=== PATIENT | female | born 1940 | race Caucasian/White ===

== ENCOUNTER 2017-10-17 12:23 | Inpatient (IN) | payer MEDICARE ==
[~2017-10-17] VITALS: Ht 160 cm; Wt 92.3 kg
[2017-10-17] VITALS (13 sets, daily range): BP systolic 135–157; BP diastolic 63–99
[~2017-10-17 12:23] MED LIST: ACHD5005 PO; ATOR40TA70 PO; CETI10CA PO; CHOL10002 PO; COLE1TAB PO; CYAN10007 PO; FAMO20TA5 PO; FAMO20TA73 PO; FLUC150T PO; HYDR50TA3 PO; INSU100I10 SC; INSU100V6 SQ; LISI40TA PO; MECL-105 PO; METF-380 PO; METF1000 PO; NFAMINITAB PO; POTA10TA36 PO; POTA20TA15 PO; Prednisone PO; SOLI5TAB4 PO; TR1C15 TOP; UBID200C2 PO; VITA400T9 PO; WARF2.5T PO; WARF2.5T10 PO
[2017-10-17] MEDS ORDERED: DILTIAZEM INJECTION 125 MG in NS (IVPB) 100 ML IV SCH (12:45)
[2017-10-17] MEDS ORDERED: ACETAMINOPHEN 500 MG TAB (TYLENOL) PO PRN (12:45)
[2017-10-17] MEDS ORDERED: HYDROcodone/APAP 5 MG/325 MG (LORTAB) TAB PO PRN (12:45)
[2017-10-17] MEDS ORDERED: PROMETHAZINE INJ 25 MG/ML (PHENERGAN) AMP IM PRN (12:45)
[2017-10-17] MEDS ORDERED: LACTULOSE SYRUP 10GM/15ML (ENULOSE) 30ML UDC PO PRN (12:45)
[2017-10-17] MEDS ORDERED: PROMETHAZINE 12.5 MG (PHENERGAN) SUPP PR PRN (12:45)
[2017-10-17] MEDS ORDERED: SCOPOLAMINE 1.5 MG (TRANSDERM-SCOP) PATCH TOP SCH (13:00)
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
--- OUTSIDE RECORDS SUMMARY | 2017-10-17 13:53 | XMS REPORT | Continuity of Care Document ---
Author Author [facility] Organization [facility] Address Unknown Phone Unavailable Allergies Active Description Code Type Severity Reaction Onset Reported/Identified Relationship to Patient Clinical Status Yes adhesive [id number] Drug Allergy Unknown N/A 11/09/2014 Yes codeine [id number] Drug Allergy Unknown N/V 11/09/2014 Yes Iodine and Iodide Containing Produc [id number] Drug Allergy Unknown ANAPHYLAXIS, RA 11/09/2014 Yes PERFUME PERFUME Unknown N/A 11/09/2014 Yes Sulfa (Sulfonamide Antibiotics) [id number] Drug Allergy Unknown NAUSEA AND VOMI 11/09/2014 Yes tramadol [id number] Drug Allergy Unknown NAUSEA AND VOMI 11/09/2014 Medications There is no data. Problems Date Dx Coded Attending Type Code Diagnosis Diagnosed By 11/09/2014 Ot V76.12 11/09/2014 Ot V76.12 11/16/2014 TRUONG DO, DREW F Ot 715.36 11/16/2014 TRUONG DO, DREW F Ot V72.63 11/16/2014 TRUONG DO, DREW F Ot V72.83 11/16/2014 TRUONG DO, DREW F Ot V74.8 11/16/2014 TRUONG DO, DREW F Ot 715.36 11/16/2014 TRUONG DO, DREW F Ot V72.63 11/16/2014 TRUONG DO, DREW F Ot V72.83 11/16/2014 TRUONG DO, DREW F Ot V74.8 11/16/2014 TRUONG DO, DREW F Ot 715.36 11/16/2014 TRUONG DO, DREW F Ot V72.63 11/16/2014 TRUONG DO, DREW F Ot V72.83 11/16/2014 TRUONG DO, DREW F Ot V74.8 11/24/2014 TRUONG DO, DREW F Ot 250.00 11/24/2014 TRUONG DO, DREW F Ot 272.0 11/24/2014 TRUONG DO, DREW F Ot 401.9 11/24/2014 TRUONG DO, DREW F Ot 530.81 11/24/2014 TRUONG DO, DREW F Ot 571.5 11/24/2014 TRUONG DO, DREW F Ot 715.36 11/25/2014 TRUONG DO, DREW F Ot 250.00 11/25/2014 TRUONG DO, DREW F Ot 272.0 11/25/2014 TRUONG DO, DREW F Ot 401.9 11/25/2014 TRUONG DO, DREW F Ot 530.81 11/25/2014 TRUONG DO, DREW F Ot 571.5 11/25/2014 TRUONG DO, DREW F Ot 715.36 11/29/2014 TRUONG DO, DREW F Ot 250.00 DIAB BRO WO COMPL, TYPE II OR UNSPEC TY 11/29/2014 TRUONG DO, DREW F Ot 272.0 PURE HYPERCHOLESTEROLEM 11/29/2014 TRUONG DO, DREW F Ot 285.1 AC POSTHEMORRHAG ANEMIA 11/29/2014 TRUONG DO, DREW F Ot 386.11 BENIGN PARXYSMAL VERTIGO 11/29/2014 TRUONG DO DREW F Ot 401.9 HYPERTENSION NOS 11/29/2014 TRUONG DO, DREW F Ot 530.81 ESOPHAGEAL REFLUX 11/29/2014 TRUONG DO, DREW F Ot 571.5 CIRRHOSIS OF LIVER NOS 11/29/2014 TRUONG DO, DREW F Ot 715.36 LOC OSTEOARTH NOS-L/LEG 11/29/2014 TRUONG DO DREW F Ot 729.1 MYALGIA AND MYOSITIS NOS 11/29/2014 TRUONG DO DREW F Ot 780.4 11/29/2014 TRUONG DO DREW F Ot 782.4 JAUNDICE NOS 11/29/2014 TRUONG DO, DREW F Ot 787.02 NAUSEA ALONE 11/29/2014 TRUONG DO DREW F Ot V58.67 LONG-TERM (CURRENT) USE OF INSULIN 11/29/2014 Ot V76.12 11/29/2014 TRUONG DO, DREW F Ot 250.00 11/29/2014 TRUONG DO, DREW F Ot 272.0 11/29/2014 TRUONG DO, DREW F Ot 285.1 11/29/2014 TRUONG DO, DREW F Ot 401.9 11/29/2014 TRUONG DO, DREW F Ot 530.81 11/29/2014 TRUONG DO, DREW F Ot 571.5 11/29/2014 TRUONG DO, DREW F Ot 715.36 11/29/2014 TRUONG DO, DREW F Ot 729.1 11/29/2014 TRUONG DO, DREW F Ot 780.4 11/29/2014 TRUONG DO, DREW F Ot 787.02 11/29/2014 TRUONG DO, DREW F Ot V58.67 11/29/2014 TRUONG DO, DREW F Ot 715.36 11/29/2014 TRUONG DO, DREW F Ot V72.63 11/29/2014 TRUONG DO, DREW F Ot V72.83 11/29/2014 TRUONG DO, DREW Gunter Ot V74.8 12/01/2014 SAMMY MCWILLIAMS, CLARK E Ot 250.00 12/01/2014 SAMMY MCWILLIAMS, CLARK E Ot 272.0 12/01/2014 SAMMY MCWILLIAMS, CLARK E Ot 285.9 12/01/2014 SAMMY MCWILLIAMS, CLARK E Ot 401.9 12/01/2014 SAMMY MCWILLIAMS, CLARK E Ot 530.81 12/01/2014 SAMMY MCWILLIAMS, CLARK E Ot 729.1 12/01/2014 SAMMY MCWILLIAMS, CLARK E Ot V43.65 12/01/2014 SAMMY MCWILLIAMS, CLARK E Ot V54.81 12/01/2014 SAMMY MCWILLIAMS, CLARK E Ot V57.89 12/01/2014 SAMMY MCWILLIAMS, CLARK E Ot 250.00 12/01/2014 SAMMY MCWILLIAMS, CLARK E Ot 272.0 12/01/2014 SAMMY MCWILLIAMS, CLARK E Ot 285.9 12/01/2014 SAMMY MCWILLIAMS, CLARK E Ot 401.9 12/01/2014 SAMMY MCWILLIAMS, CLARK E Ot 530.81 12/01/2014 SAMMY MCWILLIAMS, CLARK E Ot 729.1 12/01/2014 SAMMY MCWILLIAMS, CLARK E Ot V43.65 12/01/2014 SAMMY MCWILLIAMS, CLARK E Ot V54.81 12/01/2014 SAMMY MCWILLIAMS, CLARK E Ot V57.89 12/03/2014 SAMMY MCWILLIAMS, CLARK E Ot 250.00 12/03/2014 SAMMY MCWILLIAMS, CLARK E Ot 272.0 12/03/2014 SAMMY MCWILLIAMS, CLARK E Ot 285.9 12/03/2014 SAMMY MCWILLIAMS, CLARK E Ot 401.9 12/03/2014 SAMMY MCWILLIAMS, CLARK E Ot 530.81 12/03/2014 CLARK CHRISTIANSON MD Ot 729.1 12/03/2014 CLARK CHRISTIANSON MD Ot V43.65 12/03/2014 CLARK CHRISTIANSON MD Ot V54.81 12/03/2014 CLARK CHRISTIANSON MD Ot V57.89 12/04/2014 CLARK CHRISTIANSON MD E Ot 250.00 DIAB BRO WO COMPL, TYPE II OR UNSPEC TY 12/04/2014 CLARK CHRISTIANSON MD Ot 272.0 PURE HYPERCHOLESTEROLEM 12/04/2014 CLARK CHRISTIANSON MD E Ot 285.9 ANEMIA NOS 12/04/2014 CLARK CHRISTIANSON MD E Ot 401.9 HYPERTENSION NOS 12/04/2014 CLARK CHRISTIANSON MD Ot 530.81 ESOPHAGEAL REFLUX 12/04/2014 CLARK CHRISTIANSON MD Ot 729.1 MYALGIA AND MYOSITIS NOS 12/04/2014 CLARK CHRISTIANSON MD Ot 736.79 ACQ ANKLE-FOOT DEF NEC 12/04/2014 CLARK CHRISTIANSON MD Ot E932.0 ADV EFF CORTICOSTEROIDS 12/04/2014 CLARK CHRISTIANSON MD Ot V43.65 KNEE JOINT REPLACEMENT STATUS 12/04/2014 CLARK CHRISTIANSON MD Ot V54.81 AFTERCARE FOLLOWING JOINT REPLACEMENT 12/04/2014 CLARK CHRISTIANSON MD Ot V57.89 REHABILITATION PROC NEC 12/14/2014 TRUONG DO, DREW F Ot 715.36 12/14/2014 TRUONG DO, DREW F Ot V72.63 12/14/2014 TRUONG DO, DREW F Ot V72.83 12/14/2014 TRUONG DO, DREW F Ot V74.8 12/24/2014 TRUONG DO, DREW F Ot 715.36 12/24/2014 TRUONG DO, DREW F Ot V72.63 12/24/2014 TRUONG DO, DREW F Ot V72.83 12/24/2014 TRUONG DO, DREW F Ot V74.8 01/13/2015 TRUONG DO, DREW F Ot 715.36 01/13/2015 TRUONG DO, DREW F Ot V72.63 01/13/2015 TRUONG DO, DREW F Ot V72.83 01/13/2015 TRUONG DO, DREW F Ot V74.8 01/20/2015 TRUONG DO, DREW F Ot 715.36 01/20/2015 TRUONG DO, DREW F Ot V72.63 01/20/2015 TRUONG DO, DREW Gunter Ot V72.83 01/20/2015 TRUONG DO, DREW Gunter Ot V74.8 01/21/2015 TRUONG DO, DREW Gunter Ot 715.36 01/21/2015 TRUONG DO, DREW Gunter Ot V72.63 01/21/2015 TRUONG DO, DREW Gunter Ot V72.83 01/21/2015 TRUONG DO, DREW Gunter Ot V74.8 03/11/2016 TRUONG DO, DREW Gunter Ot 715.36 LOC OSTEOARTH NOS-L/LEG 03/11/2016 TRUONG DO, DREW Gunter Ot V72.63 PRE-PROCEDURAL LABORATORY EXAMINATION 03/11/2016 TRUONG DO, DREW Gunter Ot V72.83 EXAM PRE-OPERATIVE NEC 03/11/2016 TRUONG DO, DREW Gunter Ot V74.8 SCREEN-BACTERIAL DIS NEC 09/04/2017 TRUONG DO, DREW Gunter Ot 715.36 LOC OSTEOARTH NOS-L/LEG 09/04/2017 TRUONG DO, DREW Gunter Ot V72.63 PRE-PROCEDURAL LABORATORY EXAMINATION 09/04/2017 TRUONG DO, DREW Gunter Ot V72.83 EXAM PRE-OPERATIVE NEC 09/04/2017 TRUONG DO, DREW Gunter Ot V74.8 SCREEN-BACTERIAL DIS NEC 09/05/2017 TRUONG DO, DREW Gunter Ot 715.36 LOC OSTEOARTH NOS-L/LEG 09/05/2017 TRUONG DO, DREW Gunter Ot V72.63 PRE-PROCEDURAL LABORATORY EXAMINATION 09/05/2017 TRUONG DO, DREW Gunter Ot V72.83 EXAM PRE-OPERATIVE NEC 09/05/2017 TRUONG DO, DREW Gunter Ot V74.8 SCREEN-BACTERIAL DIS NEC Procedures Code Description Performed By Performed On 81.54 TOTAL KNEE REPLACEMENT 11/23/2014 Results There is no data. Encounters ACCT No. Visit Date/Time Discharge Status Pt. Type Provider Facility Loc./Unit Complaint [id number] 11/29/2014 14:53:00 12/04/2014 11:30:00 DIS Inpatient CLARK CHRISTIANSON MD [facility] IRF IRF TOTAL KNEE REPLACEMENT [id number] 11/23/2014 05:58:00 11/29/2014 14:53:00 DIS Inpatient TRUONG ROSAS DREW Gunter [facility] SURGICAL DEGENERATIVE DISK DISEASE RIGHT KNEE [id number] 11/09/2014 11:46:00 11/09/2014 23:59:59 CLS Outpatient DREW GUERIN DO [facility] PREOP DEGENERATIVE DISK DISEASE RIGHT KNEE [id number] 10/17/2017 13:30:00 ACT Inpatient MOY LOGAN DO [facility] ICU AFIB WITH RVR [id number] 06/20/2009 13:23:00 Document Registration
[2017-10-17 14:31] LABS: BASOPHILS % (AUTO) 0 % (0-10); EOSINOPHILS # (AUTO) 0.1 10^3/uL (0.0-0.3); EOSINOPHILS % (AUTO) 1 % (0-10); HEMATOCRIT 31 % (35-52); HEMOGLOBIN 10.8 G/DL (11.5-16.0); LYMPHOCYTES # (AUTO) 0.9 X 10^3 (1.0-4.0); LYMPHOCYTES % (AUTO) 8 % (12-44); MEAN CORPUSCULAR HEMOGLOBIN 29 PG (25-34); MEAN CORPUSCULAR HGB CONC 35 G/DL (32-36); MEAN CORPUSCULAR VOLUME 83 FL (80-99); MEAN PLATELET VOLUME 10.1 FL (7.4-10.4); MONOCYTES # (AUTO) 1.1 X 10^3 (0.0-1.0); MONOCYTES % (AUTO) 10 % (0-12); NEUTROPHILS % (AUTO) 81 % (42-75); PLATELET COUNT 207 10^3/uL (130-400); RED BLOOD COUNT 3.78 10^6/uL (4.35-5.85); RED CELL DISTRIBUTION WIDTH 13.5 % (10.0-14.5)
[2017-10-17] MEDS ORDERED: RT-ALBUTEROL/IPRATROPIUM 3 ML (DUONEB) VIAL INH PRN (14:45)
[2017-10-17 14:54] LABS: ALANINE AMINOTRANSFERASE 17 U/L (0-55); ALBUMIN 3.3 GM/DL (3.2-4.5); ALKALINE PHOSPHATASE 52 U/L (40-136); BILIRUBIN,TOTAL 1.5 MG/DL (0.1-1.0); BUN/CREATININE RATIO 17; CALCIUM 9.3 MG/DL (8.5-10.1); CARBON DIOXIDE 32 MMOL/L (21-32); CHLORIDE 95 MMOL/L (98-107); CREATININE SERUM 0.71 MG/DL (0.60-1.30); GFR ESTIMATED > 60; GLUCOSE 223 MG/DL (70-105); POTASSIUM 3.5 MMOL/L (3.6-5.0); SODIUM 134 MMOL/L (135-145); TOTAL PROTEIN 6.2 GM/DL (6.4-8.2)
[2017-10-17 14:58] LABS: LYMPHOCYTES % (MANUAL) 4 %; MONOCYTES % (MANUAL) 9 %; NEUTROPHILS % (MANUAL) 87 %
[2017-10-17 14:59] LABS: RBC MORPH NORMAL
[2017-10-17] MEDS ORDERED: HYDR50TA3 PO (15:01)
[2017-10-17] MEDS ORDERED: LIRA0.6P SC (15:01)
[2017-10-17] MEDS ORDERED: FAMO20TA5 PO (15:01)
[2017-10-17] MEDS ORDERED: METF1000 PO (15:01)
[2017-10-17] MEDS ORDERED: HYDR-3816 PO (15:01)
[2017-10-17] MEDS ORDERED: NF-SOLIF5T PO (15:01)
[2017-10-17] MEDS ORDERED: LISI40TA PO (15:01)
[2017-10-17] MEDS ORDERED: INSU100I10 SC (15:01)
[2017-10-17] MEDS ORDERED: MECL-106 PO (15:11)
[2017-10-17] MEDS ORDERED: CHOL10007 PO (15:11)
[2017-10-17] MEDS ORDERED: COLE1TAB PO (15:11)
[2017-10-17] MEDS ORDERED: CYAN10006 PO (15:11)
[2017-10-17] MEDS ORDERED: CETI10TA17 PO (15:11)
[2017-10-17] MEDS ORDERED: VITA400C60 PO (15:11)
[2017-10-17] MEDS ORDERED: UBID200C16 PO (15:11)
[2017-10-17] MEDS ORDERED: VIT1CAPS9 PO (15:11)
[2017-10-17] MEDS ORDERED: ATOR40TA70 PO (15:11)
[2017-10-17] MEDS: NS IV 1000 ML 1,000 ML IV SCH (15:13)
--- NOTE | 2017-10-17 15:15 | Pulmonary Consultation ---
History of Present Illness History of Present Illness Date of Consultation 10/17/17 15:14 Time Seen by Provider: 15:14 Date of Admission Allergies and Home Medications Allergies Coded Allergies: Iodine and Iodide Containing Produc (Verified Allergy, Unknown, ANAPHYLAXIS, RASH, 11/09/14) Sulfa (Sulfonamide Antibiotics) (Unverified Allergy, Unknown, NAUSEA AND VOMITING, 11/09/14) adhesive (Unverified Allergy, Unknown, 11/09/14) codeine (Unverified Allergy, Unknown, N/V , 11/09/14) tramadol (Unverified Allergy, Unknown, NAUSEA AND VOMITING, 11/09/14) Uncoded Allergies: PERFUME (Allergy, Unknown, 11/09/14) Home Medications Atorvastatin Calcium 40 Mg Tablet, 40 MG PO HS, (Reported) LAST FILLED #90 05-21-17 Cetirizine HCl 10 Mg Tablet, 10 MG PO DAILY PRN for ALLERGIES, (Reported) Cholecalciferol (Vitamin D3) 1,000 Unit Capsule, 1,000 UNIT PO DAILY, (Reported) Colestipol HCl 1 Gm Tablet, 1 GM PO QID PRN for DIARRHEA, (Reported) Cyanocobalamin (Vitamin B-12) 1,000 Mcg Tablet, 1,000 MCG PO DAILY, (Reported) Famotidine 20 Mg Tablet, 20 MG PO DAILY, (Reported) Hydrochlorothiazide 50 Mg Tablet, 50 MG PO DAILY, (Reported) Hydrocodone/Acetaminophen 1 Each Tablet, 1 TAB PO Q4H PRN for PAIN-MODERATE, ( Reported) Insulin Glargine,Hum.rec.anlog 100 Unit/1 Ml Insuln.pen, 60-105 UNITS SC DAILY, (Reported) Liraglutide 0.6 Mg/0.1 Ml Pen.injctr, 1.8 MG SC HS, (Reported) Lisinopril 40 Mg Tablet, 40 MG PO DAILY, (Reported) Meclizine HCl 25 Mg Tablet, 25 MG PO TID PRN for DIZZINESS, (Reported) Metformin HCl 1,000 Mg Tablet, 1,000 MG PO BID WITH MEALS, (Reported) Solifenacin Succinate 5 Mg Tablet, 5 MG PO HS, (Reported) Ubidecarenone 200 Mg Capsule, 200 MG PO DAILY, (Reported) Vit C/Vit E/Lutein/Min/[place]-3 1 Each Capsule, 1 CAP PO DAILY, (Reported) Vitamin E Acetate 400 Unit Capsule, 400 UNIT PO DAILY, (Reported) Past Cdgwmyx-Tazcpx-Jinfjs Hx Patient Social History Alcohol Use: Denies Use Recreational Drug Use: No Smoking Status: Former Smoker Recent Foreign Travel: No Contact w/Someone Who Travel: No Recent Infectious Disease Expo: No Recent Hopitalizations: No Immunizations Up To Date Tetanus Booster (TDap): Less than 5yrs Date of Pneumonia Vaccine: May 05, 2014 Date of Influenza Vaccine: Jun 19, 2017 Seasonal Allergies Seasonal Allergies: No Surgeries History of Surgeries: Yes (EXPLORATORY LAP, LEFT OOPHERECTOMY) Respiratory History of Respiratory Disorde: Yes (ALLERGIES) Cardiovascular History of Cardiac Disorders: Yes Neurological History of Neurological Disord: Yes (INNER EAR PROBLEMS CAUSING DIZZINESS) Reproductive System Hx Reproductive Disorders: No Sexually Transmitted Disease: No HIV/AIDS: No Female Reproductive Disorders: Denies Genitourinary History of Genitourinary Disor: No Gastrointestinal History of Gastrointestinal Di: Yes Gastrointestinal Disorders: Cirrhosis Musculoskeletal History of Musculoskeletal Dis: Yes (DEGENERATIVE JOINT DISEASE) Musculoskeletal Disorders: Arthritis, Fibromyalgia Endocrine History of Endocrine Disorders: Yes Endocrine Disorders: Diabetes, Insulin dep HEENT History of HEENT Disorders: Yes HEENT Disorders: Cataract Loss of Vision: Denies Hearing Impairment: Denies Cancer History of Cancer: No Psychosocial History of Psychiatric Problem: No Integumentary History of Skin or Integumenta: Yes (DRY SKIN) Blood Transfusions History of Blood Disorders: No Adverse Reaction to a Blood Tr: No Family Medical History Family Medial History: Asthma 19 MOTHER Cardiovascular disease 19 FATHER Coronary thrombosis 19 FATHER 19 MOTHER Fibromyalgia 19 MOTHER Osteoporosis 19 MOTHER Exam Exam Vital Signs Date Time Temp Pulse Resp B/P (MAP) Pulse Ox O2 Delivery O2 Flow Rate FiO2 10/17/17 14:32 110 97 28 10/17/17 14:30 96 19 140/70 (93) 97 Nasal Cannula 2.00 10/17/17 14:15 94 9 138/74 (95) 95 Nasal Cannula 2.00 10/17/17 14:00 97 14 141/74 (96) 99 Nasal Cannula 2.00 10/17/17 13:51 110 10/17/17 13:45 105 12 148/75 (99) 95 Nasal Cannula 2.00 10/17/17 13:40 97 Nasal Cannula 2.00 Results Lab Laboratory Tests 10/17/17 14:24 KAROLINA SCHWARTZ DO Oct 17, 2017 15:14
[2017-10-17] MEDS: ONDANSETRON 4 MG/2 ML (SDV) Z0FRAN IVP PRN ×2 (15:18→20:08)
[2017-10-17] MEDS: fentaNYL INJECTION 100 MCG/2 ML AMP IVP PRN ×2 (15:19→20:08)
--- NOTE | 2017-10-17 16:08 | Diagnostic Imaging Report ---
Procedure: PA and lateral chest at 3:12. Indication: Preop total knee replacement. Findings: The heart size is within normal limits and stable when compared to 11/09/2014. In the interval since the previous exam, minimal atelectasis/scar formation has developed in the left costophrenic angle. The lungs are otherwise clear. There is no sign of failure, pneumonia or pleural effusion to indicate an acute abnormality. The mediastinum is not widened. The osseous structures are intact. The orthopedic fixation screws and the orthopedic hardware overlying the humeral heads seen previously are again evident and no different. There is also been a prior fusion of the upper lumbar spine. Impression: There is no evidence for an acute cardiopulmonary abnormality. Dictated by: Dictated on workstation # [id number]
[2017-10-17] MEDS ORDERED: BISACODYL 10 MG SUPP (DULCOLAX) PR NR (17:15)
[2017-10-17] MEDS: POTASSIUM CL 10MEQ/50ML IVPB 50 ML IV SCH ×2 (17:20→19:02)
--- NOTE | 2017-10-17 17:28 | Consultation-Cardiology ---
HPI-Cardiology Cardiology Consultation Date of Consultation 10/17/17 Date of Admission Time Seen by Provider: 17:22 Indication: Atrial fibrillation HPI 77 years old lady with history of hypertension, hyperlipidemia, diabetes mellitus and fibromyalgia. Underwent back surgery 2 days ago and she was scheduled to go to rehabilitation today. She went to atrial fibrillation with rapid ventricular response, continue to have tachycardia, did not respond initially to treatment, transferred to our facility for further management. Upper arrival to the ICU patient appeared to be converted to sinus rhythm, continue to have few episodes of tachycardia and frequent atrial premature contractions. On my evaluation she reported that she felt some palpitation, has been having palpitation on and off. Had history of atrial fibrillation in the past. Currently complaining of nausea and vomiting. Mild abdominal discomfort in addition to constipation. Denied any fever or chills. No chest pain was reported Home Medications & Allergies Allergies: Coded Allergies: Iodine and Iodide Containing Produc (Verified Allergy, Unknown, ANAPHYLAXIS, RASH, 11/09/14) Sulfa (Sulfonamide Antibiotics) (Unverified Allergy, Unknown, NAUSEA AND VOMITING, 11/09/14) adhesive (Unverified Allergy, Unknown, 11/09/14) codeine (Unverified Allergy, Unknown, N/V , 11/09/14) tramadol (Unverified Allergy, Unknown, NAUSEA AND VOMITING, 11/09/14) Uncoded Allergies: PERFUME (Allergy, Unknown, 11/09/14) Home Medication List Reviewed: Yes BKO-Lzhqwt-Ydvdpm Hx Patient Social History Alcohol Use: Denies Use Recreational Drug Use: No Smoking Status: Former Smoker Recent Foreign Travel: No Recent Infectious Disease Expo: No Recent Hopitalizations: No Physical Abuse Screen: No Sexual Abuse: No Immunizations Up To Date Tetanus Booster (TDap): Less than 5yrs Date of Pneumonia Vaccine: May 05, 2014 Date of Influenza Vaccine: Jun 19, 2017 Past Medical History Past medical history as discussed below Family Medical History Family Medical Hx Noncontributory to her current condition Family History: Asthma 19 MOTHER Cardiovascular disease 19 FATHER Coronary thrombosis 19 FATHER 19 MOTHER Fibromyalgia 19 MOTHER Osteoporosis 19 MOTHER Constitutional: see HPI, malaise, weakness EENTM: see HPI, no symptoms reported Respiratory: see HPI, No cough, No dyspnea on exertion, No hemoptysis, No orthopnea, No phlegm, No short of breath, No stridor, No wheezing, No other Cardiovascular: see HPI, No chest pain, No edema, No Hx of Intervention, palpitations, No syncope, No vascular heart diseas, No other Gastrointestinal: see HPI, abdominal pain, constipation, nausea, vomiting Genitourinary: no symptoms reported, see HPI Musculoskeletal: see HPI, back pain, joint pain, muscle pain Skin: no symptoms reported, see HPI Psychiatric/Neurological: No Symptoms Reported, See HPI Reviewed Test Results Reviewed Test Results Lab Laboratory Tests Test 10/17/17 14:24 Range/Units White Blood Count 11.0 4.3-11.0 10^3/uL Red Blood Count 3.78 L 4.35-5.85 10^6/uL Hemoglobin 10.8 L 11.5-16.0 G/DL Hematocrit 31 L 35-52 % Mean Corpuscular Volume 83 80-99 FL Mean Corpuscular Hemoglobin 29 25-34 PG Mean Corpuscular Hemoglobin Concent 35 32-36 G/DL Red Cell Distribution Width 13.5 10.0-14.5 % Platelet Count 207 130-400 10^3/uL Mean Platelet Volume 10.1 7.4-10.4 FL Neutrophils (%) (Auto) 81 H 42-75 % Lymphocytes (%) (Auto) 8 L 12-44 % Monocytes (%) (Auto) 10 0-12 % Eosinophils (%) (Auto) 1 0-10 % Basophils (%) (Auto) 0 0-10 % Neutrophils # (Auto) 9.0 H 1.8-7.8 X 10^3 Lymphocytes # (Auto) 0.9 L 1.0-4.0 X 10^3 Monocytes # (Auto) 1.1 H 0.0-1.0 X 10^3 Eosinophils # (Auto) 0.1 0.0-0.3 10^3/uL Basophils # (Auto) 0.0 0.0-0.1 10^3/uL Neutrophils % (Manual) 87 % Lymphocytes % (Manual) 4 % Monocytes % (Manual) 9 % Blood Morphology Comment NORMAL Sodium Level 134 L 135-145 MMOL/L Potassium Level 3.5 L 3.6-5.0 MMOL/L Chloride Level 95 L 98-107 MMOL/L Carbon Dioxide Level 32 21-32 MMOL/L Anion Gap 7 5-14 MMOL/L Blood Urea Nitrogen 12 7-18 MG/DL Creatinine 0.71 0.60-1.30 MG/DL Estimat Glomerular Filtration Rate > 60 BUN/Creatinine Ratio 17 Glucose Level 223 H 70-105 MG/DL Calcium Level 9.3 8.5-10.1 MG/DL Total Bilirubin 1.5 H 0.1-1.0 MG/DL Aspartate Amino Transf (AST/SGOT) 19 5-34 U/L Alanine Aminotransferase (ALT/SGPT) 17 0-55 U/L Alkaline Phosphatase 52 40-136 U/L Troponin I < 0.30 <0.30 NG/ML B-Type Natriuretic Peptide 57.3 <100.0 PG/ML Total Protein 6.2 L 6.4-8.2 GM/DL Albumin 3.3 3.2-4.5 GM/DL Physical Exam Vital Signs Vital Signs - First Documented 10/17/17 10/17/17 10/17/17 13:40 13:45 14:32 Temp 98.3 Pulse 105 Resp 12 B/P (MAP) 148/75 (99) Pulse Ox 97 O2 Delivery Nasal Cannula O2 Flow Rate 2.00 FiO2 28 Capillary Refill : General Appearance: No Apparent Distress, WD/WN Eyes: Bilateral Eye Normal Inspection, Bilateral Eye PERRL, Bilateral Eye EOMI HEENT: PERRL/EOMI, TMs Normal, Normal ENT Inspection, Pharynx Normal Neck: Full Range of Motion, Normal Inspection, Non Tender, Supple, Carotid Bruit Respiratory: Chest Non Tender, Lungs Clear, Normal Breath Sounds, No Accessory Muscle Use, No Respiratory Distress Cardiovascular: Regular Rate, Rhythm, No Edema, No Gallop, No JVD, No Murmur, Normal Peripheral Pulses Gastrointestinal: Normal Bowel Sounds, No Organomegaly, No Pulsatile Mass, Non Tender, Soft Back: Normal Inspection, No CVA Tenderness, No Vertebral Tenderness Extremity: Normal Capillary Refill, Normal Inspection, Normal Range of Motion, Non Tender, No Calf Tenderness, No Pedal Edema Neurologic/Psychiatric: Alert, Oriented x3, No Motor/Sensory Deficits, Normal Mood/Affect Skin: Normal Color, Warm/Dry Lymphatic: No Adenopathy A/P-Cardiology Admission Diagnosis Paroxysmal atrial fibrillation Hypertension Hyperlipidemia Diabetes mellitus Assessment/Plan Atrial fibrillation with rapid ventricular response, patient reporting history of atrial fibrillation in the past, occasional episodes of palpitation, currently converted to sinus rhythm, I'll continue with beta blockers. Switch her to oral beta blockers and monitor her tolerance and response. [id number] score is 5, yearly risk of stroke without oral anticoagulation is 6.7 percent, patient will need to be on oral anticoagulation unless proven that she is not in paroxysmal atrial fibrillation. Hypertension, poorly controlled, started back on beta blockers, I will restart MAC inhibitor and monitor blood pressure closely Hyperlipidemia, monitor lipids Diabetes mellitus, monitor and managed by primary care physician Obesity, BMI is 36. Generalized fatigue, shortness of breath, high risk for underlying sleep apnea, consider sleep study as an outpatient. Fibromyalgia, multiple complain about joint and back pain. Status post recent back surgery done by Dr. Mejia, done on October 14, 2017. Managed by orthopedic surgeon. Clinical Quality Measures DVT/VTE Risk/Contraindication: Risk Factor Score Per Nursin RFS Level Per Nursing on Admit: 4+=Very High GEORGE CULLEN MD Oct 17, 2017 17:28
[2017-10-17] MEDS ORDERED: PANTOPRAZOLE 40 MG (PROTONIX) TAB PO NR (17:30)
[2017-10-17] MEDS ORDERED: meTOprolol 5 MG/5 ML (LOPRESSOR) VIAL IV NR (17:30)
[2017-10-17] MEDS ORDERED: ANTACID SUSP 30 ML UDC (MYLANTA) PO PRN (17:30)
[2017-10-17] MEDS: MECLIZINE 25 MG (ANTIVERT) TAB PO PRN (18:25)
[2017-10-17] MEDS: meTOprolol TARTRATE 25 MG (LOPRESSOR) TABLET PO SCH (20:07)
[2017-10-17] MEDS: DOCUSATE SODIUM 100 MG (COLACE) CAP PO SCH (20:08)
[2017-10-17] MEDS ORDERED: inSUlin DETERMIR 1 UNIT/0.01 ML (LEVEMIR) CHARGE PER UNIT SQ SCH (22:30)
[2017-10-18] VITALS (9 sets, daily range): BP systolic 98–140; BP diastolic 42–96
[2017-10-18] MEDS: fentaNYL INJECTION 100 MCG/2 ML AMP IVP PRN ×2 (00:52→05:14)
[2017-10-18 02:32] LABS: BASOPHILS % (AUTO) 0 % (0-10); EOSINOPHILS # (AUTO) 0.2 10^3/uL (0.0-0.3); EOSINOPHILS % (AUTO) 1 % (0-10); HEMATOCRIT 31 % (35-52); HEMOGLOBIN 10.6 G/DL (11.5-16.0); LYMPHOCYTES % (AUTO) 15 % (12-44); MEAN CORPUSCULAR HEMOGLOBIN 29 PG (25-34); MEAN CORPUSCULAR HGB CONC 34 G/DL (32-36); MEAN CORPUSCULAR VOLUME 83 FL (80-99); MEAN PLATELET VOLUME 10.5 FL (7.4-10.4); MONOCYTES # (AUTO) 1.4 X 10^3 (0.0-1.0); MONOCYTES % (AUTO) 11 % (0-12); NEUTROPHILS # (AUTO) 9.1 X 10^3 (1.8-7.8); NEUTROPHILS % (AUTO) 72 % (42-75); PLATELET COUNT 298 10^3/uL (130-400); RED BLOOD COUNT 3.72 10^6/uL (4.35-5.85); RED CELL DISTRIBUTION WIDTH 13.4 % (10.0-14.5); WHITE BLOOD COUNT 12.7 10^3/uL (4.3-11.0)
--- NOTE | 2017-10-18 02:34 | Pulmonary Progress Note ---
Subjective Time Seen by Provider: 02:33 Subjective/Events-last exam pt is doing better. No complications noted. PT is now sinus. Exam Exam Vital Signs Date Time Temp Pulse Resp B/P (MAP) Pulse Ox O2 Delivery O2 Flow Rate FiO2 10/18/17 02:00 65 20 124/96 (105) 93 Nasal Cannula 2.00 10/18/17 01:00 70 16 111/72 (85) 94 Nasal Cannula 2.00 10/18/17 01:00 70 10/18/17 00:00 75 11 140/70 (93) 93 Nasal Cannula 2.00 10/18/17 00:00 94 Room Air 10/17/17 23:00 72 16 135/63 (87) 91 Nasal Cannula 2.00 10/17/17 22:00 85 16 137/71 (93) 92 Nasal Cannula 2.00 10/17/17 21:00 67 15 145/99 (114) 94 Nasal Cannula 2.00 10/17/17 20:05 99 Nasal Cannula 2.00 10/17/17 20:00 98.6 10/17/17 20:00 93 13 150/72 (98) 94 Nasal Cannula 2.00 10/17/17 19:55 97 Nasal Cannula 1.00 10/17/17 19:00 91 10 137/66 (89) 98 Nasal Cannula 2.00 10/17/17 19:00 91 10/17/17 18:00 92 11 150/92 (111) 98 Nasal Cannula 2.00 10/17/17 17:00 92 12 157/87 (110) 97 Nasal Cannula 2.00 10/17/17 16:59 98.8 Nasal Cannula 2.00 10/17/17 16:39 99 Nasal Cannula 2.00 10/17/17 16:00 91 19 144/73 (96) 99 Nasal Cannula 2.00 10/17/17 15:00 98 8 154/81 (105) 99 Nasal Cannula 2.00 10/17/17 14:32 110 97 28 10/17/17 14:30 96 19 140/70 (93) 97 Nasal Cannula 2.00 10/17/17 14:15 94 9 138/74 (95) 95 Nasal Cannula 2.00 10/17/17 14:00 97 14 141/74 (96) 99 Nasal Cannula 2.00 10/17/17 13:51 110 10/17/17 13:45 105 12 148/75 (99) 95 Nasal Cannula 2.00 10/17/17 13:40 97 Nasal Cannula 2.00 10/17/17 13:40 98.3 Nasal Cannula 2.00 I & O 10/18/17 07:00 Intake Total 550 ml Balance 550 ml General Appearance: No Apparent Distress, WD/WN HEENT: PERRL/EOMI, TMs Normal, Normal ENT Inspection, Pharynx Normal Neck: Full Range of Motion, Normal Inspection, Non Tender, Supple, Carotid Bruit Respiratory: Chest Non Tender, Lungs Clear, Normal Breath Sounds, No Accessory Muscle Use, No Respiratory Distress Cardiovascular: Regular Rate, Rhythm, No Edema, No Gallop, No JVD, No Murmur, Normal Peripheral Pulses Extremity: Normal Capillary Refill, Normal Inspection, Normal Range of Motion, Non Tender, No Calf Tenderness, No Pedal Edema Neurologic/Psychiatric: Alert, Oriented x3, No Motor/Sensory Deficits, Normal Mood/Affect Skin: Normal Color, Warm/Dry Lymphatic: No Adenopathy Results Lab Laboratory Tests 10/17/17 14:24 Assessment/Plan Assessment/Plan Paroxysmal Afib- Now sinus -Cardiology following -IVF Hypoxia -Now on RA HTN DM Fibromyalgia, multiple complain about joint and back pain. Status post recent back surgery done by Dr. Mejia, done on October 14, 2017. pt is doing better will transfer to 4th floor with tele. 232 KAROLINA SCHWARTZ DO Oct 18, 2017 02:34
[2017-10-18 03:01] LABS: BUN/CREATININE RATIO 17; CARBON DIOXIDE 29 MMOL/L (21-32); CHLORIDE 97 MMOL/L (98-107); CREATININE SERUM 0.72 MG/DL (0.60-1.30); GFR ESTIMATED > 60; GLUCOSE 135 MG/DL (70-105); MAGNESIUM 1.3 MG/DL (1.8-2.4); PHOSPHORUS 2.9 MG/DL (2.3-4.7); POTASSIUM 3.5 MMOL/L (3.6-5.0); SODIUM 135 MMOL/L (135-145)
[2017-10-18] MEDS ORDERED: MAGNESIUM 1 GM/100 ML IVPB 400 ML IV ONE (03:32)
[2017-10-18] MEDS: MAGNESIUM 1 GM/100 ML IVPB 100 ML IV SCH ×4 (03:39→08:56)
[2017-10-18] MEDS ORDERED: MAGNESIUM 1 GM/100 ML IVPB 100 ML IV SCH (06:00)
[2017-10-18] MEDS ORDERED: POTASSIUM CL 10MEQ/50ML IVPB 50 ML IV SCH (06:00)
[2017-10-18] MEDS ORDERED: KCL 20 MEQ TAB (K-DUR) PO SCH (06:00)
[2017-10-18] MEDS: ONDANSETRON 4 MG/2 ML (SDV) Z0FRAN IVP PRN (06:30)
[2017-10-18] MEDS: inSUlin ASPART (NovoLOG) 1 UNIT/0.01 ML (CHARGE PER UNIT) SC SCH ×2 (06:31→14:34)
[2017-10-18] MEDS: NS IV 1000 ML 1,000 ML IV SCH (06:32)
[2017-10-18] MEDS ORDERED: PANTOPRAZOLE 40 MG (PROTONIX) TAB PO SCH (07:00)
--- NOTE | 2017-10-18 07:36 | Cardiology Progress Note ---
Subjective Date Seen by Provider: Oct 18, 2017 Time Seen by Provider: 07:33 Subjective/Events-last exam Patient is laying down in bed, complaining of back and leg pain. No chest pain. Has been in sinus rhythm. Review of Systems General: No Chills, No Night Sweats, No Fatigue, No Malaise, No Appetite, No Other HEENT: No Head Aches, No Visual Changes, No Eye Pain, No Ear Pain, No Dysphasia , No Sinus Congestion, No Post Nasal Drip, No Sore Throat, No Other Pulmonary: No Dyspnea, No Cough, No Pleuritic Chest Pain, No Other Cardiovascular: No: Chest Pain, Palpitations, Orthopnea, Paroxysmal Noc. Dyspnea, Edema, Lt Headedness, Other Objective-Cardiology Exam Last Set of Vital Signs Vital Signs 10/17/17 10/18/17 14:32 06:00 Pulse 73 Resp 15 B/P (MAP) 98/42 (60) Pulse Ox 92 O2 Delivery Nasal Cannula O2 Flow Rate 2.00 FiO2 28 Capillary Refill : I&O Intake and Output 10/18/17 00:00 Intake Total 350 ml Balance 350 ml Intake Oral 300 ml IV Total 50 ml # Voids 4 # Bowel Movements 1 Daily Weight Change No General: Alert, Oriented X3, Cooperative HEENT: Atraumatic, PERRLA Neck: Supple, No JVD, No Thyromegaly Lungs: Clear to Auscultation, Normal Air Movement Heart: Regular Rate, Normal S1, Normal S2, No Murmurs Abdomen: Normal Bowel Sounds, Soft, No Tenderness, No Hepatosplenomegaly, No Masses Extremities: No Clubbing, No Cyanosis, No Edema, Normal Pulses, No Tenderness/ Swelling Skin: No Rashes, No Breakdown, No Significant Lesion Neuro: Normal Gait, Normal Speech, Strength at 5/5 X4 Ext, Normal Tone, Sensation Intact Psych/Mental Status: Mental Status NL, Mood NL Results Lab Laboratory Tests 10/17/17 14:24 10/18/17 02:20 A/P-Cardiology Admission Diagnosis Paroxysmal atrial fibrillation Hypertension Hyperlipidemia Diabetes mellitus Assessment/Plan Paroxysmal Atrial fibrillation with rapid ventricular response, patient reporting history of atrial fibrillation in the past, occasional episodes of palpitation, currently converted to sinus rhythm, continue on beta blockers [id number] score is 5, yearly risk of stroke without oral anticoagulation is 6.7 percent, patient will need to be on oral anticoagulation once approved by the orthopedic surgeon. Will need further workup as an outpatient to rule out any further episodes of atrial fibrillation Hypertension, better control at this time, continue to monitor blood pressure and continue current medications Hyperlipidemia, monitor lipids Diabetes mellitus, monitor and managed by primary care physician Obesity, BMI is 36. Generalized fatigue, shortness of breath, high risk for underlying sleep apnea, consider sleep study as an outpatient. Fibromyalgia, multiple complain about joint and back pain. Status post recent back surgery done by Dr. Mejia, done on October 14, 2017. Managed by orthopedic surgeon. From cardiology standpoint patient can be discharged to rehabilitation, start physical therapy, follow-up with Dr. Avila Clinical Quality Measures DVT/VTE Risk/Contraindication: Risk Factor Score Per Nursin RFS Level Per Nursing on Admit: 4+=Very High GEORGE CULLEN MD Oct 18, 2017 07:36
[2017-10-18] MEDS: meTOprolol TARTRATE 25 MG (LOPRESSOR) TABLET PO SCH (08:56)
[2017-10-18] MEDS: DOCUSATE SODIUM 100 MG (COLACE) CAP PO SCH (08:57)
[2017-10-18] MEDS ORDERED: lisINopril 20 MG (PRINIVIL) TABLET PO SCH (09:00)
[2017-10-18] MEDS ORDERED: APIXABAN 5 MG (ELIQUIS) TABLET PO SCH (09:00)
[2017-10-18] MEDS: HYDROcodone/APAP 10 MG/325 MG (LORTAB) TAB PO PRN ×3 (09:02→14:35)
--- NOTE | 2017-10-18 09:36 | Diagnostic Imaging Report ---
INDICATION: Atrial fibrillation with rapid ventricular response.. TECHNIQUE: Single view chest 2:01 AM. CORRELATION STUDY: 10/17/2017 FINDINGS: Heart size, enlarged. Vascularity is slightly increased from prior study. Lung foster with mildly prominent interstitial markings but overall clear without evidence for infiltrate. Surgical changes of the bilateral shoulders. IMPRESSION: 1. Cardiac enlargement with mild vascular congestion. Dictated by: Dictated on workstation # [id number]
[2017-10-18] MEDS: POTASSIUM CL 10MEQ/50ML IVPB 50 ML IV SCH (10:07)
[2017-10-18] MEDS ORDERED: KCL 20 MEQ TAB (K-DUR) PO ONE (10:15)
[2017-10-18] MEDS ORDERED: NON-FORMULARY MEDICATION 1 EA EA (Cetirizine HCl 10 MG) PO PRN (11:00)
[2017-10-18] MEDS ORDERED: MECLIZINE 25 MG (ANTIVERT) TAB PO PRN (11:00)
[2017-10-18] MEDS ORDERED: HYDROcodone/APAP 7.5 MG/325 MG (LORTAB, LORCET PLUS) TABLET PO PRN (11:00)
[2017-10-18] MEDS ORDERED: PANT40TA3 PO (11:05)
[2017-10-18] MEDS ORDERED: NA P133E22 RC (11:05)
[2017-10-18] MEDS ORDERED: SCOP1PAT11 TOP (11:05)
[2017-10-18] MEDS ORDERED: INSU100V16 SC (11:05)
[2017-10-18] MEDS ORDERED: LISI-552 PO (11:05)
[2017-10-18] MEDS ORDERED: LACT20SO2 PO (11:05)
[2017-10-18] MEDS ORDERED: PRM12.5SU PR (11:05)
[2017-10-18] MEDS ORDERED: METO-333 PO (11:05)
[2017-10-18] MEDS ORDERED: BISA10SU58 RC (11:05)
[2017-10-18] MEDS ORDERED: DOCU100C37 PO (11:05)
[2017-10-18] MEDS ORDERED: APIX5TAB PO (11:05)
--- NOTE | 2017-10-18 11:08 | Discharge Inst-Skilled Nursing ---
Discharge Inst-Skilled NF Patient Instructions Patient Problems: Lumbar spine surgery 10/14/[address] Mejia uncomplicated Postop atrial fibrillation with rapid ventricular response requiring transfer to [facility] on 10/17/17 Diabetes mellitus Postop ileus resolving on day of discharge Goal: Return to independent living Consult/Follow Up/Orders Follow Up Appt.: Dr Castillo in [address] Mejia as scheduled Skilled NF Admit to: [facility] Executive Officer's service Certification (SNF) I certify that SNF services are required to be given on an inpatient basis because of the above named patient's need for retirement care on a continuing basis for the conditions(s) for which he/she was receiving inpatient hospital services prior to his/her transfer to the SNF. [facility] Facility Order: Nursing Services, Rehabilitation Therapy Technician-Evaluate & Treat, Physical Therapy-Evaluate & Treat, Speech Language-Evaluate & Treat, Wound Care-Eval/Treat Discharge Diet: ADA Diet Daily Activity as Tolerated: Yes New & Resume Previous Orders New Medications: Bisacodyl (Dulcolax) 10 Mg Supp.rect 10 MG RC DAILY PRN for 7 Days, SUPP.RECT Na Phos,M-B/Na Phos,Di-Ba (Fleet Enema) 133 Ml Enema 133 ML RC DAILY PRN for 3 Days, EA Apixaban (Eliquis) 5 Mg Tablet 5 MG PO BID for 365 Days, TAB Docusate Sodium (Docusate Sodium) 100 Mg Capsule 100 MG PO BID for 60 Days, CAP Insulin Aspart (Novolog) 100 Unit/1 Ml Susp 0 UNIT SC ACHS for 30 Days, ML Lactulose (Lactulose) 20 Gm/30 Ml Solution 10 GM PO BID PRN for CONSTIPATION-1ST LINE for 60 Days, EA Lisinopril (Lisinopril) 20 Mg Tablet 20 MG PO DAILY for 365 Days, TAB Metoprolol Tartrate (Metoprolol Tartrate) 25 Mg Tablet 25 MG PO BID for 365 Days, TAB Pantoprazole Sodium (Pantoprazole Sodium) 40 Mg Tablet.dr 40 MG PO DAILY@0700 for 30 Days, TAB Promethazine HCl (Phenadoz) 12.5 Mg Supp 12.5 MG AK Q4H PRN for NAUSEA/VOMITING-2ND LINE for 30 Days, SUPP Scopolamine (Transderm-Scop) 1 Each Patch.td72 1.5 MG TOP Q72H for 30 Days, PATCH Continued Medications: Atorvastatin Calcium (Atorvastatin Calcium) 40 Mg Tablet 40 MG PO HS, TAB LAST FILLED #90 17 Cetirizine HCl (Cetirizine HCl) 10 Mg Tablet 10 MG PO DAILY PRN for ALLERGIES, TAB Cholecalciferol (Vitamin D3) (Vitamin D3) 1,000 Unit Capsule 1000 UNIT PO DAILY, CAP Cyanocobalamin (Vitamin B-12) (Vitamin B-12) 1,000 Mcg Tablet 1000 MCG PO DAILY, TAB Famotidine (Famotidine) 20 Mg Tablet 20 MG PO DAILY, TAB Hydrochlorothiazide (Hydrochlorothiazide) 50 Mg Tablet 50 MG PO DAILY, TAB Hydrocodone/Acetaminophen (Hydrocodone-Acetamin 7.5-325) 1 Each Tablet 1 TAB PO Q4H PRN for PAIN-MODERATE, TAB Insulin Glargine,Hum.rec.anlog (Lantus Solostar) 100 Unit/1 Ml Insuln.pen 60-105 UNITS SC DAILY, EA Liraglutide (Victoza 2-Lazarus) 0.6 Mg/0.1 Ml Pen.injctr 1.8 MG SC HS, EA Meclizine HCl (Meclizine HCl) 25 Mg Tablet 25 MG PO TID PRN for DIZZINESS, TAB Metformin HCl (Metformin HCl) 1,000 Mg Tablet 1000 MG PO BID WITH MEALS, TAB Solifenacin Succinate (Vesicare) 5 Mg Tablet 5 MG PO HS, TAB Ubidecarenone (Co Q-10) 200 Mg Capsule 200 MG PO DAILY, CAP Vit C/Vit E/Lutein/Min/[place]-3 (Ocuvite Softgel) 1 Each Capsule 1 CAP PO DAILY, CAP Vitamin E Acetate (Vitamin E) 400 Unit Capsule 400 UNIT PO DAILY, CAP Discontinued Medications: Colestipol HCl (Colestipol HCl) 1 Gm Tablet 1 GM PO QID PRN for DIARRHEA, TAB Lisinopril (Lisinopril) 40 Mg Tablet 40 MG PO DAILY, TAB Anastacia Wright Oct 18, 2017 11:06 ANASTACIA WRIGHT DO Oct 18, 2017 11:08
--- NOTE | 2017-10-18 11:19 | Short Stay Summary-Hospitalist ---
History of Present Illness HPI/Chief Complaint CC: AF with RVR HPI: This is a [address] Castillo who presented for AF with RVR as a direct admission street from [facility] following an uncomplicated lumbar spine surgery. She had had an issue with continued and recurrent and refractory nausea and had not been able to recover as quickly as she would've liked and was set to go to [facility] for recovery and that had been set up at [facility]. I saw her the morning of transfer on regular hospitalist rounds found patient to have severe nausea systolic blood pressure 130 but atrial fibrillation with rapid ventricular response of 145. She was given a dose of Lopressor 50 MG by mouth 1 and then 1 hour later Cardizem CD of 120 MG without good results so she was transferred to [facility] obviously converted back to normal sinus rhythm and sinus tachycardia by the time she arrived at the ICU room at [facility]. 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 Pt is okay with a soap suds enema to help this move along Pt was informed that Eliquis will be started on Saturday I informed the pt that I will keep Dr. Castillo in the loop and will send my note to him Pt denies any nausea currently and states she ate breakfast Physical exam stable. Lungs sound perfect Pt was informed that we will send her back to [facility] Scribed by Elle Vargas under direct supervision of Dr. Anastacia Logan. Source: patient Exam Limitations: no limitations Date Seen 10/18/17 Time Seen by Provider: 10:20 Attending Physician Anastacia Logan DO PCP Marcel Castillo DO Referring Physician Date of Admission Oct 17, 2017 at 13:30 Home Medications & Allergies Home Medications Reviewed patient Home Medication Reconciliation performed by pharmacy medication reconciliations library media technician and/or nursing. Patients Allergies have been reviewed. Allergies Allergies Coded Allergies Iodine and Iodide Containing Produc (Verified Allergy, Unknown, ANAPHYLAXIS, RASH, 11/09/14) Sulfa (Sulfonamide Antibiotics) (Unverified Allergy, Unknown, NAUSEA AND VOMITING, 11/09/14) adhesive (Unverified Allergy, Unknown, 11/09/14) codeine (Unverified Allergy, Unknown, N/V , 11/09/14) tramadol (Unverified Allergy, Unknown, NAUSEA AND VOMITING, 11/09/14) Uncoded Allergies PERFUME ( Allergy, Unknown, 11/09/14) Past Kzbcufk-Bwffkh-Wipvwv Hx Past Med/Social Hx: Reviewed Nursing Past Med/Soc Hx, Reviewed and Corrections made Patient Social History Marrital Status: single Employed/Student: retired Alcohol Use: Denies Use Recreational Drug Use: No Smoking Status: Former Smoker Physical Abuse Screen: No Sexual Abuse: No Recent Foreign Travel: No Contact w/other who traveled: No Recent Hopitalizations: No Recent Infectious Disease Expo: No Immunizations Up To Date Tetanus Booster (TDap): Less than 5yrs Date of Pneumonia Vaccine: May 05, 2014 Date of Influenza Vaccine: Jun 19, 2017 Past Medical History Surgeries: Orthopedic Respiratory: Sleep Apnea Cardiac: Atrial Fibrillation, High Cholesterol, Hypertension Reproductive: No Sexually Transmitted Disease: No HIV/AIDS: No Female Reproductive Disorders: Denies Genitourinary: Bladder Infection Gastrointestinal: Chronic Constipation, Cirrhosis Musculoskeletal: Arthritis, Fibromyalgia Endocrine: Diabetes, Insulin dep HEENT: Cataract Loss of Vision: Denies Hearing Impairment: Denies History of Blood Disorders: No Adverse Reaction to Blood Cast: No Family History Asthma 19 MOTHER Cardiovascular disease 19 FATHER Coronary thrombosis 19 FATHER 19 MOTHER Fibromyalgia 19 MOTHER Osteoporosis 19 MOTHER Heart Disease, Diabetes Review of Systems Constitutional: see HPI, weakness EENTM: no symptoms reported Respiratory: no symptoms reported Cardiovascular: palpitations Gastrointestinal: constipation, loss of appetite, nausea, vomiting Genitourinary: decreased output Musculoskeletal: back pain Skin: no symptoms reported Psychiatric/Neurological: Depressed All Other Systems Reviewed Negative Unless Noted: Yes Physical Exam Physical Exam Vital Signs Vital Signs - First Documented 10/17/17 10/17/17 10/17/17 13:40 13:45 14:32 Temp 98.3 Pulse 105 Resp 12 B/P (MAP) 148/75 (99) Pulse Ox 97 O2 Delivery Nasal Cannula O2 Flow Rate 2.00 FiO2 28 Capillary Refill : General Appearance: No Apparent Distress, WD/WN, Chronically ill, Obese, Other (improved) Eyes: Bilateral Eye Normal Inspection, Bilateral Eye PERRL HEENT: PERRL/EOMI, Normal ENT Inspection, Pharynx Normal Neck: Full Range of Motion, Normal Inspection, Non Tender, Supple, Carotid Bruit Respiratory: Chest Non Tender, Lungs Clear, Normal Breath Sounds, No Accessory Muscle Use, No Respiratory Distress Cardiovascular: Regular Rate, Rhythm, No Edema, No Gallop, No JVD, No Murmur, Normal Peripheral Pulses Gastrointestinal: Normal Bowel Sounds, No Organomegaly, No Pulsatile Mass, Non Tender, Soft Back: Decreased Range of Motion, Vertebral Tenderness (post op) Extremity: Normal Capillary Refill, Normal Inspection, Normal Range of Motion, Non Tender, No Calf Tenderness, No Pedal Edema Neurologic/Psychiatric: Alert, Oriented x3, No Motor/Sensory Deficits, Depressed Affect Skin: Normal Color, Warm/Dry Lymphatic: No Adenopathy Results Results/Procedures Labs Laboratory Tests 10/17/17 14:24 10/18/17 02:20 Patient resulted labs reviewed. Short Stay Diagnosis Discharge Diagnosis-Short Stay Admission Diagnosis Atrial fibrillation with rapid ventricular response unresolved with Lopressor and Cardizem by mouth given at outside facility Diabetes mellitus Postop ileus with severe nausea and constipation Hypertension Final Discharge Diagnosis Atrial fibrillation with rapid ventricular response unresolved with Lopressor and Cardizem by mouth given at outside facility Diabetes mellitus Postop ileus with severe nausea and constipation Hypertension Conclusion Plan Plan: Soap suds enema until clear DC to [facility] Continue bowel regimen while at skilled care Updated Dr Mejia service on the plan Diagnosis/Problems Diagnosis/Problems (1) Atrial fibrillation with rapid ventricular response Status: Acute (2) Ileus Status: Acute (3) Nausea & vomiting Status: Acute Clinical Quality Measures DVT/VTE Risk/Contraindication: Risk Factor Score Per Nursin RFS Level Per Nursing on Admit: 4+=Very High ANASTACIA LOGAN DO Oct 18, 2017 11:19
--- NOTE | 2017-10-18 13:22 | Diagnostic Imaging Report ---
Indication: Constipation, bloating, surgery. Findings: Left hip replacement noted. There is L3-L4 lumbar fusion. Metallic-like opacity projects over the right innominate bone. No abnormal fecal loading. The visualized bowel gas pattern nonspecific. There is some air within the small and large bowel. Impression: Air within bowel loops, not grossly pathologic, no abnormal fecal load. Postoperative changes. Dictated by: Dictated on workstation # [id number]
[2017-10-18] MEDS ORDERED: LORATADINE (CLARITIN) 10 MG TAB PO PRN (13:45)
[2017-10-18] MEDS: MECLIZINE 25 MG (ANTIVERT) TAB PO PRN (14:55)
[2017-10-18] MEDS ORDERED: NON-FORMULARY MEDICATION 1 EA EA (Metformin HCl 1,000 MG) PO SCH (17:00)
[2017-10-18] MEDS ORDERED: metFORMIN 500 MG (GLUCOPHAGE) TAB PO SCH (17:00)
[2017-10-18] MEDS ORDERED: SOLIFENACIN 5 MG TAB (VESICARE) NON-FORMULARY PO SCH (21:00)
[2017-10-18] MEDS ORDERED: NON-FORMULARY MEDICATION 1 EA EA (Liraglutide (Victoza 2-Pak) 1.8 MG) SC SCH (21:00)
[2017-10-18] MEDS ORDERED: ATORVASTATIN 40 MG (LIPITOR) TABLET PO SCH (21:00)
[2017-10-19] MEDS ORDERED: TROSPIUM 20 MG (SANCTURA) TAB PO SCH (06:00)
[2017-10-19] MEDS ORDERED: NON-FORMULARY MEDICATION 1 EA EA (Cyanocobalamin (Vitamin B-12) (Vitamin B-12) 1,000 MCG) PO SCH (09:00)
[2017-10-19] MEDS ORDERED: HYDROCHLOROTHIAZIDE 25 MG (HCTZ) TAB PO SCH (09:00)
[2017-10-19] MEDS ORDERED: lisINopril 40 MG (PRINIVIL) TABLET PO SCH (09:00)
[2017-10-19] MEDS ORDERED: NON-FORMULARY MEDICATION 1 EA EA (Ubidecarenone (Co Q-10) 200 MG) PO SCH (09:00)
[2017-10-19] MEDS ORDERED: NON-FORMULARY MEDICATION 1 EA EA (Cholecalciferol (Vitamin D3) (Vitamin D3) 1,000 UNIT) PO SCH (09:00)
[2017-10-19] MEDS ORDERED: VITAMIN E 400 INTLU CAP PO SCH (09:00)
[2017-10-19] MEDS ORDERED: CYANOCOBALAMIN 500 MCG TAB (VITAMIN B-12) PO SCH (09:00)
[2017-10-19] MEDS ORDERED: FAMOTIDINE 20 MG (PEPCID) TABLET PO SCH (09:00)
[2017-10-19] MEDS ORDERED: NON-FORMULARY MEDICATION 1 EA EA (Vitamin E Acetate (Vitamin E) 400 UNIT) PO SCH (09:00)
[2017-10-19] MEDS ORDERED: VITAMIN D3 1,000 UNITS (CHOLECALCIFEROL) TABLET PO SCH (09:00)
[2017-10-19] MEDS ORDERED: NON-FORMULARY MEDICATION 1 EA EA (Vit C/Vit E/Lutein/Min/Omega-3 (Ocuvite Softgel) 1 CAP) PO SCH (09:00)
[2017-10-19] MEDS ORDERED: [UNRECOGNIZED DRUG - OTHER] SC SCH (09:00)
[2017-10-19] MEDS ORDERED: NON-FORMULARY MEDICATION 1 EA EA (Hydrochlorothiazide 50 MG) PO SCH (09:00)
[2017-10-19] MEDS ORDERED: INSULIN GLARGINE HUM REC ANLOG SC SCH (09:00)
[2017-10-20] MEDS ORDERED: SCOPOLAMINE PATCH REMOVAL TP SCH (12:59)
== END 2017-10-18 15:00 | disposition swing bed (61) | DRG 309 ==
LOC: ICU 13:30
PROVIDERS: ADMIT Internal Medicine; ATTEND Internal Medicine
DX: I48.0 Paroxysmal atrial fibrillation (principal); I49.1 Atrial premature depolarization; K91.89 Other postprocedural complications and disorders of digestive system; K56.7 Ileus, unspecified; R11.2 Nausea with vomiting, unspecified; K59.09 Other constipation; I10 Essential (primary) hypertension; E78.5 Hyperlipidemia, unspecified; E11.9 Type 2 diabetes mellitus without complications; M79.7 Fibromyalgia; R53.83 Other fatigue; R09.02 Hypoxemia; K74.60 Unspecified cirrhosis of liver; E66.9 Obesity, unspecified; Z68.36 Body mass index [BMI] 36.0-36.9, adult; Z98.890 Other specified postprocedural states; Z87.891 Personal history of nicotine dependence; Z79.4 Long term (current) use of insulin
CPT/HCPCS: 36415; 71045; 71046; 74018; 80048; 80053; 82962; 83735; 83880; 84100; 84484; 85007; 85025; 85027; 87081; 93005; 93306

== ENCOUNTER 2017-11-06 10:22 | Inpatient (IN) | payer MEDICARE ==
[~2017-11-06] VITALS: Ht 177.8 cm; Wt 88.5 kg
[~2017-11-06 10:22] MED LIST changes: +APIX5TAB PO; +BISA10SU58 RC; +CETI10TA17 PO; +CHOL10007 PO; +CYAN10006 PO; +DOCU100C37 PO; +HYDR-3816 PO; +INSU100V16 SC; +LACT20SO2 PO; +LIRA0.6P SC; +LISI-552 PO; +MECL-106 PO; +METF10002 PO; +METO-333 PO; +NA P133E22 RC; +NF-SOLIF5T PO; +PANT40TA3 PO; +PRM12.5SU PR; +SCOP1PAT11 TOP; +UBID200C16 PO; +VIT1CAPS9 PO; +VITA400C60 PO
[2017-11-06 12:53] VITALS: BP 148/65
--- OUTSIDE RECORDS SUMMARY | 2017-11-06 13:04 | XMS REPORT | Clinical Summary ---
Author Author [facility] Organization [facility] Address Unknown Phone Unavailable Care Team Providers Care Front End Developer Javascript Html Css Name Role Phone Kevin Lindsey MD Unavailable Unavailable Marcel Castillo DO PCP Angely Amato APRN Unavailable Tre Toribio MD Unavailable Lalita Lozano MD Unavailable Source Comments Some departments are not documenting in the electronic medical record. If you do not see the information that you expected, contact Release of Information in the Health Information Management department at [phone] for further assistance in locating additional records.[facility] Allergies Active Allergy Reactions Severity Noted Date [...]
--- OUTSIDE RECORDS SUMMARY | 2017-11-06 13:05 | XMS REPORT | Continuity of Care Document ---
Author Author [facility] Organization [facility] Address Unknown Phone Unavailable Allergies Active Description Code Type Severity Reaction Onset Reported/Identified Relationship to Patient Clinical Status Yes adhesive [id number] Drug Allergy Unknown N/A 11/09/2014 Yes codeine [id number] Drug Allergy Unknown N/V 11/09/2014 Yes Iodine and Iodide Containing Produc [id number] Drug Allergy Unknown ANAPHYLAXIS, RA 11/09/2014 Yes PERFUME PERFUME Unknown N/A 11/09/2014 Yes Sulfa (Sulfonamide Antibiotics) [id number] Drug Allergy Unknown NAUSEA AND VOMI 11/09/2014 Yes tramadol [id number] Drug Allergy Unknown NAUSEA AND VOMI 11/09/2014 [...] DREW Gunter Ot V74.8 SCREEN-BACTERIAL DIS NEC 10/17/2017 TRUONG DO, DREW Gunter Ot 715.36 LOC OSTEOARTH NOS-L/LEG 10/17/2017 TRUONG DO, DREW Gunter Ot V72.63 PRE-PROCEDURAL LABORATORY EXAMINATION 10/17/2017 TRUONG DO, DREW Gunter Ot V72.83 EXAM PRE-OPERATIVE NEC 10/17/2017 TRUONG DO, DREW Gunter Ot V74.8 SCREEN-BACTERIAL DIS NEC 10/18/2017 LOGAN DO, MOY Ot E11.9 TYPE 2 DIABETES MELLITUS WITHOUT COMPLIC 10/18/2017 LOGAN DO, MOY Ot E66.9 OBESITY, UNSPECIFIED 10/18/2017 LOGAN DO, MOY Ot E78.5 HYPERLIPIDEMIA, UNSPECIFIED 10/18/2017 DOREEN ROSAS MOY Ot H83.90 UNSPECIFIED DISEASE OF INNER EAR, UNSPEC 10/18/2017 LOGAN DO MOY Ot I10 ESSENTIAL (PRIMARY) HYPERTENSION 10/18/2017 LOGAN DO MOY Ot I48.0 PAROXYSMAL ATRIAL FIBRILLATION 10/18/2017 DOREEN ROSAS MOY Ot I49.1 ATRIAL PREMATURE DEPOLARIZATION 10/18/2017 DOREEN DO MOY Ot K56.7 ILEUS, UNSPECIFIED 10/18/2017 LOGAN DO MOY Ot K59.09 OTHER CONSTIPATION 10/18/2017 DOREEN ROSAS MOY Ot K74.60 UNSPECIFIED CIRRHOSIS OF LIVER 10/18/2017 DOREEN ROSAS MOY Ot K91.89 OTH POSTPROCEDURAL COMPLICATIONS AND DIS 10/18/2017 LOGAN MOY ROSAS Ot M79.7 FIBROMYALGIA 10/18/2017 LOGANMATILDE ROSAS MOY Ot R09.02 HYPOXEMIA 10/18/2017 JOYCE LOGAN DOI Ot R11.2 NAUSEA WITH VOMITING, UNSPECIFIED 10/18/2017 LOGAN DO MOY Ot R53.83 OTHER FATIGUE 10/18/2017 LOGANMATILDE ROSAS MOY Ot Z68.36 BODY MASS INDEX (BMI) 36.0-36.9, ADULT 10/18/2017 JOYCE LOGAN DOI Ot 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 10/18/2017 DOREEN ROSAS MOY Ot Z87.891 PERSONAL HISTORY OF NICOTINE DEPENDENCE 10/18/2017 DOREEN ROSAS MOY Ot Z98.890 OTHER SPECIFIED POSTPROCEDURAL STATES Procedures Code Description Performed By Performed On 81.54 TOTAL KNEE REPLACEMENT 11/23/2014 Results Test Result Range Complete blood count (CBC) with automated white blood cell (WBC) differential - 10/17/17 14:24 Blood leukocytes automated count (number/volume) 11.0 10*3/uL 4.3-11.0 Blood erythrocytes automated count (number/volume) 3.78 10*6/uL 4.35-5.85 Venous blood hemoglobin measurement (mass/volume) 10.8 g/dL 11.5-16.0 Blood hematocrit (volume fraction) 31 % 35-52 Automated erythrocyte mean corpuscular volume 83 [foz_us] 80-99 Automated erythrocyte mean corpuscular hemoglobin (mass per erythrocyte) 29 pg 25-34 Automated erythrocyte mean corpuscular hemoglobin concentration measurement ( mass/volume) 35 g/dL 32-36 Automated erythrocyte distribution width ratio 13.5 % 10.0-14.5 Automated blood platelet count (count/volume) 207 10*3/uL 130-400 Automated blood platelet mean volume measurement 10.1 [foz_us] 7.4-10.4 Automated blood neutrophils/100 leukocytes 81 % 42-75 Automated blood lymphocytes/100 leukocytes 8 % 12-44 Blood monocytes/100 leukocytes 10 % 0-12 Automated blood eosinophils/100 leukocytes 1 % 0-10 Automated blood basophils/100 leukocytes 0 % 0-10 Blood neutrophils automated count (number/volume) 9.0 10*3 1.8-7.8 Blood lymphocytes automated count (number/volume) 0.9 10*3 1.0-4.0 Blood monocytes automated count (number/volume) 1.1 10*3 0.0-1.0 Automated eosinophil count 0.1 10*3/uL 0.0-0.3 Automated blood basophil count (count/volume) 0.0 10*3/uL 0.0-0.1 Comprehensive metabolic panel - 10/17/17 14:24 Serum or plasma sodium measurement (moles/volume) 134 mmol/L 135-145 Serum or plasma potassium measurement (moles/volume) 3.5 mmol/L 3.6-5.0 Serum or plasma chloride measurement (moles/volume) 95 mmol/L 98-107 Carbon dioxide 32 mmol/L 21-32 Serum or plasma anion gap determination (moles/volume) 7 mmol/L 5-14 Serum or plasma urea nitrogen measurement (mass/volume) 12 mg/dL 7-18 Serum or plasma creatinine measurement (mass/volume) 0.71 mg/dL 0.60-1.30 Serum or plasma urea nitrogen/creatinine mass ratio 17 NRG Serum or plasma creatinine measurement with calculation of estimated glomerular filtration rate > NRG Serum or plasma glucose measurement (mass/volume) 223 mg/dL 70-105 Serum or plasma calcium measurement (mass/volume) 9.3 mg/dL 8.5-10.1 Serum or plasma total bilirubin measurement (mass/volume) 1.5 mg/dL 0.1-1.0 Serum or plasma alkaline phosphatase measurement (enzymatic activity/volume) 52 U/L 40-136 Serum or plasma aspartate aminotransferase measurement (enzymatic activity/ volume) 19 U/L 5-34 Serum or plasma alanine aminotransferase measurement (enzymatic activity/volume ) 17 U/L 0-55 Serum or plasma protein measurement (mass/volume) 6.2 g/dL 6.4-8.2 Serum or plasma albumin measurement (mass/volume) 3.3 g/dL 3.2-4.5 Blood manual differential performed detection - 10/17/17 14:24 Blood monocytes/100 leukocytes 9 % NRG Manual blood segmented neutrophils/100 leukocytes 87 % NRG Manual blood lymphocytes/100 leukocytes 4 % NRG Blood erythrocyte morphology finding identification NORMAL NRG Serum or plasma lithium measurement (moles/volume) - 10/17/17 14:24 BNP level 57.3 pg/mL <100.0 Serum or plasma troponin i.cardiac measurement (mass/volume) - 10/17/17 14:24 Serum or plasma troponin i.cardiac measurement (mass/volume) < ng/ mL <0.30 Methicillin resistant Staphylococcus aureus (MRSA) screening culture - 18:00 Methicillin resistant Staphylococcus aureus (MRSA) screening culture NEG NRG Capillary blood glucose measurement by glucometer (mass/volume) - 10/17/17 21: 35 Capillary blood glucose measurement by glucometer (mass/volume) 197 mg/dL 70-110 Complete blood count (CBC) with automated white blood cell (WBC) differential - 10/18/17 02:20 Blood leukocytes automated count (number/volume) 12.7 10*3/uL 4.3-11.0 Blood erythrocytes automated count (number/volume) 3.72 10*6/uL 4.35-5.85 Venous blood hemoglobin measurement (mass/volume) 10.6 g/dL 11.5-16.0 Blood hematocrit (volume fraction) 31 % 35-52 Automated erythrocyte mean corpuscular volume 83 [foz_us] 80-99 Automated erythrocyte mean corpuscular hemoglobin (mass per erythrocyte) 29 pg 25-34 Automated erythrocyte mean corpuscular hemoglobin concentration measurement ( mass/volume) 34 g/dL 32-36 Automated erythrocyte distribution width ratio 13.4 % 10.0-14.5 Automated blood platelet count (count/volume) 298 10*3/uL 130-400 Automated blood platelet mean volume measurement 10.5 [foz_us] 7.4-10.4 Automated blood neutrophils/100 leukocytes 72 % 42-75 Automated blood lymphocytes/100 leukocytes 15 % 12-44 Blood monocytes/100 leukocytes 11 % 0-12 Automated blood eosinophils/100 leukocytes 1 % 0-10 Automated blood basophils/100 leukocytes 0 % 0-10 Blood neutrophils automated count (number/volume) 9.1 10*3 1.8-7.8 Blood lymphocytes automated count (number/volume) 2.0 10*3 1.0-4.0 Blood monocytes automated count (number/volume) 1.4 10*3 0.0-1.0 Automated eosinophil count 0.2 10*3/uL 0.0-0.3 Automated blood basophil count (count/volume) 0.0 10*3/uL 0.0-0.1 Whole blood basic metabolic panel - 10/18/17 02:20 Serum or plasma sodium measurement (moles/volume) 135 mmol/L 135-145 Serum or plasma potassium measurement (moles/volume) 3.5 mmol/L 3.6-5.0 Serum or plasma chloride measurement (moles/volume) 97 mmol/L 98-107 Carbon dioxide 29 mmol/L 21-32 Serum or plasma anion gap determination (moles/volume) 9 mmol/L 5-14 Serum or plasma urea nitrogen measurement (mass/volume) 12 mg/dL 7-18 Serum or plasma creatinine measurement (mass/volume) 0.72 mg/dL 0.60-1.30 Serum or plasma urea nitrogen/creatinine mass ratio 17 NRG Serum or plasma creatinine measurement with calculation of estimated glomerular filtration rate > NRG Serum or plasma glucose measurement (mass/volume) 135 mg/dL 70-105 Serum or plasma calcium measurement (mass/volume) 9.0 mg/dL 8.5-10.1 Serum or plasma phosphate measurement (mass/volume) - 10/18/17 02:20 Serum or plasma phosphate measurement (mass/volume) 2.9 mg/dL 2.3-4.7 Magnesium - 10/18/17 02:20 Magnesium 1.3 mg/dL 1.8-2.4 Capillary blood glucose measurement by glucometer (mass/volume) - 10/18/17 06: 31 Capillary blood glucose measurement by glucometer (mass/volume) 131 mg/dL 70-110 Capillary blood glucose measurement by glucometer (mass/volume) - 10/18/17 14: 33 Capillary blood glucose measurement by glucometer (mass/volume) 183 mg/dL 70-110 Encounters ACCT No. Visit Date/Time Discharge Status Pt. Type Provider Facility Loc./Unit Complaint [id number] 10/17/2017 13:30:00 10/18/2017 15:00:00 DIS Outpatient MOY LOGAN DO [facility] ICU AFIB WITH RVR [id number] 11/29/2014 14:53:00 12/04/2014 11:30:00 DIS Inpatient CLARK CHRISTIANSON MD [facility] IRF IRF TOTAL KNEE REPLACEMENT [id number] 11/23/2014 05:58:00 11/29/2014 14:53:00 DIS Inpatient DREW GUERIN DO [facility] SURGICAL DEGENERATIVE DISK DISEASE RIGHT KNEE [id number] 11/09/2014 11:46:00 11/09/2014 23:59:59 CLS Outpatient DREW GUERIN DO [facility] PREOP DEGENERATIVE DISK DISEASE RIGHT KNEE [id number] 06/20/2009 13:23:00 Document Registration [id number] 11/09/2014 11:47:18 ACT Document Registration
--- NOTE | 2017-11-06 13:36 | Consultation ---
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 She underwent an uncomplicated lumbar spine surgery by Dr Mejia but slow recovery with post op ileus was managed conservatively but had an episode of AF w/RVR requiring transfer to [facility] ICU for Cardiology management. At that time the ileus resolved and patient converted back to NSR so she was placed on Lopressor and placed on Eliquis for CVA prophylaxis due to PAF which was started on 10/20/17 after moving to swing bed status at [facility]. She was doing well and was preparing to go home on 10/28/17 but began experiencing severe back pain when she arose from bed on 10/27/17 and ultimately was seen by Dr Mejia and sent for MRI revealing large spinal hematoma. She underwent a total of 2 hematoma removal procedures and placed on steroids due to lower extremity paralysis. Wound vac was placed and then she was brought back to surgery on 11/04/17 for closure. She was regaining lower leg function slowly at the time of DC from [facility] on 11/06/17 and she was felt to be a candidate for IRF to recover strength and resolve paralysis. Her bowels are moving well currently but she still requires lorenz catheter due to neurogenic bladder. Blood sugars have been in the 180 range due to steroids. Anti- coagulation has been held due to severe complications as presented above since risks outweigh benefits at this time but will consult Cardiology for further risk stratification processes. Allergies and Home Medications Allergies Coded Allergies: Iodine and Iodide Containing Produc (Verified Allergy, Unknown, ANAPHYLAXIS, RASH, 11/09/14) Sulfa (Sulfonamide Antibiotics) (Unverified Allergy, Unknown, NAUSEA AND VOMITING, 11/09/14) adhesive (Unverified Allergy, Unknown, 11/09/14) codeine (Unverified Allergy, Unknown, N/V , 11/09/14) tramadol (Unverified Allergy, Unknown, NAUSEA AND VOMITING, 11/09/14) Uncoded Allergies: PERFUME (Allergy, Unknown, 11/09/14) Home Medications Apixaban 5 Mg Tablet, 5 MG PO BID Prescribed by: MOY LOGAN on 10/18/171104 Atorvastatin Calcium 40 Mg Tablet, 40 MG PO HS, (Reported) LAST FILLED #90 05-21-17 Bisacodyl 10 Mg Supp.rect, 10 MG RC DAILY PRN Prescribed by: MOY LOGAN on 10/18/171104 Cetirizine HCl 10 Mg Tablet, 10 MG PO DAILY PRN for ALLERGIES, (Reported) Cholecalciferol (Vitamin D3) 1,000 Unit Capsule, 1,000 UNIT PO DAILY, (Reported) Cyanocobalamin (Vitamin B-12) 1,000 Mcg Tablet, 1,000 MCG PO DAILY, (Reported) Docusate Sodium 100 Mg Capsule, 100 MG PO BID Prescribed by: MOY LOGAN on 10/18/171104 Famotidine 20 Mg Tablet, 20 MG PO DAILY, (Reported) Hydrochlorothiazide 50 Mg Tablet, 50 MG PO DAILY, (Reported) Hydrocodone/Acetaminophen 1 Each Tablet, 1 TAB PO Q4H PRN for PAIN-MODERATE, ( Reported) Insulin Aspart 100 Unit/1 Ml Susp, 0 UNIT SC ACHS Prescribed by: MOY LOGAN on 10/18/171104 Insulin Glargine,Hum.rec.anlog 100 Unit/1 Ml Insuln.pen, 60-105 UNITS SC DAILY, (Reported) Lactulose 20 Gm/30 Ml Solution, 10 GM PO BID PRN for CONSTIPATION-1ST LINE Prescribed by: MOY LOGAN on 10/18/171104 Liraglutide 0.6 Mg/0.1 Ml Pen.injctr, 1.8 MG SC HS, (Reported) Lisinopril 20 Mg Tablet, 20 MG PO DAILY Prescribed by: MOY LOGAN on 10/18/171104 Meclizine HCl 25 Mg Tablet, 25 MG PO TID PRN for DIZZINESS, (Reported) Metformin HCl 1,000 Mg Tablet, 1,000 MG PO BID WITH MEALS, (Reported) Metoprolol Tartrate 25 Mg Tablet, 25 MG PO BID Prescribed by: MOY LOGAN on 10/18/171104 Na Phos,M-B/Na Phos,Di-Ba 133 Ml Enema, 133 ML RC DAILY PRN Prescribed by: MOY LOGAN on 10/18/17 110 Pantoprazole Sodium 40 Mg Tablet.dr, 40 MG PO DAILY@0700 Prescribed by: MOY LOGAN on 10/18/17 110 Promethazine HCl 12.5 Mg Supp, 12.5 MG CA Q4H PRN for NAUSEA/VOMITING-2ND LINE Prescribed by: MOY LOGAN on 10/18/17 110 Scopolamine 1 Each Patch.td72, 1.5 MG TOP Q72H Prescribed by: MOY LOGAN on 10/18/17 110 Solifenacin Succinate 5 Mg Tablet, 5 MG PO HS, (Reported) Ubidecarenone 200 Mg Capsule, 200 MG PO DAILY, (Reported) Vit C/Vit E/Lutein/Min/[place]-3 1 Each Capsule, 1 CAP PO DAILY, (Reported) Vitamin E Acetate 400 Unit Capsule, 400 UNIT PO DAILY, (Reported) Patient Home Medication List Home Medication List Reviewed: Yes Past Zjlhjhv-Xnbzod-Gavbkr Hx Patient Social History Alcohol Use: Denies Use Recreational Drug Use: No Smoking Status: Never a Smoker Recent Foreign Travel: No Contact w/Someone Who Travel: No Recent Infectious Disease Expo: No Recent Hopitalizations: No Immunizations Up To Date Tetanus Booster (TDap): Less than 5yrs Date of Pneumonia Vaccine: May 05, 2014 Date of Influenza Vaccine: Jun 19, 2017 Seasonal Allergies Seasonal Allergies: No Surgeries History of Surgeries: Yes (EXPLORATORY LAP, LEFT OOPHERECTOMY) Surgeries: Orthopedic (lumbar spine 10/14/17 Dr Mejia at [facility] then hematoma evacuation x 2) Respiratory History of Respiratory Disorde: Yes (ALLERGIES) Currently Using CPAP: No Currently Using BIPAP: No Cardiovascular History of Cardiac Disorders: Yes Cardiac Disorders: Atrial Fibrillation (AF w/RVR 10/21/17 post op lumbar spine surgery), High Cholesterol, Hypertension Neurological History of Neurological Disord: Yes (INNER EAR PROBLEMS CAUSING DIZZINESS) Neurological Disorders: Neuropathy, Spinal Cord Injury (spinal hematoma 10/28/17 ) Reproductive System Hx Reproductive Disorders: No Sexually Transmitted Disease: No HIV/AIDS: No Female Reproductive Disorders: Denies Genitourinary History of Genitourinary Disor: Yes Genitourinary Disorders: Bladder Infection Gastrointestinal History of Gastrointestinal Di: Yes Gastrointestinal Disorders: Chronic Constipation, Cirrhosis Musculoskeletal History of Musculoskeletal Dis: Yes (DEGENERATIVE JOINT DISEASE-weakness post op) Musculoskeletal Disorders: Arthritis, Fibromyalgia Endocrine History of Endocrine Disorders: Yes Endocrine Disorders: Diabetes, Insulin dep Are Your Blood Sugars Over 250: No HEENT History of HEENT Disorders: Yes HEENT Disorders: Cataract Loss of Vision: Denies Hearing Impairment: Hard of Hearing Cancer History of Cancer: No Psychosocial History of Psychiatric Problem: No Integumentary History of Skin or Integumenta: Yes (DRY SKIN) Blood Transfusions History of Blood Disorders: No Adverse Reaction to a Blood Tr: No Reviewed Nursing Assessment Reviewed/Agree w Nursing PMH: Yes Family Medical History Significant Family History: Heart Disease, Diabetes Family Medial History: Asthma 19 MOTHER Cardiovascular disease 19 FATHER Coronary thrombosis 19 FATHER 19 MOTHER Fibromyalgia 19 MOTHER Osteoporosis 19 MOTHER Review of Systems-General Constitutional: see HPI, weakness EENTM: no symptoms reported Respiratory: no symptoms reported Cardiovascular: no symptoms reported Gastrointestinal: no symptoms reported Genitourinary: other (no sensation of bladder distention) Musculoskeletal: back pain Skin: no symptoms reported Psychiatric/Neurological: Depressed All Other Systems Reviewed Negative Unless Noted: Yes Physical Exam-General Problems Physical Exam Vital Signs Vital Signs - First Documented 11/06/17 12:53 Temp 97.9 Pulse 65 Resp 18 B/P (MAP) 148/65 (92) Pulse Ox 94 O2 Delivery Room Air Capillary Refill : General Appearance: WD/WN, no apparent distress, other (chronically ill) Eyes: Bilateral Eye Normal Inspection, Bilateral Eye PERRL, Bilateral Eye EOMI HEENT: PERRL/EOMI, normal ENT inspection, pharynx normal Neck: non-tender, full range of motion, supple, normal inspection Respiratory: chest non-tender, lungs clear, normal breath sounds, no respiratory distress, no accessory muscle use Cardiovascular: normal peripheral pulses, regular rate, rhythm, no edema, no gallop, no JVD, no murmur Peripheral Pulses: 2+ Carotid (R), 2+ Carotid (L), 2+ Femoral (R), 2+ Femoral ( L), 2+ Dorsalis Pedis (R), 2+ Left Dors-Pedis (L), 2+ Radial Pulses (R), 2+ Radial Pulses (L) Gastrointestinal: normal bowel sounds, non tender, soft, no organomegaly, no pulsatile mass Back: decreased range of motion, vertebral tenderness Extremities: normal range of motion (except below knee decreased ROM and strength), non-tender, normal inspection, no pedal edema, no calf tenderness, normal capillary refill, pelvis stable Neurologic/Psychiatric: edge burnisher II-XII nml as tested, no motor/sensory deficits, alert, normal mood/affect, oriented x 3, motor weakness (lower legs), sensory deficit (lower legs) Reflexes: 3+ Bicep (R), 3+ Bicep (L), 3+ Tricep (R), 3+ Tricep (L), 3+ Knee (R) , 3+ Knee (L), 3+ Ankle (R), 3+ Ankle (L) Skin: normal color, warm/dry, cyanosis, cool, diaphoresis Lymphatic: no adenopathy Assessment/Plan Assessment/Plan Admission Diagnosis/Plan Assessment/Plan: s/p spinal hematoma evacuation now with residual paralysis of lower legs in need of rehab PAF consulting Dr Urbano Cardiology due to high risk for AF w/RVR and need opinion on anti-coagulation DM OOC due to steroids to help with spinal cord inflammation HTN OA GERD HLP Neurogenic bladder subacute s/p post op ileus Monitor closely Monitor sugars Consult Cardiology is appreciated Admission Status: Inpatient Order (span 2 midnights) Reason for Inpatient Admission: Multiple severe medical issues (PAF w/RVR, Neurogenic bladder, DM OOC) along with new paralysis requiring intensive PT to have chance of recovery Clinical Quality Measures DVT/VTE Risk/Contraindication: Risk Factor Score Per Nursin RFS Level Per Nursing on Admit: 4+=Very High MOY LOGAN DO Nov 06, 2017 13:36
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
--- NOTE | 2017-11-06 14:29 | Physical Therapy Evaluation ---
PT Evaluation-General Medical Diagnosis Admission Date Nov 06, 2017 at 10:24 Medical Diagnosis: cauda equinq syndrome, L3-L4 PSIF Onset Date: Oct 14, 2017 Therapy Diagnosis Therapy Diagnosis: impaired mobility, strength, endurance, balance Height/Weight Height (Feet): 5 Height (Inches): 3.00 Weight (Pounds): 203 Weight (Ounces): 8.0 Precautions Precautions/Isolations: Fall Prevention, Standard Precautions, Pressure Ulcer Referral Physician: Norris Reason for Referral: Evaluation/Treatment Medical History Pertinent Medical History: Arthritis, CAD, DM, GERD, HTN Additional Medical History surg (rotator cuff, knee, hip, cholecystectomy, appendectomy, tonsillectomy, hysterectomy), Reviewed History: Yes Social History Home: Multilevel (doesn't need to go upstairs) Current Living Status: Alone (grandson there some of the time, age 20) Entry Into Home: Ramp PT Steps Into Home: 1 Prior/Core FIM Prior Level of Function Functional Cross Measure 0=Not Assessed/NA 4=Minimal Assistance 1=Total Assistance 5=Supervision or Setup 2=Maximal Assistance 6=Modified Cross 3=Moderate Assistance 7=Complete Cross Bed Mobility: 7 Transfers (B,C,W/C) (FIM): 7 Gait: 7 PT Evaluation-Current Subjective Patient in bed pre tx, agrees to PT, has pain of 8/10 in back. Patient arrived by ambulance. Pt/Family Goals "to get stronger" Objective Patient Orientation: Person, Place, Situation ROM/Strength ROM Lower Extremities NT due to pain Strenght Lower Extremities right lower extremity (hip flexion 2/5, knee flexion 2/5, knee extension 3/5, dorsiflexion 0/5), left lower extremity (hip flexion 2/5, knee flexion 2/5, knee extension 3/5, dorsiflexion 0/5) Neuromuscular (Tone, Coordination, Reflexes) decreased general tone in bilateral lower extremities Sensory Vision: Wears Glasses Hearing: Functional Sensation Lower Extremities Patient has numbness from the knees down Transfers Functional Cross Measure 0=Not Assessed/NA 4=Minimal Assistance 1=Total Assistance 5=Supervision or Setup 2=Maximal Assistance 6=Modified [place] 3=Moderate Assistance 7=Complete IndependenceIRFPAI Quality Coding Scale 6 Independent with activity with or without an assistive device 5 Patient requires set up or clean up by helper. Patient completes activity by themselves 4 Supervision or touching assist (CGA). [place] provide cues , steadying assist 3 The helper provides less than half the effort to complete the activity 2 The helper provides more than half the effort to complete the activity 1 Dependent. The helper does all the effort to complete an activity 7 Patient refused to complete or attempt activity 9 The patient did not perform the activity before the current illness or injury 88 Not attempted due to Medical conditions or safety concerns Transfers (B, C, W/C) (FIM): 1 Scootin Rollin Roll Left to Right (QC): 2 Supine to/from Sit: 2 Sit to/from Stand: 1 bed t/f WC(FIM only if WC use): 1 Sit to Lying (QC): 2 Lying to Sitting/Side of Bed(Q: 2 Sit to Stand (QC): 1 Chair/Uop-nw-Psmmw Xfer(QC): 1 Car Transfer (QC): 1 Patient performs bed mobility with max assist, sit to stand and stand pivot transfer is dependent. Patient is very anxious and needs cues to relax and for positioning and hand placement. Gait Does the Patient Walk?: No and Walking Goal NOT indicated Stairs If not tested on admit;explain patient is not ambulatory Balance Sitting Static: Poor Sitting Dynamic: Poor Standing Static: Poor Standing Dynamic: Poor Picking up an Object (QC): 88 Treatment Patient was transferred to a recliner and she was dependent for the transfer. She is very anxious and did not want to participate after starting. She stated that she just wanted to be eat her lunch. She agreed to get into a chair to continue to eat her lunch. By the time that was over she was in so much pain and was so anxious that the evaluation was stopped at that time and she could finish her food. Assessment/Needs Patient is dependent for transfers. Poor motivation. Rehab Potential: Guarded PT Short Term Goals Short Term Goals Time Frame: Nov 13, 2017 Transfers (B,C,W/C) (FIM): 3 Wheelchair (FIM): 2 Wheelchair Distance: 50' Wheelchair Level of Assist: 4 PT Bed Placement Coordinator Goals Fpc Goals PT Bed Placement Coordinator Goals Time Frame: Nov 27, 2017 Transfers (B,C,W/C) (FIM): 4 Sit to Lying (QC): 3 Lying-Sitting on Side/Bed(QC): 3 Sit to Stand (QC): 3 Rollin Roll Left to Right (QC): 3 Chair/Vlb-dk-Fjhvh Xfer(QC): 3 Car Transfer (QC): 3 Wheelchair (FIM): 5 Distance: 150' Wheelchair Level of Assist: 5 Wheel 50 feet with 2 turns (QC: 4 PT Plan Problem List Problem List: Activity Tolerance, Functional Strength, Safety, Balance, Gait, Transfer, Bed Mobility, ROM Treatment/Plan Treatment Plan: Continue Plan of Care Treatment Plan: Bed Mobility, Concurrent Therapy, Education, Functional Activity [place], Functional Strength, Group Therapy, Gait, Safety, Therapeutic Exercise, Transfers Treatment Duration: Nov 27, 2017 Frequency: At least 5 of 7 days/Wk (IRF) Estimated Hrs Per Day: 1.5 hours per day Patient and/or Family Agrees t: Yes Safety Risks/Education Patient Education: Transfer Techniques, Correct Positioning, W/C Management, Safety Issues Teaching Recipient: Patient Teaching Methods: Demonstration, Discussion Response to Teaching: Reinforcement Needed Discharge Recommendations Plan Patient will perform bed mobility and transfer training, balance and endurance training, functional strengthening, wheelchair mobility, and education to improve functional mobility and independence at home. Therapy D/C Recommendations: Home w/ Family Support Time/GCodes Time In: 1345 Time Out: 1415 Total Billed Treatment Time: 30 Total Billed Treatment 1 visit TOY 30' LEXI CALERO PT Nov 06, 2017 14:29
[2017-11-06] MEDS ORDERED: HYDROcodone/APAP 10 MG/325 MG (LORTAB) TAB PO PRN (15:00)
--- NOTE | 2017-11-06 15:31 | PM&R Post Admission Assessment ---
Post Admission Physician Asses The preadmission screen agrees with the post admission assessment that the patient is a good candidate for inpatient rehabilitation. The patient will have a comprehensive program of inpatient rehabilitation with a goal of maximizing level of functional independence prior to discharge home with HHC and family. The patient will have PT/OT ninety minutes per day, each discipline, five days a week for gait, strengthening, conditioning, balance, ADLs, any patient/family/caregiver training as necessary. Speech therapy to do cognitive assessment and treat as indicated. Rehabilitation nursing to assist with bowel, bladder, skin, wound care, medication administration, pain management. Validation Consultant to assist with discharge planning, community reentry. SCD's for DVT prophylaxis. She appears to be well motivated to participate in three hours of therapy a day. She should be able to tolerate three hours of therapy a day from a medical and surgical standpoint. She should benefit from the three hours of therapy a day. She has a reasonable discharge plan, reasonable discharge rehabilitation goals and a supportive family. She has various comorbidities that need to be closely monitored with medications and treatments adjusted on a daily basis as needed. These include: DM HTN Barriers to discharge for this patient who had been independent prior to this are for her to be modified independent to supervision for ADLs and mobility skills prior to discharge home with family and HHC, so as to lessen the burden of the caregivers. Risks for this patient include: 1. Fall 2. Fracture 3. DVT 4. Pulmonary embolism 5. Wound infection 6. Skin breakdown 7. Contractures 8. Poorly controlled pain 9. Urinary retention 10. UTI 11. Respiratory infection 12. Aspiration 13. Recurrent hematoma 14. Poorly controlled DM 15. Poorly controlled HTN Estimated Length of Stay: 18 days Prognosis: Rehab prognosis appears good for goal of discharge home with HHC and family modified independent to supervision for ADLs and mobility skills. [facility] CODE 03.9 Etiologic DX Chronic cauda Equina syndrome CLARK CHRISTIANSON MD Nov 06, 2017 15:31
[2017-11-06] MEDS ORDERED: HYDROcodone/APAP 10 MG/325 MG (LORTAB) TAB PO ONE (15:36)
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
[2017-11-06] MEDS: TROSPIUM 20 MG (SANCTURA) TAB PO SCH (17:11)
[2017-11-06] MEDS: MAGNESIUM OXIDE (MAG-OX)400 MG TAB PO SCH (17:11)
[2017-11-06] MEDS: metFORMIN 500 MG (GLUCOPHAGE) TAB PO SCH (17:11)
[2017-11-06 18:02] VITALS: BP 152/60
[2017-11-06] MEDS: inSUlin (REGULAR) HUMAN 1 UNIT/0.01 ML (CHARGE PER UNIT) SC SCH (20:30)
[2017-11-06] MEDS: ATORVASTATIN 40 MG (LIPITOR) TABLET PO SCH (20:30)
[2017-11-06] MEDS: NITROFURANTOIN 100 MG (MACROBID) CAPSULE PO SCH (20:30)
[2017-11-06] MEDS: meTOprolol TARTRATE 25 MG (LOPRESSOR) TABLET PO SCH (20:30)
[2017-11-06] MEDS: DOCUSATE SODIUM 100 MG (COLACE) CAP PO SCH (20:33)
[2017-11-06] MEDS: BACLOFEN 10 MG (LIORESAL) TAB PO PRN (20:35)
[2017-11-06] MEDS: LIDOCAINE PATCH REMOVAL TP SCH (20:43)
[2017-11-06] MEDS: HYDROcodone/APAP 10 MG/325 MG (LORTAB) TAB PO PRN (21:24)
[2017-11-07] MEDS: inSUlin (REGULAR) HUMAN 1 UNIT/0.01 ML (CHARGE PER UNIT) SC SCH ×4 (05:26→21:15)
[2017-11-07] MEDS: VITAMIN D3 1,000 UNITS (CHOLECALCIFEROL) TABLET PO SCH (06:13)
[2017-11-07] MEDS: PANTOPRAZOLE 40 MG (PROTONIX) TAB PO SCH (06:13)
[2017-11-07] MEDS: CYANOCOBALAMIN 500 MCG TAB (VITAMIN B-12) PO SCH (06:13)
[2017-11-07] MEDS: VITAMIN E 400 INTLU CAP PO SCH (06:13)
[2017-11-07] MEDS: metFORMIN 500 MG (GLUCOPHAGE) TAB PO SCH ×2 (06:13→17:23)
[2017-11-07] MEDS: TROSPIUM 20 MG (SANCTURA) TAB PO SCH ×2 (06:13→17:23)
[2017-11-07] MEDS: HYDROcodone/APAP 10 MG/325 MG (LORTAB) TAB PO PRN ×2 (06:25→22:14)
[2017-11-07 06:40] VITALS: BP 157/68
[2017-11-07] MEDS: ONDANSETRON 4 MG (ZOFRAN) ORAL DISSOLVE TAB PO PRN (08:22)
--- NOTE | 2017-11-07 08:39 | Progress Note-Standard ---
Standard Progress Note Progress Notes/Assess & Plan Date Seen 11/07/17 Time Seen by Provider: 08:30 Assess & Plan/Chief Complaint Pt nauseated currently by taking pain meds on empty stomach. Checked meds and labs. Bowels not moving but had loose ones the night before. No pain is reported Therapy initiated. Dr Urbano consulted. EKG reviewed. AFVSS, Pleasant, O x 3 RRR, CTAB No edema, paralysis noted lower legs no changes but sensation is returning A/P: Lower extremity paralysis secondary to spinal hematoma Neurogenic bladder and bowel DM HTN OA HLP Plan: Scop patch Zofran Cardiology is appreciated Monitor closely Monitor elevated sugars MOY LOGAN DO Nov 07, 2017 08:39
[2017-11-07] MEDS: inSUlin DETERMIR 1 UNIT/0.01 ML (LEVEMIR) CHARGE PER UNIT SQ SCH (09:55)
[2017-11-07] MEDS: LIDOCAINE (LIDODERM) 5% PATCH TOP SCH (10:11)
[2017-11-07] MEDS: SCOPOLAMINE 1.5 MG (TRANSDERM-SCOP) PATCH TOP SCH (10:11)
[2017-11-07] MEDS: DOCUSATE SODIUM 100 MG (COLACE) CAP PO SCH ×2 (10:12→20:52)
[2017-11-07] MEDS: FAMOTIDINE 20 MG (PEPCID) TABLET PO SCH (10:12)
[2017-11-07] MEDS: LORATADINE (CLARITIN) 10 MG TAB PO SCH (10:13)
[2017-11-07] MEDS: meTOprolol TARTRATE 25 MG (LOPRESSOR) TABLET PO SCH ×2 (10:13→20:53)
[2017-11-07] MEDS: MAGNESIUM OXIDE (MAG-OX)400 MG TAB PO SCH ×2 (10:13→17:23)
[2017-11-07] MEDS: lisINopril 20 MG (PRINIVIL) TABLET PO SCH (10:13)
[2017-11-07] MEDS: HYDROCHLOROTHIAZIDE 25 MG (HCTZ) TAB PO SCH (10:13)
[2017-11-07] MEDS: NITROFURANTOIN 100 MG (MACROBID) CAPSULE PO SCH ×2 (10:13→20:52)
--- NOTE | 2017-11-07 11:12 | PM & R (SOAP) Progress Note ---
Subjective Time Seen by Provider: 10:00 Subjective/Events-last exam Patient was seen in her room this AM Discussed case with RN Patient with nausea Zofran ordered as well as Scopolamine patch.Patient max assist for transfers. Appreciate DR Santana note and orders. Objective Exam Last Set of Vital Signs Vital Signs Date Time Temp Pulse Resp B/P (MAP) Pulse Ox O2 Delivery O2 Flow Rate FiO2 11/07/17 09:00 Room Air 11/07/17 06:40 97.8 64 16 157/68 (97) 96 Capillary Refill : Less Than 3 Seconds I&O Intake and Output 11/07/17 00:00 Intake Total 300 ml Output Total 650 ml Balance -350 ml Intake Oral 300 ml Output Urine Total 650 ml Daily Weight Change No Results Lab Laboratory Tests 11/06/17 13:21: Glucometer 181H 11/06/17 16:23: Glucometer 256H 11/06/17 20:30: Glucometer 154H 11/07/17 05:17: Glucometer 133H Assessment/Plan Assessment Cauda Equina surgery S/p Evac Epidural hematoma DM controlled with meds Nausea on meds HTN conrolled Plan Continue PT/OT RX for nausea Therapy as tolerated F/U with DR Wright and Cardiology CLARK CHRISTIANSON MD Nov 07, 2017 11:12
--- NOTE | 2017-11-07 12:45 | Physical Therapy Daily Note ---
PT Daily Note-Current Subjective Pt laying Supine in bed upon arrival. Pt agrees to co-treat with OT. Pain Comment: Pt reports weakness & cannot feel BLE. Mental Status Patient Orientation: Person, Place, Situation Transfers Functional [place] Measure 0=Not Assessed/NA 4=Minimal Assistance 1=Total Assistance 5=Supervision or Setup 2=Maximal Assistance 6=Modified [place] 3=Moderate Assistance 7=Complete IndependenceIRFPAI Quality Coding Scale 6 Independent with activity with or without an assistive device 5 Patient requires set up or clean up by helper. Patient completes activity by themselves 4 Supervision or touching assist (CGA). [place] provide cues , steadying assist 3 The helper provides less than half the effort to complete the activity 2 The helper provides more than half the effort to complete the activity 1 Dependent. The helper does all the effort to complete an activity 7 Patient refused to complete or attempt activity 9 The patient did not perform the activity before the current illness or injury 88 Not attempted due to Medical conditions or safety concerns Scootin Rollin Roll Left to Right (QC): 2 Supine to/from Sit: 2 Weight Bearing Right Lower Extremity: Right Weight Bearing/Tolerated Left Lower Extremity: Left Weight Bearing/Tolerated Exercises Supine Ex: Rolling Treatments Pt transfers from Supine to EOB at Max A. Pt sits at EOB for balance while feeling nauseated. Pt washes self at EOB with several rest breaks due to feeling nauseated/ready vomit. Pt gets dressed with OT assistance. Pt doesn't attempt standing due to vomiting due to dizziness. Pt returns to bed to laying Supine to finish dressing. Pt rolls side to side to accomplish this task. Pt is resting and finishing session with OT at end of PT tx. Pt has all needs met. Assessment Current Status: Poor Progress Pt not motivated and has difficulty moving BLE due to weakness. Pt gets very nauseated with movement, nursing notified. PT Short Term Goals Short Term Goals Time Frame: Nov 13, 2017 Transfers (B,C,W/C) (FIM): 3 Wheelchair (FIM): 2 Wheelchair Distance: 50' Wheelchair Level of Assist: 4 PT Bowling Alley Manager Goals Bowling Alley Manager Goals PT Residential Goals Time Frame: Nov 27, 2017 Transfers (B,C,W/C) (FIM): 4 Sit to Lying (QC): 3 Lying-Sitting on Side/Bed(QC): 3 Sit to Stand (QC): 3 Rollin Roll Left to Right (QC): 3 Chair/Afk-xn-Qczzn Xfer(QC): 3 Car Transfer (QC): 3 Wheelchair (FIM): 5 Distance: 150' Wheelchair Level of Assist: 5 Wheel 50 feet with 2 turns (QC: 4 PT Plan Problem List Problem List: Activity Tolerance, Functional Strength, Safety, Balance, Gait, Transfer, Bed Mobility, ROM Treatment/Plan Treatment Plan: Continue Plan of Care Treatment Plan: Bed Mobility, Concurrent Therapy, Education, Functional Activity Dyana, Functional Strength, Group Therapy, Gait, Safety, Therapeutic Exercise, Transfers Treatment Duration: Nov 27, 2017 Frequency: At least 5 of 7 days/Wk (IRF) Estimated Hrs Per Day: 1.5 hours per day Patient and/or Family Agrees t: Yes Safety Risks/Education Patient Education: Transfer Techniques, Correct Positioning, Safety Issues Teaching Recipient: Patient Teaching Methods: Discussion Response to Teaching: Verbalize Understanding Time/GCodes Time In: 1000 Time Out: 1050 Total Billed Treatment Time: 50 Total Billed Treatment 1, FA x3 (50m) Co-treat with OT (50m) OT worked on bathing & dressing while PT worked on transfers, Dynamic Sitting Balance & Bed Mobility EVON LOUISE CAKE PULLER Nov 07, 2017 12:45
--- NOTE | 2017-11-07 13:45 | Consultation-Cardiology ---
HPI-Cardiology Cardiology Consultation Date of Consultation 11/07/17 Date of Admission Time Seen by Provider: 08:00 Indication: Atrial fibrillation HPI 77 years old lady with history of atrial fibrillation, had an episode of atrial fibrillation after surgery for her spine. She was transferred to [facility]. During her stay in the hospital she was in sinus rhythm. She was discharged to us we go on Eliquis to reduce the risk of stroke on October 20, 2017. Patient started having severe back pain on October 27, 2017 and was seen by Dr. Mejia where she was noted to have large spinal hematoma, underwent 2 surgical removal of the hematoma started on steroids. Currently suffering from lower extremity paralysis, denied any chest pain. Denied any shortness of breath. Patient was transferred to acute rehabilitation on November 06, 2017. She denied any chest pain , no palpitation, no syncope or near syncopal episodes Home Medications & Allergies Allergies: Coded Allergies: Iodine and Iodide Containing Produc (Verified Allergy, Unknown, ANAPHYLAXIS, RASH, 11/09/14) Sulfa (Sulfonamide Antibiotics) (Unverified Allergy, Unknown, NAUSEA AND VOMITING, 11/09/14) adhesive (Unverified Allergy, Unknown, 11/09/14) codeine (Unverified Allergy, Unknown, N/V , 11/09/14) tramadol (Unverified Allergy, Unknown, NAUSEA AND VOMITING, 11/09/14) Uncoded Allergies: PERFUME (Allergy, Unknown, 11/09/14) Home Medication List Reviewed: Yes WMR-Lygnpi-Fkljwy Hx Patient Social History Alcohol Use: Denies Use Recreational Drug Use: No Smoking Status: Never a Smoker Recent Foreign Travel: No Recent Infectious Disease Expo: No Recent Hopitalizations: No Physical Abuse Screen: No Sexual Abuse: No Immunizations Up To Date Tetanus Booster (TDap): Less than 5yrs Date of Pneumonia Vaccine: May 05, 2014 Date of Influenza Vaccine: Jun 19, 2017 Family Medical History Significant Family History: Heart Disease, Diabetes Family History: Asthma 19 MOTHER Cardiovascular disease 19 FATHER Coronary thrombosis 19 FATHER 19 MOTHER Fibromyalgia 19 MOTHER Osteoporosis 19 MOTHER Constitutional: see HPI, weakness EENTM: see HPI, no symptoms reported Respiratory: no symptoms reported, see HPI Cardiovascular: see HPI Gastrointestinal: see HPI, constipation, nausea Genitourinary: no symptoms reported, see HPI Musculoskeletal: see HPI, back pain, other (Lower extremity paralysis) Skin: see HPI Psychiatric/Neurological: No Symptoms Reported, See HPI Reviewed Test Results Reviewed Test Results Lab Laboratory Tests Test 11/06/17 16:23 11/06/17 20:30 11/07/17 05:17 11/07/17 10:55 Range/Units Glucometer 256 H 154 H 133 H 177 H 70-110 MG/DL Physical Exam Vital Signs Vital Signs - First Documented 11/06/17 12:53 Temp 97.9 Pulse 65 Resp 18 B/P (MAP) 148/65 (92) Pulse Ox 94 O2 Delivery Room Air Capillary Refill : Less Than 3 Seconds General Appearance: WD/WN, Mild Distress Eyes: Bilateral Eye Normal Inspection, Bilateral Eye PERRL, Bilateral Eye EOMI HEENT: PERRL/EOMI, TMs Normal, Normal ENT Inspection, Pharynx Normal Neck: Full Range of Motion, Normal Inspection, Non Tender, Supple Respiratory: Chest Non Tender, Lungs Clear, Normal Breath Sounds, No Accessory Muscle Use, No Respiratory Distress Cardiovascular: Regular Rate, Rhythm, No Edema, No Gallop, No JVD, No Murmur, Normal Peripheral Pulses Gastrointestinal: Normal Bowel Sounds, No Organomegaly, No Pulsatile Mass, Non Tender, Soft Extremity: Normal Capillary Refill, Normal Inspection, Other (Lower extremity paralysis) Neurologic/Psychiatric: Alert, Oriented x3 Skin: Normal Color, Warm/Dry Lymphatic: No Adenopathy A/P-Cardiology Admission Diagnosis Paralysis Paroxysmal atrial fibrillation Hypertension Hyperlipidemia Assessment/Plan Status post back surgery done on October 14, 2017, had hematoma, multiple surgical evacuation, had wound VAC and lower extremity paralysis, receiving physical therapy Paroxysmal atrial fibrillation, had an episode of atrial fibrillation with rapid ventricular response on October 17, 2017, converted to sinus rhythm. Continue to monitor [id number] score is 5, yearly risk of stroke without oral anticoagulation is 6.7 percent, currently off oral anticoagulation due to hematoma. Hypertension, continue to monitor blood pressure Hyperlipidemia, monitor lipids Diabetes mellitus, monitor and managed by primary care physician Obesity, BMI is 28 Fibromyalgia, multiple complain about joint and back pain. Clinical Quality Measures DVT/VTE Risk/Contraindication: Risk Factor Score Per Nursin RFS Level Per Nursing on Admit: 4+=Very High GEORGE CULLEN MD Nov 07, 2017 13:44
[2017-11-07] MEDS ORDERED: COLE1TAB PO (14:37)
[2017-11-07] MEDS ORDERED: LISI40TA PO (14:37)
--- NOTE | 2017-11-07 14:39 | Individualized Plan of Care ---
Individualized Plan of Care Rehab Nursing IPOC Order Admission Date Nov 06, 2017 at 10:24 Current Orders Orders Cho 60g/M 1snack (16-2000 Giuseppe) (11/06/17 Lunch) Accucheck Achs ACHS (11/06/17 12:22) Physical Therapy Oder (11/06/17 12:22) Occupational Therapy Order (11/06/17 12:22) Request Speech/Language Servic (11/06/17 12:22) Ambulate TID (11/06/17 12:49) Sequential Compression Device 08,20 (11/06/17 12:49) Dvt/Vte Risk - Notifiy Physici 08 (11/06/17 12:49) Admission Order(Inpt,Obs,Sdc) (11/06/17 14:41) Vital Signs: Routine (Ord) 08,16,00 (11/06/17 14:41) Facility Mechanic-Inpt Rehab (11/06/17 14:41) Rehab Nursing Orders-Ipoc (11/06/17 14:41) Intake & Output ,14, (11/06/17 14:41) Weekly Weight (Lbs) WEEK (11/06/17 14:41) Consult Physician (11/06/17 14:54) Hydrocodone/Apap 10/325 Tablet (Lortab 1 (11/06/17 15:36) Docusate Sodium Capsule (Colace Capsule) (11/06/17 21:00) Hydrochlorothiazide Cap/Tablet (Hctz Cap (11/07/17 09:00) Insulin Determir (Per Unit) (Levemir (Pe (11/07/17 09:00) Lidocaine Patch (Lidoderm 5% Patch) (11/07/17 09:00) Lisinopril Tablet (Zestril Tablet) (11/07/17 09:00) Nitrofurantoin Capsule,Macro (Macrobid C (11/06/17 21:00) Magnesium Oxide Tablet (Mag Ox Tablet) (11/06/17 18:00) Metoprolol Tartrate (Ir) Tab (Lopressor (11/06/17 21:00) Pantoprazole Tablet (Protonix Tablet) (11/07/17 07:00) Baclofen Tablet (Lioresal Tablet) (11/06/17 15:00) Colestipol Tablet (Colestid Tablet) (11/07/17 13:08) Famotidine Tablet (Pepcid Tablet) (11/07/17 09:00) Metformin Tablet (Glucophage Tablet) (11/06/17 17:00) Cyanocobalamin Tablet (Vitamin B-12 Tabl (11/07/17 07:00) Cholecalciferol Capsule/Tablet (Vitamin (11/07/17 07:00) D-Alpha Tochopheryl Capsule (Vitamin E C (11/07/17 07:00) Loratadine Tablet (Claritin Tablet) (11/07/17 09:00) Trospium Tablet (Sanctura Tablet) (11/06/17 16:00) Atorvastatin Tablet (Lipitor) (11/06/17 21:00) Patient Visit (11/06/17 ) Pt Eval Moderate Complexity (11/06/17 ) Hydrocodone/Apap 10/325 Tablet (Lortab 1 (11/06/17 19:00) Patch Removal (Patch Removal) (11/06/17 21:00) Consult Physician (11/06/17 16:37) Ekg Tracing (11/06/17 16:38) Insulin (Regular) Human (Humulin R (Per (11/06/17 21:00) Ondansetron Oral Dissolve Tab (Zofran (11/07/17 08:00) Scopolamine Patch (Transderm-Scop Patch) (11/07/17 09:00) Patch Removal (Patch Removal) (11/10/17 08:59) Rehab Nursing Orders: Diseage Management, Edu in Press Rel Techn, Hydration Management, Nutrition Management, Pain Management Other Nursing Orders: monitor for urinary retention/incontinence /constipation PT IPOC Problem List: Activity Tolerance, Functional Strength, Safety, Balance, Gait, Transfer, Bed Mobility, ROM Treatment Plan: Continue Plan of Care Bed Mobility, Concurrent Therapy, Education, Functional Activity Dyana, Functional Strength, Group Therapy, Gait, Safety, Therapeutic Exercise, Transfers Treatment Duration: Nov 27, 2017 Frequency: At least 5 of 7 days/Wk (IRF) Estimated Hrs Per Day: 1.5 hours per day OT IPOC Problems: Decreased Activ Tolerance, Decreased UE Strength, Dependent Transfers , Impaired Bed Mobility, Impaired Funct Balance, Impaired Self-Care Skills OT Treatment, Training and Edu: Yes OT Problems Pt would benefit from skilled OT to increase her independence with basic self care to allow her to safely return to her home Plan of Care: ADL Retraining, Group Exercise/Act as Ind (education, exercise, funct activities, activity tolerance, mobility), Orthotic Fitting/Training, UE Neuromus Re-Ed/Coord Treatment Duration: Nov 29, 2017 Frequency: At least 5 of 7 days/Wk (IRF) Estimated Hrs Per Day: 1.[address] IPOC Speech Therapy Treatment Plan: Discontinue ST Treatment Duration: Nov 07, 2017 Frequency: Modified Program (IRF) Estimated Hrs Per Day: .5 hour per day Facility Mechanic/Case Mgmt Facility Mechanic/Case Managemen: Discharge Planning, Patient/Family Counseling Physician IPOC Medical Issues being managed closely and that require the 24 hour availability of a physician: Cauda Equina weakness and bowel and bladder issues PAF HTN DM Chronic pain Nausea [facility] CODE 03.9 Etiologic DX Chronic Cauda Equina syndrome Medical Issues: Bowel/Bladder Function, DVT Prophylaxis, Falls Precautions, Infection Protection, Pain Management, Other (List) (as pe rbaove) Brief Synthesis of Preadmission Screen, Post-Admission Evaluation, and Therapy Evaluations: 77 yo female who underwent Lumbar spine surgery at [facility] for cauda Equina syndrome who developed postop Epidura hematoma requiring evacuation Original surgery was done mid October 2017 Prior to that the patient had been Modified Independent with a walker/PMH PAF/HTN/DM/Fibromyalgia Medical Prognosis: Good Anticipated Length of Stay: 11-29-17 Rehab Goals Modified Independent for ADLS and mobility skills Anticipated discharge destinat: Home with CLARK MEDEIROS MD Nov 07, 2017 14:39
[2017-11-07] MEDS: COLESTIPOL 1 GM (COLESTID) TAB PO SCH (14:44)
--- NOTE | 2017-11-07 15:25 | Physical Therapy Daily Note ---
PT Daily Note-Current Subjective Pt laying Supine in bed upon arrival. Pt reports still feeling nauseated with movement. Pt agrees to Supine Ex. Pain Numeric Pain Scale: 5-Moderate Pain Location: Left Location Body Site: Back Pain Description: Ache Mental Status Patient Orientation: Person, Place, Situation Attachments: [place] Catheter Transfers Functional [place] Measure 0=Not Assessed/NA 4=Minimal Assistance 1=Total Assistance 5=Supervision or Setup 2=Maximal Assistance 6=Modified [place] 3=Moderate Assistance 7=Complete IndependenceIRFPAI Quality Coding Scale 6 Independent with activity with or without an assistive device 5 Patient requires set up or clean up by helper. Patient completes activity by themselves 4 Supervision or touching assist (CGA). [place] provide cues , steadying assist 3 The helper provides less than half the effort to complete the activity 2 The helper provides more than half the effort to complete the activity 1 Dependent. The helper does all the effort to complete an activity 7 Patient refused to complete or attempt activity 9 The patient did not perform the activity before the current illness or injury 88 Not attempted due to Medical conditions or safety concerns Rollin Roll Left to Right (QC): 3 Weight Bearing Right Lower Extremity: Right Weight Bearing/Tolerated Left Lower Extremity: Left Weight Bearing/Tolerated Exercises Supine Ex: Ankle pumps, Quad Set, Heel Slides, Hip abd/add Supine Reps: 15 (2 sets) Treatments Pt completes Supine Ex in bed with several rest breaks. Ex is AAROM due to weakness. Pt rolls to R sidelying after EX. PT has all needs met at end of tx , including call light in hand. Assessment Current Status: Fair Progress Pt continues to be nauseated with movement and this limits tx. PT Short Term Goals Short Term Goals Time Frame: Nov 13, 2017 Transfers (B,C,W/C) (FIM): 3 Wheelchair (FIM): 2 Wheelchair Distance: 50' Wheelchair Level of Assist: 4 PT Custodial Goals Custodial Goals PT Tube Draw Helper Goals Time Frame: Nov 27, 2017 Transfers (B,C,W/C) (FIM): 4 Sit to Lying (QC): 3 Lying-Sitting on Side/Bed(QC): 3 Sit to Stand (QC): 3 Rollin Roll Left to Right (QC): 3 Chair/Loo-pv-Eafuf Xfer(QC): 3 Car Transfer (QC): 3 Wheelchair (FIM): 5 Distance: 150' Wheelchair Level of Assist: 5 Wheel 50 feet with 2 turns (QC: 4 PT Plan Problem List Problem List: Activity Tolerance, Functional Strength, Safety, Balance, Gait, Transfer, Bed Mobility, ROM Treatment/Plan Treatment Plan: Continue Plan of Care Treatment Plan: Bed Mobility, Concurrent Therapy, Education, Functional Activity Dyana, Functional Strength, Group Therapy, Gait, Safety, Therapeutic Exercise, Transfers Treatment Duration: Nov 27, 2017 Frequency: At least 5 of 7 days/Wk (IRF) Estimated Hrs Per Day: 1.5 hours per day Patient and/or Family Agrees t: Yes Safety Risks/Education Patient Education: Transfer Techniques, Correct Positioning, Safety Issues Teaching Recipient: Patient Teaching Methods: Discussion Response to Teaching: Verbalize Understanding Time/GCodes Time In: 1445 Time Out: 1525 Total Billed Treatment Time: 40 Total Billed Treatment 1, EX x3 (40m) EVON LOUISE MANAGER MACHINE Nov 07, 2017 15:25
--- NOTE | 2017-11-07 17:27 | Occupational Ther Daily Note ---
OT Current Status-Daily Note Subjective Pt seen in room, up in bed, reluctantly agreeable to therapy. Pt with cold washcloth on forehead for nausea Appearance Alert, cooperative Mental Status/Objective Functional [place] Measure 0=Not Assessed/NA 4=Minimal Assistance 1=Total Assistance 5=Supervision or Setup 2=Maximal Assistance 6=Modified [place] 3=Moderate Assistance 7=Complete [place] ADL-Treatment Co-treat with PT due to decreased activity tolerance and multiple functional limitations requiring skill from two different professionals. Pt worked on transfers, bed mobility and sitting balance and OT worked on ADLs. Pt needed assistance to move from supine to sit EOB and to maintain sitting balance at times - see PT note. She was unable to lean forward to wash below her knees with sponge bath and needed help to thoroughly wash jenny and bottom. She also needed help to roll in bed to pull pants up and to wash jenny and bottom. She was able to don shirt with setup, supervision for balance but barely able to apple picking supervisor feet to put them into pants. She rolled side to side with help to pull pants up and was unable to do slipper socks. While sitting at EOB, pt became dizzy and nauseated and vomited. We were unable to attempt sit to stand due to dizziness and nausea and helped move her to supine. She wanted to try to eat some toast to calm her stomach so tooth brushing supplies left on bedside table for her to use afterwards. Pt left up in bed, all needs met. Cont with lorenz catheter and said she hasn't had BM Functional [place] Measure 0=Not Assessed/NA 4=Minimal Assistance 1=Total Assistance 5=Supervision or Setup 2=Maximal Assistance 6=Modified [place] 3=Moderate Assistance 7=Complete IndependenceIRFPAI Quality Coding Scale 6 Independent with activity with or without an assistive device 5 Patient requires set up or clean up by helper. Patient completes activity by themselves 4 Supervision or touching assist (CGA). [place] provide cues , steadying assist 3 The helper provides less than half the effort to complete the activity 2 The helper provides more than half the effort to complete the activity 1 Dependent. The helper does all the effort to complete an activity 7 Patient refused to complete or attempt activity 9 The patient did not perform the activity before the current illness or injury 88 Not attempted due to Medical conditions or safety concerns Eating (FIM): 5 (Pt has been able to feed herself with setup. has dentures) Eating (QC): 5 Grooming (FIM): 5 (setup to brush hair, wash face and hands) Oral Hygiene (QC): 5 Bathing (FIM): 3 (60% sponge bath at EOB) Bathing Location: L Arm, R Arm, L Upper Leg, R Upper Leg, Chest, Abdomen Shower/Bathe Self (QC): 3 Upper Body (FIM): 5 (supervision for balance, setup) Upper Body Dressing (QC): 4 Lower Body Dressing (FIM): 2 (Helped a little to place feet in pants but needed to roll in bed for themto be pulled up. Unable to don socks or shoes) Lower Body Dressing (QC): 2 On/Off Footwear (QC): 1 Toileting (FIM): 0 Toileting Hygiene (QC): 88 Toilet/Commode Transfer (FIM): 0 Toilet Transfer (QC): 88 Shower Transfer(FIM): 0 Education OT Patient Education: Modified ADL techniques, Progress toward Goal/Update tx plan, Purpose of tx/functional activities Teaching Recipient: Patient Teaching Methods: Demonstration, Discussion Response to Teaching: Verbalize Understanding, Return Demonstration, Reinforcement Needed OT Short Term Goals Short Term Goals Time Frame: Nov 15, 2017 Bathing(FIM): 4 Upper Body Dressing(FIM): 4 Lower Body Dressing(FIM): 3 Transfers (B,C,W/C) (FIM): 3 Toilet/Commode Transfer(FIM): 3 1=Demonstrate adherence to instructed precautions during ADL tasks. 2=Patient will verbalize/demonstrate understanding of assistive devices/ modifications for ADL. 3=Patient will improve strength/tolerance for activity to enable patient to perform ADL's. OT Intermediate Goals Intermediate Goals Time Frame: Nov 29, 2017 Eating (FIM): 6 Eating (QC): 6 Groomin Oral Hygiene (QC): 6 Bathing(FIM): 5 Shower/Bathe Self (QC): 5 Upper Body Dressing(FIM): 6 Upper Body Dressing (QC): 6 Lower Body Dressing(FIM): 5 Lower Body Dressing (QC): 5 On/Off Footwear (QC): 5 Toileting(FIM): 5 Toileting Hygiene (QC): 5 Toilet/Commode Transfer(FIM): 5 Toilet/Commode Transfer (QC): 5 Shower Transfer(FIM): 5 Additional Goals: 1-Demonstrate ADL Tasks, 2-Verbalize Understanding, 3- ImproveStrength/Dyana 1=Demonstrate adherence to instructed precautions during ADL tasks. 2=Patient will verbalize/demonstrate understanding of assistive devices/ modifications for ADL. 3=Patient will improve strength/tolerance for activity to enable patient to perform ADL's. OT Education/Plan Problem List/Assessment Pt would benefit from skilled OT to increase her independence with basic self care to allow her to safely return to her home Discharge Recommendations Plan/Recommendations: Continue POC Treatment Plan/Plan of Care Patient would benefit from OT for education, treatment and training to promote independence in ADL's, mobility, safety and/or upper extremity function for ADL' s. Plan of Care: ADL Retraining, Group Exercise/Act as Ind (education, exercise, funct activities, activity tolerance, mobility), Orthotic Fitting/Training, UE Neuromus Re-Ed/Coord Treatment Duration: Nov 29, 2017 Frequency: At least 5 of 7 days/Wk (IRF) Estimated Hrs Per Day: 1.5 hours per day Agreement: Yes Rehab Potential: Guarded Time/GCodes Start Time: 10:00 Stop Time: 11:00 Total Time Billed (hr/min): 60 Billed Treatment Time visit, 60 minutes ADL (50 minutes co-tx with PT) NATIVIDAD LOCKHART OT Nov 07, 2017 17:27
--- NOTE | 2017-11-07 17:39 | Occupational Ther Daily Note ---
OT Current Status-Daily Note Subjective Pt seen inroom, up in bed, agreeable to OT. No pain mentioned but she did get nauseated a couple of times Appearance Alert, cooperative Mental Status/Objective Functional [place] Measure 0=Not Assessed/NA 4=Minimal Assistance 1=Total Assistance 5=Supervision or Setup 2=Maximal Assistance 6=Modified [place] 3=Moderate Assistance 7=Complete [place] ADL-Treatment Functional [place] Measure 0=Not Assessed/NA 4=Minimal Assistance 1=Total Assistance 5=Supervision or Setup 2=Maximal Assistance 6=Modified [place] 3=Moderate Assistance 7=Complete IndependenceIRFPAI Quality Coding Scale 6 Independent with activity with or without an assistive device 5 Patient requires set up or clean up by helper. Patient completes activity by themselves 4 Supervision or touching assist (CGA). [place] provide cues , steadying assist 3 The helper provides less than half the effort to complete the activity 2 The helper provides more than half the effort to complete the activity 1 Dependent. The helper does all the effort to complete an activity 7 Patient refused to complete or attempt activity 9 The patient did not perform the activity before the current illness or injury 88 Not attempted due to Medical conditions or safety concerns Other Treatment Pt education on 5 different bilat UE exercise with yellow theraband (gentle resistance). After initial teaching and skilled cues, she did 10 repetitions of each exercise and then was able to recall two of 5 exercises. Pt did a second set of 10 reps, with skilled cues as needed. To hep strengthen arms to help with ADLs and transfers. Pt left up in bed, all needs met. Education OT Patient Education: Exercise program, Purpose of tx/functional activities Teaching Recipient: Patient Teaching Methods: Discussion Response to Teaching: Verbalize Understanding OT Short Term Goals Short Term Goals Time Frame: Nov 15, 2017 Bathing(FIM): 4 Upper Body Dressing(FIM): 4 Lower Body Dressing(FIM): 3 Transfers (B,C,W/C) (FIM): 3 Toilet/Commode Transfer(FIM): 3 1=Demonstrate adherence to instructed precautions during ADL tasks. 2=Patient will verbalize/demonstrate understanding of assistive devices/ modifications for ADL. 3=Patient will improve strength/tolerance for activity to enable patient to perform ADL's. OT Mcfp Goals Mcfp Goals Time Frame: Nov 29, 2017 Eating (FIM): 6 Eating (QC): 6 Groomin Oral Hygiene (QC): 6 Bathing(FIM): 5 Shower/Bathe Self (QC): 5 Upper Body Dressing(FIM): 6 Upper Body Dressing (QC): 6 Lower Body Dressing(FIM): 5 Lower Body Dressing (QC): 5 On/Off Footwear (QC): 5 Toileting(FIM): 5 Toileting Hygiene (QC): 5 Toilet/Commode Transfer(FIM): 5 Toilet/Commode Transfer (QC): 5 Shower Transfer(FIM): 5 Additional Goals: 1-Demonstrate ADL Tasks, 2-Verbalize Understanding, 3- ImproveStrength/Dyana 1=Demonstrate adherence to instructed precautions during ADL tasks. 2=Patient will verbalize/demonstrate understanding of assistive devices/ modifications for ADL. 3=Patient will improve strength/tolerance for activity to enable patient to perform ADL's. OT Education/Plan Problem List/Assessment Pt would benefit from skilled OT to increase her independence with basic self care to allow her to safely return to her home Discharge Recommendations Plan/Recommendations: Continue POC Treatment Plan/Plan of Care Patient would benefit from OT for education, treatment and training to promote independence in ADL's, mobility, safety and/or upper extremity function for ADL' s. Plan of Care: ADL Retraining, Group Exercise/Act as Ind (education, exercise, funct activities, activity tolerance, mobility), Orthotic Fitting/Training, UE Neuromus Re-Ed/Coord Treatment Duration: Nov 29, 2017 Frequency: At least 5 of 7 days/Wk (IRF) Estimated Hrs Per Day: 1.5 hours per day Agreement: Yes Rehab Potential: Guarded Time/GCodes Start Time: 14:00 Stop Time: 14:30 Total Time Billed (hr/min): 30 Billed Treatment Time visit, 30 minutes exercise NATIVIDAD LOCKHART OT Nov 07, 2017 17:39
[2017-11-07 17:50] VITALS: BP 154/74
[2017-11-07] MEDS: ATORVASTATIN 40 MG (LIPITOR) TABLET PO SCH (20:52)
[2017-11-07] MEDS: MECLIZINE 25 MG (ANTIVERT) TAB PO PRN (21:05)
[2017-11-07] MEDS: LIDOCAINE PATCH REMOVAL TP SCH (21:05)
[2017-11-08] MEDS: PANTOPRAZOLE 40 MG (PROTONIX) TAB PO SCH (05:54)
[2017-11-08] MEDS: VITAMIN E 400 INTLU CAP PO SCH (05:54)
[2017-11-08] MEDS: TROSPIUM 20 MG (SANCTURA) TAB PO SCH ×2 (05:54→16:49)
[2017-11-08] MEDS: VITAMIN D3 1,000 UNITS (CHOLECALCIFEROL) TABLET PO SCH (05:55)
[2017-11-08] MEDS: metFORMIN 500 MG (GLUCOPHAGE) TAB PO SCH ×2 (05:55→16:49)
[2017-11-08] MEDS: CYANOCOBALAMIN 500 MCG TAB (VITAMIN B-12) PO SCH (05:55)
[2017-11-08 06:00] VITALS: BP 147/72
[2017-11-08] MEDS: inSUlin (REGULAR) HUMAN 1 UNIT/0.01 ML (CHARGE PER UNIT) SC SCH ×4 (07:02→21:11)
--- NOTE | 2017-11-08 07:46 | PM & R (SOAP) Progress Note ---
Subjective Time Seen by Provider: 07:26 Subjective/Events-last exam Patient was seen in her room this AM Nausea and dizziness better with Meclizine and Scopolamine patch.Discussed case with RN Bladder managed with Indwelling Alvarenga catheter. Review of Systems Musculoskeletal: leg pain Neurological: Weakness Objective Exam Last Set of Vital Signs Vital Signs Date Time Temp Pulse Resp B/P (MAP) Pulse Ox O2 Delivery O2 Flow Rate FiO2 11/08/17 06:00 98.0 63 18 147/72 (97) 92 Room Air Capillary Refill : Less Than 3 Seconds I&O Intake and Output 11/07/17 23:59 Intake Total 1110 ml Output Total 850 ml Balance 260 ml Intake Oral 1110 ml Output Urine Total 850 ml # Bowel Movements 1 Results Lab Laboratory Tests 11/06/17 13:21: Glucometer 181H 11/06/17 16:23: Glucometer 256H 11/06/17 20:30: Glucometer 154H 11/07/17 05:17: Glucometer 133H 11/07/17 10:55: Glucometer 177H 11/07/17 16:00: Glucometer 191H 11/08/17 06:01: Glucometer 136H Assessment/Plan Assessment Cauda Equina surgery S/p Evac Epidural hematoma DM controlled with meds Nausea on meds HTN conrolled Indwelling Alvarenga catheter Plan Continue PT/OT RX for nausea-done improved Therapy as tolerated F/U with DR Wright and Cardiology and ortho spine Consult with Urology possibly at a later time re Alvarenga catheter removal Patient report neuropathic pain and tingling in RT FOOT RX-Meds available CLARK CHRISTIANSON MD Nov 08, 2017 07:46
[2017-11-08] MEDS: HYDROCHLOROTHIAZIDE 25 MG (HCTZ) TAB PO SCH (08:18)
[2017-11-08] MEDS: DOCUSATE SODIUM 100 MG (COLACE) CAP PO SCH ×2 (08:18→20:40)
[2017-11-08] MEDS: meTOprolol TARTRATE 25 MG (LOPRESSOR) TABLET PO SCH ×2 (08:18→20:40)
[2017-11-08] MEDS: lisINopril 20 MG (PRINIVIL) TABLET PO SCH (08:18)
[2017-11-08] MEDS: FAMOTIDINE 20 MG (PEPCID) TABLET PO SCH (08:18)
[2017-11-08] MEDS: NITROFURANTOIN 100 MG (MACROBID) CAPSULE PO SCH ×2 (08:18→20:40)
[2017-11-08] MEDS: MAGNESIUM OXIDE (MAG-OX)400 MG TAB PO SCH ×2 (08:18→17:34)
[2017-11-08] MEDS: LORATADINE (CLARITIN) 10 MG TAB PO SCH (08:19)
[2017-11-08] MEDS: HYDROcodone/APAP 10 MG/325 MG (LORTAB) TAB PO PRN ×2 (08:28→20:40)
[2017-11-08] MEDS: LIDOCAINE (LIDODERM) 5% PATCH TOP SCH (08:28)
[2017-11-08] MEDS: COLESTIPOL 1 GM (COLESTID) TAB PO SCH (09:37)
[2017-11-08] MEDS: inSUlin DETERMIR 1 UNIT/0.01 ML (LEVEMIR) CHARGE PER UNIT SQ SCH (09:38)
--- NOTE | 2017-11-08 10:10 | Cardiology Progress Note ---
Subjective Date Seen by Provider: Nov 08, 2017 Time Seen by Provider: 10:08 Subjective/Events-last exam Patient is laying down in bed, feeling slightly better, still have to appetite, her nausea is better. Review of Systems General: No Chills, No Night Sweats, No Fatigue, No Malaise, No Appetite, No Other HEENT: No Head Aches, No Visual Changes, No Eye Pain, No Ear Pain, No Dysphasia , No Sinus Congestion, No Post Nasal Drip, No Sore Throat, No Other Pulmonary: No Dyspnea, No Cough, No Pleuritic Chest Pain, No Other Cardiovascular: No: Chest Pain, Palpitations, Orthopnea, Paroxysmal Noc. Dyspnea, Edema, Lt Headedness, Other Gastrointestinal: Nausea Objective-Cardiology Exam Last Set of Vital Signs Vital Signs 11/08/17 06:00 Temp 98.0 Pulse 63 Resp 18 B/P (MAP) 147/72 (97) Pulse Ox 92 O2 Delivery Room Air Capillary Refill : Less Than 3 Seconds I&O Intake and Output 11/08/17 00:00 Intake Total 1110 ml Output Total 850 ml Balance 260 ml Intake Oral 1110 ml Output Urine Total 850 ml # Bowel Movements 1 General: Alert, Oriented X3, Cooperative HEENT: Atraumatic, PERRLA Neck: Supple, No JVD Lungs: Clear to Auscultation, Normal Air Movement Heart: Normal S1, Normal S2, Other (Irregular rhythm) Abdomen: Normal Bowel Sounds, Soft Extremities: No Clubbing, No Edema Skin: No Rashes Neuro: Other (Paralysis) A/P-Cardiology Admission Diagnosis Paralysis Paroxysmal atrial fibrillation Hypertension Hyperlipidemia Assessment/Plan Status post back surgery done on October 14, 2017, had hematoma, multiple surgical evacuation, had wound VAC and lower extremity paralysis, receiving physical therapy Paroxysmal atrial fibrillation, had an episode of atrial fibrillation with rapid ventricular response on October 17, 2017, converted to sinus rhythm. Continue to monitor [id number] score is 5, yearly risk of stroke without oral anticoagulation is 6.7 percent, currently off oral anticoagulation due to hematoma. Hypertension, continue to monitor blood pressure Hyperlipidemia, monitor lipids Diabetes mellitus, monitor and managed by primary care physician Obesity, BMI is 28 Fibromyalgia, multiple complain about joint and back pain. Clinical Quality Measures DVT/VTE Risk/Contraindication: Risk Factor Score Per Nursin RFS Level Per Nursing on Admit: 4+=Very High GEORGE CULLEN MD Nov 08, 2017 10:10
[2017-11-08] MEDS: MECLIZINE 25 MG (ANTIVERT) TAB PO PRN (10:28)
--- NOTE | 2017-11-08 11:34 | ST Cognitive Linguistic Eval ---
Speech Evaluation-General Medical Diagnosis cauda equinq syndrome, L3-L4 PSIF Onset Date: Oct 14, 2017 Therapy Diagnosis Therapy Diagnosis: Cognitive Lingusitic Skills WNL Precautions Precautions/Isolations: Fall Prevention, Standard Precautions, Pressure Ulcer Referral Referring Physician: Dr. Patrick Pisano Reason for Referral: Evaluation/Treatment Cognitive Evaluation Medical History Pertinent Medical History: Arthritis, CAD, DM, GERD, HTN Current History The patient was recently admitted to [facility] following a lumbar procedure. Reviewed History: Yes Social History Current Living Status: Alone (grandson there some of the time, age 20) Speech PLF-Current Status Prior Level of Function The patient denied prior challenges with speech, language, or cognition. Subjective The patient was laying in bed upon entrance. The patient reported fatigue, however, was agreeable to minimal participation in the the speech pathology evaluation. The patient's schedule was read aloud to her to prepare her for additional upcoming therapy as OT and PT would be present following the clinician's visit. Language Eval: Auditory Comprehends Simple Yes/No Ques: Functional Indent/Objects [place]: Functional Ident/Pics in Multiple [place]: Functional Follows 1-Step Commands: Functional Follows Complex Directions: Functional Language Eval: Verbal Language Completes Spontaneous Greeting: Functional Produces Auto, Serial Info: Functional Imitates Simple Words/Phrases: Functional Word Finding: Functional Requests Basic Needs: Functional States Basic Personal Info: Functional Expresses Complex Ideas: Functional Language Evaluation: Reading Comprehends Single Nouns: Functional Follows Simple Written Direct: Functional Cognitive Patient Orientation The patient was independently oriented to month, day of week, date, year, and location. Objective Cognitive Domain Attention: WNL Memory: WNL Problem Solving: Functional Executive Functions: WNL Objective Impression The patient demonstrated cognitive linguistic skills grossly within normal limits and appropriate for completion of ADL's. Communication/Social Cognition Comprehension: 6 (Glasses.) Expression: 7 Social Interaction: 6 (The patient requires verbal prompting for participation. Limited eye contact made throughout the assessment. Encouragement required.) Problem Solvin (Schedule necessary for reminder of upcoming therapy sessions.) Memory: 6 (Cues required for recall of single items and memory tasks throughout assessment.) Speech Patient Assess Expression of Ideas/Wants: Expression (4) Understanding [place] Content: Understands (4) Brief Interview-Mental Status: Yes Repetition of Three Words: Three (3) Temporal Orientation: Year: Correct (3) Temporal Orientation: Month: Accurate within 5 days(2) Temporal Orientation: Day: Correct (1) Recall : Wear to say "Sock": Yes,after cueing (1) Recall : Color: Yes, no cue required (2) Recall : Bed: Yes, no cue required (2) Speech-Plan Treatment Plan Speech Therapy Treatment Plan: Discontinue ST Evaluation, only. Frequency: Modified Program (IRF) (No treatment warranted. (ST)) Estimated Hrs Per Day: Other (No treatment warranted. (ST)) Rehab Potential: Guarded Safety Risks/Education Teaching Recipient: Patient Teaching Methods: Discussion Response to Teaching: Verbalize Understanding Education Topics Provided: Results, Recommendations, Plan of Care Time Speech Therapy Time In: 09:45 Speech Therapy Time Out: 10:00 Total Billed Time: 15 Billed Treatment Time 1, SAVANNAH UMRRAY Nov 08, 2017 11:34
[2017-11-08] MEDS ORDERED: diphenhydrAMINE 25 MG TAB (BENADRYL) PO PRN (11:45)
[2017-11-08] MEDS: ONDANSETRON 4 MG (ZOFRAN) ORAL DISSOLVE TAB PO PRN (12:00)
--- NOTE | 2017-11-08 12:02 | Physical Therapy Daily Note ---
PT Daily Note-Current Subjective Pt. up edge of bed upon arrival having just finished with OT. Pt. states she cant do anything and wants to know what this ADJUNCT PROFESSOR plans to do. Long discussion regarding pts PLOF and what she hopes for /goals for rehab and ultimate DC. Pt. stats she ultimately wants to go home but resists vero attempts or suggestions for sit to stands, standing with FWW and or supine or sitting therex. States she just wants to sleep Pain Numeric Pain Scale: 3 Location: Right Location Body Site: Foot Pain Description: Pricking, Sharp, Tingling, Numbness (bilat feet) Appearance eyes closed most of the time Mental Status Patient Orientation: Normal For Age Attachments: Alvarenga Catheter Transfers Functional [place] Measure 0=Not Assessed/NA 4=Minimal Assistance 1=Total Assistance 5=Supervision or Setup 2=Maximal Assistance 6=Modified [place] 3=Moderate Assistance 7=Complete IndependenceIRFPAI Quality Coding Scale 6 Independent with activity with or without an assistive device 5 Patient requires set up or clean up by helper. Patient completes activity by themselves 4 Supervision or touching assist (CGA). [place] provide cues , steadying assist 3 The helper provides less than half the effort to complete the activity 2 The helper provides more than half the effort to complete the activity 1 Dependent. The helper does all the effort to complete an activity 7 Patient refused to complete or attempt activity 9 The patient did not perform the activity before the current illness or injury 88 Not attempted due to Medical conditions or safety concerns Transfers (B, C, W/C) (FIM): 2 Scootin Rollin Supine to/from Sit: 2 Sit to/from Stand: 2 assist of 2 sit to sup and push up in bed Weight Bearing Right Lower Extremity: Right Weight Bearing/Tolerated Left Lower Extremity: Left Weight Bearing/Tolerated Gait Training attempts at side stepping toward head of bed with pt. melting quickly on to bed Exercises Supine Ex: Ankle pumps (assist), Quad Set, Rolling, Glut sets, Heel Slides ( assist), Short Arc Quads, Scooting, Hip abd/add (assist) Supine Reps: 12 Seated Therapy Exercises: Sit to stand, Long arc quads (12) Seated Reps: 6 Treatments rolling left and right in bed for total bed change with mod assist as well as above stated Rx Assessment Current Status: Poor Progress pt. vomited with significant amt emesis noted, states she felt better after vomiting but not like working. Pt. seems negative, states "I cant " when task/ activity is suggested before she has tryed. appears unmotivated PT Short Term Goals Short Term Goals Time Frame: Nov 13, 2017 Transfers (B,C,W/C) (FIM): 3 Wheelchair (FIM): 2 Wheelchair Distance: 50' Wheelchair Level of Assist: 4 PT Lining Repairer Goals Senior Living Goals PT Senior Living Goals Time Frame: Nov 27, 2017 Transfers (B,C,W/C) (FIM): 4 Sit to Lying (QC): 3 Lying-Sitting on Side/Bed(QC): 3 Sit to Stand (QC): 3 Rollin Roll Left to Right (QC): 3 Chair/Rqz-eg-Lwjux Xfer(QC): 3 Car Transfer (QC): 3 Wheelchair (FIM): 5 Distance: 150' Wheelchair Level of Assist: 5 Wheel 50 feet with 2 turns (QC: 4 PT Plan Treatment/Plan Treatment Plan: Continue Plan of Care Treatment Plan: Bed Mobility, Concurrent Therapy, Education, Functional Activity Dyana, Functional Strength, Group Therapy, Gait, Safety, Therapeutic Exercise, Transfers Treatment Duration: Nov 27, 2017 Frequency: At least 5 of 7 days/Wk (IRF) Estimated Hrs Per Day: 1.5 hours per day Patient and/or Family Agrees t: Yes Safety Risks/Education Patient Education: Transfer Techniques, Correct Positioning, Disease Process, Safety Issues Teaching Recipient: Patient Teaching Methods: Demonstration, Discussion Response to Teaching: Verbalize Understanding, Return Demonstration, Reinforcement Needed educated regarding risk factors if not mobile, ie pnuemonia, blood clots and skin break down Time/GCodes Time In: 1100 Time Out: 1200 Total Billed Treatment Time: 60 Total Billed Treatment 1,EX20m,FA40m G Codes Necessary: ELIZABETH Kellogg ADJUNCT PROFESSOR Nov 08, 2017 12:02
[2017-11-08] MEDS: MILK OF MAGNESIA 400 MG/5 ML 30 ML UDC PO PRN (12:42)
--- NOTE | 2017-11-08 12:48 | Occupational Ther Daily Note ---
OT Current Status-Daily Note Subjective Pt seen in room, up in bed, agreeable reluctantly to OT. No pain specifically mentioned but she did report nausea Appearance Alert, cooperative Mental Status/Objective Functional [place] Measure 0=Not Assessed/NA 4=Minimal Assistance 1=Total Assistance 5=Supervision or Setup 2=Maximal Assistance 6=Modified [place] 3=Moderate Assistance 7=Complete [place] ADL-Treatment Pt needed help moving both legs to edge of bed (but she did assist about 50%) and to raise trunk to sit EOB. She did not lose her balance during tx. Pt was able to sit EOB to brush teeth and hair, wash her upper body and upper legs, dress upper body and put on skirt over her head, with no loss of balance.She needed help to get back into bed and rolling for washing her jenny and bottom and pulling pants up. Barrier cream applied in jenny and bottom. Pt cont with lorenz catheter and reported that she hasn't had a BM for a while. Pt became nauseated and burped but did not vomit, requested medication which nursing provided. Pt seems reluctant to try to push herself to participate. Pt left sitting up at EOB with visitors, waiting for PT, all needs met. Functional [place] Measure 0=Not Assessed/NA 4=Minimal Assistance 1=Total Assistance 5=Supervision or Setup 2=Maximal Assistance 6=Modified [place] 3=Moderate Assistance 7=Complete IndependenceIRFPAI Quality Coding Scale 6 Independent with activity with or without an assistive device 5 Patient requires set up or clean up by helper. Patient completes activity by themselves 4 Supervision or touching assist (CGA). [place] provide cues , steadying assist 3 The helper provides less than half the effort to complete the activity 2 The helper provides more than half the effort to complete the activity 1 Dependent. The helper does all the effort to complete an activity 7 Patient refused to complete or attempt activity 9 The patient did not perform the activity before the current illness or injury 88 Not attempted due to Medical conditions or safety concerns Grooming (FIM): 5 (setup to brush teeth and hair) Bathing (FIM): 3 (60% Pt washed groin but assist was needed to be thorough and for jenny and bottom care. Sponge bath, EOB) Bathing Location: L Arm, R Arm, L Upper Leg, R Upper Leg, Chest, Abdomen Upper Body (FIM): 5 (setup) Lower Body Dressing (FIM): 2 (Pt lifted her feet nd legs to help put them into pants legs and helped bend her knees to attempt to bridge for pulling pants up. Able to roll side to side to help with pants up. Unable to do slipper socks) Education OT Patient Education: Modified ADL techniques, Purpose of tx/functional activities, Rehab process Teaching Recipient: Patient Teaching Methods: Discussion Response to Teaching: Verbalize Understanding OT Short Term Goals Short Term Goals Time Frame: Nov 15, 2017 Bathing(FIM): 4 Upper Body Dressing(FIM): 4 Lower Body Dressing(FIM): 3 Transfers (B,C,W/C) (FIM): 3 Toilet/Commode Transfer(FIM): 3 1=Demonstrate adherence to instructed precautions during ADL tasks. 2=Patient will verbalize/demonstrate understanding of assistive devices/ modifications for ADL. 3=Patient will improve strength/tolerance for activity to enable patient to perform ADL's. OT Half-Way Goals Senior Graphic Designer Goals Time Frame: Nov 29, 2017 Eating (FIM): 6 Eating (QC): 6 Groomin Oral Hygiene (QC): 6 Bathing(FIM): 5 Shower/Bathe Self (QC): 5 Upper Body Dressing(FIM): 6 Upper Body Dressing (QC): 6 Lower Body Dressing(FIM): 5 Lower Body Dressing (QC): 5 On/Off Footwear (QC): 5 Toileting(FIM): 5 Toileting Hygiene (QC): 5 Toilet/Commode Transfer(FIM): 5 Toilet/Commode Transfer (QC): 5 Shower Transfer(FIM): 5 Additional Goals: 1-Demonstrate ADL Tasks, 2-Verbalize Understanding, 3- ImproveStrength/Dyana 1=Demonstrate adherence to instructed precautions during ADL tasks. 2=Patient will verbalize/demonstrate understanding of assistive devices/ modifications for ADL. 3=Patient will improve strength/tolerance for activity to enable patient to perform ADL's. OT Education/Plan Problem List/Assessment Pt would benefit from skilled OT to increase her independence with basic self care to allow her to safely return to her home Discharge Recommendations Plan/Recommendations: Continue POC Treatment Plan/Plan of Care Patient would benefit from OT for education, treatment and training to promote independence in ADL's, mobility, safety and/or upper extremity function for ADL' s. Plan of Care: ADL Retraining, Group Exercise/Act as Ind (education, exercise, funct activities, activity tolerance, mobility), Orthotic Fitting/Training, UE Neuromus Re-Ed/Coord Treatment Duration: Nov 29, 2017 Frequency: At least 5 of 7 days/Wk (IRF) Estimated Hrs Per Day: 1.5 hours per day Agreement: Yes Rehab Potential: Guarded Time/GCodes Start Time: 10:00 Stop Time: 11:00 Total Time Billed (hr/min): 60 Billed Treatment Time visit, 60 minutes ADL NATIVIDAD LOCKHART OT Nov 08, 2017 12:48
--- NOTE | 2017-11-08 14:31 | Physical Therapy Daily Note ---
PT Daily Note-Current Subjective Pt. in bed with meal waiting on bed table. Pt. hesitant to get out of bed for group. This [employer] AUTOM[employer]BILE bringing a slide board for possible TRF mode. Pain Comment: pt. c/o nausea and weakness and that she cannot get out of bed. Appearance pt. pale, eyes closed, dry heaves Mental Status Patient Orientation: Normal For Age Attachments: Alvarenga Catheter Transfers Functional [place] Measure 0=Not Assessed/NA 4=Minimal Assistance 1=Total Assistance 5=Supervision or Setup 2=Maximal Assistance 6=Modified [place] 3=Moderate Assistance 7=Complete IndependenceIRFPAI Quality Coding Scale 6 Independent with activity with or without an assistive device 5 Patient requires set up or clean up by helper. Patient completes activity by themselves 4 Supervision or touching assist (CGA). [place] provide cues , steadying assist 3 The helper provides less than half the effort to complete the activity 2 The helper provides more than half the effort to complete the activity 1 Dependent. The helper does all the effort to complete an activity 7 Patient refused to complete or attempt activity 9 The patient did not perform the activity before the current illness or injury 88 Not attempted due to Medical conditions or safety concerns sup to sit mod assist. CGA sitting EOB, attempted to initiate slide board x3 with pt. leaning to extreme right or left unsafely then laying self down on side in bed. assist of 3 present. It was mutually decided that pt. should stay in room for individual one on one vs group. Pt. then required Mod to max assist sit to sup and to pull up in bed pt. did use UEs on rails and assist somewhat Weight Bearing Right Lower Extremity: Right Weight Bearing/Tolerated Left Lower Extremity: Left Weight Bearing/Tolerated Exercises Supine Ex: Ankle pumps, Quad Set, Heel Slides Supine Reps: 10 Assessment Current Status: Poor Progress very poor tolerance for Rx. PT Short Term Goals Short Term Goals Time Frame: Nov 13, 2017 Transfers (B,C,W/C) (FIM): 3 Wheelchair (FIM): 2 Wheelchair Distance: 50' Wheelchair Level of Assist: 4 PT Long-Term Goals Long-Term Goals PT Long-Term Goals Time Frame: Nov 27, 2017 Transfers (B,C,W/C) (FIM): 4 Sit to Lying (QC): 3 Lying-Sitting on Side/Bed(QC): 3 Sit to Stand (QC): 3 Rollin Roll Left to Right (QC): 3 Chair/Jjj-vt-Jppiz Xfer(QC): 3 Car Transfer (QC): 3 Wheelchair (FIM): 5 Distance: 150' Wheelchair Level of Assist: 5 Wheel 50 feet with 2 turns (QC: 4 PT Plan Treatment/Plan Treatment Plan: Continue Plan of Care Treatment Plan: Bed Mobility, Concurrent Therapy, Education, Functional Activity Dyana, Functional Strength, Group Therapy, Gait, Safety, Therapeutic Exercise, Transfers Treatment Duration: Nov 27, 2017 Frequency: At least 5 of 7 days/Wk (IRF) Estimated Hrs Per Day: 1.5 hours per day Patient and/or Family Agrees t: Yes Safety Risks/Education Patient Education: Transfer Techniques, Correct Positioning, Disease Process, Safety Issues Teaching Recipient: Patient Teaching Methods: Demonstration Response to Teaching: Verbalize Understanding pt. counselled again on risks of lack of activity Time/GCodes Time In: 1245 Time Out: 1315 Total Billed Treatment Time: 30 Total Billed Treatment 1,FA30m G Codes Necessary: ELIZABETH Kellogg AUCTIONEER AUTOMOBILE Nov 08, 2017 14:31
--- NOTE | 2017-11-08 16:19 | Occupational Ther Daily Note ---
OT Current Status-Daily Note Subjective Pt seen in room, up in bed, agreeable to OT. No pain mentioned Appearance Alert, cooperative Mental Status/Objective Functional [place] Measure 0=Not Assessed/NA 4=Minimal Assistance 1=Total Assistance 5=Supervision or Setup 2=Maximal Assistance 6=Modified [place] 3=Moderate Assistance 7=Complete [place] ADL-Treatment Functional [place] Measure 0=Not Assessed/NA 4=Minimal Assistance 1=Total Assistance 5=Supervision or Setup 2=Maximal Assistance 6=Modified [place] 3=Moderate Assistance 7=Complete IndependenceIRFPAI Quality Coding Scale 6 Independent with activity with or without an assistive device 5 Patient requires set up or clean up by helper. Patient completes activity by themselves 4 Supervision or touching assist (CGA). [place] provide cues , steadying assist 3 The helper provides less than half the effort to complete the activity 2 The helper provides more than half the effort to complete the activity 1 Dependent. The helper does all the effort to complete an activity 7 Patient refused to complete or attempt activity 9 The patient did not perform the activity before the current illness or injury 88 Not attempted due to Medical conditions or safety concerns Other Treatment Pt did 15 reps bilat UE exercise with yellow theraband. She needed cues for each exercise but was able to do them correctly with just occasional help. She was only able to do 10 reps each arm of "reaching to the ceiling" due to fatigue. She also did 10 reps bilat UE ex with 1/2 pound weight, working on shoulder, elbows, forearms and wrists, with education on how to do each exercise. Exercises to help strengthen arms to help with transfers and ADLs. Pt left up in bed, 4 rails up, all needs met. Education OT Patient Education: Exercise program, Purpose of tx/functional activities Teaching Recipient: Patient Teaching Methods: Demonstration, Discussion Response to Teaching: Verbalize Understanding, Return Demonstration, Reinforcement Needed OT Short Term Goals Short Term Goals Time Frame: Nov 15, 2017 Bathing(FIM): 4 Upper Body Dressing(FIM): 4 Lower Body Dressing(FIM): 3 Transfers (B,C,W/C) (FIM): 3 Toilet/Commode Transfer(FIM): 3 1=Demonstrate adherence to instructed precautions during ADL tasks. 2=Patient will verbalize/demonstrate understanding of assistive devices/ modifications for ADL. 3=Patient will improve strength/tolerance for activity to enable patient to perform ADL's. OT Industrial Gas Fitter Helper Goals Industrial Gas Fitter Helper Goals Time Frame: Nov 29, 2017 Eating (FIM): 6 Eating (QC): 6 Groomin Oral Hygiene (QC): 6 Bathing(FIM): 5 Shower/Bathe Self (QC): 5 Upper Body Dressing(FIM): 6 Upper Body Dressing (QC): 6 Lower Body Dressing(FIM): 5 Lower Body Dressing (QC): 5 On/Off Footwear (QC): 5 Toileting(FIM): 5 Toileting Hygiene (QC): 5 Toilet/Commode Transfer(FIM): 5 Toilet/Commode Transfer (QC): 5 Shower Transfer(FIM): 5 Additional Goals: 1-Demonstrate ADL Tasks, 2-Verbalize Understanding, 3- ImproveStrength/Dyana 1=Demonstrate adherence to instructed precautions during ADL tasks. 2=Patient will verbalize/demonstrate understanding of assistive devices/ modifications for ADL. 3=Patient will improve strength/tolerance for activity to enable patient to perform ADL's. OT Education/Plan Problem List/Assessment Pt would benefit from skilled OT to increase her independence with basic self care to allow her to safely return to her home Discharge Recommendations Plan/Recommendations: Continue POC Treatment Plan/Plan of Care Patient would benefit from OT for education, treatment and training to promote independence in ADL's, mobility, safety and/or upper extremity function for ADL' s. Plan of Care: ADL Retraining, Group Exercise/Act as Ind (education, exercise, funct activities, activity tolerance, mobility), Orthotic Fitting/Training, UE Neuromus Re-Ed/Coord Treatment Duration: Nov 29, 2017 Frequency: At least 5 of 7 days/Wk (IRF) Estimated Hrs Per Day: 1.5 hours per day Agreement: Yes Rehab Potential: Guarded Time/GCodes Start Time: 15:40 Stop Time: 16:10 Total Time Billed (hr/min): 30 Billed Treatment Time visit, 30 minutes exercise NATIVIDAD LOCKHART OT Nov 08, 2017 16:19
[2017-11-08 17:45] VITALS: BP 125/75
[2017-11-08] MEDS: ATORVASTATIN 40 MG (LIPITOR) TABLET PO SCH (20:40)
[2017-11-08] MEDS: SENNA W/DOCUSATE (SENOKOT S) TABLET PO SCH (20:40)
[2017-11-08] MEDS: LIDOCAINE PATCH REMOVAL TP SCH (20:41)
[2017-11-09] MEDS: inSUlin (REGULAR) HUMAN 1 UNIT/0.01 ML (CHARGE PER UNIT) SC SCH ×4 (05:05→20:34)
[2017-11-09 05:41] LABS: BASOPHILS % (AUTO) 0 % (0-10); EOSINOPHILS # (AUTO) 0.5 10^3/uL (0.0-0.3); EOSINOPHILS % (AUTO) 4 % (0-10); HEMATOCRIT 31 % (35-52); HEMOGLOBIN 10.1 G/DL (11.5-16.0); LYMPHOCYTES # (AUTO) 1.9 X 10^3 (1.0-4.0); LYMPHOCYTES % (AUTO) 14 % (12-44); MEAN CORPUSCULAR HEMOGLOBIN 29 PG (25-34); MEAN CORPUSCULAR HGB CONC 33 G/DL (32-36); MEAN CORPUSCULAR VOLUME 86 FL (80-99); MONOCYTES # (AUTO) 1.5 X 10^3 (0.0-1.0); MONOCYTES % (AUTO) 11 % (0-12); NEUTROPHILS # (AUTO) 9.6 X 10^3 (1.8-7.8); NEUTROPHILS % (AUTO) 71 % (42-75); PLATELET COUNT 381 10^3/uL (130-400); RED BLOOD COUNT 3.54 10^6/uL (4.35-5.85); RED CELL DISTRIBUTION WIDTH 15.1 % (10.0-14.5); WHITE BLOOD COUNT 13.6 10^3/uL (4.3-11.0)
[2017-11-09] MEDS: CYANOCOBALAMIN 500 MCG TAB (VITAMIN B-12) PO SCH (05:47)
[2017-11-09] MEDS: VITAMIN D3 1,000 UNITS (CHOLECALCIFEROL) TABLET PO SCH (05:47)
[2017-11-09] MEDS: VITAMIN E 400 INTLU CAP PO SCH (05:47)
[2017-11-09] MEDS: TROSPIUM 20 MG (SANCTURA) TAB PO SCH ×2 (05:47→16:20)
[2017-11-09] MEDS: PANTOPRAZOLE 40 MG (PROTONIX) TAB PO SCH (05:47)
[2017-11-09] MEDS: metFORMIN 500 MG (GLUCOPHAGE) TAB PO SCH ×2 (05:47→16:20)
[2017-11-09 05:52] VITALS: BP 134/66
[2017-11-09 05:59] LABS: ALANINE AMINOTRANSFERASE 12 U/L (0-55); ALBUMIN 3.3 GM/DL (3.2-4.5); ALKALINE PHOSPHATASE 92 U/L (40-136); BILIRUBIN,TOTAL 1.6 MG/DL (0.1-1.0); BUN/CREATININE RATIO 33; CALCIUM 9.4 MG/DL (8.5-10.1); CARBON DIOXIDE 27 MMOL/L (21-32); CHLORIDE 95 MMOL/L (98-107); CREATININE SERUM 0.79 MG/DL (0.60-1.30); GFR ESTIMATED > 60; GLUCOSE 114 MG/DL (70-105); SODIUM 134 MMOL/L (135-145); TOTAL PROTEIN 6.3 GM/DL (6.4-8.2)
[2017-11-09] MEDS: ONDANSETRON 4 MG (ZOFRAN) ORAL DISSOLVE TAB PO PRN (08:59)
[2017-11-09] MEDS: HYDROcodone/APAP 10 MG/325 MG (LORTAB) TAB PO PRN ×2 (08:59→20:24)
[2017-11-09] MEDS: MECLIZINE 25 MG (ANTIVERT) TAB PO PRN (08:59)
[2017-11-09] MEDS: lisINopril 20 MG (PRINIVIL) TABLET PO SCH (09:00)
[2017-11-09] MEDS: NITROFURANTOIN 100 MG (MACROBID) CAPSULE PO SCH ×2 (09:00→20:24)
[2017-11-09] MEDS: meTOprolol TARTRATE 25 MG (LOPRESSOR) TABLET PO SCH ×2 (09:00→20:25)
[2017-11-09] MEDS: LORATADINE (CLARITIN) 10 MG TAB PO SCH (09:00)
[2017-11-09] MEDS: FAMOTIDINE 20 MG (PEPCID) TABLET PO SCH (09:01)
[2017-11-09] MEDS: HYDROCHLOROTHIAZIDE 25 MG (HCTZ) TAB PO SCH (09:01)
[2017-11-09] MEDS: DOCUSATE SODIUM 100 MG (COLACE) CAP PO SCH ×2 (09:01→20:25)
[2017-11-09] MEDS: SENNA W/DOCUSATE (SENOKOT S) TABLET PO SCH ×2 (09:01→20:25)
[2017-11-09] MEDS: MAGNESIUM OXIDE (MAG-OX)400 MG TAB PO SCH ×2 (09:01→17:04)
[2017-11-09] MEDS: COLESTIPOL 1 GM (COLESTID) TAB PO SCH (09:02)
[2017-11-09] MEDS: LIDOCAINE (LIDODERM) 5% PATCH TOP SCH (09:03)
[2017-11-09] MEDS: inSUlin DETERMIR 1 UNIT/0.01 ML (LEVEMIR) CHARGE PER UNIT SQ SCH (09:04)
--- NOTE | 2017-11-09 11:13 | Progress Note-Hospitalist ---
Subjective HPI/CC On Admission Date Seen by Provider: Nov 09, 2017 Time Seen by Provider: 10:30 Subjective/Events-last exam Patient doing about the same Nausea continues even with Meclizine, Zofran and Scop patch Sugars much better controlled Alvarenga cath maintained since she cannot get to the bathroom or bear weight. Pins and needles in her feet and legs so that is encouraging so will start low dose Gabapentin Checked meds and labs Bowels are moving well and on Colace and [place]. AFVSS, pleasant, flat affect, discouraged, pale Review of Systems General: Fatigue Musculoskeletal: leg pain, foot pain Neurological: Weakness, Numbness, Incoordination Objective Exam Vital Signs Vital Signs Date Time Temp Pulse Resp B/P (MAP) Pulse Ox O2 Delivery O2 Flow Rate FiO2 11/06/17 12:53 97.9 65 18 148/65 (92) 94 Room Air Capillary Refill : Less Than 3 Seconds General Appearance: No Apparent Distress, WD/WN, Chronically ill, Obese Respiratory: Chest Non Tender, Lungs Clear, Normal Breath Sounds, No Accessory Muscle Use, No Respiratory Distress Cardiovascular: Regular Rate, Rhythm, No Edema, No Gallop Extremity: Normal Range of Motion (minimal movement in feet and legs below knee ), Non Tender, No Calf Tenderness Results/Procedures Lab Laboratory Tests 11/09/17 05:20 Patient resulted labs reviewed. 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
[2017-11-09] MEDS: GABAPENTIN 100 MG (NEURONTIN) CAP PO SCH ×2 (11:24→20:25)
--- NOTE | 2017-11-09 13:39 | Physical Therapy Daily Note ---
PT Daily Note-Current Subjective Pt reports feeling better than yesterday but still very tired. C/O pins and needles sensation in both feet. Transfers Functional [place] Measure 0=Not Assessed/NA 4=Minimal Assistance 1=Total Assistance 5=Supervision or Setup 2=Maximal Assistance 6=Modified [place] 3=Moderate Assistance 7=Complete IndependenceIRFPAI Quality Coding Scale 6 Independent with activity with or without an assistive device 5 Patient requires set up or clean up by helper. Patient completes activity by themselves 4 Supervision or touching assist (CGA). [place] provide cues , steadying assist 3 The helper provides less than half the effort to complete the activity 2 The helper provides more than half the effort to complete the activity 1 Dependent. The helper does all the effort to complete an activity 7 Patient refused to complete or attempt activity 9 The patient did not perform the activity before the current illness or injury 88 Not attempted due to Medical conditions or safety concerns Transfers (B, C, W/C) (FIM): 1 Rollin Supine to/from Sit: 3 Sit to/from Stand: 1 transferred to sitting edge of bed with moderate assist for LEs and trunk. Educated on segmental movements with hand placements. Sit to stand x 3 trials at bedside Max A of 2 people and pt holding walker. Pt able to unweight herself from the bed but not able to fully extend hips to a full stand position. Needed Max A to return to bed for (B) LEs Weight Bearing Right Lower Extremity: Right Weight Bearing/Tolerated Left Lower Extremity: Left Weight Bearing/Tolerated Exercises Supine Ex: Bridging, Ankle pumps, Rolling, Glut sets, Heel Slides, Short Arc Quads, Straight leg raise, Hip abd/add Supine Reps: 10 provided active assist as needed for LE exercises. PT Short Term Goals Short Term Goals Time Frame: Nov 13, 2017 Transfers (B,C,W/C) (FIM): 3 Wheelchair (FIM): 2 Wheelchair Distance: 50' Wheelchair Level of Assist: 4 PT Usp Goals [place] Goals PT Usp Goals Time Frame: Nov 27, 2017 Transfers (B,C,W/C) (FIM): 4 Sit to Lying (QC): 3 Lying-Sitting on Side/Bed(QC): 3 Sit to Stand (QC): 3 Rollin Roll Left to Right (QC): 3 Chair/[id number]-[id number] Xfer(QC): 3 Car Transfer (QC): 3 Wheelchair (FIM): 5 Distance: 150' Wheelchair Level of Assist: 5 Wheel 50 feet with 2 turns (QC: 4 PT Plan Treatment/Plan Treatment Plan: Continue Plan of Care Treatment Plan: Bed Mobility, Concurrent Therapy, Education, Functional Activity Dyana, Functional Strength, Group Therapy, Gait, Safety, Therapeutic Exercise, Transfers Treatment Duration: Nov 27, 2017 Frequency: At least 5 of 7 days/Wk (IRF) Estimated Hrs Per Day: 1.5 hours per day Patient and/or Family Agrees t: Yes Time/GCodes Time In: 1235 Time Out: 1300 Total Billed Treatment Time: 20 Total Billed Treatment visit, FA x 20 min VIRA FRANCISCO PT Nov 09, 2017 13:39
[2017-11-09 17:35] VITALS: BP 154/62
[2017-11-09] MEDS: ATORVASTATIN 40 MG (LIPITOR) TABLET PO SCH (20:24)
[2017-11-09] MEDS: BACLOFEN 10 MG (LIORESAL) TAB PO PRN (20:24)
[2017-11-09] MEDS: LIDOCAINE PATCH REMOVAL TP SCH (20:26)
[2017-11-10 06:00] VITALS: BP 127/67
[2017-11-10] MEDS: inSUlin (REGULAR) HUMAN 1 UNIT/0.01 ML (CHARGE PER UNIT) SC SCH ×4 (06:10→20:51)
[2017-11-10] MEDS: TROSPIUM 20 MG (SANCTURA) TAB PO SCH ×2 (06:13→16:21)
[2017-11-10] MEDS: CYANOCOBALAMIN 500 MCG TAB (VITAMIN B-12) PO SCH (06:14)
[2017-11-10] MEDS: VITAMIN D3 1,000 UNITS (CHOLECALCIFEROL) TABLET PO SCH (06:14)
[2017-11-10] MEDS: PANTOPRAZOLE 40 MG (PROTONIX) TAB PO SCH (06:14)
[2017-11-10] MEDS: VITAMIN E 400 INTLU CAP PO SCH (06:14)
[2017-11-10] MEDS: metFORMIN 500 MG (GLUCOPHAGE) TAB PO SCH ×2 (06:14→16:21)
[2017-11-10] MEDS: HYDROcodone/APAP 10 MG/325 MG (LORTAB) TAB PO PRN ×2 (06:16→11:23)
[2017-11-10] MEDS: MECLIZINE 25 MG (ANTIVERT) TAB PO PRN ×2 (06:20→17:48)
[2017-11-10] MEDS: MAGNESIUM OXIDE (MAG-OX)400 MG TAB PO SCH ×2 (08:26→17:46)
[2017-11-10] MEDS: lisINopril 20 MG (PRINIVIL) TABLET PO SCH (08:26)
[2017-11-10] MEDS: NITROFURANTOIN 100 MG (MACROBID) CAPSULE PO SCH ×2 (08:26→20:47)
[2017-11-10] MEDS: HYDROCHLOROTHIAZIDE 25 MG (HCTZ) TAB PO SCH (08:26)
[2017-11-10] MEDS: meTOprolol TARTRATE 25 MG (LOPRESSOR) TABLET PO SCH ×2 (08:26→20:48)
[2017-11-10] MEDS: LORATADINE (CLARITIN) 10 MG TAB PO SCH (08:27)
[2017-11-10] MEDS: DOCUSATE SODIUM 100 MG (COLACE) CAP PO SCH ×2 (08:27→20:47)
[2017-11-10] MEDS: FAMOTIDINE 20 MG (PEPCID) TABLET PO SCH (08:27)
[2017-11-10] MEDS: GABAPENTIN 100 MG (NEURONTIN) CAP PO SCH ×2 (08:27→20:47)
[2017-11-10] MEDS: SENNA W/DOCUSATE (SENOKOT S) TABLET PO SCH ×2 (08:27→20:47)
[2017-11-10] MEDS: SCOPOLAMINE PATCH REMOVAL TP SCH (08:42)
[2017-11-10] MEDS: SCOPOLAMINE 1.5 MG (TRANSDERM-SCOP) PATCH TOP SCH (08:42)
[2017-11-10] MEDS: ONDANSETRON 4 MG (ZOFRAN) ORAL DISSOLVE TAB PO PRN (08:42)
[2017-11-10] MEDS: inSUlin DETERMIR 1 UNIT/0.01 ML (LEVEMIR) CHARGE PER UNIT SQ SCH (08:44)
[2017-11-10] MEDS: LIDOCAINE (LIDODERM) 5% PATCH TOP SCH (08:44)
[2017-11-10] MEDS: COLESTIPOL 1 GM (COLESTID) TAB PO SCH (08:45)
--- NOTE | 2017-11-10 12:42 | Progress Note-Hospitalist ---
Subjective HPI/CC On Admission Date Seen by Provider: Nov 10, 2017 Time Seen by Provider: 11:45 Subjective/Events-last exam Patient is about the same Gabapentin may be working but I only dosed 100 mg twice a day to avoid oversedation Nausea is much improved today maintain on scopolamine patch meclizine and Zofran Urinary catheter remains Scared to participate in therapy because she feels like she can't perform for 3 hours and I reassure her and tell her we will give her plenty of breaks to be able to get those hours in Bowels are varied so will discontinue Colestid which she takes at home for diarrhea Overall plan sugars remained stable Very difficult situation considering the neuropathy she struggles with of her lower legs and the paralysis Review of Systems Gastrointestinal: Constipation Neurological: Weakness, Incoordination Objective Exam Vital Signs Vital Signs Date Time Temp Pulse Resp B/P (MAP) Pulse Ox O2 Delivery O2 Flow Rate FiO2 11/06/17 12:53 97.9 65 18 148/65 (92) 94 Room Air Capillary Refill : Less Than 3 Seconds General Appearance: No Apparent Distress, WD/WN, Chronically ill HEENT: PERRL/EOMI Respiratory: Lungs Clear, Normal Breath Sounds Cardiovascular: Regular Rate, Rhythm, No Edema Neurologic/Psychiatric: Alert, Motor Weakness (lower legs and feet) Results/Procedures Lab Patient resulted labs reviewed. 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 PAF off anticoagulation due to risks outweigh benefits currently DM HTN OA HLP Continued nausea today improved Severe lower leg and feet neuropathy Plan: Scop patch Zofran Cardiology is appreciated Monitor closely Monitor for elevated sugars Gabapentin trial Diagnosis/Problems Diagnosis/Problems (1) Cauda equina syndrome Status: Acute (2) Episodic atrial fibrillation Status: Chronic (3) Urinary retention Status: Acute (4) Constipation Status: Acute Qualifiers: Constipation type: drug induced constipation Qualified Codes: K59.03 - Drug induced constipation (5) Acute depression Status: Acute (6) Adverse effect of anticoagulant Status: Acute Qualifiers: Encounter type: subsequent encounter Qualified Codes: T45.515D - Adverse effect of anticoagulants, subsequent encounter (7) Nausea & vomiting Status: Acute Qualifiers: Vomiting type: unspecified Vomiting Intractability: unspecified Qualified Codes: R11.2 - Nausea with vomiting, unspecified Clinical Quality Measures DVT/VTE Risk/Contraindication: Risk Factor Score Per Nursin RFS Level Per Nursing on Admit: 4+=Very High MOY LOGAN DO Nov 10, 2017 12:42
[2017-11-10] MEDS: MILK OF MAGNESIA 400 MG/5 ML 30 ML UDC PO PRN (13:09)
--- NOTE | 2017-11-10 13:50 | Cardiology Progress Note ---
Subjective Date Seen by Provider: Nov 10, 2017 Time Seen by Provider: 13:48 Subjective/Events-last exam Patient is in bed, feeling better today, tolerating food better Review of Systems General: No Chills, No Night Sweats, No Fatigue, No Malaise, No Appetite, No Other HEENT: No Head Aches, No Visual Changes, No Eye Pain, No Ear Pain, No Dysphasia , No Sinus Congestion, No Post Nasal Drip, No Sore Throat, No Other Pulmonary: No Dyspnea, No Cough, No Pleuritic Chest Pain, No Other Cardiovascular: No: Chest Pain, Palpitations, Orthopnea, Paroxysmal Noc. Dyspnea, Edema, Lt Headedness, Other Objective-Cardiology Exam Last Set of Vital Signs Vital Signs 11/10/17 11/10/17 06:00 09:31 Temp 97.5 Pulse 66 Resp 20 B/P (MAP) 127/67 (87) Pulse Ox 96 O2 Delivery Room Air Capillary Refill : Less Than 3 Seconds I&O Intake and Output 11/10/17 00:00 Intake Total 1832 ml Output Total 2050 ml Balance -218 ml Intake Oral 1832 ml Output Urine Total 2050 ml # Bowel Movements 1 General: Alert, Oriented X3, Cooperative HEENT: Atraumatic, PERRLA Neck: Supple, No JVD Lungs: Clear to Auscultation, Normal Air Movement Heart: Normal S1, Normal S2, Other (Irregular rhythm) Abdomen: Normal Bowel Sounds, Soft Extremities: No Clubbing, No Edema Skin: No Rashes Neuro: Other (Paralysis) A/P-Cardiology Admission Diagnosis Paralysis Paroxysmal atrial fibrillation Hypertension Hyperlipidemia Assessment/Plan Status post back surgery done on October 14, 2017, had hematoma, multiple surgical evacuation, had wound VAC and lower extremity paralysis, receiving physical therapy, having some pain and tingling in her feet Paroxysmal atrial fibrillation, had an episode of atrial fibrillation with rapid ventricular response on October 17, 2017, converted to sinus rhythm. Continue to monitor [id number] score is 5, yearly risk of stroke without oral anticoagulation is 6.7 percent, currently off oral anticoagulation due to hematoma. Hypertension, continue to monitor blood pressure Hyperlipidemia, monitor lipids Diabetes mellitus, monitor and managed by primary care physician Obesity, BMI is 28 Fibromyalgia, multiple complain about joint and back pain. Clinical Quality Measures DVT/VTE Risk/Contraindication: Risk Factor Score Per Nursin RFS Level Per Nursing on Admit: 4+=Very High GEORGE CULLEN MD Nov 10, 2017 13:50
[2017-11-10 17:51] VITALS: BP 120/61
[2017-11-10] MEDS: ATORVASTATIN 40 MG (LIPITOR) TABLET PO SCH (20:48)
[2017-11-10] MEDS: MENTHOL/ZINC OXIDE (CALMOSEPTINE) 113 GM TUBE TOP SCH (20:53)
[2017-11-10] MEDS: LIDOCAINE PATCH REMOVAL TP SCH (21:00)
[2017-11-11] MEDS: BACLOFEN 10 MG (LIORESAL) TAB PO PRN (03:43)
[2017-11-11 06:00] VITALS: BP 124/72
[2017-11-11] MEDS: inSUlin (REGULAR) HUMAN 1 UNIT/0.01 ML (CHARGE PER UNIT) SC SCH ×4 (06:00→20:30)
[2017-11-11] MEDS: CYANOCOBALAMIN 500 MCG TAB (VITAMIN B-12) PO SCH (06:24)
[2017-11-11] MEDS: VITAMIN E 400 INTLU CAP PO SCH (06:24)
[2017-11-11] MEDS: TROSPIUM 20 MG (SANCTURA) TAB PO SCH ×2 (06:24→17:23)
[2017-11-11] MEDS: VITAMIN D3 1,000 UNITS (CHOLECALCIFEROL) TABLET PO SCH (06:25)
[2017-11-11] MEDS: PANTOPRAZOLE 40 MG (PROTONIX) TAB PO SCH (06:25)
[2017-11-11] MEDS: metFORMIN 500 MG (GLUCOPHAGE) TAB PO SCH ×2 (06:25→17:23)
[2017-11-11] MEDS: HYDROcodone/APAP 10 MG/325 MG (LORTAB) TAB PO PRN (06:34)
--- NOTE | 2017-11-11 08:21 | Cardiology Progress Note ---
Subjective Date Seen by Provider: Nov 11, 2017 Time Seen by Provider: 08:20 Subjective/Events-last exam Patient is in bed, receiving physical therapy. Denies any CP or dyspnea. Review of Systems General: No Night Sweats, No Fatigue, No Malaise HEENT: No Visual Changes, No Dysphasia Pulmonary: No Dyspnea, No Cough Cardiovascular: No: Chest Pain, Palpitations Gastrointestinal: No: Nausea, Vomiting Genitourinary: No Dysuria, No Frequency Musculoskeletal: No: neck pain, back pain Neurological: Weakness, Numbness (bilat lower extremities) Objective-Cardiology Exam Last Set of Vital Signs Vital Signs 11/11/17 06:00 Temp 98.5 Pulse 85 Resp 18 B/P (MAP) 124/72 (89) Pulse Ox 94 O2 Delivery Room Air Capillary Refill : Less Than 3 Seconds I&O Intake and Output 11/11/17 00:00 Intake Total 1878 ml Output Total 2350 ml Balance -472 ml Intake Oral 1878 ml Output Urine Total 2350 ml General: Alert, Oriented X3, Cooperative HEENT: Atraumatic, PERRLA Neck: Supple, No JVD Lungs: Clear to Auscultation, Normal Air Movement Heart: Regular Rate, Normal S1, Normal S2 Abdomen: Normal Bowel Sounds, Soft Extremities: No Clubbing, No Edema Skin: No Rashes Neuro: Other (Paralysis bilat lower extremities) A/P-Cardiology Admission Diagnosis Paralysis Paroxysmal atrial fibrillation Hypertension Hyperlipidemia Assessment/Plan Status post back surgery done on October 14, 2017, had hematoma, multiple surgical evacuation, had wound VAC and lower extremity paralysis, receiving physical therapy, having some pain and tingling in her feet Paroxysmal atrial fibrillation, had an episode of atrial fibrillation with rapid ventricular response on October 17, 2017, converted to sinus rhythm. Continue to monitor [id number] score is 5, yearly risk of stroke without oral anticoagulation is 6.7 percent, currently off oral anticoagulation due to hematoma. Hypertension, continue to monitor blood pressure Hyperlipidemia, monitor lipids Diabetes mellitus, monitor and managed by primary care physician Obesity, BMI is 28 Fibromyalgia, multiple complain about joint and back pain. Clinical Quality Measures DVT/VTE Risk/Contraindication: Risk Factor Score Per Nursin RFS Level Per Nursing on Admit: 4+=Very High RAGHU JAY Nov 11, 2017 08:21
[2017-11-11] MEDS: SENNA W/DOCUSATE (SENOKOT S) TABLET PO SCH ×2 (08:45→20:29)
[2017-11-11] MEDS: DOCUSATE SODIUM 100 MG (COLACE) CAP PO SCH ×2 (08:45→20:29)
--- NOTE | 2017-11-11 09:00 | Physical Therapy Daily Note ---
PT Daily Note-Current Subjective Pt states she finally had a BM "all over the bed" this weekend and has felt better nausea rangel since then. Needs much encouragement and near constant cuing to continue with task. Pain Numeric Pain Scale: 4 Location: Right Location Body Site: Foot Pain Description: Pricking, Burning, Sharp, Tingling Comment: pt. intermittently c/o pains in RLE Appearance diaphoretic, c/o fatigue with exercise Mental Status Patient Orientation: Person, Place, Time, Situation, Normal For Age Attachments: Alvarenga Catheter Transfers Functional [place] Measure 0=Not Assessed/NA 4=Minimal Assistance 1=Total Assistance 5=Supervision or Setup 2=Maximal Assistance 6=Modified [place] 3=Moderate Assistance 7=Complete IndependenceIRFPAI Quality Coding Scale 6 Independent with activity with or without an assistive device 5 Patient requires set up or clean up by helper. Patient completes activity by themselves 4 Supervision or touching assist (CGA). [place] provide cues , steadying assist 3 The helper provides less than half the effort to complete the activity 2 The helper provides more than half the effort to complete the activity 1 Dependent. The helper does all the effort to complete an activity 7 Patient refused to complete or attempt activity 9 The patient did not perform the activity before the current illness or injury 88 Not attempted due to Medical conditions or safety concerns Transfers (B, C, W/C) (FIM): 2 Scootin Rollin Supine to/from Sit: 4 Bed to/from Chair: 2 (slide board) Weight Bearing Right Lower Extremity: Right Weight Bearing/Tolerated Left Lower Extremity: Left Weight Bearing/Tolerated Wheelchair Training Does the Pt Use a Wheelchair?: Yes Wheelchair (FIM): 4 Wheelchair Distance: 3=150 ft Wheelchair Level of Assist: 4 Type of Wheelchair: Manual Exercises Supine Ex: Bridging (trace only), Ankle pumps (passively, HC stretches 3x20s), Quad Set, Rolling, Glut sets, Heel Slides (assist), Short Arc Quads, Hip abd/ add (assist) Supine Reps: 15 Assessment Current Status: Fair Progress fatigues very quickly , some c/o nausea and pain in LEs during Rx, many rest breaks PT Short Term Goals Short Term Goals Time Frame: Nov 13, 2017 Transfers (B,C,W/C) (FIM): 3 Wheelchair (FIM): 2 Wheelchair Distance: 50' Wheelchair Level of Assist: 4 PT Retirement Goals Magnetic Tape Typewriter Operator Goals PT Retirement Goals Time Frame: Nov 27, 2017 Transfers (B,C,W/C) (FIM): 4 Sit to Lying (QC): 3 Lying-Sitting on Side/Bed(QC): 3 Sit to Stand (QC): 3 Rollin Roll Left to Right (QC): 3 Chair/Bny-em-Ulqso Xfer(QC): 3 Car Transfer (QC): 3 Wheelchair (FIM): 5 Distance: 150' Wheelchair Level of Assist: 5 Wheel 50 feet with 2 turns (QC: 4 PT Plan Treatment/Plan Treatment Plan: Continue Plan of Care Treatment Plan: Bed Mobility, Concurrent Therapy, Education, Functional Activity [place], Functional Strength, Group Therapy, Gait, Safety, Therapeutic Exercise, Transfers Treatment Duration: Nov 27, 2017 Frequency: At least 5 of 7 days/Wk (IRF) Estimated Hrs Per Day: 1.5 hours per day Patient and/or Family Agrees t: Yes Safety Risks/Education Patient Education: Transfer Techniques (slide brd), Correct Positioning, Disease Process, Safety Issues Teaching Recipient: Patient Teaching Methods: Demonstration, Discussion Response to Teaching: Verbalize Understanding, Return Demonstration, Reinforcement Needed Time/GCodes Time In: 800 Time Out: 900 Total Billed Treatment Time: 60 Total Billed Treatment 1,FA25m,EX20m,WC 15m G Codes Necessary: ELIZABETH Kellogg CHHA Nov 11, 2017 09:00
[2017-11-11] MEDS: GABAPENTIN 100 MG (NEURONTIN) CAP PO SCH ×2 (09:38→20:27)
[2017-11-11] MEDS: meTOprolol TARTRATE 25 MG (LOPRESSOR) TABLET PO SCH ×2 (09:38→20:26)
[2017-11-11] MEDS: FAMOTIDINE 20 MG (PEPCID) TABLET PO SCH (09:38)
[2017-11-11] MEDS: LORATADINE (CLARITIN) 10 MG TAB PO SCH (09:38)
[2017-11-11] MEDS: inSUlin DETERMIR 1 UNIT/0.01 ML (LEVEMIR) CHARGE PER UNIT SQ SCH (09:38)
[2017-11-11] MEDS: lisINopril 20 MG (PRINIVIL) TABLET PO SCH (09:38)
[2017-11-11] MEDS: NITROFURANTOIN 100 MG (MACROBID) CAPSULE PO SCH ×2 (09:38→20:26)
[2017-11-11] MEDS: HYDROCHLOROTHIAZIDE 25 MG (HCTZ) TAB PO SCH (09:38)
[2017-11-11] MEDS: MAGNESIUM OXIDE (MAG-OX)400 MG TAB PO SCH ×2 (09:39→17:23)
[2017-11-11] MEDS: LIDOCAINE (LIDODERM) 5% PATCH TOP SCH (09:39)
[2017-11-11] MEDS: MENTHOL/ZINC OXIDE (CALMOSEPTINE) 113 GM TUBE TOP SCH ×2 (09:39→20:37)
--- NOTE | 2017-11-11 09:55 | Progress Note-Hospitalist ---
Subjective HPI/CC On Admission Date Seen by Provider: Nov 11, 2017 Time Seen by Provider: 09:30 Subjective/Events-last exam Patient up in wheelchair today Improved spirits somewhat Checked meds and labs Catheter still in place is an infection concern Checked meds and labs + BM last night x 3 Objective Exam Vital Signs Vital Signs Date Time Temp Pulse Resp B/P (MAP) Pulse Ox O2 Delivery O2 Flow Rate FiO2 11/06/17 12:53 97.9 65 18 148/65 (92) 94 Room Air Capillary Refill : Less Than 3 Seconds General Appearance: No Apparent Distress, WD/WN, Chronically ill Respiratory: Lungs Clear, Normal Breath Sounds Cardiovascular: Regular Rate, Rhythm, No Edema Results/Procedures Lab Patient resulted labs reviewed. 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 PAF off anticoagulation due to risks outweigh benefits currently DM HTN OA HLP Continued nausea improved Severe lower leg and feet neuropathy Plan: Scop patch Zofran Cardiology is appreciated Monitor closely Monitor for elevated sugars Gabapentin trial DC catheter CRISTOPHER Diagnosis/Problems Diagnosis/Problems (1) Cauda equina syndrome Status: Acute (2) Episodic atrial fibrillation Status: Chronic (3) Urinary retention Status: Acute (4) Constipation Status: Acute Qualifiers: Constipation type: drug induced constipation Qualified Codes: K59.03 - Drug induced constipation (5) Acute depression Status: Acute (6) Adverse effect of anticoagulant Status: Acute Qualifiers: Encounter type: subsequent encounter Qualified Codes: T45.515D - Adverse effect of anticoagulants, subsequent encounter (7) Nausea & vomiting Status: Acute Qualifiers: Vomiting type: unspecified Vomiting Intractability: unspecified Qualified Codes: R11.2 - Nausea with vomiting, unspecified Clinical Quality Measures DVT/VTE Risk/Contraindication: Risk Factor Score Per Nursin RFS Level Per Nursing on Admit: 4+=Very High MOY LOGAN DO Nov 11, 2017 09:55
--- NOTE | 2017-11-11 11:30 | Cardiology Progress Note ---
Subjective Date Seen by Provider: Nov 11, 2017 Time Seen by Provider: 10:00 Subjective/Events-last exam Patient is in a wheelchair, feeling better, still having weakness and pain in her legs, no chest pain Review of Systems General: No Chills, No Night Sweats, No Fatigue, No Malaise, No Appetite, No Other HEENT: No Head Aches, No Visual Changes, No Eye Pain, No Ear Pain, No Dysphasia , No Sinus Congestion, No Post Nasal Drip, No Sore Throat, No Other Pulmonary: No Dyspnea, No Cough, No Pleuritic Chest Pain, No Other Cardiovascular: No: Chest Pain, Palpitations, Orthopnea, Paroxysmal Noc. Dyspnea, Edema, Lt Headedness, Other Objective-Cardiology Exam Last Set of Vital Signs Vital Signs 11/11/17 11/11/17 06:00 09:00 Temp 98.5 Pulse 85 Resp 18 B/P (MAP) 124/72 (89) Pulse Ox 94 O2 Delivery Room Air Capillary Refill : Less Than 3 Seconds I&O Intake and Output 11/11/17 00:00 Intake Total 1878 ml Output Total 2350 ml Balance -472 ml Intake Oral 1878 ml Output Urine Total 2350 ml General: Alert, Oriented X3, Cooperative HEENT: Atraumatic, PERRLA Neck: Supple, No JVD Lungs: Clear to Auscultation, Normal Air Movement Heart: Regular Rate, Normal S1, Normal S2 Abdomen: Normal Bowel Sounds, Soft Extremities: No Clubbing, No Edema Skin: No Rashes Neuro: Other (able to move her legs) A/P-Cardiology Admission Diagnosis Paralysis Paroxysmal atrial fibrillation Hypertension Hyperlipidemia Assessment/Plan Status post back surgery done on October 14, 2017, had hematoma, multiple surgical evacuation, had wound VAC and lower extremity paralysis, receiving physical therapy, having some pain and tingling in her feet but able to move her legs, continue with physical therapy and monitor Paroxysmal atrial fibrillation, had an episode of atrial fibrillation with rapid ventricular response on October 17, 2017, converted to sinus rhythm. Continue to monitor [id number] score is 5, yearly risk of stroke without oral anticoagulation is 6.7 percent, currently off oral anticoagulation due to hematoma. Hypertension, continue to monitor blood pressure Hyperlipidemia, monitor lipids Diabetes mellitus, monitor and managed by primary care physician Obesity, BMI is 28 Fibromyalgia, multiple complain about joint and back pain. Clinical Quality Measures DVT/VTE Risk/Contraindication: Risk Factor Score Per Nursin RFS Level Per Nursing on Admit: 4+=Very High GEORGE CULLEN MD Nov 11, 2017 11:30
--- NOTE | 2017-11-11 12:11 | Occupational Ther Daily Note ---
OT Current Status-Daily Note Subjective Pt seen in room, up in w/c, reluctantly agreeable to OT. No pain mentioned and pt reported nausea better since she had large BM this weekend. Appearance Alert, cooperative Mental Status/Objective Functional [place] Measure 0=Not Assessed/NA 4=Minimal Assistance 1=Total Assistance 5=Supervision or Setup 2=Maximal Assistance 6=Modified [place] 3=Moderate Assistance 7=Complete [place] ADL-Treatment Pt was transported to bathroom per w/c and positioned at sink. She brushed her teeth and combed her hair with setup. She washed and dried arms, chest, abdomen , jenny area in front, thighs with sponge bath at sink and had help washing her back. She was able to put on a dress with setup (she normally wears skirt and blouse or dress). Pt educ weight shirting to pull gown out from under her and also in gym before returning to room. Pt cont with Alvarenga Functional [place] Measure 0=Not Assessed/NA 4=Minimal Assistance 1=Total Assistance 5=Supervision or Setup 2=Maximal Assistance 6=Modified [place] 3=Moderate Assistance 7=Complete IndependenceIRFPAI Quality Coding Scale 6 Independent with activity with or without an assistive device 5 Patient requires set up or clean up by helper. Patient completes activity by themselves 4 Supervision or touching assist (CGA). [place] provide cues , steadying assist 3 The helper provides less than half the effort to complete the activity 2 The helper provides more than half the effort to complete the activity 1 Dependent. The helper does all the effort to complete an activity 7 Patient refused to complete or attempt activity 9 The patient did not perform the activity before the current illness or injury 88 Not attempted due to Medical conditions or safety concerns Grooming (FIM): 5 Bathing (FIM): 3 (70%) Bathing Location: L Arm, R Arm, L Upper Leg, R Upper Leg, Chest, Abdomen, Perineal Area Upper Body (FIM): 5 All ADLs took longer than usual Other Treatment Pt was transported to gym per w/c and did 12 minutes bilat UE exercise with arm bikes et at 15W resistance. She worked at a steady and pace and took several brief recovery periods. She also did 10 reps bilat UE ex with 1# exercise bar, working on shoulders and elbows to help with transfers and ADLs. Pt was returned to room, left up in w/c, all needs met. Pt encouraged to be up for a while. Education OT Patient Education: Exercise program, Purpose of tx/functional activities, Transfer techniques Teaching Recipient: Patient Teaching Methods: Demonstration, Discussion Response to Teaching: Verbalize Understanding, Return Demonstration OT Short Term Goals Short Term Goals Time Frame: Nov 15, 2017 Bathing(FIM): 4 Upper Body Dressing(FIM): 4 Lower Body Dressing(FIM): 3 Transfers (B,C,W/C) (FIM): 3 Toilet/Commode Transfer(FIM): 3 1=Demonstrate adherence to instructed precautions during ADL tasks. 2=Patient will verbalize/demonstrate understanding of assistive devices/ modifications for ADL. 3=Patient will improve strength/tolerance for activity to enable patient to perform ADL's. OT Retirement Goals Retirement Goals Time Frame: Nov 29, 2017 Eating (FIM): 6 Eating (QC): 6 Groomin Oral Hygiene (QC): 6 Bathing(FIM): 5 Shower/Bathe Self (QC): 5 Upper Body Dressing(FIM): 6 Upper Body Dressing (QC): 6 Lower Body Dressing(FIM): 5 Lower Body Dressing (QC): 5 On/Off Footwear (QC): 5 Toileting(FIM): 5 Toileting Hygiene (QC): 5 Toilet/Commode Transfer(FIM): 5 Toilet/Commode Transfer (QC): 5 Shower Transfer(FIM): 5 Additional Goals: 1-Demonstrate ADL Tasks, 2-Verbalize Understanding, 3- ImproveStrength/Dyana 1=Demonstrate adherence to instructed precautions during ADL tasks. 2=Patient will verbalize/demonstrate understanding of assistive devices/ modifications for ADL. 3=Patient will improve strength/tolerance for activity to enable patient to perform ADL's. OT Education/Plan Problem List/Assessment Pt would benefit from skilled OT to increase her independence with basic self care to allow her to safely return to her home Discharge Recommendations Plan/Recommendations: Continue POC Treatment Plan/Plan of Care Patient would benefit from OT for education, treatment and training to promote independence in ADL's, mobility, safety and/or upper extremity function for ADL' s. Plan of Care: ADL Retraining, Group Exercise/Act as Ind (education, exercise, funct activities, activity tolerance, mobility), Orthotic Fitting/Training, UE Neuromus Re-Ed/Coord Treatment Duration: Nov 29, 2017 Frequency: At least 5 of 7 days/Wk (IRF) Estimated Hrs Per Day: 1.5 hours per day Agreement: Yes Rehab Potential: Guarded Time/GCodes Start Time: 10:05 Stop Time: 11:05 Total Time Billed (hr/min): 60 Billed Treatment Time visit, 35 minutes ADL, 25 minutes exercise NATIVIDAD LOCKHART OT Nov 11, 2017 12:11
--- NOTE | 2017-11-11 14:37 | Therapy Group Daily Note ---
Therapy Daily Group Note Patient Education Topic Other List Below (memory strategies) Exercises Other (cervical exercises, eye exercises) Other/Notes Pt. participated in group PT OT session this date. Pt. came and went via w/c and TRFd with max assist of 2. Pt. sat at table in dining area for group with lunch in front of her but she slept and dozed off during Rx unless cued to awaken and participate. Pts. introduced selves and were social sharing names and discussing their strategies for memory for important everyday life ie, medications, Dr appointments, food on/in stove. Pts. participated in memory activity as well as eye exercises and neck/cervical exercises. Pt. to room after groups session with max assist of 2 to bed via slide board with pt. exerting little effort. Positioned on side with pillow support . [place] at hand Start Time: 13:00 Stop Time: 14:00 Total Billed Treatment Time: 60 Total Billed Treatment 1,GRP ELIZABETH GARCIA PLATE WASHER Nov 11, 2017 14:37
[2017-11-11 17:58] VITALS: BP 124/70
--- NOTE | 2017-11-11 20:04 | PM & R (SOAP) Progress Note ---
Subjective Time Seen by Provider: 19:45 Subjective/Events-last exam Patient was seen in her room this evening Patient max assist for sliding board transfers Alvarenga to DD Appreciate Dr Santana note Review of Systems Neurological: Weakness Objective Exam Last Set of Vital Signs Vital Signs Date Time Temp Pulse Resp B/P (MAP) Pulse Ox O2 Delivery O2 Flow Rate FiO2 11/11/17 17:58 97.5 70 18 124/70 (88) 96 Room Air Capillary Refill : Less Than 3 Seconds I&O Intake and Output 11/11/17 00:00 Intake Total 1878 ml Output Total 2350 ml Balance -472 ml Intake Oral 1878 ml Output Urine Total 2350 ml General: Alert, Oriented X3, Cooperative HEENT: Atraumatic, PERRLA Neck: Supple, No JVD Lungs: Clear to Auscultation, Normal Air Movement Heart: Regular Rate, Normal S1, Normal S2 Abdomen: Normal Bowel Sounds, Soft Extremities: No Clubbing, No Edema Skin: No Rashes Neuro: Other (able to move her legs) Results Lab Laboratory Tests 11/08/17 20:55: Glucometer 85 11/09/17 04:38: Glucometer 111H 11/09/17 05:20: White Blood Count 13.6H, Red Blood Count 3.54L, Hemoglobin 10.1L, Hematocrit 31L , Mean Corpuscular Volume 86, Mean Corpuscular Hemoglobin 29, Mean Corpuscular Hemoglobin Concent 33, Red Cell Distribution Width 15.1H, Platelet Count 381, Mean Platelet Volume 9.0, Neutrophils (%) (Auto) 71, Lymphocytes (%) (Auto) 14, Monocytes (%) (Auto) 11, Eosinophils (%) (Auto) 4, Basophils (%) (Auto) 0, Neutrophils # (Auto) 9.6H, Lymphocytes # (Auto) 1.9, Monocytes # (Auto) 1.5H, Eosinophils # (Auto) 0.5H, Basophils # (Auto) 0.0, Sodium Level 134L, Potassium Level 4.0, Chloride Level 95L, Carbon Dioxide Level 27, Anion Gap 12, Blood Urea Nitrogen 26H, Creatinine 0.79, Estimat Glomerular Filtration Rate > 60, BUN /Creatinine Ratio 33, Glucose Level 114H, Calcium Level 9.4, Total Bilirubin 1.6H, Aspartate Amino Transf (AST/SGOT) 13, Alanine Aminotransferase (ALT/SGPT) 12, Alkaline Phosphatase 92, Total Protein 6.3L, Albumin 3.3 11/09/17 10:50: Glucometer 167H 11/09/17 16:21: Glucometer 169H 11/09/17 20:30: Glucometer 119H 11/10/17 05:36: Glucometer 107 11/10/17 10:50: Glucometer 135H 11/10/17 16:20: Glucometer 178H 11/10/17 20:42: Glucometer 165H 11/11/17 05:28: Glucometer 175H 11/11/17 11:12: Glucometer 175H 11/11/17 16:24: Glucometer 151H Assessment/Plan Assessment Cauda Equina surgery S/p Evac Epidural hematoma DM controlled with meds Nausea on meds HTN conrolled Indwelling Alvarenga catheter Plan Continue PT/OT RX for nausea-done improved F/U with DR Wright and Cardiology and ortho spine Consult Urology regarding postop urinary retention Pain management CLARK CHRISTIANSON MD Nov 11, 2017 20:04
[2017-11-11] MEDS: ATORVASTATIN 40 MG (LIPITOR) TABLET PO SCH (20:27)
[2017-11-11] MEDS: LIDOCAINE PATCH REMOVAL TP SCH (20:37)
[2017-11-12] MEDS: inSUlin (REGULAR) HUMAN 1 UNIT/0.01 ML (CHARGE PER UNIT) SC SCH ×4 (06:00→21:03)
[2017-11-12] MEDS: PANTOPRAZOLE 40 MG (PROTONIX) TAB PO SCH (06:26)
[2017-11-12] MEDS: TROSPIUM 20 MG (SANCTURA) TAB PO SCH ×2 (06:27→15:32)
[2017-11-12] MEDS: VITAMIN D3 1,000 UNITS (CHOLECALCIFEROL) TABLET PO SCH (06:27)
[2017-11-12] MEDS: CYANOCOBALAMIN 500 MCG TAB (VITAMIN B-12) PO SCH (06:27)
[2017-11-12] MEDS: VITAMIN E 400 INTLU CAP PO SCH (06:27)
[2017-11-12] MEDS: metFORMIN 500 MG (GLUCOPHAGE) TAB PO SCH ×2 (06:27→16:47)
[2017-11-12] MEDS: HYDROcodone/APAP 10 MG/325 MG (LORTAB) TAB PO PRN ×3 (06:33→20:56)
--- NOTE | 2017-11-12 07:57 | Cardiology Progress Note ---
Subjective Date Seen by Provider: Nov 12, 2017 Time Seen by Provider: 07:55 Subjective/Events-last exam Patient is laying down in bed, complaining of mild nausea, denied any chest pain. Review of Systems General: No Chills, No Night Sweats, No Fatigue, No Malaise, No Appetite, No Other HEENT: No Head Aches, No Visual Changes, No Eye Pain, No Ear Pain, No Dysphasia , No Sinus Congestion, No Post Nasal Drip, No Sore Throat, No Other Pulmonary: No Dyspnea, No Cough, No Pleuritic Chest Pain, No Other Cardiovascular: No: Chest Pain, Palpitations, Orthopnea, Paroxysmal Noc. Dyspnea, Edema, Lt Headedness, Other Gastrointestinal: Nausea Objective-Cardiology Exam Last Set of Vital Signs Vital Signs 11/11/17 11/12/17 17:58 06:00 Temp 97.0 Pulse 88 Resp 20 B/P (MAP) 124/70 (88) Pulse Ox 96 O2 Delivery Room Air Capillary Refill : Less Than 3 Seconds I&O Intake and Output 11/12/17 00:00 Intake Total 1250 ml Output Total 2400 ml Balance -1150 ml Intake Oral 1250 ml Output Urine Total 2400 ml # Bowel Movements 5 General: Alert, Oriented X3, Cooperative HEENT: Atraumatic, PERRLA Neck: Supple, No JVD Lungs: Clear to Auscultation, Normal Air Movement Heart: Regular Rate, Normal S1, Normal S2 Abdomen: Normal Bowel Sounds, Soft Extremities: No Clubbing, No Edema Skin: No Rashes Neuro: Other (able to move her legs) Results Lab Laboratory Tests Test 11/11/17 11:12 11/11/17 16:24 11/11/17 20:22 11/12/17 06:22 Range/Units Glucometer 175 H 151 H 125 H 121 H 70-110 MG/DL A/P-Cardiology Admission Diagnosis Paralysis Paroxysmal atrial fibrillation Hypertension Hyperlipidemia Assessment/Plan Status post back surgery done on October 14, 2017, had hematoma, multiple surgical evacuation, had wound VAC and lower extremity paralysis, receiving physical therapy, having some pain and tingling in her feet but able to move her legs, continue with physical therapy and monitor Paroxysmal atrial fibrillation, had an episode of atrial fibrillation with rapid ventricular response on October 17, 2017, converted to sinus rhythm. Continue to monitor [id number] score is 5, yearly risk of stroke without oral anticoagulation is 6.7 percent, currently off oral anticoagulation due to hematoma. Hypertension, continue to monitor blood pressure Hyperlipidemia, monitor lipids Diabetes mellitus, monitor and managed by primary care physician Obesity, BMI is 28 Fibromyalgia, multiple complain about joint and back pain in the past, managed by primary care physician. Clinical Quality Measures DVT/VTE Risk/Contraindication: Risk Factor Score Per Nursin RFS Level Per Nursing on Admit: 4+=Very High GEORGE CULLEN MD Nov 12, 2017 07:56
--- NOTE | 2017-11-12 08:21 | PM & R (SOAP) Progress Note ---
Subjective Time Seen by Provider: 07:55 Subjective/Events-last exam Patient was seen in her room this AM Patient max assist for transfers Patients nausea and dizziness improved Discussed case with DR Schmitt He will see re possible urinary retention Objective Exam Last Set of Vital Signs Vital Signs Date Time Temp Pulse Resp B/P (MAP) Pulse Ox O2 Delivery O2 Flow Rate FiO2 11/12/17 06:00 97.0 88 20 Room Air 11/11/17 17:58 124/70 (88) 96 Capillary Refill : Less Than 3 Seconds I&O Intake and Output 11/12/17 00:00 Intake Total 1250 ml Output Total 2400 ml Balance -1150 ml Intake Oral 1250 ml Output Urine Total 2400 ml # Bowel Movements 5 General: Alert, Oriented X3, Cooperative HEENT: Atraumatic, PERRLA Neck: Supple, No JVD Lungs: Clear to Auscultation, Normal Air Movement Heart: Regular Rate, Normal S1, Normal S2 Abdomen: Normal Bowel Sounds, Soft Extremities: No Clubbing, No Edema Skin: No Rashes Neuro: Other (able to move her legs) Results Lab Laboratory Tests 11/09/17 10:50: Glucometer 167H 11/09/17 16:21: Glucometer 169H 11/09/17 20:30: Glucometer 119H 11/10/17 05:36: Glucometer 107 11/10/17 10:50: Glucometer 135H 11/10/17 16:20: Glucometer 178H 11/10/17 20:42: Glucometer 165H 11/11/17 05:28: Glucometer 175H 11/11/17 11:12: Glucometer 175H 11/11/17 16:24: Glucometer 151H 11/11/17 20:22: Glucometer 125H 11/12/17 06:22: Glucometer 121H Assessment/Plan Assessment Cauda Equina surgery S/p Evac Epidural hematoma DM controlled with meds Nausea on meds HTN conrolled Indwelling Alvarenga catheter Plan Continue PT/OT RX for nausea-done improved F/U with DR Wright and Cardiology and ortho spine Consult Urology regarding postop urinary retention-done spoke with DR Schmitt Pain management Team Conference tomorrow 11-13-17 CLARK CHRISTIANSON MD Nov 12, 2017 08:21
[2017-11-12] MEDS: inSUlin DETERMIR 1 UNIT/0.01 ML (LEVEMIR) CHARGE PER UNIT SQ SCH (08:34)
[2017-11-12] MEDS: FAMOTIDINE 20 MG (PEPCID) TABLET PO SCH (08:34)
[2017-11-12] MEDS: NITROFURANTOIN 100 MG (MACROBID) CAPSULE PO SCH ×2 (08:34→20:56)
[2017-11-12] MEDS: LORATADINE (CLARITIN) 10 MG TAB PO SCH (08:34)
[2017-11-12] MEDS: SENNA W/DOCUSATE (SENOKOT S) TABLET PO SCH ×2 (08:35→20:59)
[2017-11-12] MEDS: GABAPENTIN 100 MG (NEURONTIN) CAP PO SCH ×2 (08:35→20:57)
[2017-11-12] MEDS: DOCUSATE SODIUM 100 MG (COLACE) CAP PO SCH ×2 (08:36→20:59)
[2017-11-12] MEDS: HYDROCHLOROTHIAZIDE 25 MG (HCTZ) TAB PO SCH (08:36)
[2017-11-12] MEDS: meTOprolol TARTRATE 25 MG (LOPRESSOR) TABLET PO SCH ×2 (08:36→20:57)
[2017-11-12] MEDS: lisINopril 20 MG (PRINIVIL) TABLET PO SCH (08:36)
[2017-11-12] MEDS: LIDOCAINE (LIDODERM) 5% PATCH TOP SCH (08:37)
[2017-11-12] MEDS: MAGNESIUM OXIDE (MAG-OX)400 MG TAB PO SCH ×2 (08:42→16:47)
[2017-11-12] MEDS: MENTHOL/ZINC OXIDE (CALMOSEPTINE) 113 GM TUBE TOP SCH ×2 (09:50→20:59)
[2017-11-12] MEDS: MECLIZINE 25 MG (ANTIVERT) TAB PO PRN (09:51)
--- NOTE | 2017-11-12 09:51 | Progress Note-Hospitalist ---
Subjective HPI/CC On Admission Date Seen by Provider: Nov 12, 2017 Time Seen by Provider: 09:45 Subjective/Events-last exam Patient about the same Dr Schmitt consulted for catheter long-term plan Checked meds and labs Neurontin will be increased to 200mg BID from 100mg BID Labs will be checked tomorrow No increased pain noted BM+ Review of Systems Neurological: Weakness, Numbness, Other (neuropathy in feet) Objective Exam Vital Signs Vital Signs Date Time Temp Pulse Resp B/P (MAP) Pulse Ox O2 Delivery O2 Flow Rate FiO2 11/06/17 12:53 97.9 65 18 148/65 (92) 94 Room Air Capillary Refill : Less Than 3 Seconds General Appearance: No Apparent Distress, WD/WN, Chronically ill, Obese Respiratory: Lungs Clear, Normal Breath Sounds Cardiovascular: Regular Rate, Rhythm, No Edema Neurologic/Psychiatric: Alert, Oriented x3, Depressed Affect, Motor Weakness ( lower legs) Results/Procedures Lab Patient resulted labs reviewed. 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 PAF off anticoagulation due to risks outweigh benefits currently DM HTN OA HLP Continued nausea improved Severe lower leg and feet neuropathy Chronic dizziness Plan: Scop patch Zofran Cardiology is appreciated Monitor closely Monitor for elevated sugars Gabapentin increased dose Consult Dr Schmitt for catheter plan since it is an infection risk Diagnosis/Problems Diagnosis/Problems (1) Cauda equina syndrome Status: Acute (2) Episodic atrial fibrillation Status: Chronic (3) Urinary retention Status: Acute (4) Constipation Status: Acute Qualifiers: Constipation type: drug induced constipation Qualified Codes: K59.03 - Drug induced constipation (5) Acute depression Status: Acute (6) Adverse effect of anticoagulant Status: Acute Qualifiers: Encounter type: subsequent encounter Qualified Codes: T45.515D - Adverse effect of anticoagulants, subsequent encounter (7) Nausea & vomiting Status: Acute Qualifiers: Vomiting type: unspecified Vomiting Intractability: unspecified Qualified Codes: R11.2 - Nausea with vomiting, unspecified Clinical Quality Measures DVT/VTE Risk/Contraindication: Risk Factor Score Per Nursin RFS Level Per Nursing on Admit: 4+=Very High MOY LOGAN DO Nov 12, 2017 09:51
--- NOTE | 2017-11-12 11:44 | Occupational Ther Daily Note ---
OT Current Status-Daily Note Subjective Pt. does not report pain, but states that she is tired. Appearance Pt. in bed. Agrees to treatment. Mental Status/Objective Patient Orientation: Person Functional [place] Measure 0=Not Assessed/NA 4=Minimal Assistance 1=Total Assistance 5=Supervision or Setup 2=Maximal Assistance 6=Modified [place] 3=Moderate Assistance 7=Complete [place] ADL-Treatment Functional [place] Measure 0=Not Assessed/NA 4=Minimal Assistance 1=Total Assistance 5=Supervision or Setup 2=Maximal Assistance 6=Modified [place] 3=Moderate Assistance 7=Complete IndependenceIRFPAI Quality Coding Scale 6 Independent with activity with or without an assistive device 5 Patient requires set up or clean up by helper. Patient completes activity by themselves 4 Supervision or touching assist (CGA). [place] provide cues , steadying assist 3 The helper provides less than half the effort to complete the activity 2 The helper provides more than half the effort to complete the activity 1 Dependent. The helper does all the effort to complete an activity 7 Patient refused to complete or attempt activity 9 The patient did not perform the activity before the current illness or injury 88 Not attempted due to Medical conditions or safety concerns Grooming (FIM): 5 (set up to comb hair.) Bathing (FIM): 2 (Pt. able to wash torso and arms while seated on side of bed. Required dependent assist to wash all other parts.) Shower/Bathe Self (QC): 2 Upper Body (FIM): 4 (Min assist to pull gown down over torso.) Upper Body Dressing (QC): 4 Lower Body Dressing (FIM): 1 Lower Body Dressing (QC): 1 On/Off Footwear (QC): 1 Toileting (FIM): 1 (Pt. has a catheter.) Toileting Hygiene (QC): 1 Transfers (B, C, W/C) (FIM): 1 (Please see note below.) Other Treatment OT/PT co-treated due to pt's fatigue level, and need for skilled assistance. Pt. transferred supine-sit with max x 2, and then required min assist at times to hold balance while seated on side of bed. Pt. demonstrates glute and quad strength, but states that she can't feel anything in her feet. Stood with max/ dependent assist of one while another cleansed rear jenny area. PT facilitated transfers while OT facilitated ADL skills. Pt. demonstrates good UE strength, but does not seem to use arms appropriately, such as to pull self onto bed or assist with scooting or wheelchair push ups. Requires cues for this. Transferred with max x 2 to wheelchair using slide board. Once in wheelchair, pt. self propelled around to therapy gym. Increased time required and then pt. rested. Self propelled back to room for increased UE strength. Pt. agreed to sit up in chair for an hour. All needs met in room. Education OT Patient Education: Correct positioning, Modified ADL techniques, Progress toward Goal/Update tx plan, Purpose of tx/functional activities, Reviewed precautions, Rehab process, Transfer techniques Teaching Recipient: Patient Teaching Methods: Demonstration, Discussion Response to Teaching: Verbalize Understanding, Return Demonstration OT Short Term Goals Short Term Goals Time Frame: Nov 15, 2017 Bathing(FIM): 4 Upper Body Dressing(FIM): 4 Lower Body Dressing(FIM): 3 Transfers (B,C,W/C) (FIM): 3 Toilet/Commode Transfer(FIM): 3 1=Demonstrate adherence to instructed precautions during ADL tasks. 2=Patient will verbalize/demonstrate understanding of assistive devices/ modifications for ADL. 3=Patient will improve strength/tolerance for activity to enable patient to perform ADL's. OT Grievance And Appeals Specialist Goals [facility]pc Goals Time Frame: Nov 29, 2017 Eating (FIM): 6 Eating (QC): 6 Groomin Oral Hygiene (QC): 6 Bathing(FIM): 5 Shower/Bathe Self (QC): 5 Upper Body Dressing(FIM): 6 Upper Body Dressing (QC): 6 Lower Body Dressing(FIM): 5 Lower Body Dressing (QC): 5 On/Off Footwear (QC): 5 Toileting(FIM): 5 Toileting Hygiene (QC): 5 Toilet/Commode Transfer(FIM): 5 Toilet/Commode Transfer (QC): 5 Shower Transfer(FIM): 5 Additional Goals: 1-Demonstrate ADL Tasks, 2-Verbalize Understanding, 3- ImproveStrength/Dyana 1=Demonstrate adherence to instructed precautions during ADL tasks. 2=Patient will verbalize/demonstrate understanding of assistive devices/ modifications for ADL. 3=Patient will improve strength/tolerance for activity to enable patient to perform ADL's. OT Education/Plan Problem List/Assessment Assessment: Decreased Activ Tolerance, Dependent Transfers, Impaired Bed Mobility, Impaired Funct Balance, Impaired I ADL's, Impaired Self-Care Skills, Restricted Funct UE ROM Pt would benefit from skilled OT to increase her independence with basic self care to allow her to safely return to her home Discharge Recommendations Plan/Recommendations: Continue POC Therapy D/C Recommendations: 24 hr Supervision Treatment Plan/Plan of Care Treatment,Training & Education: Yes Patient would benefit from OT for education, treatment and training to promote independence in ADL's, mobility, safety and/or upper extremity function for ADL' s. Plan of Care: ADL Retraining, Group Exercise/Act as Ind (education, exercise, funct activities, activity tolerance, mobility), Orthotic Fitting/Training, UE Neuromus Re-Ed/Coord Treatment Duration: Nov 29, 2017 Frequency: At least 5 of 7 days/Wk (IRF) Estimated Hrs Per Day: 1.5 hours per day Agreement: Yes Rehab Potential: Guarded Time/GCodes Start Time: 09:00 Stop Time: 10:00 Total Time Billed (hr/min): 60 Billed Treatment Time 1, ADL x 45minutes, FA x 15minutes NEDA ARNOLD OT Nov 12, 2017 11:44
--- NOTE | 2017-11-12 11:52 | Occupational Ther Daily Note ---
OT Current Status-Daily Note Subjective Pt. states that she is tired. Appearance Pt. up in chair. States that she is ready to get back to bed. Mental Status/Objective Patient Orientation: Person Functional [place] Measure 0=Not Assessed/NA 4=Minimal Assistance 1=Total Assistance 5=Supervision or Setup 2=Maximal Assistance 6=Modified [place] 3=Moderate Assistance 7=Complete [place] ADL-Treatment Functional [place] Measure 0=Not Assessed/NA 4=Minimal Assistance 1=Total Assistance 5=Supervision or Setup 2=Maximal Assistance 6=Modified [place] 3=Moderate Assistance 7=Complete IndependenceIRFPAI Quality Coding Scale 6 Independent with activity with or without an assistive device 5 Patient requires set up or clean up by helper. Patient completes activity by themselves 4 Supervision or touching assist (CGA). [place] provide cues , steadying assist 3 The helper provides less than half the effort to complete the activity 2 The helper provides more than half the effort to complete the activity 1 Dependent. The helper does all the effort to complete an activity 7 Patient refused to complete or attempt activity 9 The patient did not perform the activity before the current illness or injury 88 Not attempted due to Medical conditions or safety concerns Other Treatment Pt. required max x 2 for slide board transfer to bed from wheelchair. Pt. then required max x 2 to position self in bed. however, pt. was able to hold on to upper rail and pull self upward. Pt. required max assist for further jenny care cleansing, as she states that she does not feel clean. After this was performed , pt. agreed to bilateral UE exercises with red theraband. Completed 3 exercises x 10 reps each for continued UE strengthening. Pt. given handout to continue with these tasks on her own. All needs met in bed. Education OT Patient Education: Correct positioning, Exercise program, Modified ADL techniques, Progress toward Goal/Update tx plan, Purpose of tx/functional activities, Reviewed precautions, Rehab process, Transfer techniques Teaching Recipient: Patient Teaching Methods: Demonstration, Discussion Response to Teaching: Verbalize Understanding, Return Demonstration OT Short Term Goals Short Term Goals Time Frame: Nov 15, 2017 Bathing(FIM): 4 Upper Body Dressing(FIM): 4 Lower Body Dressing(FIM): 3 Transfers (B,C,W/C) (FIM): 3 Toilet/Commode Transfer(FIM): 3 1=Demonstrate adherence to instructed precautions during ADL tasks. 2=Patient will verbalize/demonstrate understanding of assistive devices/ modifications for ADL. 3=Patient will improve strength/tolerance for activity to enable patient to perform ADL's. OT Group Home Goals Well Logger Goals Time Frame: Nov 29, 2017 Eating (FIM): 6 Eating (QC): 6 Groomin Oral Hygiene (QC): 6 Bathing(FIM): 5 Shower/Bathe Self (QC): 5 Upper Body Dressing(FIM): 6 Upper Body Dressing (QC): 6 Lower Body Dressing(FIM): 5 Lower Body Dressing (QC): 5 On/Off Footwear (QC): 5 Toileting(FIM): 5 Toileting Hygiene (QC): 5 Toilet/Commode Transfer(FIM): 5 Toilet/Commode Transfer (QC): 5 Shower Transfer(FIM): 5 Additional Goals: 1-Demonstrate ADL Tasks, 2-Verbalize Understanding, 3- ImproveStrength/Dyana 1=Demonstrate adherence to instructed precautions during ADL tasks. 2=Patient will verbalize/demonstrate understanding of assistive devices/ modifications for ADL. 3=Patient will improve strength/tolerance for activity to enable patient to perform ADL's. OT Education/Plan Problem List/Assessment Assessment: Decreased Activ Tolerance, Dependent Transfers, Impaired Bed Mobility, Impaired Funct Balance, Impaired I ADL's, Impaired Self-Care Skills Pt would benefit from skilled OT to increase her independence with basic self care to allow her to safely return to her home Discharge Recommendations Plan/Recommendations: Continue POC Therapy D/C Recommendations: 24 hr Supervision Treatment Plan/Plan of Care Treatment,Training & Education: Yes Patient would benefit from OT for education, treatment and training to promote independence in ADL's, mobility, safety and/or upper extremity function for ADL' s. Plan of Care: ADL Retraining, Group Exercise/Act as Ind (education, exercise, funct activities, activity tolerance, mobility), Orthotic Fitting/Training, UE Neuromus Re-Ed/Coord Treatment Duration: Nov 29, 2017 Frequency: At least 5 of 7 days/Wk (IRF) Estimated Hrs Per Day: 1.5 hours per day Agreement: Yes Rehab Potential: Guarded Time/GCodes Start Time: 11:00 Stop Time: 11:30 Total Time Billed (hr/min): 30 Billed Treatment Time 1, FA x 15minutes, Ex x 15minutes NACCARATO,NEDA OT Nov 12, 2017 11:52
--- NOTE | 2017-11-12 12:10 | Physical Therapy Daily Note ---
PT Daily Note-Current Subjective Pt laying Supine in bed upon arrival. Pt agrees to co-treat with OT. Pain Numeric Pain Scale: 10-Worst Possible Pain Location: Right Location Body Site: Foot Pain Description: Stabbing, Tingling Comment: Pt doesn't rate, based on facial grimaces & pt yells out in pain. Mental Status Patient Orientation: Person, Place, Situation Attachments: Other-See Comments (Lumbar brace) Transfers Functional [place] Measure 0=Not Assessed/NA 4=Minimal Assistance 1=Total Assistance 5=Supervision or Setup 2=Maximal Assistance 6=Modified [place] 3=Moderate Assistance 7=Complete IndependenceIRFPAI Quality Coding Scale 6 Independent with activity with or without an assistive device 5 Patient requires set up or clean up by helper. Patient completes activity by themselves 4 Supervision or touching assist (CGA). [place] provide cues , steadying assist 3 The helper provides less than half the effort to complete the activity 2 The helper provides more than half the effort to complete the activity 1 Dependent. The helper does all the effort to complete an activity 7 Patient refused to complete or attempt activity 9 The patient did not perform the activity before the current illness or injury 88 Not attempted due to Medical conditions or safety concerns Scootin Supine to/from Sit: 2 Sit to/from Stand: 1 Sit to Lying (QC): 2 Sit to Stand (QC): 1 Chair/Ebk-vj-Wcjty Xfer(QC): 2 Bed to/from Chair: 2 Weight Bearing Right Lower Extremity: Right Weight Bearing/Tolerated Left Lower Extremity: Left Weight Bearing/Tolerated Gait Training Does the Patient Walk?: No and Walking Goal NOT indicated Wheelchair Training Does the Pt Use a Wheelchair?: Yes Distance: 150' Wheelchair Level of Assist: 5 Wheel 50 ft with 2 turns (QC): 5 Wheel 150 ft (QC): 5 Type of Wheelchair: Manual Treatments Pt transfers from Supine to EOB at Max A, scoots to EOB w/VC. Pt transfers from EOB to Standing at Max A. Pt baths self with Assistance for Pericare from PT. Pt then dresses self at EOB. Pt returns to Supine in bed for Positioning before using Slide Board to transfer to [facility] at Max A. Pt propelled [facility] to Therapy Gym then after a short rest returned to room to rest again at end of tx with all needs met, including call light in hand. Assessment Current Status: Fair Progress Pt continues to report no feeling in BLE. Pt is making slight improvements with bed mobility but is still a Max A. PT Short Term Goals Short Term Goals Time Frame: Nov 13, 2017 Transfers (B,C,W/C) (FIM): 3 Wheelchair (FIM): 2 Wheelchair Distance: 50' Wheelchair Level of Assist: 4 PT Nursing Home Goals Food Taster Goals PT Nursing Home Goals Time Frame: Nov 27, 2017 Transfers (B,C,W/C) (FIM): 4 Sit to Lying (QC): 3 Lying-Sitting on Side/Bed(QC): 3 Sit to Stand (QC): 3 Rollin Roll Left to Right (QC): 3 Chair/Ctj-wx-Xbcsl Xfer(QC): 3 Car Transfer (QC): 3 Wheelchair (FIM): 5 Distance: 150' Wheelchair Level of Assist: 5 Wheel 50 feet with 2 turns (QC: 4 PT Plan Problem List Problem List: Activity Tolerance, Functional Strength, Safety, Balance, Gait, Transfer, Bed Mobility, ROM Treatment/Plan Treatment Plan: Continue Plan of Care Treatment Plan: Bed Mobility, Concurrent Therapy, Education, Functional Activity Dyana, Functional Strength, Group Therapy, Gait, Safety, Therapeutic Exercise, Transfers Treatment Duration: Nov 27, 2017 Frequency: At least 5 of 7 days/Wk (IRF) Estimated Hrs Per Day: 1.5 hours per day Patient and/or Family Agrees t: Yes Safety Risks/Education Patient Education: Transfer Techniques, Correct Positioning, W/C Management, Disease Process, Safety Issues Teaching Recipient: Patient Teaching Methods: Discussion Response to Teaching: Verbalize Understanding Time/GCodes Time In: 900 Time Out: 1000 Total Billed Treatment Time: 60 Total Billed Treatment 1, WCH (15m) & FA x3 (45m) Co-treat w/OT for 45m OT worked on ADLs & UE strengthening while PT worked on Dynamic Sitting Balance , Transfer including slide board & Bed Mobility EVON OLUISE COMMERCIAL TECHNICIAN Nov 12, 2017 12:10
--- NOTE | 2017-11-12 16:02 | Physical Therapy Daily Note ---
PT Daily Note-Current Subjective Pt was Supine in bed upon arrival. Pt reports just getting comfortable in bed but agrees to PT for Supine Ex. Pain Numeric Pain Scale: 0-No Pain Location: No Pain Reported Mental Status Patient Orientation: Place, Situation Attachments: Alvarenga Catheter Transfers Functional [place] Measure 0=Not Assessed/NA 4=Minimal Assistance 1=Total Assistance 5=Supervision or Setup 2=Maximal Assistance 6=Modified [place] 3=Moderate Assistance 7=Complete IndependenceIRFPAI Quality Coding Scale 6 Independent with activity with or without an assistive device 5 Patient requires set up or clean up by helper. Patient completes activity by themselves 4 Supervision or touching assist (CGA). [place] provide cues , steadying assist 3 The helper provides less than half the effort to complete the activity 2 The helper provides more than half the effort to complete the activity 1 Dependent. The helper does all the effort to complete an activity 7 Patient refused to complete or attempt activity 9 The patient did not perform the activity before the current illness or injury 88 Not attempted due to Medical conditions or safety concerns Weight Bearing Right Lower Extremity: Right Weight Bearing/Tolerated Left Lower Extremity: Left Weight Bearing/Tolerated Exercises Supine Ex: Ankle pumps, Quad Set, Glut sets, Heel Slides, Hip abd/add Supine Reps: 10 Treatments Pt completes Supine Ex with several rest breaks. CORN CUTTER OPERATOR instructs pt on Pursed Lip Breathing technique. Pt resting at end of tx with all needs met. Assessment Current Status: Fair Progress Pt completes Supine EX at AROM except for AP & HS which were AAROM. PT Short Term Goals Short Term Goals Time Frame: Nov 13, 2017 Transfers (B,C,W/C) (FIM): 3 Wheelchair (FIM): 2 Wheelchair Distance: 150' Wheelchair Level of Assist: 4 PT Crystal Inspector Goals Skilled Nursing Goals PT Crystal Inspector Goals Time Frame: Nov 27, 2017 Transfers (B,C,W/C) (FIM): 4 Sit to Lying (QC): 3 Lying-Sitting on Side/Bed(QC): 3 Sit to Stand (QC): 3 Rollin Roll Left to Right (QC): 3 Chair/Cdo-nf-Ekzst Xfer(QC): 3 Car Transfer (QC): 3 Wheelchair (FIM): 5 Distance: 150' Wheelchair Level of Assist: 5 Wheel 50 feet with 2 turns (QC: 4 PT Plan Problem List Problem List: Activity Tolerance, Functional Strength, Safety Treatment/Plan Treatment Plan: Continue Plan of Care Treatment Plan: Bed Mobility, Concurrent Therapy, Education, Functional Activity Dyana, Functional Strength, Group Therapy, Gait, Safety, Therapeutic Exercise, Transfers Treatment Duration: Nov 27, 2017 Frequency: At least 5 of 7 days/Wk (IRF) Estimated Hrs Per Day: 1.5 hours per day Patient and/or Family Agrees t: Yes Safety Risks/Education Patient Education: Transfer Techniques, Correct Positioning, Safety Issues Teaching Recipient: Patient Teaching Methods: Discussion Response to Teaching: Verbalize Understanding Time/GCodes Time In: 1345 Time Out: 1415 Total Billed Treatment Time: 30 Total Billed Treatment 1, EX x2 (30m) EVON LOUISE CORN CUTTER OPERATOR Nov 12, 2017 16:02
[2017-11-12 17:24] VITALS: BP 129/68
--- NOTE | 2017-11-12 20:41 | CONSULTATION REPORT ---
DATE OF SERVICE: 11/12/2017 ATTENDING PHYSICIAN: Dr. Pisano. SUMMARY: I was requested to see this 77-year-old nice lady suffering from a cauda equina syndrome and had catheter since her surgery. She denies any previous similar problem at home on a regular basis. Denies incontinence; however, she has very little sensation in her legs and definitely does not feel when she has to go and does not feel even when she has bowel movements. She wishes to keep her catheter which I agree with her on that. IMPRESSION: Neurogenic bladder, possible retention. PLAN: Leave Alvarenga catheter in until her urological problem subsides and also becomes more ambulatory. Job ID: [id number] DocumentID: [id number] Dictated Date: 11/12/2017 12:12:34 Nut Sorter Date: 11/12/2017 20:41:21 Dictated By: TOSHA CAIN MD
[2017-11-12] MEDS: ATORVASTATIN 40 MG (LIPITOR) TABLET PO SCH (20:57)
[2017-11-12] MEDS: LIDOCAINE PATCH REMOVAL TP SCH (21:03)
[2017-11-13 05:23] LABS: BASOPHILS # (AUTO) 0.1 10^3/uL (0.0-0.1); BASOPHILS % (AUTO) 1 % (0-10); EOSINOPHILS # (AUTO) 0.5 10^3/uL (0.0-0.3); EOSINOPHILS % (AUTO) 5 % (0-10); HEMATOCRIT 27 % (35-52); LYMPHOCYTES # (AUTO) 2.3 X 10^3 (1.0-4.0); LYMPHOCYTES % (AUTO) 24 % (12-44); MEAN CORPUSCULAR HEMOGLOBIN 28 PG (25-34); MEAN CORPUSCULAR HGB CONC 33 G/DL (32-36); MEAN CORPUSCULAR VOLUME 86 FL (80-99); MEAN PLATELET VOLUME 9.3 FL (7.4-10.4); MONOCYTES # (AUTO) 1.2 X 10^3 (0.0-1.0); MONOCYTES % (AUTO) 13 % (0-12); NEUTROPHILS # (AUTO) 5.4 X 10^3 (1.8-7.8); NEUTROPHILS % (AUTO) 58 % (42-75); PLATELET COUNT 296 10^3/uL (130-400); RED BLOOD COUNT 3.17 10^6/uL (4.35-5.85); WHITE BLOOD COUNT 9.4 10^3/uL (4.3-11.0)
[2017-11-13] MEDS: HYDROcodone/APAP 10 MG/325 MG (LORTAB) TAB PO PRN ×2 (05:29→20:29)
[2017-11-13 05:45] LABS: BILIRUBIN,TOTAL 1.1 MG/DL (0.1-1.0); CALCIUM 9.1 MG/DL (8.5-10.1); CREATININE SERUM 1.39 MG/DL (0.60-1.30); MAGNESIUM 2.3 MG/DL (1.8-2.4); POTASSIUM 4.2 MMOL/L (3.6-5.0); TOTAL PROTEIN 5.9 GM/DL (6.4-8.2)
[2017-11-13] MEDS: inSUlin (REGULAR) HUMAN 1 UNIT/0.01 ML (CHARGE PER UNIT) SC SCH ×4 (05:45→21:43)
[2017-11-13 05:46] VITALS: BP 124/66
[2017-11-13] MEDS: metFORMIN 500 MG (GLUCOPHAGE) TAB PO SCH ×2 (06:12→17:32)
[2017-11-13] MEDS: TROSPIUM 20 MG (SANCTURA) TAB PO SCH ×2 (06:12→17:32)
[2017-11-13] MEDS: CYANOCOBALAMIN 500 MCG TAB (VITAMIN B-12) PO SCH (06:12)
[2017-11-13] MEDS: MECLIZINE 25 MG (ANTIVERT) TAB PO PRN (06:13)
[2017-11-13] MEDS: PANTOPRAZOLE 40 MG (PROTONIX) TAB PO SCH (06:13)
[2017-11-13] MEDS: VITAMIN D3 1,000 UNITS (CHOLECALCIFEROL) TABLET PO SCH (06:13)
[2017-11-13] MEDS: VITAMIN E 400 INTLU CAP PO SCH (06:13)
[2017-11-13] MEDS: DOCUSATE SODIUM 100 MG (COLACE) CAP PO SCH ×2 (07:30→20:28)
[2017-11-13] MEDS: SENNA W/DOCUSATE (SENOKOT S) TABLET PO SCH ×2 (07:31→20:29)
--- NOTE | 2017-11-13 08:03 | PM & R (SOAP) Progress Note ---
Subjective Time Seen by Provider: 07:50 Subjective/Events-last exam Patient was seen in her room this AM Patient max assist for transfers Discussed case with DR Shcmitt this AM Alvarenga to remain in for now due to poor mobility Objective Exam Last Set of Vital Signs Vital Signs Date Time Temp Pulse Resp B/P (MAP) Pulse Ox O2 Delivery O2 Flow Rate FiO2 11/13/17 05:46 96.9 67 18 124/66 (85) 95 Room Air Capillary Refill : Less Than 3 Seconds I&O Intake and Output 11/13/17 00:00 Intake Total 1080 ml Output Total 1350 ml Balance -270 ml Intake Oral 1080 ml Output Urine Total 1350 ml # Bowel Movements 1 General: Alert, Oriented X3, Cooperative HEENT: Atraumatic, PERRLA Neck: Supple, No JVD Lungs: Clear to Auscultation, Normal Air Movement Heart: Regular Rate, Normal S1, Normal S2 Abdomen: Normal Bowel Sounds, Soft Extremities: No Clubbing, No Edema Skin: No Rashes Neuro: Other (able to move her legs) Results Lab Laboratory Tests 11/10/17 10:50: Glucometer 135H 11/10/17 16:20: Glucometer 178H 11/10/17 20:42: Glucometer 165H 11/11/17 05:28: Glucometer 175H 11/11/17 11:12: Glucometer 175H 11/11/17 16:24: Glucometer 151H 11/11/17 20:22: Glucometer 125H 11/12/17 06:22: Glucometer 121H 11/12/17 11:19: Glucometer 182H 11/12/17 16:12: Glucometer 163H 11/12/17 21:02: Glucometer 188H 11/13/17 05:10: White Blood Count 9.4, Red Blood Count 3.17L, Hemoglobin 9.0L, Hematocrit 27L, Mean Corpuscular Volume 86, Mean Corpuscular Hemoglobin 28, Mean Corpuscular Hemoglobin Concent 33, Red Cell Distribution Width 15.0H, Platelet Count 296, Mean Platelet Volume 9.3, Neutrophils (%) (Auto) 58, Lymphocytes (%) (Auto) 24, Monocytes (%) (Auto) 13H, Eosinophils (%) (Auto) 5, Basophils (%) (Auto) 1, Neutrophils # (Auto) 5.4, Lymphocytes # (Auto) 2.3, Monocytes # (Auto) 1.2H, Eosinophils # (Auto) 0.5H, Basophils # (Auto) 0.1, Sodium Level 132L, Potassium Level 4.2, Chloride Level 93L, Carbon Dioxide Level 27, Anion Gap 12, Blood Urea Nitrogen 48H, Creatinine 1.39H, Estimat Glomerular Filtration Rate 37, BUN/ Creatinine Ratio 35, Glucose Level 119H, Calcium Level 9.1, Magnesium Level 2.3 , Total Bilirubin 1.1H, Aspartate Amino Transf (AST/SGOT) 19, Alanine Aminotransferase (ALT/SGPT) 13, Alkaline Phosphatase 71, Total Protein 5.9L, Albumin 3.0L 11/13/17 05:30: Glucometer 123H Assessment/Plan Assessment Cauda Equina surgery S/p Evac Epidural hematoma DM controlled with meds Nausea on meds HTN conrolled Indwelling Alvarenga catheter Plan Continue PT/OT RX for nausea-done improved F/U with DR Wright and Cardiology and ortho spine Consult Urology regarding postop urinary retention-done spoke with DR Sydnie Alvarenga to remain in for now Pain management Team Conference later today-See report for full functional update and POC and ELOS DR Gudelia Watters/Porter covering my service while I am away fro 11/14/17 thru CLARK CHRISTIANSON MD Nov 13, 2017 08:03
[2017-11-13] MEDS: SCOPOLAMINE 1.5 MG (TRANSDERM-SCOP) PATCH TOP SCH (08:09)
[2017-11-13] MEDS: SCOPOLAMINE PATCH REMOVAL TP SCH (08:09)
[2017-11-13] MEDS: LIDOCAINE (LIDODERM) 5% PATCH TOP SCH (08:09)
[2017-11-13] MEDS: LORATADINE (CLARITIN) 10 MG TAB PO SCH (08:11)
[2017-11-13] MEDS: MAGNESIUM OXIDE (MAG-OX)400 MG TAB PO SCH ×2 (08:11→17:32)
[2017-11-13] MEDS: inSUlin DETERMIR 1 UNIT/0.01 ML (LEVEMIR) CHARGE PER UNIT SQ SCH (08:11)
[2017-11-13] MEDS: GABAPENTIN 100 MG (NEURONTIN) CAP PO SCH ×2 (08:11→20:28)
[2017-11-13] MEDS: FAMOTIDINE 20 MG (PEPCID) TABLET PO SCH (08:11)
[2017-11-13] MEDS: lisINopril 20 MG (PRINIVIL) TABLET PO SCH (08:12)
[2017-11-13] MEDS: HYDROCHLOROTHIAZIDE 25 MG (HCTZ) TAB PO SCH (08:12)
[2017-11-13] MEDS: NITROFURANTOIN 100 MG (MACROBID) CAPSULE PO SCH (08:12)
[2017-11-13] MEDS: meTOprolol TARTRATE 25 MG (LOPRESSOR) TABLET PO SCH ×2 (08:12→20:29)
[2017-11-13] MEDS: MENTHOL/ZINC OXIDE (CALMOSEPTINE) 113 GM TUBE TOP SCH ×2 (08:13→20:31)
--- NOTE | 2017-11-13 08:14 | Cardiology Progress Note ---
Subjective Date Seen by Provider: Nov 13, 2017 Time Seen by Provider: 08:12 Subjective/Events-last exam Patient asleep in bed, easily awakens to answer questions. Denies any CP or dyspnea. Review of Systems General: No Night Sweats; Fatigue, Malaise HEENT: No Visual Changes, No Dysphasia, No Sore Throat Pulmonary: No Dyspnea, No Cough Cardiovascular: No: Chest Pain, Palpitations, Paroxysmal Noc. Dyspnea, Edema Gastrointestinal: No: Nausea, Vomiting, Abdominal Pain Genitourinary: No Dysuria, No Frequency Musculoskeletal: No: neck pain, back pain Neurological: Weakness, Numbness (lower extremity paralysis) Objective-Cardiology Exam Last Set of Vital Signs Vital Signs 11/13/17 05:46 Temp 96.9 Pulse 67 Resp 18 B/P (MAP) 124/66 (85) Pulse Ox 95 O2 Delivery Room Air Capillary Refill : Less Than 3 Seconds I&O Intake and Output 11/13/17 00:00 Intake Total 1080 ml Output Total 1350 ml Balance -270 ml Intake Oral 1080 ml Output Urine Total 1350 ml # Bowel Movements 1 General: Alert, Oriented X3, Cooperative HEENT: Atraumatic, PERRLA Neck: Supple, No JVD Lungs: Clear to Auscultation, Normal Air Movement Heart: Regular Rate, Normal S1, Normal S2 Abdomen: Normal Bowel Sounds, Soft Extremities: No Clubbing, No Edema Skin: No Rashes Neuro: Other (able to move her legs) Results Lab Laboratory Tests 11/13/17 05:10 A/P-Cardiology Admission Diagnosis Paralysis Paroxysmal atrial fibrillation Hypertension Hyperlipidemia Assessment/Plan Status post back surgery done on October 14, 2017, had hematoma, multiple surgical evacuation, had wound VAC and lower extremity paralysis, receiving physical therapy, having some pain and tingling in her feet but able to move her legs, continue with physical therapy and monitor Paroxysmal atrial fibrillation, had an episode of atrial fibrillation with rapid ventricular response on October 17, 2017, converted to sinus rhythm. Continue to monitor [id number] score is 5, yearly risk of stroke without oral anticoagulation is 6.7 percent, currently off oral anticoagulation due to hematoma. Hypertension, continue to monitor blood pressure Hyperlipidemia, monitor lipids Diabetes mellitus, monitor and managed by primary care physician Obesity, BMI is 28 Fibromyalgia, multiple complain about joint and back pain in the past, managed by primary care physician. Clinical Quality Measures DVT/VTE Risk/Contraindication: Risk Factor Score Per Nursin RFS Level Per Nursing on Admit: 4+=Very High RAGHU JAY Nov 13, 2017 08:14
[2017-11-13] MEDS: ONDANSETRON 4 MG (ZOFRAN) ORAL DISSOLVE TAB PO PRN (09:06)
--- NOTE | 2017-11-13 09:59 | Physical Therapy Daily Note ---
PT Daily Note-Current Subjective Pt. up EOB with OT already in room. OT PT co Rx this AM. OT reports pt. has vomited large amount and has done some work in supine for bathing and dressing but as soon as pt. sat up she became very ill and has vomited and dry heaved since. Pt. states she is miserable and cant sit up . Pain Numeric Pain Scale: 0-No Pain Appearance eyes closed most of the time but when opened there is an asymmetrical appearance upon initially opening eyes. pt. with head down , dry heaves and is ill most all of Rx. Mental Status Patient Orientation: Person, Place, Time, Situation, Mumbles, Listless Attachments: Alvarenga Catheter Transfers Functional [place] Measure 0=Not Assessed/NA 4=Minimal Assistance 1=Total Assistance 5=Supervision or Setup 2=Maximal Assistance 6=Modified [place] 3=Moderate Assistance 7=Complete IndependenceIRFPAI Quality Coding Scale 6 Independent with activity with or without an assistive device 5 Patient requires set up or clean up by helper. Patient completes activity by themselves 4 Supervision or touching assist (CGA). [place] provide cues , steadying assist 3 The helper provides less than half the effort to complete the activity 2 The helper provides more than half the effort to complete the activity 1 Dependent. The helper does all the effort to complete an activity 7 Patient refused to complete or attempt activity 9 The patient did not perform the activity before the current illness or injury 88 Not attempted due to Medical conditions or safety concerns Transfers (B, C, W/C) (FIM): 2 Scootin Rollin Supine to/from Sit: 2 unable to weight bear on LEs, poor LE strength Weight Bearing Right Lower Extremity: Right Weight Bearing/Tolerated Left Lower Extremity: Left Weight Bearing/Tolerated Treatments co Rx with OT for safety and coordination of therapies ie, sitting balance Rx along with UE ADL, pt. this date was sat up EOB x3 , then having extreme episodes of N&V and had to lay back down. PT and OT then attempting to use sit to stand lift with intent of standing but never getting to that point secondary to illness. BP119/66 HR 77 Assessment Current Status: Poor Progress pt. unable to tolerate Rx, not making progress, possible further unfounded issues PT Short Term Goals Short Term Goals Time Frame: Nov 13, 2017 Transfers (B,C,W/C) (FIM): 3 Wheelchair (FIM): 2 Wheelchair Distance: 150' Wheelchair Level of Assist: 4 PT Complementary Health Therapists Goals Complementary Health Therapists Goals PT Complementary Health Therapists Goals Time Frame: Nov 27, 2017 Transfers (B,C,W/C) (FIM): 4 Sit to Lying (QC): 3 Lying-Sitting on Side/Bed(QC): 3 Sit to Stand (QC): 3 Rollin Roll Left to Right (QC): 3 Chair/Iax-tg-Lcttp Xfer(QC): 3 Car Transfer (QC): 3 Wheelchair (FIM): 5 Distance: 150' Wheelchair Level of Assist: 5 Wheel 50 feet with 2 turns (QC: 4 PT Plan Treatment/Plan Treatment Plan: Continue Plan of Care Treatment Plan: Bed Mobility, Concurrent Therapy, Education, Functional Activity Dyana, Functional Strength, Group Therapy, Gait, Safety, Therapeutic Exercise, Transfers Treatment Duration: Nov 27, 2017 Frequency: At least 5 of 7 days/Wk (IRF) Estimated Hrs Per Day: 1.5 hours per day Patient and/or Family Agrees t: Yes Safety Risks/Education Patient Education: Transfer Techniques, Correct Positioning, Disease Process, Safety Issues Teaching Recipient: Patient Teaching Methods: Demonstration Response to Teaching: Verbalize Understanding, Unable to Return Demonstration, Reinforcement Needed pt. was reviewed the importance of upright position for rehabilitation , heart and lung and circulation Time/GCodes Time In: 900 Time Out: 1000 Total Billed Treatment Time: 60 Total Billed Treatment 1,FA60m G Codes Necessary: ELIZABETH Kellogg FLOORWORKER LASTING Nov 13, 2017 09:59
--- NOTE | 2017-11-13 11:46 | Progress Note-Hospitalist ---
Subjective HPI/CC On Admission Date Seen by Provider: Nov 13, 2017 Time Seen by Provider: 11:00 Subjective/Events-last exam Patient doing about the same but the nausea and vomiting is concerning for the therapy staff in order to maintain 3 hour workout criteria Spoke with Dr. Ryan who will see her in consultation Has a history of Mnire's disease and wondering if that is a factor involved Denies any pain Neuropathy symptoms are about the same below the knees Bowels are moving Reviewed labs and everything stable Catheter will not be removed per urology until she is able to move around much better than she is because that could give rise to decubitus ulcers Review of Systems Gastrointestinal: Nausea, Vomiting Neurological: Weakness, Numbness, Incoordination Objective Exam Vital Signs Vital Signs Date Time Temp Pulse Resp B/P (MAP) Pulse Ox O2 Delivery O2 Flow Rate FiO2 11/07/17 06:40 97.8 64 16 157/68 (97) 96 Room Air Capillary Refill : Less Than 3 Seconds General Appearance: No Apparent Distress, WD/WN HEENT: PERRL/EOMI Neck: Full Range of Motion, Normal Inspection, Non Tender, Supple Respiratory: Lungs Clear, Normal Breath Sounds Cardiovascular: Regular Rate, Rhythm, No Edema Neurologic/Psychiatric: Alert, Oriented x3, No Motor/Sensory Deficits, Depressed Affect Skin: Normal Color, Warm/Dry Lymphatic: No Adenopathy Results/Procedures Lab Laboratory Tests 11/13/17 05:10 Patient resulted labs reviewed. 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 PAF off anticoagulation due to risks outweigh benefits currently DM HTN OA HLP Continued nausea and vomiting Severe lower leg and feet neuropathy Chronic dizziness Plan: Scop patch Zofran Dr Ryan consultation is appreciated Cardiology is appreciated Monitor closely Monitor for elevated sugars Gabapentin increased dose Consult Dr Schmitt is appreciated Diagnosis/Problems Diagnosis/Problems (1) Cauda equina syndrome Status: Acute (2) Episodic atrial fibrillation Status: Chronic (3) Urinary retention Status: Acute (4) Constipation Status: Acute Qualifiers: Constipation type: drug induced constipation Qualified Codes: K59.03 - Drug induced constipation (5) Acute depression Status: Acute (6) Adverse effect of anticoagulant Status: Acute Qualifiers: Encounter type: subsequent encounter Qualified Codes: T45.515D - Adverse effect of anticoagulants, subsequent encounter (7) Nausea & vomiting Status: Acute Qualifiers: Vomiting type: unspecified Vomiting Intractability: unspecified Qualified Codes: R11.2 - Nausea with vomiting, unspecified Clinical Quality Measures DVT/VTE Risk/Contraindication: Risk Factor Score Per Nursin RFS Level Per Nursing on Admit: 4+=Very High MOY LOGAN DO Nov 13, 2017 11:46
--- NOTE | 2017-11-13 13:47 | Occupational Ther Daily Note ---
OT Current Status-Daily Note Subjective Pt. became nauseated upon sitting on side of bed, and vomitted. Nursing informed and gave pt. Zofran. Appearance Pt reluctantly agrees to work with therapy. Mental Status/Objective Patient Orientation: Unable to Assess Functional [place] Measure 0=Not Assessed/NA 4=Minimal Assistance 1=Total Assistance 5=Supervision or Setup 2=Maximal Assistance 6=Modified [place] 3=Moderate Assistance 7=Complete [place] ADL-Treatment Functional [place] Measure 0=Not Assessed/NA 4=Minimal Assistance 1=Total Assistance 5=Supervision or Setup 2=Maximal Assistance 6=Modified [place] 3=Moderate Assistance 7=Complete IndependenceIRFPAI Quality Coding Scale 6 Independent with activity with or without an assistive device 5 Patient requires set up or clean up by helper. Patient completes activity by themselves 4 Supervision or touching assist (CGA). [place] provide cues , steadying assist 3 The helper provides less than half the effort to complete the activity 2 The helper provides more than half the effort to complete the activity 1 Dependent. The helper does all the effort to complete an activity 7 Patient refused to complete or attempt activity 9 The patient did not perform the activity before the current illness or injury 88 Not attempted due to Medical conditions or safety concerns Grooming (FIM): 4 (Min assist to thoroughly comb hair.) Bathing (FIM): 2 (OT assisted pt. in supine to bathe self. Required assist for LE and jenny areas.) Shower/Bathe Self (QC): 2 Upper Body (FIM): 3 Upper Body Dressing (QC): 3 Lower Body Dressing (FIM): 2 Lower Body Dressing (QC): 2 On/Off Footwear (QC): 1 Toileting (FIM): 1 Toileting Hygiene (QC): 1 Transfers (B, C, W/C) (FIM): 1 Other Treatment PT/OT co-treated due to pt's fatigue and nausea. PT focused on transfer training while OT facilitated ADL training. Once pt. sat on side of bed, pt. became nauseated. Pt. threw up her breakfast. Nursing notified. Sat with pt. to see if nausea dissipated. It did not. Pt. did agree reluctantly to complete transfer to chair with sit-stand lift. Positioned lift multiple times to best transfer pt. However, pt. does not initiate with LE and sling slipped. Therefore, sit to stand lift not appropriate at this time. Pt. states that she is still sick. Transferred back to supine. All needs met in room. Education OT Patient Education: Correct positioning, Modified ADL techniques, Progress toward Goal/Update tx plan, Purpose of tx/functional activities, Reviewed precautions, Rehab process, Transfer techniques Teaching Recipient: Patient Teaching Methods: Demonstration Response to Teaching: Verbalize Understanding, Return Demonstration OT Short Term Goals Short Term Goals Time Frame: Nov 15, 2017 Bathing(FIM): 4 Upper Body Dressing(FIM): 4 Lower Body Dressing(FIM): 3 Transfers (B,C,W/C) (FIM): 3 Toilet/Commode Transfer(FIM): 3 1=Demonstrate adherence to instructed precautions during ADL tasks. 2=Patient will verbalize/demonstrate understanding of assistive devices/ modifications for ADL. 3=Patient will improve strength/tolerance for activity to enable patient to perform ADL's. OT Architecture Internship Goals Architecture Internship Goals Time Frame: Nov 29, 2017 Eating (FIM): 6 Eating (QC): 6 Groomin Oral Hygiene (QC): 6 Bathing(FIM): 5 Shower/Bathe Self (QC): 5 Upper Body Dressing(FIM): 6 Upper Body Dressing (QC): 6 Lower Body Dressing(FIM): 5 Lower Body Dressing (QC): 5 On/Off Footwear (QC): 5 Toileting(FIM): 5 Toileting Hygiene (QC): 5 Toilet/Commode Transfer(FIM): 5 Toilet/Commode Transfer (QC): 5 Shower Transfer(FIM): 5 Additional Goals: 1-Demonstrate ADL Tasks, 2-Verbalize Understanding, 3- ImproveStrength/Dyana 1=Demonstrate adherence to instructed precautions during ADL tasks. 2=Patient will verbalize/demonstrate understanding of assistive devices/ modifications for ADL. 3=Patient will improve strength/tolerance for activity to enable patient to perform ADL's. OT Education/Plan Problem List/Assessment Assessment: Decreased Activ Tolerance, Decreased UE Strength, Dependent Transfers, Impaired Bed Mobility, Impaired Funct Balance, Impaired I ADL's, Impaired Self-Care Skills Pt would benefit from skilled OT to increase her independence with basic self care to allow her to safely return to her home Discharge Recommendations Plan/Recommendations: Continue POC Therapy D/C Recommendations: 24 hr Supervision Barriers to Progress Nausea and poor initiation Treatment Plan/Plan of Care Treatment,Training & Education: Yes Patient would benefit from OT for education, treatment and training to promote independence in ADL's, mobility, safety and/or upper extremity function for ADL' s. Plan of Care: ADL Retraining, Group Exercise/Act as Ind (education, exercise, funct activities, activity tolerance, mobility), Orthotic Fitting/Training, UE Neuromus Re-Ed/Coord Treatment Duration: Nov 29, 2017 Frequency: At least 5 of 7 days/Wk (IRF) Estimated Hrs Per Day: 1.5 hours per day Agreement: Yes Rehab Potential: Guarded Time/GCodes Start Time: 08:30 Stop Time: 09:50 Total Time Billed (hr/min): 80 Billed Treatment Time 1, ADL x 30minutes, FA x 50minutes NEDA ARNOLD OT Nov 13, 2017 13:47
--- NOTE | 2017-11-13 14:05 | Physical Therapy Daily Note ---
PT Daily Note-Current Subjective Pt Supine in bed, sleeping, upon arrival. Pt states she's been sleeping and hasn 't ate since breakfast, due to not feeling well and vomiting this morning. Pt agrees to Supine Ex Rx. Pt. declines trial of sitting EOB, stating she is too sick Pain Numeric Pain Scale: 3 Location: Posterior Location Body Site: Sacrum Pain Description: Ache Mental Status Patient Orientation: Person, Place, Situation, Mumbles Attachments: Alvarenga Catheter Transfers Functional [place] Measure 0=Not Assessed/NA 4=Minimal Assistance 1=Total Assistance 5=Supervision or Setup 2=Maximal Assistance 6=Modified [place] 3=Moderate Assistance 7=Complete IndependenceIRFPAI Quality Coding Scale 6 Independent with activity with or without an assistive device 5 Patient requires set up or clean up by helper. Patient completes activity by themselves 4 Supervision or touching assist (CGA). [place] provide cues , steadying assist 3 The helper provides less than half the effort to complete the activity 2 The helper provides more than half the effort to complete the activity 1 Dependent. The helper does all the effort to complete an activity 7 Patient refused to complete or attempt activity 9 The patient did not perform the activity before the current illness or injury 88 Not attempted due to Medical conditions or safety concerns Rollin Roll Left to Right (QC): 4 Weight Bearing Right Lower Extremity: Right Weight Bearing/Tolerated Left Lower Extremity: Left Weight Bearing/Tolerated Exercises Supine Ex: Bridging (attempted), Ankle pumps (AAROM), Quad Set, Glut sets, Heel Slides (AAROM) Supine Reps: 10 Treatments Pt performed Glut Sets & Quad Sets. Pt performed AP & HS via AAROM. Pt attempted Bridging x3 and then asked to stop. At end of RX, OT came in to work w / pt on UE strengthening. Assessment Current Status: Poor Progress Pt required VC to stay awake and keep eyes open, during RX. Poor tolerance for Rx PT Short Term Goals Short Term Goals Time Frame: Nov 13, 2017 Transfers (B,C,W/C) (FIM): 3 Wheelchair (FIM): 2 Wheelchair Distance: 150' Wheelchair Level of Assist: 4 PT Half-Way Goals Freight Tallier Goals PT Freight Tallier Goals Time Frame: Nov 27, 2017 Transfers (B,C,W/C) (FIM): 4 Sit to Lying (QC): 3 Lying-Sitting on Side/Bed(QC): 3 Sit to Stand (QC): 3 Rollin Roll Left to Right (QC): 3 Chair/Rqh-it-Sehcb Xfer(QC): 3 Car Transfer (QC): 3 Wheelchair (FIM): 5 Distance: 150' Wheelchair Level of Assist: 5 Wheel 50 feet with 2 turns (QC: 4 PT Plan Treatment/Plan Treatment Plan: Continue Plan of Care Treatment Plan: Bed Mobility, Concurrent Therapy, Education, Functional Activity Dyana, Functional Strength, Group Therapy, Gait, Safety, Therapeutic Exercise, Transfers Treatment Duration: Nov 27, 2017 Frequency: At least 5 of 7 days/Wk (IRF) Estimated Hrs Per Day: 1.5 hours per day Patient and/or Family Agrees t: Yes Safety Risks/Education Patient Education: Correct Positioning Teaching Recipient: Patient Teaching Methods: Demonstration, Discussion Response to Teaching: Verbalize Understanding, Unable to Return Demonstration, Reinforcement Needed Time/GCodes Time In: 1330 Time Out: 1400 Total Billed Treatment Time: 30 Total Billed Treatment 1, EX (30m) G Codes Necessary: ELIZABETH Kellogg SCREEDMAN/LABORER Nov 13, 2017 14:05
--- NOTE | 2017-11-13 14:11 | Occupational Ther Daily Note ---
OT Current Status-Daily Note Subjective Pt. declines getting out of bed. States that she is afraid of getting nauseated. Mental Status/Objective Functional [place] Measure 0=Not Assessed/NA 4=Minimal Assistance 1=Total Assistance 5=Supervision or Setup 2=Maximal Assistance 6=Modified [place] 3=Moderate Assistance 7=Complete [place] ADL-Treatment Functional [place] Measure 0=Not Assessed/NA 4=Minimal Assistance 1=Total Assistance 5=Supervision or Setup 2=Maximal Assistance 6=Modified [place] 3=Moderate Assistance 7=Complete IndependenceIRFPAI Quality Coding Scale 6 Independent with activity with or without an assistive device 5 Patient requires set up or clean up by helper. Patient completes activity by themselves 4 Supervision or touching assist (CGA). [place] provide cues , steadying assist 3 The helper provides less than half the effort to complete the activity 2 The helper provides more than half the effort to complete the activity 1 Dependent. The helper does all the effort to complete an activity 7 Patient refused to complete or attempt activity 9 The patient did not perform the activity before the current illness or injury 88 Not attempted due to Medical conditions or safety concerns Other Treatment Pt. did agree to bilateral UE exercises. Completed 3 exercises x 15 reps in all planes actively for increased overall movement. Pt. then completed 20 slow squeezes with therapy sponge to increase overall hand strength. Tolerated this well but requested to rest. All needs met in room. Education OT Patient Education: Correct positioning, Exercise program, Progress toward Goal/Update tx plan, Purpose of tx/functional activities, Reviewed precautions, Rehab process Teaching Recipient: Patient Teaching Methods: Demonstration Response to Teaching: Verbalize Understanding, Return Demonstration OT Short Term Goals Short Term Goals Time Frame: Nov 15, 2017 Bathing(FIM): 4 Upper Body Dressing(FIM): 4 Lower Body Dressing(FIM): 3 Transfers (B,C,W/C) (FIM): 3 Toilet/Commode Transfer(FIM): 3 1=Demonstrate adherence to instructed precautions during ADL tasks. 2=Patient will verbalize/demonstrate understanding of assistive devices/ modifications for ADL. 3=Patient will improve strength/tolerance for activity to enable patient to perform ADL's. OT Equal Opportunity Director Goals [place] Goals Time Frame: Nov 29, 2017 Eating (FIM): 6 Eating (QC): 6 Groomin Oral Hygiene (QC): 6 Bathing(FIM): 5 Shower/Bathe Self (QC): 5 Upper Body Dressing(FIM): 6 Upper Body Dressing (QC): 6 Lower Body Dressing(FIM): 5 Lower Body Dressing (QC): 5 On/Off Footwear (QC): 5 Toileting(FIM): 5 Toileting Hygiene (QC): 5 Toilet/Commode Transfer(FIM): 5 Toilet/Commode Transfer (QC): 5 Shower Transfer(FIM): 5 Additional Goals: 1-Demonstrate ADL Tasks, 2-Verbalize Understanding, 3- ImproveStrength/Dyana 1=Demonstrate adherence to instructed precautions during ADL tasks. 2=Patient will verbalize/demonstrate understanding of assistive devices/ modifications for ADL. 3=Patient will improve strength/tolerance for activity to enable patient to perform ADL's. OT Education/Plan Problem List/Assessment Assessment: Decreased Activ Tolerance, Decreased UE Strength, Dependent Transfers, Impaired Bed Mobility, Impaired Funct Balance, Impaired I ADL's, Impaired Self-Care Skills Pt would benefit from skilled OT to increase her independence with basic self care to allow her to safely return to her home Discharge Recommendations Plan/Recommendations: Continue POC Therapy D/C Recommendations: 24 hr Supervision Treatment Plan/Plan of Care Treatment,Training & Education: Yes Patient would benefit from OT for education, treatment and training to promote independence in ADL's, mobility, safety and/or upper extremity function for ADL' s. Plan of Care: ADL Retraining, Group Exercise/Act as Ind (education, exercise, funct activities, activity tolerance, mobility), Orthotic Fitting/Training, UE Neuromus Re-Ed/Coord Treatment Duration: Nov 29, 2017 Frequency: At least 5 of 7 days/Wk (IRF) Estimated Hrs Per Day: 1.5 hours per day Agreement: Yes Rehab Potential: Guarded Time/GCodes Start Time: 13:50 Stop Time: 14:00 Total Time Billed (hr/min): 10 Billed Treatment Time 1, EX NEDA ARNOLD OT Nov 13, 2017 14:11
--- NOTE | 2017-11-13 15:14 | Diagnostic Imaging Report ---
INDICATION: Abdominal distention with nausea and vomiting. COMPARISON: 10/18/2017. FINDINGS: There are a few gas-filled but nondilated loops of small bowel in the abdomen. Colonic gas is present. Moderate volume of colonic stool. No evidence of free intraperitoneal air. Lung bases are clear. Surgical changes in the left acetabulum and hip. Lumbar instrumented fixation is also noted. IMPRESSION: Nonobstructive bowel gas pattern. Dictated by: Dictated on workstation # [id number]
[2017-11-13 18:00] VITALS: BP 122/72
[2017-11-13] MEDS: ATORVASTATIN 40 MG (LIPITOR) TABLET PO SCH (20:28)
[2017-11-13] MEDS: LIDOCAINE PATCH REMOVAL TP SCH (20:33)
[2017-11-14] MEDS: inSUlin (REGULAR) HUMAN 1 UNIT/0.01 ML (CHARGE PER UNIT) SC SCH ×4 (05:40→20:46)
[2017-11-14 06:00] VITALS: BP 129/71
[2017-11-14] MEDS: VITAMIN D3 1,000 UNITS (CHOLECALCIFEROL) TABLET PO SCH (06:39)
[2017-11-14] MEDS: metFORMIN 500 MG (GLUCOPHAGE) TAB PO SCH ×2 (06:39→17:35)
[2017-11-14] MEDS: TROSPIUM 20 MG (SANCTURA) TAB PO SCH ×2 (06:39→17:35)
[2017-11-14] MEDS: VITAMIN E 400 INTLU CAP PO SCH (06:39)
[2017-11-14] MEDS: PANTOPRAZOLE 40 MG (PROTONIX) TAB PO SCH (06:39)
[2017-11-14] MEDS: CYANOCOBALAMIN 500 MCG TAB (VITAMIN B-12) PO SCH (06:39)
--- NOTE | 2017-11-14 08:26 | Cardiology Progress Note ---
Subjective Date Seen by Provider: Nov 14, 2017 Time Seen by Provider: 08:23 Subjective/Events-last exam Patient is in bed, reports dizziness and nausea/vomiting with positional changes. Denies any CP or dyspnea. Has hx of Menieres. Review of Systems General: No Night Sweats, No Fatigue, No Malaise; Other (dizziness, nausea) HEENT: No Visual Changes, No Dysphasia Pulmonary: No Dyspnea, No Cough Cardiovascular: No: Chest Pain Gastrointestinal: Nausea, Vomiting; No: Abdominal Pain Genitourinary: No Dysuria, No Frequency Musculoskeletal: No: neck pain, back pain Neurological: Weakness (LE weakness), Numbness, Change in speech, Confusion Objective-Cardiology Exam Last Set of Vital Signs Vital Signs 11/14/17 06:00 Temp 98.7 Pulse 71 Resp 18 B/P (MAP) 129/71 (90) Pulse Ox 96 O2 Delivery Room Air Capillary Refill : Less Than 3 Seconds I&O Intake and Output 11/14/17 00:00 Intake Total 850 ml Output Total 950 ml Balance -100 ml Intake Oral 850 ml Output Urine Total 950 ml General: Alert, Oriented X3, Cooperative HEENT: Atraumatic, PERRLA Neck: Supple, No JVD Lungs: Clear to Auscultation, Normal Air Movement Heart: Regular Rate, Normal S1, Normal S2 Abdomen: Normal Bowel Sounds, Soft Extremities: No Clubbing, No Edema Skin: No Rashes Neuro: Other (able to move her legs) A/P-Cardiology Admission Diagnosis Paralysis Paroxysmal atrial fibrillation Hypertension Hyperlipidemia Assessment/Plan Status post back surgery done on October 14, 2017, had hematoma, multiple surgical evacuation, had wound VAC and lower extremity paralysis, receiving physical therapy, having some pain and tingling in her feet but able to move her legs, continue with physical therapy and monitor Paroxysmal atrial fibrillation, had an episode of atrial fibrillation with rapid ventricular response on October 17, 2017, converted to sinus rhythm. Continue to monitor [id number] score is 5, yearly risk of stroke without oral anticoagulation is 6.7 percent, currently off oral anticoagulation due to hematoma. Hypertension, continue to monitor blood pressure Hyperlipidemia, monitor lipids Diabetes mellitus, monitor and managed by primary care physician Obesity, BMI is 28 Fibromyalgia, multiple complain about joint and back pain in the past, managed by primary care physician. increased dizziness with nausea/vomiting with positional change, history of Meniere's- currently wearing scopolomine patch. I will consult Dr. Lewis for further management. Clinical Quality Measures DVT/VTE Risk/Contraindication: Risk Factor Score Per Nursin RFS Level Per Nursing on Admit: 4+=Very High RAGHU JAY Nov 14, 2017 08:26
[2017-11-14] MEDS: meTOprolol TARTRATE 25 MG (LOPRESSOR) TABLET PO SCH ×2 (08:44→20:45)
[2017-11-14] MEDS: lisINopril 20 MG (PRINIVIL) TABLET PO SCH (08:44)
[2017-11-14] MEDS: SENNA W/DOCUSATE (SENOKOT S) TABLET PO SCH ×2 (08:44→20:45)
[2017-11-14] MEDS: DOCUSATE SODIUM 100 MG (COLACE) CAP PO SCH ×2 (08:44→20:45)
[2017-11-14] MEDS: ONDANSETRON 4 MG (ZOFRAN) ORAL DISSOLVE TAB PO PRN (08:44)
[2017-11-14] MEDS: FAMOTIDINE 20 MG (PEPCID) TABLET PO SCH (08:44)
[2017-11-14] MEDS: HYDROCHLOROTHIAZIDE 25 MG (HCTZ) TAB PO SCH (08:45)
[2017-11-14] MEDS: GABAPENTIN 100 MG (NEURONTIN) CAP PO SCH ×2 (08:45→20:45)
[2017-11-14] MEDS: MAGNESIUM OXIDE (MAG-OX)400 MG TAB PO SCH ×2 (08:45→17:35)
[2017-11-14] MEDS: LORATADINE (CLARITIN) 10 MG TAB PO SCH (08:45)
[2017-11-14] MEDS: LIDOCAINE (LIDODERM) 5% PATCH TOP SCH (08:46)
[2017-11-14] MEDS: inSUlin DETERMIR 1 UNIT/0.01 ML (LEVEMIR) CHARGE PER UNIT SQ SCH (08:46)
[2017-11-14] MEDS: MENTHOL/ZINC OXIDE (CALMOSEPTINE) 113 GM TUBE TOP SCH ×2 (09:18→20:46)
[2017-11-14] MEDS: HYDROcodone/APAP 10 MG/325 MG (LORTAB) TAB PO PRN ×2 (09:22→22:41)
[2017-11-14] MEDS: MECLIZINE 25 MG (ANTIVERT) TAB PO PRN ×2 (09:39→20:49)
--- NOTE | 2017-11-14 10:01 | Physical Therapy Daily Note ---
PT Daily Note-Current Subjective Pt sitting up in bed, eating breakfast, upon arrival. Pt continues to report nausea and dizziness. Pt agrees to PT tx. PT and OT co-treated due to pts lack of strength and dynamic sitting balance. Pain Numeric Pain Scale: 0-No Pain Location: No Pain Reported Mental Status Patient Orientation: Person, Place, Time, Situation, Mumbles Attachments: Alvarenga Catheter Transfers Functional [place] Measure 0=Not Assessed/NA 4=Minimal Assistance 1=Total Assistance 5=Supervision or Setup 2=Maximal Assistance 6=Modified [place] 3=Moderate Assistance 7=Complete IndependenceIRFPAI Quality Coding Scale 6 Independent with activity with or without an assistive device 5 Patient requires set up or clean up by helper. Patient completes activity by themselves 4 Supervision or touching assist (CGA). [place] provide cues , steadying assist 3 The helper provides less than half the effort to complete the activity 2 The helper provides more than half the effort to complete the activity 1 Dependent. The helper does all the effort to complete an activity 7 Patient refused to complete or attempt activity 9 The patient did not perform the activity before the current illness or injury 88 Not attempted due to Medical conditions or safety concerns Scootin Rollin Roll Left to Right (QC): 3 Supine to/from Sit: 2 Sit to Lying (QC): 2 Weight Bearing Right Lower Extremity: Right Weight Bearing/Tolerated Left Lower Extremity: Left Weight Bearing/Tolerated Exercises Supine Ex: Ankle pumps (PROM) Supine Reps: 10 Seated Therapy Exercises: Long arc quads Seated Reps: 5 Treatments Pt transferred from Supine to EOB, w/ a rest once at EOB, due to dizziness and nausea. Pt sat at EOB and finished breakfast. Pt refused a shower, due to increase dizziness upon sitting up, but agreed to have a bed bath on EOB. OT worked w/ pt for ADL's (bathing & dressing) and UE ROM. PT worked on Dynamic Sitting Balance, Transfers/Bed Mobility and LE ROM. Pt sitting up in chair position, in bed, at end of TX w/ all needs met, including call light in hand. Assessment Current Status: Fair Progress Pt continues to c/o nausea and dizziness when going from Supine to Sitting. Pt demonstrates a lack of motivation during TX. PT Short Term Goals Short Term Goals Time Frame: Nov 13, 2017 Transfers (B,C,W/C) (FIM): 3 Wheelchair (FIM): 2 Wheelchair Distance: 150' Wheelchair Level of Assist: 4 PT Sports Broadcasting Internship Goals Care Home Goals PT Care Home Goals Time Frame: Nov 27, 2017 Transfers (B,C,W/C) (FIM): 4 Sit to Lying (QC): 3 Lying-Sitting on Side/Bed(QC): 3 Sit to Stand (QC): 3 Rollin Roll Left to Right (QC): 3 Chair/Hpy-xy-Piykq Xfer(QC): 3 Car Transfer (QC): 3 Wheelchair (FIM): 5 Distance: 150' Wheelchair Level of Assist: 5 Wheel 50 feet with 2 turns (QC: 4 PT Plan Problem List Problem List: Activity Tolerance, Functional Strength, Safety, Balance, Transfer, Bed Mobility, ROM Treatment/Plan Treatment Plan: Continue Plan of Care Treatment Plan: Bed Mobility, Concurrent Therapy, Education, Functional Activity Dyana, Functional Strength, Group Therapy, Gait, Safety, Therapeutic Exercise, Transfers Treatment Duration: Nov 27, 2017 Frequency: At least 5 of 7 days/Wk (IRF) Estimated Hrs Per Day: 1.5 hours per day Patient and/or Family Agrees t: Yes Safety Risks/Education Patient Education: Transfer Techniques, Correct Positioning, Disease Process, Safety Issues Teaching Recipient: Patient Teaching Methods: Discussion Response to Teaching: Verbalize Understanding Time/GCodes Time In: 0800 Time Out: 0900 Total Billed Treatment Time: 60 Total Billed Treatment 1, EX (15m), FA x 3 (45m) Co-treat w/ OT (60m) G Codes Necessary: EVON Low PTA Nov 14, 2017 10:01
--- NOTE | 2017-11-14 10:20 | Occupational Ther Daily Note ---
OT Current Status-Daily Note Subjective Pt. does not report pain, but does report that she is beginning to feel ill with movement. Appearance Pt. in bed. Reluctantly agrees to therapy. Mental Status/Objective Patient Orientation: Person Functional [place] Measure 0=Not Assessed/NA 4=Minimal Assistance 1=Total Assistance 5=Supervision or Setup 2=Maximal Assistance 6=Modified [place] 3=Moderate Assistance 7=Complete [place] ADL-Treatment Functional [place] Measure 0=Not Assessed/NA 4=Minimal Assistance 1=Total Assistance 5=Supervision or Setup 2=Maximal Assistance 6=Modified [place] 3=Moderate Assistance 7=Complete IndependenceIRFPAI Quality Coding Scale 6 Independent with activity with or without an assistive device 5 Patient requires set up or clean up by helper. Patient completes activity by themselves 4 Supervision or touching assist (CGA). [place] provide cues , steadying assist 3 The helper provides less than half the effort to complete the activity 2 The helper provides more than half the effort to complete the activity 1 Dependent. The helper does all the effort to complete an activity 7 Patient refused to complete or attempt activity 9 The patient did not perform the activity before the current illness or injury 88 Not attempted due to Medical conditions or safety concerns Bathing (FIM): 2 (Please see note below.) Lower Body Dressing (FIM): 1 Lower Body Dressing (QC): 1 On/Off Footwear (QC): 1 Transfers (B, C, W/C) (FIM): 1 (Please see note below.) Other Treatment Pt. eating breakfast when therapy entered room. OT/PT co-treated due to pt's inactivity ability and nausea issues. OT and PT encouraged pt. to shower,in which pt. would be christina lifted to shower chair. Pt. adamant that she does not want to. States that she can't shower because of her back. Pt. is assured that her back will be kept dry. Pt. then states that she is afraid she will become ill. Pt. does agree to transfer to side of bed to finish eating her breakfast. Pt. transferred supine-sit with max x 2. Pt. is encouraged continually to engage all muscles. Pt. has difficulty lifting bottom or scooting. Pt. is able to sit on side of bed with no complaints to finish breakfast. After breakfast, pt. does agree to spongebathe. Pt. is able to wash arms and under arms. Pt. states that she can't wash her feet, and declines attempting to bring them up to her. Pt. is able to kick them out however. OT doff/dons socks and washes feet and legs. Pt. begins to state that she needs to lay down. States that she is afraid of vomitting. OT facilitates ADL treatment while PT focuses on transfer training and positioning of head. Pt. lays back down with max assist needed. Lays for a bit and then agrees to have bed put into chair position. Once in this position, pt. states that she is afraid she will throw up her ensure, as she is tasting the chocolate come back up. Pt. is encouraged, and does agree to stay in the position for awhile. All needs met in room. Education OT Patient Education: Correct positioning, Modified ADL techniques, Progress toward Goal/Update tx plan, Purpose of tx/functional activities, Reviewed precautions, Rehab process, Transfer techniques Teaching Recipient: Patient Teaching Methods: Demonstration, Discussion Response to Teaching: Verbalize Understanding, Return Demonstration OT Short Term Goals Short Term Goals Time Frame: Nov 15, 2017 Bathing(FIM): 4 Upper Body Dressing(FIM): 4 Lower Body Dressing(FIM): 3 Transfers (B,C,W/C) (FIM): 3 Toilet/Commode Transfer(FIM): 3 1=Demonstrate adherence to instructed precautions during ADL tasks. 2=Patient will verbalize/demonstrate understanding of assistive devices/ modifications for ADL. 3=Patient will improve strength/tolerance for activity to enable patient to perform ADL's. OT Group Home Goals Group Home Goals Time Frame: Nov 29, 2017 Eating (FIM): 6 Eating (QC): 6 Groomin Oral Hygiene (QC): 6 Bathing(FIM): 5 Shower/Bathe Self (QC): 5 Upper Body Dressing(FIM): 6 Upper Body Dressing (QC): 6 Lower Body Dressing(FIM): 5 Lower Body Dressing (QC): 5 On/Off Footwear (QC): 5 Toileting(FIM): 5 Toileting Hygiene (QC): 5 Toilet/Commode Transfer(FIM): 5 Toilet/Commode Transfer (QC): 5 Shower Transfer(FIM): 5 Additional Goals: 1-Demonstrate ADL Tasks, 2-Verbalize Understanding, 3- ImproveStrength/Dyana 1=Demonstrate adherence to instructed precautions during ADL tasks. 2=Patient will verbalize/demonstrate understanding of assistive devices/ modifications for ADL. 3=Patient will improve strength/tolerance for activity to enable patient to perform ADL's. OT Education/Plan Problem List/Assessment Assessment: Decreased Activ Tolerance, Decreased UE Strength, Dependent Transfers, Impaired Bed Mobility, Impaired Cognition, Impaired Funct Balance, Impaired I ADL's, Impaired Self-Care Skills Pt would benefit from skilled OT to increase her independence with basic self care to allow her to safely return to her home Discharge Recommendations Plan/Recommendations: Continue POC Therapy D/C Recommendations: 24 hr Supervision, [facility] ([facility]) Barriers to Progress Pt. becomes nauseated when she is in upright position. Pt. does also not seem very motivated at this time. Requires constant cues and encouragement. Treatment Plan/Plan of Care Treatment,Training & Education: Yes Patient would benefit from OT for education, treatment and training to promote independence in ADL's, mobility, safety and/or upper extremity function for ADL' s. Plan of Care: ADL Retraining, Group Exercise/Act as Ind (education, exercise, funct activities, activity tolerance, mobility), Orthotic Fitting/Training, UE Neuromus Re-Ed/Coord Treatment Duration: Nov 29, 2017 Frequency: At least 5 of 7 days/Wk (IRF) Estimated Hrs Per Day: 1.5 hours per day Agreement: Yes Rehab Potential: Guarded Time/GCodes Start Time: 08:00 Stop Time: 09:00 Total Time Billed (hr/min): 60 Billed Treatment Time 1, ADL x 30minutes, FA x 30minutes NEDA ARNOLD OT Nov 14, 2017 10:20
--- NOTE | 2017-11-14 12:55 | Consultation ---
History of Present Illness History of Present Illness Patient Consulted On(hoda/time) 11/13/17 17:19 Date Seen by Provider: Nov 13, 2017 Time Seen by Provider: 17:19 Reason for Visit: Atrial fibrillation History of Present Illness consult for nausea and vomiting, requested by Dr. Wright patient is a 77-year-old female who underwent uncomplicated back surgery, then developed a spinal hematoma with evacuation than later closure. Patient has been in rehabilitation and has paralysis of her bilateral lower extremities. Patient since admission to rehabilitation she's been having significant dizziness when she starts getting up and trying to move. She starts to become nauseated and has had episodes of emesis. Patient if she is lying still she is not dizzy and she is not nauseated. Patient has history of Mnire's which she states her symptoms are very similar to these episodes she's having now. Patient is having bowel movements but does not know when she's having them due to her paralysis. She is also passing flatus as well she states. Her last bowel movement was yesterday. Patient had a abdominal x-ray which had a non- obstructive bowel gas pattern which I reviewed. Patient currently not having any nausea vomiting fever sweats chills shortness of breath or dizziness, but lying down in bed. Allergies and Home Medications Allergies Coded Allergies: Iodine and Iodide Containing Produc (Verified Allergy, Unknown, ANAPHYLAXIS, RASH, 11/09/14) Sulfa (Sulfonamide Antibiotics) (Unverified Allergy, Unknown, NAUSEA AND VOMITING, 11/09/14) adhesive (Unverified Allergy, Unknown, 11/09/14) codeine (Unverified Allergy, Unknown, N/V , 11/09/14) tramadol (Unverified Allergy, Unknown, NAUSEA AND VOMITING, 11/09/14) Uncoded Allergies: PERFUME (Allergy, Unknown, 11/09/14) Home Medications Atorvastatin Calcium 40 Mg Tablet, 40 MG PO HS, (Reported) LAST FILLED #90 05-21-17 Cetirizine HCl 10 Mg Tablet, 10 MG PO DAILY PRN for ALLERGIES, (Reported) Cholecalciferol (Vitamin D3) 1,000 Unit Capsule, 1,000 UNIT PO DAILY, (Reported) Colestipol HCl 1 Gm Tablet, 1 GM PO QID PRN for DIARRHEA, (Reported) Cyanocobalamin (Vitamin B-12) 1,000 Mcg Tablet, 1,000 MCG PO DAILY, (Reported) Famotidine 20 Mg Tablet, 20 MG PO DAILY, (Reported) Hydrochlorothiazide 50 Mg Tablet, 50 MG PO DAILY, (Reported) Hydrocodone/Acetaminophen 1 Each Tablet, 1 TAB PO Q4H PRN for PAIN-MODERATE, ( Reported) Insulin Glargine,Hum.rec.anlog 100 Unit/1 Ml Insuln.pen, 60-105 UNITS SC DAILY, (Reported) Liraglutide 0.6 Mg/0.1 Ml Pen.injctr, 1.8 MG SC HS, (Reported) Lisinopril 40 Mg Tablet, 40 MG PO DAILY, (Reported) Meclizine HCl 25 Mg Tablet, 25 MG PO TID PRN for DIZZINESS, (Reported) Metformin HCl 1,000 Mg Tablet, 1,000 MG PO BID WITH MEALS, (Reported) Solifenacin Succinate 5 Mg Tablet, 5 MG PO HS, (Reported) Ubidecarenone 200 Mg Capsule, 200 MG PO DAILY, (Reported) Vit C/Vit E/Lutein/Min/[place]-3 1 Each Capsule, 1 CAP PO DAILY, (Reported) Vitamin E Acetate 400 Unit Capsule, 400 UNIT PO DAILY, (Reported) Patient Home Medication List Home Medication List Reviewed: Yes Past Rhcaqic-Pmuwfw-Oyxvtb Hx Patient Social History Alcohol Use: Denies Use Recreational Drug Use: No Smoking Status: Never a Smoker Recent Foreign Travel: No Contact w/Someone Who Travel: No Recent Infectious Disease Expo: No Recent Hopitalizations: No Physical Abuse Screen: No Sexual Abuse: No Immunizations Up To Date Tetanus Booster (TDap): Less than 5yrs Date of Pneumonia Vaccine: May 05, 2014 Date of Influenza Vaccine: Jun 19, 2017 Seasonal Allergies Seasonal Allergies: No Surgeries History of Surgeries: Yes (EXPLORATORY LAP, LEFT OOPHERECTOMY) Surgeries: Orthopedic (lumbar spine 10/14/17 Dr Mejia at [facility] then hematoma evacuation x 2) Respiratory History of Respiratory Disorde: Yes (ALLERGIES) Cardiovascular History of Cardiac Disorders: Yes Cardiac Disorders: Atrial Fibrillation (AF w/RVR 10/21/17 post op lumbar spine surgery), High Cholesterol, Hypertension Neurological History of Neurological Disord: Yes (INNER EAR PROBLEMS CAUSING DIZZINESS) Neurological Disorders: Neuropathy, Spinal Cord Injury (spinal hematoma 10/28/17 ) Reproductive System Hx Reproductive Disorders: No Sexually Transmitted Disease: No HIV/AIDS: No Female Reproductive Disorders: Denies Genitourinary History of Genitourinary Disor: Yes Genitourinary Disorders: Bladder Infection Gastrointestinal History of Gastrointestinal Di: Yes Gastrointestinal Disorders: Chronic Constipation, Cirrhosis Musculoskeletal History of Musculoskeletal Dis: Yes (DEGENERATIVE JOINT DISEASE-weakness post op) Musculoskeletal Disorders: Arthritis, Fibromyalgia Endocrine History of Endocrine Disorders: Yes Endocrine Disorders: Diabetes, Insulin dep HEENT History of HEENT Disorders: Yes HEENT Disorders: Cataract Loss of Vision: Denies Hearing Impairment: Hard of Hearing Cancer History of Cancer: No Psychosocial History of Psychiatric Problem: No Integumentary History of Skin or Integumenta: Yes (DRY SKIN) Blood Transfusions History of Blood Disorders: No Adverse Reaction to a Blood Tr: No Reviewed Nursing Assessment Reviewed/Agree w Nursing PMH: Yes Family Medical History Significant Family History: Heart Disease, Diabetes Family Medial History: Asthma 19 MOTHER Cardiovascular disease 19 FATHER Coronary thrombosis 19 FATHER 19 MOTHER Fibromyalgia 19 MOTHER Osteoporosis 19 MOTHER Review of Systems-General Constitutional: no symptoms reported EENTM: see HPI Respiratory: no symptoms reported Cardiovascular: no symptoms reported Gastrointestinal: see HPI, nausea, vomiting Genitourinary: no symptoms reported Musculoskeletal: see HPI Skin: no symptoms reported Psychiatric/Neurological: See HPI Physical Exam-General Problems Physical Exam Vital Signs Vital Signs - First Documented 11/08/17 06:00 Temp 98.0 Pulse 63 Resp 18 B/P (MAP) 147/72 (97) Pulse Ox 92 O2 Delivery Room Air Capillary Refill : Less Than 3 Seconds General Appearance: no apparent distress HEENT: PERRL/EOMI, normal ENT inspection Respiratory: no respiratory distress, no accessory muscle use Cardiovascular: regular rate, rhythm Gastrointestinal: non tender, soft, no organomegaly, no pulsatile mass Rectal: deferred Back: normal inspection Extremities: non-tender, normal inspection Neurologic/Psychiatric: alert, normal mood/affect, oriented x 3, other ( paralysis or lateral lower extremity with decreased sensation bilateral lower extremity) Skin: normal color, warm/dry Lymphatic: no adenopathy Data Review Labs Laboratory Tests 11/13/17 15:57: Glucometer 120H 11/13/17 21:43: Glucometer 89 11/14/17 05:39: Glucometer 114H 11/14/17 11:49: Glucometer 145H Assessment/Plan Assessment/Plan Assessment/Plan Cauda Equina surgery S/p Evac Epidural hematoma Nausea and vomiting with dizziness I feel her symptoms may be a result of her Mnire's 4 she states this is similar when she's had episodes in the past. Her abdominal x-rays demonstrated nonobstructive gas pattern and she's having bowel movements and passing flatus. Patient will continue on current bowel regimen. Treat her symptoms. See if she tolerates diet. Clinical Quality Measures DVT/VTE Risk/Contraindication: Risk Factor Score Per Nursin RFS Level Per Nursing on Admit: 4+=Very High DONNA OLSON DO Nov 14, 2017 12:54
--- NOTE | 2017-11-14 12:57 | Progress Note-Hospitalist ---
Subjective HPI/CC On Admission Date Seen by Provider: Nov 14, 2017 Time Seen by Provider: 12:30 Subjective/Events-last exam Patient about the same Dr Ryan has no concerns about bowel function so maintain bowel regimen Dr Lewis consulted for dizziness Eating better Overall very slow recovery. Denies pain Catheter remains intact. Review of Systems General: Other (dizziness) Objective Exam Vital Signs Vital Signs Date Time Temp Pulse Resp B/P (MAP) Pulse Ox O2 Delivery O2 Flow Rate FiO2 4/6/18 06:00 98.0 63 18 147/72 (97) 92 Room Air Capillary Refill : Less Than 3 Seconds General Appearance: No Apparent Distress, WD/WN, Chronically ill Respiratory: Lungs Clear, Normal Breath Sounds Cardiovascular: Regular Rate, Rhythm Neurologic/Psychiatric: Alert, Oriented x3, Depressed Affect Results/Procedures Lab Patient resulted labs reviewed. 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 PAF off anticoagulation due to risks outweigh benefits currently DM HTN OA HLP Continued nausea and vomiting Severe lower leg and feet neuropathy Chronic dizziness Plan: Scop patch Zofran Dr Ryan consultation is appreciated Cardiology is appreciated Monitor closely Monitor for elevated sugars Gabapentin increased dose Consult Dr Schmitt is appreciated Dr Lewis consultation Diagnosis/Problems Diagnosis/Problems (1) Cauda equina syndrome Status: Acute (2) Episodic atrial fibrillation Status: Chronic (3) Urinary retention Status: Acute (4) Constipation Status: Acute Qualifiers: Constipation type: drug induced constipation Qualified Codes: K59.03 - Drug induced constipation (5) Acute depression Status: Acute (6) Adverse effect of anticoagulant Status: Acute Qualifiers: Encounter type: subsequent encounter Qualified Codes: T45.515D - Adverse effect of anticoagulants, subsequent encounter (7) Nausea & vomiting Status: Acute Qualifiers: Vomiting type: unspecified Vomiting Intractability: unspecified Qualified Codes: R11.2 - Nausea with vomiting, unspecified Clinical Quality Measures DVT/VTE Risk/Contraindication: Risk Factor Score Per Nursin RFS Level Per Nursing on Admit: 4+=Very High MOY LOGAN DO Nov 14, 2017 12:57
--- NOTE | 2017-11-14 13:05 | Progress Note ---
Subjective Date Seen by Provider: Nov 14, 2017 Time Seen by Provider: 13:02 Subjective/Events-last exam patient states that she's not had really any significant nausea or vomiting. She states that she slowed down and she's getting the dizziness and try to prevent. Patient tolerated diet last night and tolerated diet so far today but she states is because she is not pushing herself when she is getting the dizziness.patient is passing flatus. No bowel movement yesterday or today. She denies any fever sweats chills shortness of breath or chest pain. Objective Exam Vital Signs Date Time Temp Pulse Resp B/P (MAP) Pulse Ox O2 Delivery O2 Flow Rate FiO2 11/14/17 06:00 98.7 71 18 129/71 (90) 96 Room Air 11/13/17 21:00 Room Air 11/13/17 18:00 97.6 68 18 122/72 (89) 95 Room Air I & O 11/14/17 07:00 Intake Total 900 ml Output Total 1050 ml Balance -150 ml Capillary Refill : Less Than 3 Seconds General Appearance: No Apparent Distress, WD/WN, Chronically ill HEENT: PERRL/EOMI Neck: Full Range of Motion, Normal Inspection, Non Tender, Supple Respiratory: Lungs Clear, Normal Breath Sounds Cardiovascular: Regular Rate, Rhythm Peripheral Pulses: 2+ Carotid (R), 2+ Carotid (L), 2+ Femoral (R), 2+ Femoral ( L), 2+ Dorsalis Pedis (R), 2+ Left Dors-Pedis (L), 2+ Radial Pulses (R), 2+ Radial Pulses (L) Gastrointestinal: non tender, soft, no organomegaly, no pulsatile mass Extremity: Normal Range of Motion (minimal movement bilateral lower extremity with minimal feeling), Non Tender, No Calf Tenderness Neurologic/Psychiatric: Alert, Oriented x3 Skin: Normal Color, Warm/Dry Lymphatic: No Adenopathy Results Lab Laboratory Tests 11/13/17 15:57: Glucometer 120H 11/13/17 21:43: Glucometer 89 11/14/17 05:39: Glucometer 114H 11/14/17 11:49: Glucometer 145H Assessment/Plan Assessment/Plan Assessment/Plan Cauda Equina surgery S/p Evac Epidural hematoma Nausea and vomiting with dizziness Patient tolerating diet. I feel her dizziness is likely secondary to her Mnire's 4 she has had similar symptoms previously. We continue on current bowel regimen. No surgical intervention needed. I will sign off at this time. Please call me if needed. Clinical Quality Measures DVT/VTE Risk/Contraindication: Risk Factor Score Per Nursin RFS Level Per Nursing on Admit: 4+=Very High DONNA OLSON DO Nov 14, 2017 13:05
--- NOTE | 2017-11-14 14:38 | Therapy Group Daily Note ---
Therapy Daily Group Note Patient Education Topic Home Safety, Other List Below (handwashing) Exercises LE Seated Exercise, UE Exercise Other/Notes Pt was transported via w/c to therapy gym for OT/PT group. Group consisted of introductions (name, place living, what you do in summer), socialization, UE/LE seated exercises, education for handwashing, handwashing quiz, education for home safety, home safety quiz and words of advice. Pt was able to introduce self appropriately and actively listen to peers while they introduced self. Pt completed UE/LE seated exercises by self without difficulty. Pt attentively listened to educational topics and was able to verbalize understanding through questions from quizzes. Pt contributed to peer discussions and interacted appropriately during group. Pt transported via w/c from gym to room. After group, pt sitting in w/c by bed with call light/phone in reach. All needs met in room. Start Time: 13:00 Stop Time: 14:10 Total Billed Treatment Time: 70 Total Billed Treatment 1-GRP LINDSEY DAMIAN Nov 14, 2017 14:38
--- NOTE | 2017-11-14 17:21 | Progress Note-Standard ---
Standard Progress Note Progress Notes/Assess & Plan Date Seen by Provider: Nov 14, 2017 Time Seen by Provider: 17:00 Progress/Assessment & Plan ENT-Rosalinda Patient seen and evaluated hx of meniers diagnosed 10 plus years ago-probable left sided supect dizziness is multifactorial in nature-full consult is dictated with possible medication tirals noted in consult ask nurse to get orthostatics as well if possible as that may contirbute given her anemia as well unable to do a audio given her situation at this time STACY AKHTAR MD Nov 14, 2017 5:21 pm
[2017-11-14] MEDS: MILK OF MAGNESIA 400 MG/5 ML 30 ML UDC PO PRN (17:35)
[2017-11-14 18:30] VITALS: BP 127/69
[2017-11-14] MEDS: ATORVASTATIN 40 MG (LIPITOR) TABLET PO SCH (20:45)
[2017-11-14] MEDS: LIDOCAINE PATCH REMOVAL TP SCH (20:46)
[2017-11-15] MEDS: CYANOCOBALAMIN 500 MCG TAB (VITAMIN B-12) PO SCH (05:30)
[2017-11-15] MEDS: metFORMIN 500 MG (GLUCOPHAGE) TAB PO SCH ×2 (05:30→17:35)
[2017-11-15] MEDS: TROSPIUM 20 MG (SANCTURA) TAB PO SCH ×2 (05:30→17:36)
[2017-11-15] MEDS: PANTOPRAZOLE 40 MG (PROTONIX) TAB PO SCH (05:30)
[2017-11-15] MEDS: MECLIZINE 25 MG (ANTIVERT) TAB PO PRN (05:30)
[2017-11-15] MEDS: VITAMIN E 400 INTLU CAP PO SCH (05:30)
[2017-11-15] MEDS: inSUlin (REGULAR) HUMAN 1 UNIT/0.01 ML (CHARGE PER UNIT) SC SCH ×4 (05:30→20:51)
[2017-11-15] MEDS: VITAMIN D3 1,000 UNITS (CHOLECALCIFEROL) TABLET PO SCH (05:30)
[2017-11-15 05:42] VITALS: BP 119/67
[2017-11-15] MEDS: DOCUSATE SODIUM 100 MG (COLACE) CAP PO SCH ×2 (07:57→20:51)
[2017-11-15] MEDS: SENNA W/DOCUSATE (SENOKOT S) TABLET PO SCH ×2 (07:58→20:51)
[2017-11-15] MEDS: GABAPENTIN 100 MG (NEURONTIN) CAP PO SCH ×2 (08:30→20:55)
[2017-11-15] MEDS: LORATADINE (CLARITIN) 10 MG TAB PO SCH (08:30)
[2017-11-15] MEDS: inSUlin DETERMIR 1 UNIT/0.01 ML (LEVEMIR) CHARGE PER UNIT SQ SCH (08:30)
[2017-11-15] MEDS: MAGNESIUM OXIDE (MAG-OX)400 MG TAB PO SCH ×2 (08:30→17:36)
[2017-11-15] MEDS: lisINopril 20 MG (PRINIVIL) TABLET PO SCH (08:30)
[2017-11-15] MEDS: LIDOCAINE (LIDODERM) 5% PATCH TOP SCH (08:30)
[2017-11-15] MEDS: meTOprolol TARTRATE 25 MG (LOPRESSOR) TABLET PO SCH ×2 (08:30→20:55)
[2017-11-15] MEDS: HYDROCHLOROTHIAZIDE 25 MG (HCTZ) TAB PO SCH (08:31)
[2017-11-15] MEDS: MENTHOL/ZINC OXIDE (CALMOSEPTINE) 113 GM TUBE TOP SCH ×2 (08:31→20:57)
[2017-11-15] MEDS: FAMOTIDINE 20 MG (PEPCID) TABLET PO SCH (08:31)
--- NOTE | 2017-11-15 08:51 | Cardiology Progress Note ---
Subjective Date Seen by Provider: Nov 15, 2017 Time Seen by Provider: 08:50 Subjective/Events-last exam Patient is sitting in a chair, feeling better, able to move her legs, still having pain, still complaining of dizziness, seen by Dr. Lewis Review of Systems General: No Chills, No Night Sweats, No Fatigue, No Malaise, No Appetite, No Other HEENT: No Head Aches, No Visual Changes, No Eye Pain, No Ear Pain, No Dysphasia , No Sinus Congestion, No Post Nasal Drip, No Sore Throat, No Other Pulmonary: No Dyspnea, No Cough, No Pleuritic Chest Pain, No Other Cardiovascular: No: Chest Pain, Palpitations, Orthopnea, Paroxysmal Noc. Dyspnea, Edema, Lt Headedness, Other Objective-Cardiology Exam Last Set of Vital Signs Vital Signs 11/15/17 05:42 Temp 97.5 Pulse 74 Resp 18 B/P (MAP) 119/67 (84) Pulse Ox 94 O2 Delivery Room Air Capillary Refill : Less Than 3 Seconds I&O Intake and Output 11/15/17 00:00 Intake Total 1080 ml Output Total 1100 ml Balance -20 ml Intake Oral 1080 ml Output Urine Total 1100 ml General: Alert, Oriented X3, Cooperative HEENT: Atraumatic, PERRLA Neck: Supple, No JVD Lungs: Clear to Auscultation, Normal Air Movement Heart: Regular Rate, Normal S1, Normal S2 Abdomen: Normal Bowel Sounds, Soft Extremities: No Clubbing, No Edema Skin: No Rashes Neuro: Other (able to move her legs) A/P-Cardiology Admission Diagnosis Paralysis Paroxysmal atrial fibrillation Hypertension Hyperlipidemia Assessment/Plan Status post back surgery done on October 14, 2017, had hematoma, multiple surgical evacuation, improving, still having pain and discomfort. Dizziness and nausea with vomiting, mainly positional, history of Mnire disease, seen by Dr. Lewis Paroxysmal atrial fibrillation, had an episode of atrial fibrillation with rapid ventricular response on October 17, 2017, converted to sinus rhythm. Continue to monitor [id number] score is 5, yearly risk of stroke without oral anticoagulation is 6.7 percent, currently off oral anticoagulation due to hematoma. Hypertension, continue to monitor blood pressure Hyperlipidemia, monitor lipids Diabetes mellitus, monitor and managed by primary care physician Obesity, BMI is 28 Fibromyalgia, multiple complain about joint and back pain in the past, managed by primary care physician. Clinical Quality Measures DVT/VTE Risk/Contraindication: Risk Factor Score Per Nursin RFS Level Per Nursing on Admit: 4+=Very High GEORGE CULLEN MD Nov 15, 2017 08:51
--- NOTE | 2017-11-15 09:02 | Physical Therapy Daily Note ---
PT Daily Note-Current Subjective Pt. agrees to Rx. States she slept well last night . Hungry for breakfast. States she still cant feel her bottom, legs and feet and that she feels pain when they are touched Appearance more alert , no vomiting or c/o nausea this date Mental Status Patient Orientation: Normal For Age Attachments: Alvarenga Catheter Transfers Functional [place] Measure 0=Not Assessed/NA 4=Minimal Assistance 1=Total Assistance 5=Supervision or Setup 2=Maximal Assistance 6=Modified [place] 3=Moderate Assistance 7=Complete IndependenceIRFPAI Quality Coding Scale 6 Independent with activity with or without an assistive device 5 Patient requires set up or clean up by helper. Patient completes activity by themselves 4 Supervision or touching assist (CGA). [place] provide cues , steadying assist 3 The helper provides less than half the effort to complete the activity 2 The helper provides more than half the effort to complete the activity 1 Dependent. The helper does all the effort to complete an activity 7 Patient refused to complete or attempt activity 9 The patient did not perform the activity before the current illness or injury 88 Not attempted due to Medical conditions or safety concerns Transfers (B, C, W/C) (FIM): 1 Scootin Rollin Supine to/from Sit: 3 Sit to/from Stand: 0 Gricelda TRF to chair as pt. continues with LE weakness, inability to stand. Weight Bearing Right Lower Extremity: Right Weight Bearing/Tolerated Left Lower Extremity: Left Weight Bearing/Tolerated Gait Training Does the Patient Walk?: No and Walking Goal NOT indicated Exercises Supine Ex: Bridging (assisted), Ankle pumps (assisted), Quad Set, Rolling, Glut sets, Heel Slides, Short Arc Quads, Scooting, Straight leg raise (assist), Hip abd/add (assist) Supine Reps: 15 Seated Therapy Exercises: Long arc quads Seated Reps: 10 Treatments co Rx with OT for safety and poor tolerance. Assessment Current Status: Fair Progress pt. with no N&V this , hoping pt can tolerate staying up in recliner this date for longer period and learn to manage recliner indep PT Short Term Goals Short Term Goals Time Frame: Nov 13, 2017 Transfers (B,C,W/C) (FIM): 3 Wheelchair (FIM): 2 Wheelchair Distance: 150' Wheelchair Level of Assist: 4 PT Neck Pinner Goals Neck Pinner Goals PT Halfway Goals Time Frame: Nov 27, 2017 Transfers (B,C,W/C) (FIM): 4 Sit to Lying (QC): 3 Lying-Sitting on Side/Bed(QC): 3 Sit to Stand (QC): 3 Rollin Roll Left to Right (QC): 3 Chair/Dwa-dv-Czmay Xfer(QC): 3 Car Transfer (QC): 3 Wheelchair (FIM): 5 Distance: 150' Wheelchair Level of Assist: 5 Wheel 50 feet with 2 turns (QC: 4 PT Plan Treatment/Plan Treatment Plan: Continue Plan of Care Treatment Plan: Bed Mobility, Concurrent Therapy, Education, Functional Activity Dyana, Functional Strength, Group Therapy, Gait, Safety, Therapeutic Exercise, Transfers Treatment Duration: Nov 27, 2017 Frequency: At least 5 of 7 days/Wk (IRF) Estimated Hrs Per Day: 1.5 hours per day Patient and/or Family Agrees t: Yes Safety Risks/Education Patient Education: Transfer Techniques (rolling) Teaching Recipient: Patient Teaching Methods: Demonstration, Discussion Response to Teaching: Verbalize Understanding, Return Demonstration, Reinforcement Needed Time/GCodes Time In: 800 Time Out: 900 Total Billed Treatment Time: 60 Total Billed Treatment 1,EX25m,FA35m G Codes Necessary: ELIZABETH Kellogg TRAY CASTING MACHINE OPERATOR Nov 15, 2017 09:02
--- NOTE | 2017-11-15 10:47 | Occupational Ther Daily Note ---
OT Current Status-Daily Note Subjective Pt alert, lying in bed. Pt agreed to therapy. Did not want to take shower. Encouraged pt to sit up in recliner. Mental Status/Objective Patient Orientation: Person, Place, Time, Situation Functional [place] Measure 0=Not Assessed/NA 4=Minimal Assistance 1=Total Assistance 5=Supervision or Setup 2=Maximal Assistance 6=Modified [place] 3=Moderate Assistance 7=Complete [place] Attachments: Alvarenga Catheter ADL-Treatment OT/PT co-treated due to pt's inactivity ability and nausea issues. PT worked on LE strengthening, transfers and mobility. OT worked on UE strengthening and ADLs. Pt had not had breakfast when OT/PT entered room. Encouraged pt to clean up for breakfast then sit up in recliner to eat. LIFE EDUCATOR ordered pt breakfast. When positioned to reach jenny area, pt able to cleanse area in supine. Pt then assist to roll side to side to cleanse buttocks, incontinent of bowel. Sling placed under pt for christina lift transfer. Pt was transferred with christina lift to recliner. Pt was able to bathe upper body after set up and assist for lower body. Assist to doff/don hospital gown. Pt unable to reach feet for lower body dressing. Pt was assisted to open containers/packages then use regular utensils to feed self and cut food. After therapy, pt sitting in recliner eating breakfast with call light/phone in reach. All needs met in room. Functional [place] Measure 0=Not Assessed/NA 4=Minimal Assistance 1=Total Assistance 5=Supervision or Setup 2=Maximal Assistance 6=Modified [place] 3=Moderate Assistance 7=Complete IndependenceIRFPAI Quality Coding Scale 6 Independent with activity with or without an assistive device 5 Patient requires set up or clean up by helper. Patient completes activity by themselves 4 Supervision or touching assist (CGA). [place] provide cues , steadying assist 3 The helper provides less than half the effort to complete the activity 2 The helper provides more than half the effort to complete the activity 1 Dependent. The helper does all the effort to complete an activity 7 Patient refused to complete or attempt activity 9 The patient did not perform the activity before the current illness or injury 88 Not attempted due to Medical conditions or safety concerns Eating (FIM): 5 Eating (QC): 5 Bathing (FIM): 3 Bathing Location: L Arm, R Arm, L Upper Leg, R Upper Leg, Chest, Perineal Area Shower/Bathe Self (QC): 3 OT Short Term Goals Short Term Goals Time Frame: Nov 15, 2017 Bathing(FIM): 4 Upper Body Dressing(FIM): 4 Lower Body Dressing(FIM): 3 Transfers (B,C,W/C) (FIM): 3 Toilet/Commode Transfer(FIM): 3 1=Demonstrate adherence to instructed precautions during ADL tasks. 2=Patient will verbalize/demonstrate understanding of assistive devices/ modifications for ADL. 3=Patient will improve strength/tolerance for activity to enable patient to perform ADL's. OT Intermediate Goals Eyeglass Frames Inspector Goals Time Frame: Nov 29, 2017 Eating (FIM): 6 Eating (QC): 6 Groomin Oral Hygiene (QC): 6 Bathing(FIM): 5 Shower/Bathe Self (QC): 5 Upper Body Dressing(FIM): 6 Upper Body Dressing (QC): 6 Lower Body Dressing(FIM): 5 Lower Body Dressing (QC): 5 On/Off Footwear (QC): 5 Toileting(FIM): 5 Toileting Hygiene (QC): 5 Toilet/Commode Transfer(FIM): 5 Toilet/Commode Transfer (QC): 5 Shower Transfer(FIM): 5 Additional Goals: 1-Demonstrate ADL Tasks, 2-Verbalize Understanding, 3- ImproveStrength/Dyana 1=Demonstrate adherence to instructed precautions during ADL tasks. 2=Patient will verbalize/demonstrate understanding of assistive devices/ modifications for ADL. 3=Patient will improve strength/tolerance for activity to enable patient to perform ADL's. OT Education/Plan Problem List/Assessment Pt would benefit from skilled OT to increase her independence with basic self care to allow her to safely return to her home Discharge Recommendations Plan/Recommendations: Continue POC Treatment Plan/Plan of Care Patient would benefit from OT for education, treatment and training to promote independence in ADL's, mobility, safety and/or upper extremity function for ADL' s. Plan of Care: ADL Retraining, Group Exercise/Act as Ind (education, exercise, funct activities, activity tolerance, mobility), Orthotic Fitting/Training, UE Neuromus Re-Ed/Coord Treatment Duration: Nov 29, 2017 Frequency: At least 5 of 7 days/Wk (IRF) Estimated Hrs Per Day: 1.5 hours per day Agreement: Yes Rehab Potential: Guarded Time/GCodes Start Time: 08:00 Stop Time: 09:00 Total Time Billed (hr/min): 60 Billed Treatment Time 1 visit-ADL 4 (60 min) co-treat 60 min with PT LINDSEY DAMIAN Nov 15, 2017 10:47
--- NOTE | 2017-11-15 11:06 | Progress Note-Hospitalist ---
Subjective HPI/CC On Admission Date Seen by Provider: Nov 15, 2017 Time Seen by Provider: 11:00 Subjective/Events-last exam Patient doing well today overall Has been up in a chair since 8 o'clock Alvarenga catheter remains Denies any significant pain Neuropathy in the feet continue on gabapentin 200 MG twice daily Bowels are moving Review of Systems General: Fatigue Neurological: Weakness, Numbness, Incoordination Objective Exam Vital Signs Vital Signs Date Time Temp Pulse Resp B/P (MAP) Pulse Ox O2 Delivery O2 Flow Rate FiO2 11/09/17 05:52 98.6 65 16 134/66 (88) 93 Room Air Capillary Refill : Less Than 3 Seconds General Appearance: No Apparent Distress, WD/WN, Chronically ill Respiratory: Normal Breath Sounds Cardiovascular: Regular Rate, Rhythm, No Edema Neurologic/Psychiatric: Alert, Oriented x3, Depressed Affect Results/Procedures Lab Patient resulted labs reviewed. 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 PAF off anticoagulation due to risks outweigh benefits currently DM HTN OA HLP Continued nausea and vomiting Severe lower leg and feet neuropathy Chronic dizziness Plan: Scop patch Zofran Dr Ryan consultation is appreciated Cardiology is appreciated Monitor closely Monitor for elevated sugars Gabapentin increased dose Consult Dr Schmitt is appreciated Dr Lewis consultation is appreciated Diagnosis/Problems Diagnosis/Problems (1) Cauda equina syndrome Status: Acute (2) Episodic atrial fibrillation Status: Chronic (3) Urinary retention Status: Acute (4) Constipation Status: Acute Qualifiers: Constipation type: drug induced constipation Qualified Codes: K59.03 - Drug induced constipation (5) Acute depression Status: Acute (6) Adverse effect of anticoagulant Status: Acute Qualifiers: Encounter type: subsequent encounter Qualified Codes: T45.515D - Adverse effect of anticoagulants, subsequent encounter (7) Nausea & vomiting Status: Acute Qualifiers: Vomiting type: unspecified Vomiting Intractability: unspecified Qualified Codes: R11.2 - Nausea with vomiting, unspecified Clinical Quality Measures DVT/VTE Risk/Contraindication: Risk Factor Score Per Nursin RFS Level Per Nursing on Admit: 4+=Very High MOY LOGAN DO Nov 15, 2017 11:06
--- NOTE | 2017-11-15 13:04 | Physical Therapy Daily Note ---
PT Daily Note-Current Subjective Patient agrees to PT. No c/o nausea Pain Numeric Pain Scale: 5-Moderate Pain Location: Medial, Lower Location Body Site: Back Pain Description: Pressure Mental Status Patient Orientation: Normal For Age Transfers Functional [place] Measure 0=Not Assessed/NA 4=Minimal Assistance 1=Total Assistance 5=Supervision or Setup 2=Maximal Assistance 6=Modified [place] 3=Moderate Assistance 7=Complete IndependenceIRFPAI Quality Coding Scale 6 Independent with activity with or without an assistive device 5 Patient requires set up or clean up by helper. Patient completes activity by themselves 4 Supervision or touching assist (CGA). [place] provide cues , steadying assist 3 The helper provides less than half the effort to complete the activity 2 The helper provides more than half the effort to complete the activity 1 Dependent. The helper does all the effort to complete an activity 7 Patient refused to complete or attempt activity 9 The patient did not perform the activity before the current illness or injury 88 Not attempted due to Medical conditions or safety concerns Transfers (B, C, W/C) (FIM): 1 Scootin Rollin Supine to/from Sit: 3 Sit to/from Stand: 1 Bed to/from Chair: 1 dependent assist with sit to stand and SPT transfers recliner to bed with patient being incontinent BM Weight Bearing Right Lower Extremity: Right Weight Bearing/Tolerated Left Lower Extremity: Left Weight Bearing/Tolerated Exercises Supine Ex: Bridging, Ankle pumps, Quad Set, Heel Slides Supine Reps: 10 Seated Therapy Exercises: Long arc quads Seated Reps: 10 (2 sets) Assessment Patient requires time to complete all tasks, however, did actively participate with activity. PT Short Term Goals Short Term Goals Time Frame: Nov 13, 2017 Transfers (B,C,W/C) (FIM): 3 Wheelchair (FIM): 2 Wheelchair Distance: 150' Wheelchair Level of Assist: 4 PT Mcfp Goals Gear Machine Operator Goals PT Mcfp Goals Time Frame: Nov 27, 2017 Transfers (B,C,W/C) (FIM): 4 Wheelchair (FIM): 5 Distance: 150' Wheelchair Level of Assist: 5 PT Plan Treatment/Plan Treatment Plan: Continue Plan of Care Treatment Plan: Bed Mobility, Concurrent Therapy, Education, Functional Activity Dyana, Functional Strength, Group Therapy, Gait, Safety, Therapeutic Exercise, Transfers Treatment Duration: Nov 27, 2017 Frequency: At least 5 of 7 days/Wk (IRF) Estimated Hrs Per Day: 1.5 hours per day Patient and/or Family Agrees t: Yes Time/GCodes Time In: 1225 Time Out: 1255 Total Billed Treatment Time: 30 Total Billed Treatment 1 visit FA 10 min EX 20 min MANJEET GONSALEZ PT Nov 15, 2017 13:04
--- NOTE | 2017-11-15 13:24 | Occupational Ther Daily Note ---
OT Current Status-Daily Note Subjective Pt alert, lying in bed. Pt agreed to therapy. No c/o pain. Mental Status/Objective Patient Orientation: Person, Place, Time, Situation Functional [place] Measure 0=Not Assessed/NA 4=Minimal Assistance 1=Total Assistance 5=Supervision or Setup 2=Maximal Assistance 6=Modified [place] 3=Moderate Assistance 7=Complete [place] ADL-Treatment Pt incontinent of bowel. Pt assisted with turning side to side using bedrails. Assist to cleanse buttocks sidelying in bed and ointment applied. Pt was able to pull with bedrails to assist scooting up in bed. Functional [place] Measure 0=Not Assessed/NA 4=Minimal Assistance 1=Total Assistance 5=Supervision or Setup 2=Maximal Assistance 6=Modified [place] 3=Moderate Assistance 7=Complete IndependenceIRFPAI Quality Coding Scale 6 Independent with activity with or without an assistive device 5 Patient requires set up or clean up by helper. Patient completes activity by themselves 4 Supervision or touching assist (CGA). [place] provide cues , steadying assist 3 The helper provides less than half the effort to complete the activity 2 The helper provides more than half the effort to complete the activity 1 Dependent. The helper does all the effort to complete an activity 7 Patient refused to complete or attempt activity 9 The patient did not perform the activity before the current illness or injury 88 Not attempted due to Medical conditions or safety concerns Other Treatment Pt completed 5 UE medium resistance theraband exercises, 1 sets 10 reps. Pt c/ o that it made her neck her with tricep exercises. After therapy, pt lying in bed with call light/phone in reach. All needs met in room. OT Short Term Goals Short Term Goals Time Frame: Nov 15, 2017 Bathing(FIM): 4 Upper Body Dressing(FIM): 4 Lower Body Dressing(FIM): 3 Transfers (B,C,W/C) (FIM): 3 Toilet/Commode Transfer(FIM): 3 1=Demonstrate adherence to instructed precautions during ADL tasks. 2=Patient will verbalize/demonstrate understanding of assistive devices/ modifications for ADL. 3=Patient will improve strength/tolerance for activity to enable patient to perform ADL's. OT Prison Goals Prison Goals Time Frame: Nov 29, 2017 Eating (FIM): 6 Eating (QC): 6 Groomin Oral Hygiene (QC): 6 Bathing(FIM): 5 Shower/Bathe Self (QC): 5 Upper Body Dressing(FIM): 6 Upper Body Dressing (QC): 6 Lower Body Dressing(FIM): 5 Lower Body Dressing (QC): 5 On/Off Footwear (QC): 5 Toileting(FIM): 5 Toileting Hygiene (QC): 5 Toilet/Commode Transfer(FIM): 5 Toilet/Commode Transfer (QC): 5 Shower Transfer(FIM): 5 Additional Goals: 1-Demonstrate ADL Tasks, 2-Verbalize Understanding, 3- ImproveStrength/Dyana 1=Demonstrate adherence to instructed precautions during ADL tasks. 2=Patient will verbalize/demonstrate understanding of assistive devices/ modifications for ADL. 3=Patient will improve strength/tolerance for activity to enable patient to perform ADL's. OT Education/Plan Problem List/Assessment Pt would benefit from skilled OT to increase her independence with basic self care to allow her to safely return to her home Discharge Recommendations Plan/Recommendations: Continue POC Treatment Plan/Plan of Care Patient would benefit from OT for education, treatment and training to promote independence in ADL's, mobility, safety and/or upper extremity function for ADL' s. Plan of Care: ADL Retraining, Group Exercise/Act as Ind (education, exercise, funct activities, activity tolerance, mobility), Orthotic Fitting/Training, UE Neuromus Re-Ed/Coord Treatment Duration: Nov 29, 2017 Frequency: At least 5 of 7 days/Wk (IRF) Estimated Hrs Per Day: 1.5 hours per day Agreement: Yes Rehab Potential: Guarded Time/GCodes Start Time: 12:55 Stop Time: 13:25 Total Time Billed (hr/min): 30 Billed Treatment Time 1 visit-ADL 1 (20 min) EX 1 (10 min) LINDSEY DAMIAN Nov 15, 2017 13:24
[2017-11-15] MEDS: HYDROcodone/APAP 10 MG/325 MG (LORTAB) TAB PO PRN (15:13)
[2017-11-15 17:37] VITALS: BP 109/67
[2017-11-15] MEDS: ATORVASTATIN 40 MG (LIPITOR) TABLET PO SCH (20:55)
[2017-11-15] MEDS: LIDOCAINE PATCH REMOVAL TP SCH (20:56)
[2017-11-16] MEDS: HYDROcodone/APAP 10 MG/325 MG (LORTAB) TAB PO PRN (00:10)
--- NOTE | 2017-11-16 02:50 | CONSULTATION REPORT ---
DATE OF SERVICE: The patient is in room 225, rehab. REFERRING PHYSICIAN: Patrick Pisano MD. REASON FOR CONSULTATION: Chronic balance problems, dizziness. HISTORY OF PRESENT ILLNESS: The patient is a 77-year-old female currently admitted to the rehab unit. She has cauda equina syndrome. She has had lower back surgery complicated by an epidural hematoma. Her rehabilitation has been complicated by the fact that she had significant balance problems, every time she sits up or tries to get up, she complains of dizziness. Review of her labs showed a hemoglobin of 9, hematocrit of 27. She has a documented history of Meniere's disease. We think of the left ear. This was about 10 or 12 years ago and it had been stable up until potentially recently. She has not been able to complete her rehabilitation regimen because of her symptoms. PAST MEDICAL HISTORY: Fibromyalgia, arthritis, paroxysmal atrial fibrillation as well as the back problems. She has bilateral foot drop as well. PHYSICAL EXAM: GENERAL: Today, she was lying in bed on her right side. When she tried to sit up, she became somewhat dizzy subjectively. She was in no acute distress. HEENT: Eyes: There was no spontaneous nystagmus seen. She describes the dizziness upon standing up is more of a generalized disequilibrium rather than a spinning type vertigo she had with Meniere's. Ears: Canals were normal. Tympanic membranes were intact and mobile. There is no evidence of infection or fluid present. She reports subjectively her hearing is down more on the left than the right side. Nose: Normal nasal mucosa. There are no masses or lesions seen. Nasopharynx not examined. The oral cavity was clear and without some infection or lesion. Check good tongue mobility and good elevation of soft palate. Pharynx: No mass or ulceration was seen. Larynx: Vocal cords moved well and met in the midline. NECK: No mass, adenopathy or thyromegaly palpable in the neck. No carotid bruits heard. NEUROLOGIC: Cranial nerves II through XII are grossly intact. IMPRESSION: 1. Severe dysequilibrium. 2. Possible orthostatic hypotension. 3. History of Meniere's disease. RECOMMENDATIONS: Findings were discussed with the patient. I do not believe that the Meniere's disease is causing all of her balance of symptoms at this time. She has multiple medical problems which could play a role in her balance. I did ask that the nurses to get orthostatics, see if there is an orthostatic change. Phenergan is not a good treatment option for her given her age and potential adverse effects. Potentially, a 1 mg or 2 mg dose of Valium at night may take the edge off of her balance symptoms. ____ I am not sure she if is going to fulfill her rehab potential. Once, she is discharged then we will make arrangements to see her as an outpatient for a full audiogram as well. Thanks for the consult. Job ID: [id number] DocumentID: [id number] Dictated Date: 11/15/2017 16:26:55 Shoe Sticks Repairer Date: 11/15/2017 17:34:04 Dictated By: STACY AKHTAR MD
[2017-11-16 05:18] VITALS: BP 109/64
[2017-11-16] MEDS: inSUlin (REGULAR) HUMAN 1 UNIT/0.01 ML (CHARGE PER UNIT) SC SCH ×4 (05:22→20:58)
[2017-11-16] MEDS: TROSPIUM 20 MG (SANCTURA) TAB PO SCH ×2 (05:26→16:35)
[2017-11-16] MEDS: CYANOCOBALAMIN 500 MCG TAB (VITAMIN B-12) PO SCH (06:17)
[2017-11-16] MEDS: PANTOPRAZOLE 40 MG (PROTONIX) TAB PO SCH (06:17)
[2017-11-16] MEDS: VITAMIN E 400 INTLU CAP PO SCH (06:17)
[2017-11-16] MEDS: metFORMIN 500 MG (GLUCOPHAGE) TAB PO SCH ×2 (06:17→17:37)
[2017-11-16] MEDS: VITAMIN D3 1,000 UNITS (CHOLECALCIFEROL) TABLET PO SCH (06:17)
[2017-11-16] MEDS: MECLIZINE 25 MG (ANTIVERT) TAB PO PRN (06:29)
[2017-11-16 08:33] VITALS: BP 124/67
[2017-11-16] MEDS: meTOprolol TARTRATE 25 MG (LOPRESSOR) TABLET PO SCH ×2 (08:43→20:56)
[2017-11-16] MEDS: LIDOCAINE (LIDODERM) 5% PATCH TOP SCH (08:43)
[2017-11-16] MEDS: FAMOTIDINE 20 MG (PEPCID) TABLET PO SCH (08:43)
[2017-11-16] MEDS: SENNA W/DOCUSATE (SENOKOT S) TABLET PO SCH ×2 (08:44→20:57)
[2017-11-16] MEDS: HYDROCHLOROTHIAZIDE 25 MG (HCTZ) TAB PO SCH (08:44)
[2017-11-16] MEDS: LORATADINE (CLARITIN) 10 MG TAB PO SCH (08:44)
[2017-11-16] MEDS: lisINopril 20 MG (PRINIVIL) TABLET PO SCH (08:44)
[2017-11-16] MEDS: DOCUSATE SODIUM 100 MG (COLACE) CAP PO SCH ×2 (08:44→20:56)
[2017-11-16] MEDS: SCOPOLAMINE 1.5 MG (TRANSDERM-SCOP) PATCH TOP SCH (08:44)
[2017-11-16] MEDS: GABAPENTIN 100 MG (NEURONTIN) CAP PO SCH ×2 (08:44→20:57)
[2017-11-16] MEDS: MAGNESIUM OXIDE (MAG-OX)400 MG TAB PO SCH ×2 (08:44→17:37)
[2017-11-16] MEDS: SCOPOLAMINE PATCH REMOVAL TP SCH (08:45)
[2017-11-16] MEDS: inSUlin DETERMIR 1 UNIT/0.01 ML (LEVEMIR) CHARGE PER UNIT SQ SCH (08:46)
[2017-11-16] MEDS: MENTHOL/ZINC OXIDE (CALMOSEPTINE) 113 GM TUBE TOP SCH ×2 (09:14→20:57)
--- NOTE | 2017-11-16 10:47 | Physical Therapy Daily Note ---
PT Daily Note-Current Subjective Pt. in bed, agreeable to Rx. Pts. family present. Pain Numeric Pain Scale: 0-No Pain Appearance no N&V this date. Mental Status Patient Orientation: Normal For Age Attachments: Alvarenga Catheter Transfers Functional [place] Measure 0=Not Assessed/NA 4=Minimal Assistance 1=Total Assistance 5=Supervision or Setup 2=Maximal Assistance 6=Modified [place] 3=Moderate Assistance 7=Complete IndependenceIRFPAI Quality Coding Scale 6 Independent with activity with or without an assistive device 5 Patient requires set up or clean up by helper. Patient completes activity by themselves 4 Supervision or touching assist (CGA). [place] provide cues , steadying assist 3 The helper provides less than half the effort to complete the activity 2 The helper provides more than half the effort to complete the activity 1 Dependent. The helper does all the effort to complete an activity 7 Patient refused to complete or attempt activity 9 The patient did not perform the activity before the current illness or injury 88 Not attempted due to Medical conditions or safety concerns Transfers (B, C, W/C) (FIM): 1 Scootin Rollin Supine to/from Sit: 4 Sit to/from Stand: 1 max dependent SPT bed to recliner, christina sling left in recliner for nursing TRF back to bed. Weight Bearing Right Lower Extremity: Right Weight Bearing/Tolerated Left Lower Extremity: Left Weight Bearing/Tolerated Exercises Supine Ex: Bridging (min), Ankle pumps (HC stretch 3 x 20 s), Rolling, Glut sets, Heel Slides, Hip abd/add Supine Reps: 12 Treatments pt. sat EOB 7 min indep, sit to stand attempted with max assist as pt has no glut hamstring quad strength for stance, "jello " in LEs even with strong assist of 3 available/present. pt. in recliner instructed to work on increasing sitting time with LEs dependent in dangling, pt. also instructed to use recliner bar with RUE top recline as well as mechanism to recline her head, fair at hand, family present Assessment Current Status: Fair Progress no c/o pain, no N&V, some increased rolling and sup to sit skills , improved sitting EOB strength and tolerance, but little to no increase in LE strength for stance PT Short Term Goals Short Term Goals Time Frame: Nov 13, 2017 Transfers (B,C,W/C) (FIM): 3 Wheelchair (FIM): 2 Wheelchair Distance: 150' Wheelchair Level of Assist: 4 PT Shelter Goals Boat Outfitting Supervisor Goals PT Boat Outfitting Supervisor Goals Time Frame: Nov 27, 2017 Transfers (B,C,W/C) (FIM): 4 Sit to Lying (QC): 3 Lying-Sitting on Side/Bed(QC): 3 Sit to Stand (QC): 3 Rollin Roll Left to Right (QC): 3 Chair/Aec-zw-Ejfro Xfer(QC): 3 Car Transfer (QC): 3 Wheelchair (FIM): 5 Distance: 150' Wheelchair Level of Assist: 5 Wheel 50 feet with 2 turns (QC: 4 PT Plan Treatment/Plan Treatment Plan: Continue Plan of Care Treatment Plan: Bed Mobility, Concurrent Therapy, Education, Functional Activity Dyana, Functional Strength, Group Therapy, Gait, Safety, Therapeutic Exercise, Transfers Treatment Duration: Nov 27, 2017 Frequency: At least 5 of 7 days/Wk (IRF) Estimated Hrs Per Day: 1.5 hours per day Patient and/or Family Agrees t: Yes Safety Risks/Education Patient Education: Transfer Techniques, Correct Positioning, Disease Process, Safety Issues Teaching Recipient: Patient Teaching Methods: Demonstration, Discussion Response to Teaching: Verbalize Understanding, Unable to Return Demonstration, Return Demonstration, Reinforcement Needed Time/GCodes Time In: 1010 Time Out: 1045 Total Billed Treatment Time: 35 Total Billed Treatment 1,FA25m,EX10m G Codes Necessary: ELIZABETH Kellogg ART CRITIC Nov 16, 2017 10:47
--- NOTE | 2017-11-16 12:49 | Progress Note-Hospitalist ---
Subjective HPI/CC On Admission Date Seen by Provider: Nov 16, 2017 Time Seen by Provider: 12:30 Subjective/Events-last exam Patient about the same Sitting up in chair with Gricelda lift help Ate a good lunch Dizziness is not too severe and less she moves around a lot Review of Systems General: Fatigue Neurological: Incoordination Objective Exam Vital Signs Vital Signs Date Time Temp Pulse Resp B/P (MAP) Pulse Ox O2 Delivery O2 Flow Rate FiO2 11/10/17 06:00 97.5 66 20 127/67 (87) 96 Room Air Capillary Refill : Less Than 3 Seconds General Appearance: No Apparent Distress, WD/WN, Chronically ill Respiratory: Lungs Clear, Normal Breath Sounds Cardiovascular: Regular Rate, Rhythm, No Edema Neurologic/Psychiatric: Alert, Oriented x3, Depressed Affect Results/Procedures Lab Patient resulted labs reviewed. 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 PAF off anticoagulation due to risks outweigh benefits currently DM HTN OA HLP Continued nausea and vomiting Severe lower leg and feet neuropathy Chronic dizziness Plan: Scop patch Zofran Dr Ryan consultation is appreciated Cardiology is appreciated Monitor closely Monitor for elevated sugars Gabapentin increased dose Consult Dr Schmitt is appreciated Dr Lewis consultation is appreciated Diagnosis/Problems Diagnosis/Problems (1) Cauda equina syndrome Status: Acute (2) Episodic atrial fibrillation Status: Chronic (3) Urinary retention Status: Acute (4) Constipation Status: Acute Qualifiers: Constipation type: drug induced constipation Qualified Codes: K59.03 - Drug induced constipation (5) Acute depression Status: Acute (6) Adverse effect of anticoagulant Status: Acute Qualifiers: Encounter type: subsequent encounter Qualified Codes: T45.515D - Adverse effect of anticoagulants, subsequent encounter (7) Nausea & vomiting Status: Acute Qualifiers: Vomiting type: unspecified Vomiting Intractability: unspecified Qualified Codes: R11.2 - Nausea with vomiting, unspecified Clinical Quality Measures DVT/VTE Risk/Contraindication: Risk Factor Score Per Nursin RFS Level Per Nursing on Admit: 4+=Very High MOY LOGAN DO Nov 16, 2017 12:49
[2017-11-16 17:21] VITALS: BP 131/69
[2017-11-16] MEDS: ATORVASTATIN 40 MG (LIPITOR) TABLET PO SCH (20:56)
[2017-11-16] MEDS: LIDOCAINE PATCH REMOVAL TP SCH (20:58)
[2017-11-17 05:46] VITALS: BP 139/71
[2017-11-17] MEDS: VITAMIN D3 1,000 UNITS (CHOLECALCIFEROL) TABLET PO SCH (06:07)
[2017-11-17] MEDS: metFORMIN 500 MG (GLUCOPHAGE) TAB PO SCH ×2 (06:07→17:00)
[2017-11-17] MEDS: CYANOCOBALAMIN 500 MCG TAB (VITAMIN B-12) PO SCH (06:07)
[2017-11-17] MEDS: PANTOPRAZOLE 40 MG (PROTONIX) TAB PO SCH (06:07)
[2017-11-17] MEDS: TROSPIUM 20 MG (SANCTURA) TAB PO SCH ×2 (06:07→17:00)
[2017-11-17] MEDS: inSUlin (REGULAR) HUMAN 1 UNIT/0.01 ML (CHARGE PER UNIT) SC SCH ×4 (06:07→21:02)
[2017-11-17] MEDS: VITAMIN E 400 INTLU CAP PO SCH (06:07)
[2017-11-17] MEDS: HYDROcodone/APAP 10 MG/325 MG (LORTAB) TAB PO PRN ×2 (06:11→21:07)
[2017-11-17] MEDS: LIDOCAINE (LIDODERM) 5% PATCH TOP SCH (09:01)
[2017-11-17] MEDS: SENNA W/DOCUSATE (SENOKOT S) TABLET PO SCH ×2 (09:01→21:02)
[2017-11-17] MEDS: GABAPENTIN 100 MG (NEURONTIN) CAP PO SCH ×2 (09:01→21:02)
[2017-11-17] MEDS: lisINopril 20 MG (PRINIVIL) TABLET PO SCH (09:02)
[2017-11-17] MEDS: meTOprolol TARTRATE 25 MG (LOPRESSOR) TABLET PO SCH ×2 (09:02→21:02)
[2017-11-17] MEDS: MAGNESIUM OXIDE (MAG-OX)400 MG TAB PO SCH ×2 (09:02→17:00)
[2017-11-17] MEDS: LORATADINE (CLARITIN) 10 MG TAB PO SCH (09:02)
[2017-11-17] MEDS: HYDROCHLOROTHIAZIDE 25 MG (HCTZ) TAB PO SCH (09:02)
[2017-11-17] MEDS: FAMOTIDINE 20 MG (PEPCID) TABLET PO SCH (09:02)
[2017-11-17] MEDS: DOCUSATE SODIUM 100 MG (COLACE) CAP PO SCH ×2 (09:04→21:02)
[2017-11-17] MEDS: MENTHOL/ZINC OXIDE (CALMOSEPTINE) 113 GM TUBE TOP SCH ×2 (09:05→21:01)
[2017-11-17] MEDS: inSUlin DETERMIR 1 UNIT/0.01 ML (LEVEMIR) CHARGE PER UNIT SQ SCH (09:06)
--- NOTE | 2017-11-17 12:00 | Progress Note-Hospitalist ---
Subjective HPI/CC On Admission Date Seen by Provider: Nov 17, 2017 Time Seen by Provider: 11:00 Subjective/Events-last exam Patient doing about the same Bowels are moving Alvarenga catheter remains until she is more mobile Dizziness improved Dry mouth due to scopolamine patch Review of Systems General: Fatigue Objective Exam Vital Signs Vital Signs Date Time Temp Pulse Resp B/P (MAP) Pulse Ox O2 Delivery O2 Flow Rate FiO2 11/11/17 06:00 98.5 85 18 124/72 (89) 94 Room Air Capillary Refill : Less Than 3 Seconds General Appearance: No Apparent Distress, WD/WN Respiratory: Lungs Clear, Normal Breath Sounds Cardiovascular: Regular Rate, Rhythm, No Edema Neurologic/Psychiatric: Alert, Oriented x3, Depressed Affect Results/Procedures Lab Patient resulted labs reviewed. 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 PAF off anticoagulation due to risks outweigh benefits currently DM HTN OA HLP Continued nausea and vomiting Severe lower leg and feet neuropathy Chronic dizziness Plan: Scop patch Zofran Dr Ryan consultation is appreciated Cardiology is appreciated Monitor closely Monitor for elevated sugars Gabapentin increased dose Consult Dr Schmitt is appreciated Dr Lewis consultation is appreciated Diagnosis/Problems Diagnosis/Problems (1) Cauda equina syndrome Status: Acute (2) Episodic atrial fibrillation Status: Chronic (3) Urinary retention Status: Acute (4) Constipation Status: Acute Qualifiers: Constipation type: drug induced constipation Qualified Codes: K59.03 - Drug induced constipation (5) Acute depression Status: Acute (6) Adverse effect of anticoagulant Status: Acute Qualifiers: Encounter type: subsequent encounter Qualified Codes: T45.515D - Adverse effect of anticoagulants, subsequent encounter (7) Nausea & vomiting Status: Acute Qualifiers: Vomiting type: unspecified Vomiting Intractability: unspecified Qualified Codes: R11.2 - Nausea with vomiting, unspecified Clinical Quality Measures DVT/VTE Risk/Contraindication: Risk Factor Score Per Nursin RFS Level Per Nursing on Admit: 4+=Very High MOY LOGAN DO Nov 17, 2017 12:00
[2017-11-17 17:26] VITALS: BP 104/59
[2017-11-17] MEDS: ATORVASTATIN 40 MG (LIPITOR) TABLET PO SCH (21:02)
[2017-11-17] MEDS: LIDOCAINE PATCH REMOVAL TP SCH (21:07)
[2017-11-18 05:42] VITALS: BP 102/50
[2017-11-18] MEDS: inSUlin (REGULAR) HUMAN 1 UNIT/0.01 ML (CHARGE PER UNIT) SC SCH ×4 (05:51→20:50)
[2017-11-18] MEDS: CYANOCOBALAMIN 500 MCG TAB (VITAMIN B-12) PO SCH (06:15)
[2017-11-18] MEDS: VITAMIN D3 1,000 UNITS (CHOLECALCIFEROL) TABLET PO SCH (06:15)
[2017-11-18] MEDS: TROSPIUM 20 MG (SANCTURA) TAB PO SCH ×2 (06:16→16:28)
[2017-11-18] MEDS: PANTOPRAZOLE 40 MG (PROTONIX) TAB PO SCH (06:16)
[2017-11-18] MEDS: VITAMIN E 400 INTLU CAP PO SCH (06:16)
[2017-11-18] MEDS: metFORMIN 500 MG (GLUCOPHAGE) TAB PO SCH ×2 (06:16→16:28)
[2017-11-18] MEDS: FAMOTIDINE 20 MG (PEPCID) TABLET PO SCH (08:03)
[2017-11-18] MEDS: MAGNESIUM OXIDE (MAG-OX)400 MG TAB PO SCH ×2 (08:03→17:29)
[2017-11-18] MEDS: LORATADINE (CLARITIN) 10 MG TAB PO SCH (08:03)
[2017-11-18] MEDS: DOCUSATE SODIUM 100 MG (COLACE) CAP PO SCH ×2 (08:04→20:50)
[2017-11-18] MEDS: SENNA W/DOCUSATE (SENOKOT S) TABLET PO SCH ×2 (08:04→20:50)
[2017-11-18] MEDS: GABAPENTIN 100 MG (NEURONTIN) CAP PO SCH ×2 (08:05→20:49)
[2017-11-18] MEDS: LIDOCAINE (LIDODERM) 5% PATCH TOP SCH (08:06)
[2017-11-18] MEDS: MECLIZINE 25 MG (ANTIVERT) TAB PO PRN ×2 (08:17→20:49)
[2017-11-18] MEDS: HYDROcodone/APAP 10 MG/325 MG (LORTAB) TAB PO PRN ×2 (08:17→20:50)
[2017-11-18] MEDS: meTOprolol TARTRATE 25 MG (LOPRESSOR) TABLET PO SCH ×2 (08:18→20:49)
[2017-11-18] MEDS: lisINopril 20 MG (PRINIVIL) TABLET PO SCH (08:18)
--- NOTE | 2017-11-18 08:19 | Cardiology Progress Note ---
Subjective Date Seen by Provider: Nov 18, 2017 Time Seen by Provider: 08:17 Subjective/Events-last exam Patient is sitting up in bed. No new complaints. Continues to have episodes of dizziness and nausea. Denies any vomiting. Objective-Cardiology Exam Last Set of Vital Signs Vital Signs 11/18/17 05:42 Temp 97.2 Pulse 70 Resp 18 B/P (MAP) 102/50 (67) Pulse Ox 95 O2 Delivery Room Air Capillary Refill : Less Than 3 Seconds I&O Intake and Output 11/18/17 00:00 Intake Total 1360 ml Output Total 3475 ml Balance -2115 ml Intake Oral 1360 ml Output Urine Total 3475 ml # Bowel Movements 3 General: Alert, Oriented X3, Cooperative HEENT: Atraumatic, PERRLA Neck: Supple, No JVD Lungs: Clear to Auscultation, Normal Air Movement Heart: Regular Rate, Normal S1, Normal S2 Abdomen: Normal Bowel Sounds, Soft Extremities: No Clubbing, No Edema Skin: No Rashes Neuro: Other (able to move her legs) A/P-Cardiology Admission Diagnosis Paralysis Paroxysmal atrial fibrillation Hypertension Hyperlipidemia Assessment/Plan Status post back surgery done on October 14, 2017, had hematoma, multiple surgical evacuation, improving, still having pain and discomfort. Dizziness and nausea with vomiting, mainly positional, history of Mnire disease, seen by Dr. Lewis Paroxysmal atrial fibrillation, had an episode of atrial fibrillation with rapid ventricular response on October 17, 2017, converted to sinus rhythm. Continue to monitor [id number] score is 5, yearly risk of stroke without oral anticoagulation is 6.7 percent, currently off oral anticoagulation due to hematoma. Hypertension, having episodes of borderline hypotension. I will decrease HCTZ and continue to monitor. Hyperlipidemia, monitor lipids Diabetes mellitus, monitor and managed by primary care physician Obesity, BMI is 28 Fibromyalgia, multiple complain about joint and back pain in the past, managed by primary care physician. Clinical Quality Measures DVT/VTE Risk/Contraindication: Risk Factor Score Per Nursin RFS Level Per Nursing on Admit: 4+=Very High RAGHU JAY Nov 18, 2017 08:19
[2017-11-18] MEDS: MENTHOL/ZINC OXIDE (CALMOSEPTINE) 113 GM TUBE TOP SCH ×2 (08:21→20:52)
[2017-11-18] MEDS: inSUlin DETERMIR 1 UNIT/0.01 ML (LEVEMIR) CHARGE PER UNIT SQ SCH (09:03)
--- NOTE | 2017-11-18 10:03 | Physical Therapy Daily Note ---
PT Daily Note-Current Subjective Patient has no c/o nausea upon PT arrival. Agrees to therapy. Pain Numeric Pain Scale: 0-No Pain Location: No Pain Reported Mental Status Patient Orientation: Normal For Age Attachments: Alvarenga Catheter Transfers Functional [place] Measure 0=Not Assessed/NA 4=Minimal Assistance 1=Total Assistance 5=Supervision or Setup 2=Maximal Assistance 6=Modified [place] 3=Moderate Assistance 7=Complete IndependenceIRFPAI Quality Coding Scale 6 Independent with activity with or without an assistive device 5 Patient requires set up or clean up by helper. Patient completes activity by themselves 4 Supervision or touching assist (CGA). [place] provide cues , steadying assist 3 The helper provides less than half the effort to complete the activity 2 The helper provides more than half the effort to complete the activity 1 Dependent. The helper does all the effort to complete an activity 7 Patient refused to complete or attempt activity 9 The patient did not perform the activity before the current illness or injury 88 Not attempted due to Medical conditions or safety concerns Transfers (B, C, W/C) (FIM): 2 Scootin Rollin Roll Left to Right (QC): 5 Supine to/from Sit: 4 Sit to/from Stand: 2 Sit to Lying (QC): 4 Sit to Stand (QC): 2 Chair/Cek-pa-Asaps Xfer(QC): 2 Bed to/from Chair: 2 Patient did perform sit to stand max assist x 1 with SBA x 2. PT blocked bilateral knees in parallel bars as patient pulls herself up to stand. Patient performed sit to stand transfers x 10 sets with recovery periods between sets. Weight Bearing Right Lower Extremity: Right Weight Bearing/Tolerated Left Lower Extremity: Left Weight Bearing/Tolerated Gait Training Does the Patient Walk?: No and Walking Goal NOT indicated Wheelchair Training Does the Pt Use a Wheelchair?: Yes Wheelchair (FIM): 2 Wheelchair Distance: 8=340-68 ft Distance: 80' x 3 Wheelchair Level of Assist: 4 Wheel 50 ft with 2 turns (QC): 4 Type of Wheelchair: Manual Exercises Seated Therapy Exercises: Ankle pumps (PROM ), Long arc quads, Hip flexion, Glut set Seated Reps: 15 Standing: Sit to Stand (10 sets in parallel bars with PT blocking knees) Assessment PT and OT cotreat due to patient low level of function. Patient was incontinent BM requiring PT to assist with sit to stand transfer training and balance max assist while OT address ADL's and assisted with sit guiding. Patient requires skilled verbal instruction for body position with pulling up to stand with use of FWW and parallel bars. OT addressed upper body position and ADL's. Bed mobility exercises performed with rolling and repositioning with OT addressing upper body placement and PT addressed lower body. PT Short Term Goals Short Term Goals Time Frame: Nov 13, 2017 Transfers (B,C,W/C) (FIM): 3 Wheelchair (FIM): 2 Wheelchair Distance: 150' Wheelchair Level of Assist: 4 PT Manager Provider Relations Goals Manager Provider Relations Goals PT Manager Provider Relations Goals Time Frame: Nov 27, 2017 Transfers (B,C,W/C) (FIM): 4 Sit to Lying (QC): 3 Lying-Sitting on Side/Bed(QC): 3 Sit to Stand (QC): 3 Rollin Roll Left to Right (QC): 3 Chair/Utp-zg-Blakg Xfer(QC): 3 Car Transfer (QC): 3 Wheelchair (FIM): 5 Distance: 150' Wheelchair Level of Assist: 5 Wheel 50 feet with 2 turns (QC: 4 PT Plan Treatment/Plan Treatment Plan: Continue Plan of Care Treatment Plan: Bed Mobility, Concurrent Therapy, Education, Functional Activity Dyana, Functional Strength, Group Therapy, Gait, Safety, Therapeutic Exercise, Transfers Treatment Duration: Nov 27, 2017 Frequency: At least 5 of 7 days/Wk (IRF) Estimated Hrs Per Day: 1.5 hours per day Patient and/or Family Agrees t: Yes Time/GCodes Time In: 901 Time Out: 1016 Total Billed Treatment Time: 75 Total Billed Treatment 1 visit FA x 4 60 min ([id number] cotreat with OT) EX 15 min MANJEET GONSALEZ PT Nov 18, 2017 10:03
--- NOTE | 2017-11-18 10:09 | Cardiology Progress Note ---
Subjective Date Seen by Provider: Nov 18, 2017 Time Seen by Provider: 10:09 Subjective/Events-last exam Patient is receiving physical therapy, feeling slightly better, still getting nausea. Review of Systems General: No Chills, No Night Sweats, No Fatigue, No Malaise, No Appetite, No Other HEENT: No Head Aches, No Visual Changes, No Eye Pain, No Ear Pain, No Dysphasia , No Sinus Congestion, No Post Nasal Drip, No Sore Throat, No Other Pulmonary: No Dyspnea, No Cough, No Pleuritic Chest Pain, No Other Cardiovascular: No: Chest Pain, Palpitations, Orthopnea, Paroxysmal Noc. Dyspnea, Edema, Lt Headedness, Other Objective-Cardiology Exam Last Set of Vital Signs Vital Signs 11/18/17 05:42 Temp 97.2 Pulse 70 Resp 18 B/P (MAP) 102/50 (67) Pulse Ox 95 O2 Delivery Room Air Capillary Refill : Less Than 3 Seconds I&O Intake and Output 11/18/17 00:00 Intake Total 1360 ml Output Total 3475 ml Balance -2115 ml Intake Oral 1360 ml Output Urine Total 3475 ml # Bowel Movements 3 General: Alert, Oriented X3, Cooperative HEENT: Atraumatic, PERRLA Neck: Supple, No JVD Lungs: Clear to Auscultation, Normal Air Movement Heart: Regular Rate, Normal S1, Normal S2 Abdomen: Normal Bowel Sounds, Soft Extremities: No Clubbing, No Edema Skin: No Rashes Neuro: Other (able to move her legs) A/P-Cardiology Admission Diagnosis Paralysis Paroxysmal atrial fibrillation Hypertension Hyperlipidemia Assessment/Plan Status post back surgery done on October 14, 2017, had hematoma, multiple surgical evacuation, improving, still having pain and discomfort. Dizziness and nausea with vomiting, mainly positional, history of Mnire disease, seen by Dr. Lewis Paroxysmal atrial fibrillation, had an episode of atrial fibrillation with rapid ventricular response on October 17, 2017, converted to sinus rhythm. Continue to monitor [id number] score is 5, yearly risk of stroke without oral anticoagulation is 6.7 percent, currently off oral anticoagulation due to hematoma. Hypertension, having episodes of borderline hypotension. I will decrease HCTZ and continue to monitor. Hyperlipidemia, monitor lipids Diabetes mellitus, monitor and managed by primary care physician Obesity, BMI is 28 Fibromyalgia, multiple complain about joint and back pain in the past, managed by primary care physician. Clinical Quality Measures DVT/VTE Risk/Contraindication: Risk Factor Score Per Nursin RFS Level Per Nursing on Admit: 4+=Very High GEORGE CULLEN MD Nov 18, 2017 10:09
--- NOTE | 2017-11-18 10:25 | Occupational Ther Daily Note ---
OT Current Status-Daily Note Subjective Pt alert, lying in bed. Nrsg in room. Pt agreed to therapy. No c/o pain or nausea at that time. During treatment pt began to c/o nausea. Mental Status/Objective Patient Orientation: Person, Place, Time, Situation Functional [place] Measure 0=Not Assessed/NA 4=Minimal Assistance 1=Total Assistance 5=Supervision or Setup 2=Maximal Assistance 6=Modified [place] 3=Moderate Assistance 7=Complete [place] ADL-Treatment Pt incontinent of bowel throughout therapy. OT/PT co-treated due to pt's inactivity ability and nausea issues. PT worked on transfers, LE exercises, standing. OT worked on ADLs and functional mobility. After set up, pt was able to bathe upper body and jenny area lying in supine. Assist to cleanse lower legs and buttocks. Max A to don/doff briefs. Min A to don/doff hospital gown. After set up, pt able to complete oral care. PT came to co-treat with pt. Pt able to turn side to side with min A. PT completed a SPT, see PT note. Took pt to therapy gym, PT worked on standing, OT worked on UE strengthening. Noticed that pt was incontinent of bowel and took pt back to room. Pt transferred to [facility] assist x2. Assist x2 to stand to manipulate clothing and hygiene. After therapy, pt lying in bed with call light/phone in reach. All needs met in room. Functional [place] Measure 0=Not Assessed/NA 4=Minimal Assistance 1=Total Assistance 5=Supervision or Setup 2=Maximal Assistance 6=Modified [place] 3=Moderate Assistance 7=Complete IndependenceIRFPAI Quality Coding Scale 6 Independent with activity with or without an assistive device 5 Patient requires set up or clean up by helper. Patient completes activity by themselves 4 Supervision or touching assist (CGA). [place] provide cues , steadying assist 3 The helper provides less than half the effort to complete the activity 2 The helper provides more than half the effort to complete the activity 1 Dependent. The helper does all the effort to complete an activity 7 Patient refused to complete or attempt activity 9 The patient did not perform the activity before the current illness or injury 88 Not attempted due to Medical conditions or safety concerns Grooming (FIM): 5 Oral Hygiene (QC): 5 Bathing (FIM): 3 Shower/Bathe Self (QC): 3 Upper Body (FIM): 4 Lower Body Dressing (FIM): 2 Lower Body Dressing (QC): 2 On/Off Footwear (QC): 1 Toileting (FIM): 1 Toileting Hygiene (QC): 1 Transfers (B, C, W/C) (FIM): 1 Toilet/Commode Transfer (FIM): 1 Toilet Transfer (QC): 1 OT Short Term Goals Short Term Goals Time Frame: Nov 15, 2017 Bathing(FIM): 4 Upper Body Dressing(FIM): 4 Lower Body Dressing(FIM): 3 Transfers (B,C,W/C) (FIM): 3 Toilet/Commode Transfer(FIM): 3 1=Demonstrate adherence to instructed precautions during ADL tasks. 2=Patient will verbalize/demonstrate understanding of assistive devices/ modifications for ADL. 3=Patient will improve strength/tolerance for activity to enable patient to perform ADL's. OT Office Nurse Goals Office Nurse Goals Time Frame: Nov 29, 2017 Eating (FIM): 6 Eating (QC): 6 Groomin Oral Hygiene (QC): 6 Bathing(FIM): 5 Shower/Bathe Self (QC): 5 Upper Body Dressing(FIM): 6 Upper Body Dressing (QC): 6 Lower Body Dressing(FIM): 5 Lower Body Dressing (QC): 5 On/Off Footwear (QC): 5 Toileting(FIM): 5 Toileting Hygiene (QC): 5 Toilet/Commode Transfer(FIM): 5 Toilet/Commode Transfer (QC): 5 Shower Transfer(FIM): 5 Additional Goals: 1-Demonstrate ADL Tasks, 2-Verbalize Understanding, 3- ImproveStrength/Dyana 1=Demonstrate adherence to instructed precautions during ADL tasks. 2=Patient will verbalize/demonstrate understanding of assistive devices/ modifications for ADL. 3=Patient will improve strength/tolerance for activity to enable patient to perform ADL's. OT Education/Plan Problem List/Assessment Pt would benefit from skilled OT to increase her independence with basic self care to allow her to safely return to her home Discharge Recommendations Plan/Recommendations: Continue POC Treatment Plan/Plan of Care Patient would benefit from OT for education, treatment and training to promote independence in ADL's, mobility, safety and/or upper extremity function for ADL' s. Plan of Care: ADL Retraining, Group Exercise/Act as Ind (education, exercise, funct activities, activity tolerance, mobility), Orthotic Fitting/Training, UE Neuromus Re-Ed/Coord Treatment Duration: Nov 29, 2017 Frequency: At least 5 of 7 days/Wk (IRF) Estimated Hrs Per Day: 1.5 hours per day Agreement: Yes Rehab Potential: Guarded Time/GCodes Start Time: 08:15 Stop Time: 10:00 Total Time Billed (hr/min): 105 Billed Treatment Time 1 visit-ADL 3 (45 min) FA 4 (60 min) LINDSEY DAMIAN Nov 18, 2017 10:25
--- NOTE | 2017-11-18 14:10 | Progress Note (SOAP) ---
Subjective Date Seen by Provider: Nov 18, 2017 Time Seen by Provider: 14:07 Subjective/Events-last exam TOMMY. We discussed her condition and prognosis. Her spirits are up all things considered. Her questions were answered. She has minimal lower extremity pain. She has lost proprioception and her PT progress has been minimal. She is stool and urine incontinent. Objective Exam Vital Signs Date Time Temp Pulse Resp B/P (MAP) Pulse Ox O2 Delivery O2 Flow Rate FiO2 11/18/17 09:00 Room Air 11/18/17 05:42 97.2 70 18 102/50 (67) 95 Room Air 11/17/17 20:27 Room Air 11/17/17 17:26 98.0 66 17 104/59 (74) 97 Room Air I & O 11/18/17 07:00 Intake Total 1460 ml Output Total 1900 ml Balance -440 ml Capillary Refill : Less Than 3 Seconds General Appearance: No Apparent Distress Extremity: Other (alla complete foot drop, pain with pressure on feet, unable to lift either leg against gravity) Results Lab Laboratory Tests 11/17/17 15:08: Glucometer 141H 11/17/17 20:46: Glucometer 92 11/18/17 05:20: Glucometer 87 11/18/17 08:54: Glucometer 118H 11/18/17 10:44: Glucometer 126H Assessment/Plan Assessment/Plan Assess & Plan/Chief Complaint ASSESSMENT: paraplegic secondary to epidural hematoma PLAN: continue rehab and PT lorenz per medicine f/u with me in office in one month call with questions/concerns Clinical Quality Measures DVT/VTE Risk/Contraindication: Risk Factor Score Per Nursin RFS Level Per Nursing on Admit: 4+=Very High BLAS SWAIN DO Nov 18, 2017 14:10
[2017-11-18 17:34] VITALS: BP 115/64
[2017-11-18] MEDS: ATORVASTATIN 40 MG (LIPITOR) TABLET PO SCH (20:49)
[2017-11-18] MEDS: LIDOCAINE PATCH REMOVAL TP SCH (20:52)
[2017-11-19 05:38] VITALS: BP 103/60
[2017-11-19] MEDS: inSUlin (REGULAR) HUMAN 1 UNIT/0.01 ML (CHARGE PER UNIT) SC SCH ×4 (06:13→21:25)
[2017-11-19] MEDS: TROSPIUM 20 MG (SANCTURA) TAB PO SCH ×2 (06:17→17:01)
[2017-11-19] MEDS: metFORMIN 500 MG (GLUCOPHAGE) TAB PO SCH ×2 (06:17→17:01)
[2017-11-19] MEDS: VITAMIN D3 1,000 UNITS (CHOLECALCIFEROL) TABLET PO SCH (06:17)
[2017-11-19] MEDS: VITAMIN E 400 INTLU CAP PO SCH (06:17)
[2017-11-19] MEDS: CYANOCOBALAMIN 500 MCG TAB (VITAMIN B-12) PO SCH (06:17)
[2017-11-19] MEDS: PANTOPRAZOLE 40 MG (PROTONIX) TAB PO SCH (06:17)
[2017-11-19] MEDS: HYDROcodone/APAP 10 MG/325 MG (LORTAB) TAB PO PRN ×2 (06:18→21:31)
--- NOTE | 2017-11-19 07:52 | Cardiology Progress Note ---
Subjective Date Seen by Provider: Nov 19, 2017 Time Seen by Provider: 07:49 Subjective/Events-last exam Patient is in bed, feeling better today, less pain and less dizziness Review of Systems General: No Chills, No Night Sweats, No Fatigue, No Malaise, No Appetite, No Other HEENT: No Head Aches, No Visual Changes, No Eye Pain, No Ear Pain, No Dysphasia , No Sinus Congestion, No Post Nasal Drip, No Sore Throat, No Other Pulmonary: No Dyspnea, No Cough, No Pleuritic Chest Pain, No Other Cardiovascular: No: Chest Pain, Palpitations, Orthopnea, Paroxysmal Noc. Dyspnea, Edema, Lt Headedness, Other Objective-Cardiology Exam Last Set of Vital Signs Vital Signs 11/19/17 05:38 Temp 97.0 Pulse 79 Resp 19 B/P (MAP) 103/60 (74) Pulse Ox 95 O2 Delivery Room Air Capillary Refill : Less Than 3 Seconds I&O Intake and Output 11/19/17 00:00 Intake Total 1405 ml Output Total 1250 ml Balance 155 ml Intake Oral 1405 ml Output Urine Total 1250 ml # Bowel Movements 2 General: Alert, Oriented X3, Cooperative HEENT: Atraumatic, PERRLA Neck: Supple, No JVD Lungs: Clear to Auscultation, Normal Air Movement Heart: Regular Rate, Normal S1, Normal S2 Abdomen: Normal Bowel Sounds, Soft Extremities: No Clubbing, No Edema Skin: No Rashes Neuro: Other (able to move her legs) A/P-Cardiology Admission Diagnosis Paralysis Paroxysmal atrial fibrillation Hypertension Hyperlipidemia Assessment/Plan Status post back surgery done on October 14, 2017, had hematoma, multiple surgical evacuation, improving, still having pain and discomfort, diminished proprioception, incontinent to urine and stool Dizziness and nausea with vomiting, mainly positional, history of Mnire disease, seen by Dr. Lewis, reporting improvement today. Paroxysmal atrial fibrillation, had an episode of atrial fibrillation with rapid ventricular response on October 17, 2017, converted to sinus rhythm. Continue to monitor [id number] score is 5, yearly risk of stroke without oral anticoagulation is 6.7 percent, currently off oral anticoagulation due to hematoma. Hypertension, having episodes of borderline hypotension. Continue to hold hydrochlorothiazide and monitor her tolerance and response Hyperlipidemia, monitor lipids Diabetes mellitus, monitor and managed by primary care physician Obesity, BMI is 28 Fibromyalgia, multiple complain about joint and back pain in the past, managed by primary care physician. Clinical Quality Measures DVT/VTE Risk/Contraindication: Risk Factor Score Per Nursin RFS Level Per Nursing on Admit: 4+=Very High GEORGE CULLEN MD Nov 19, 2017 07:52
[2017-11-19] MEDS: GABAPENTIN 100 MG (NEURONTIN) CAP PO SCH ×2 (08:11→21:31)
[2017-11-19] MEDS: MAGNESIUM OXIDE (MAG-OX)400 MG TAB PO SCH ×2 (08:11→17:01)
[2017-11-19] MEDS: FAMOTIDINE 20 MG (PEPCID) TABLET PO SCH (08:12)
[2017-11-19] MEDS: LORATADINE (CLARITIN) 10 MG TAB PO SCH (08:12)
[2017-11-19] MEDS: DOCUSATE SODIUM 100 MG (COLACE) CAP PO SCH ×2 (08:12→21:31)
[2017-11-19] MEDS: MECLIZINE 25 MG (ANTIVERT) TAB PO PRN ×2 (08:12→21:31)
[2017-11-19] MEDS: meTOprolol TARTRATE 25 MG (LOPRESSOR) TABLET PO SCH ×2 (08:15→21:31)
[2017-11-19] MEDS: lisINopril 20 MG (PRINIVIL) TABLET PO SCH (08:15)
[2017-11-19] MEDS: SCOPOLAMINE 1.5 MG (TRANSDERM-SCOP) PATCH TOP SCH (08:16)
[2017-11-19] MEDS: SCOPOLAMINE PATCH REMOVAL TP SCH (08:16)
[2017-11-19] MEDS: SENNA W/DOCUSATE (SENOKOT S) TABLET PO SCH ×2 (08:17→21:42)
[2017-11-19] MEDS: MENTHOL/ZINC OXIDE (CALMOSEPTINE) 113 GM TUBE TOP SCH ×2 (08:17→21:42)
[2017-11-19] MEDS: inSUlin DETERMIR 1 UNIT/0.01 ML (LEVEMIR) CHARGE PER UNIT SQ SCH (08:18)
[2017-11-19 08:19] VITALS: BP 128/62
[2017-11-19] MEDS: LIDOCAINE (LIDODERM) 5% PATCH TOP SCH (08:24)
[2017-11-19] MEDS: ONDANSETRON 4 MG (ZOFRAN) ORAL DISSOLVE TAB PO PRN (10:04)
--- NOTE | 2017-11-19 10:08 | Physical Therapy Daily Note ---
PT Daily Note-Current Subjective Pt laying in bed, resting, upon arrival. Pt states she already had breakfast. Pt agrees to PT/OT co-treatment. Pain Numeric Pain Scale: 0-No Pain Location: No Pain Reported Mental Status Patient Orientation: Person, Place, Time, Situation Attachments: Alvarenga Catheter, Other-See Comments (Lumbar Back Brace) Transfers Functional [place] Measure 0=Not Assessed/NA 4=Minimal Assistance 1=Total Assistance 5=Supervision or Setup 2=Maximal Assistance 6=Modified [place] 3=Moderate Assistance 7=Complete IndependenceIRFPAI Quality Coding Scale 6 Independent with activity with or without an assistive device 5 Patient requires set up or clean up by helper. Patient completes activity by themselves 4 Supervision or touching assist (CGA). [place] provide cues , steadying assist 3 The helper provides less than half the effort to complete the activity 2 The helper provides more than half the effort to complete the activity 1 Dependent. The helper does all the effort to complete an activity 7 Patient refused to complete or attempt activity 9 The patient did not perform the activity before the current illness or injury 88 Not attempted due to Medical conditions or safety concerns Scootin Supine to/from Sit: 3 Sit to/from Stand: 2 Sit to Lying (QC): 3 Sit to Stand (QC): 2 Chair/Wjp-jd-Uasao Xfer(QC): 2 Bed to/from Chair: 2 Weight Bearing Right Lower Extremity: Right Weight Bearing/Tolerated Left Lower Extremity: Left Weight Bearing/Tolerated Gait Training Does the Patient Walk?: No and Walking Goal NOT indicated Wheelchair Training Does the Pt Use a Wheelchair?: Yes Wheelchair Distance: [phone] ft Distance: 75' Wheelchair Level of Assist: 5 Wheel 50 ft with 2 turns (QC): 5 Type of Wheelchair: Manual Treatments PT & OT assist pt with donning brief and washing as well as [facility] gown. Pt SPT to [facility] with assist from PT & OT. Pt propels self to Therapy Gym where she completes 3 sets of 10 Leg Presses with assistance with maintaining legs on mat and BONSAI TENDER gave resistance to extension as well as pushed to flexed knee position. Pt completes LAQ & AP in [facility] before completing 3 sit to stands in //bars, standing 40", 30" & 20" with rest in between each. Pt returns to room to rest in recliner via SPT at Max x2 . Pt resting and has all needs met including call light. Assessment Current Status: Fair Progress Pt continues to struggle with lack of motivation, c/o dizziness & nausea. Pt vomits after transfer to recliner, nurse notified. PT Short Term Goals Short Term Goals Time Frame: Nov 13, 2017 Transfers (B,C,W/C) (FIM): 3 Wheelchair (FIM): 2 Wheelchair Distance: 80' x 3 Wheelchair Level of Assist: 4 PT Skilled Nursing Goals Kennel Technician Goals PT Kennel Technician Goals Time Frame: Nov 27, 2017 Transfers (B,C,W/C) (FIM): 4 Sit to Lying (QC): 3 Lying-Sitting on Side/Bed(QC): 3 Sit to Stand (QC): 3 Rollin Roll Left to Right (QC): 3 Chair/Pnw-ys-Cgxcj Xfer(QC): 3 Car Transfer (QC): 3 Wheelchair (FIM): 5 Distance: 150' Wheelchair Level of Assist: 5 Wheel 50 feet with 2 turns (QC: 4 PT Plan Problem List Problem List: Activity Tolerance, Functional Strength, Safety, Balance, Transfer, Bed Mobility Treatment/Plan Treatment Plan: Continue Plan of Care Treatment Plan: Bed Mobility, Concurrent Therapy, Education, Functional Activity Dyana, Functional Strength, Group Therapy, Gait, Safety, Therapeutic Exercise, Transfers Treatment Duration: Nov 27, 2017 Frequency: At least 5 of 7 days/Wk (IRF) Estimated Hrs Per Day: 1.5 hours per day Patient and/or Family Agrees t: Yes Safety Risks/Education Patient Education: Transfer Techniques, Correct Positioning, W/C Management, Safety Issues Teaching Recipient: Patient Teaching Methods: Discussion Response to Teaching: Verbalize Understanding Time/GCodes Time In: 900 Time Out: 1000 Total Billed Treatment Time: 60 Total Billed Treatment 1, FA x2 (30m), WCH (15m) & EX (15m) Co-treat with OT for 60m OT focused on UE strengthening & ADLs while PT focused on LE strengthening, bed mobility & transfers G Codes Necessary: EVON Low BONSAI TENDER Nov 19, 2017 10:08
--- NOTE | 2017-11-19 10:30 | Occupational Ther Daily Note ---
OT Current Status-Daily Note Subjective Pt alert, lying in bed. Pt agreed to therapy. No c/o pain while supine. Pt c/ o dizziness when sitting on EOB. Mental Status/Objective Patient Orientation: Person, Place, Time, Situation Functional [place] Measure 0=Not Assessed/NA 4=Minimal Assistance 1=Total Assistance 5=Supervision or Setup 2=Maximal Assistance 6=Modified [place] 3=Moderate Assistance 7=Complete [place] Attachments: Alvarenga Catheter ADL-Treatment OT/PT co-treated due to pt's inactivity ability and nausea issues. Mod A for supine to sitting EOB. After set up, completed upper body sponge bath, donned/ doffed upper body clothing by self. Max A for lower body bathing and dressing. Pt able to cleanse jenny area in supine then max A to cleanse buttocks and don briefs as pt assists rolling side to side. Max A x2 to transfer from bed to w/ c. PT worked on transfers, standing and LE exercises. OT worked on ADLs and UE exercises. See PT note for standing progress. Assist x2 to transfer from w/ c to recliner. Pt then became nauseated and vomited. Pt was set up for oral care then completed. Nrsg came in and gave pt medication for nausea. After therapy, pt sitting in recliner with call light/phone in reach. All needs met in room. Functional [place] Measure 0=Not Assessed/NA 4=Minimal Assistance 1=Total Assistance 5=Supervision or Setup 2=Maximal Assistance 6=Modified [place] 3=Moderate Assistance 7=Complete IndependenceIRFPAI Quality Coding Scale 6 Independent with activity with or without an assistive device 5 Patient requires set up or clean up by helper. Patient completes activity by themselves 4 Supervision or touching assist (CGA). [place] provide cues , steadying assist 3 The helper provides less than half the effort to complete the activity 2 The helper provides more than half the effort to complete the activity 1 Dependent. The helper does all the effort to complete an activity 7 Patient refused to complete or attempt activity 9 The patient did not perform the activity before the current illness or injury 88 Not attempted due to Medical conditions or safety concerns Grooming (FIM): 5 Oral Hygiene (QC): 5 Bathing (FIM): 2 Shower/Bathe Self (QC): 2 Upper Body (FIM): 4 Upper Body Dressing (QC): 4 Lower Body Dressing (FIM): 1 Lower Body Dressing (QC): 1 On/Off Footwear (QC): 1 OT Short Term Goals Short Term Goals Time Frame: Nov 15, 2017 Bathing(FIM): 4 Upper Body Dressing(FIM): 4 Lower Body Dressing(FIM): 3 Transfers (B,C,W/C) (FIM): 3 Toilet/Commode Transfer(FIM): 3 1=Demonstrate adherence to instructed precautions during ADL tasks. 2=Patient will verbalize/demonstrate understanding of assistive devices/ modifications for ADL. 3=Patient will improve strength/tolerance for activity to enable patient to perform ADL's. OT Residential Goals Lead Software Developer Goals Time Frame: Nov 29, 2017 Eating (FIM): 6 Eating (QC): 6 Groomin Oral Hygiene (QC): 6 Bathing(FIM): 5 Shower/Bathe Self (QC): 5 Upper Body Dressing(FIM): 6 Upper Body Dressing (QC): 6 Lower Body Dressing(FIM): 5 Lower Body Dressing (QC): 5 On/Off Footwear (QC): 5 Toileting(FIM): 5 Toileting Hygiene (QC): 5 Toilet/Commode Transfer(FIM): 5 Toilet/Commode Transfer (QC): 5 Shower Transfer(FIM): 5 Additional Goals: 1-Demonstrate ADL Tasks, 2-Verbalize Understanding, 3- ImproveStrength/Dyana 1=Demonstrate adherence to instructed precautions during ADL tasks. 2=Patient will verbalize/demonstrate understanding of assistive devices/ modifications for ADL. 3=Patient will improve strength/tolerance for activity to enable patient to perform ADL's. OT Education/Plan Problem List/Assessment Pt would benefit from skilled OT to increase her independence with basic self care to allow her to safely return to her home Discharge Recommendations Plan/Recommendations: Continue POC Treatment Plan/Plan of Care Patient would benefit from OT for education, treatment and training to promote independence in ADL's, mobility, safety and/or upper extremity function for ADL' s. Plan of Care: ADL Retraining, Group Exercise/Act as Ind (education, exercise, funct activities, activity tolerance, mobility), Orthotic Fitting/Training, UE Neuromus Re-Ed/Coord Treatment Duration: Nov 29, 2017 Frequency: At least 5 of 7 days/Wk (IRF) Estimated Hrs Per Day: 1.5 hours per day Agreement: Yes Rehab Potential: Guarded Time/GCodes Start Time: 09:00 Stop Time: 10:30 Total Time Billed (hr/min): 90 Billed Treatment Time 1 visit-ADL 2 (30 min) FA 4 (60 min), Co-treat for 60 min-individual 30 min LINDSEY DAMIAN Nov 19, 2017 10:30
--- NOTE | 2017-11-19 14:13 | Physical Therapy Daily Note ---
PT Daily Note-Current Subjective Pt sitting in recliner upon arrival. Pt requesting to return to bed. Pt agrees to PT. Pain Location: No Pain Reported Mental Status Patient Orientation: Person, Place, Time, Situation Attachments: Alvarenga Catheter, Other-See Comments (Lumbar Back Brace) Transfers Functional [place] Measure 0=Not Assessed/NA 4=Minimal Assistance 1=Total Assistance 5=Supervision or Setup 2=Maximal Assistance 6=Modified [place] 3=Moderate Assistance 7=Complete IndependenceIRFPAI Quality Coding Scale 6 Independent with activity with or without an assistive device 5 Patient requires set up or clean up by helper. Patient completes activity by themselves 4 Supervision or touching assist (CGA). [place] provide cues , steadying assist 3 The helper provides less than half the effort to complete the activity 2 The helper provides more than half the effort to complete the activity 1 Dependent. The helper does all the effort to complete an activity 7 Patient refused to complete or attempt activity 9 The patient did not perform the activity before the current illness or injury 88 Not attempted due to Medical conditions or safety concerns Scootin Sit to/from Stand: 2 Sit to Lying (QC): 2 Sit to Stand (QC): 2 Chair/Snm-sd-Mwvdn Xfer(QC): 1 Weight Bearing Right Lower Extremity: Right Weight Bearing/Tolerated Left Lower Extremity: Left Weight Bearing/Tolerated Gait Training Does the Patient Walk?: No and Walking Goal NOT indicated Wheelchair Training Does the Pt Use a Wheelchair?: No Treatments Pt transfers from recliner to EOB, via SPT w/ Max A x2. Pt went from EOB to supine, w/ Max A x2. Pt aided PT in scooting up in the bed, by pulling w/ UE, using bed rails. Pt repositioned to comfort and pt reports fatigue and wanting to rest. All needs met, including call light in hand and tray by bed, at end of tx. Assessment Current Status: Fair Progress Pt lacks motivation, c/o fatigue. PT Short Term Goals Short Term Goals Time Frame: Nov 13, 2017 Transfers (B,C,W/C) (FIM): 3 Wheelchair (FIM): 2 Wheelchair Distance: 75' Wheelchair Level of Assist: 4 PT Senior Living Goals Senior Living Goals PT Photograph Developer Goals Time Frame: Nov 27, 2017 Transfers (B,C,W/C) (FIM): 4 Sit to Lying (QC): 3 Lying-Sitting on Side/Bed(QC): 3 Sit to Stand (QC): 3 Rollin Roll Left to Right (QC): 3 Chair/Dsk-im-Crwiz Xfer(QC): 3 Car Transfer (QC): 3 Wheelchair (FIM): 5 Distance: 150' Wheelchair Level of Assist: 5 Wheel 50 feet with 2 turns (QC: 4 PT Plan Problem List Problem List: Activity Tolerance, Functional Strength, Safety, Balance, Transfer Treatment/Plan Treatment Plan: Continue Plan of Care Treatment Plan: Bed Mobility, Concurrent Therapy, Education, Functional Activity Dyana, Functional Strength, Group Therapy, Gait, Safety, Therapeutic Exercise, Transfers Treatment Duration: Nov 27, 2017 Frequency: At least 5 of 7 days/Wk (IRF) Estimated Hrs Per Day: 1.5 hours per day Patient and/or Family Agrees t: Yes Safety Risks/Education Patient Education: Transfer Techniques, Safety Issues Teaching Recipient: Patient Teaching Methods: Discussion Response to Teaching: Reinforcement Needed Time/GCodes Time In: 1330 Time Out: 1400 Total Billed Treatment Time: 30 Total Billed Treatment 1, FA x2 (30m) G Codes Necessary: EVON Low MANUFACTURING SOFTWARE ENGINEER Nov 19, 2017 14:13
--- NOTE | 2017-11-19 14:20 | Progress Note-Hospitalist ---
Subjective HPI/CC On Admission Date Seen by Provider: Nov 19, 2017 Time Seen by Provider: 14:15 Subjective/Events-last exam Called to bedside over concerns about a "rash" on her right upper arm. She states that someone took her blood pressure and then she developed this rash where the cuff was. She feels it's getting better. It hurts to touch but otherwise does not bother her. No history of shingles. Objective Exam Vital Signs Vital Signs Date Time Temp Pulse Resp B/P (MAP) Pulse Ox O2 Delivery O2 Flow Rate FiO2 11/13/17 05:46 96.9 67 18 124/66 (85) 95 Room Air Capillary Refill : Less Than 3 Seconds General Appearance: No Apparent Distress, WD/WN Respiratory: Lungs Clear, No Respiratory Distress Cardiovascular: Regular Rate, Rhythm, No Murmur Gastrointestinal: Normal Bowel Sounds, Non Tender, Soft Neurologic/Psychiatric: Alert, Oriented x3 Skin: Other (abrasion on interior aspect of right upper arm with excoriations) Results/Procedures Lab Patient resulted labs reviewed. 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 PAF off anticoagulation due to risks outweighing benefits due to #1 DM HTN OA HLP Continued nausea and vomiting Severe lower leg and feet neuropathy Chronic dizziness Excoriation on right upper arm Plan: Excoriations on arm- avoid BP monitoring as able on that arm Scopolamine patch Zofran prn Dr Ryan consultation is appreciated Cardiology consulted, recs appreciated Monitor closely Monitor for elevated sugars, well controlled currently Gabapentin increased dose Consult Dr Schmitt is appreciated Dr Lewis consultation for dizzniess, recs appreciated Clinical Quality Measures DVT/VTE Risk/Contraindication: Risk Factor Score Per Nursin RFS Level Per Nursing on Admit: 4+=Very High NINA BANEGAS MD Nov 19, 2017 2:20 pm
[2017-11-19 16:59] VITALS: BP 115/57
[2017-11-19] MEDS: ATORVASTATIN 40 MG (LIPITOR) TABLET PO SCH (21:31)
[2017-11-19] MEDS: LIDOCAINE PATCH REMOVAL TP SCH (21:42)
[2017-11-20] MEDS: HYDROcodone/APAP 10 MG/325 MG (LORTAB) TAB PO PRN ×2 (02:06→20:51)
[2017-11-20 05:14] VITALS: BP 111/64
[2017-11-20] MEDS: inSUlin (REGULAR) HUMAN 1 UNIT/0.01 ML (CHARGE PER UNIT) SC SCH ×4 (05:48→20:54)
[2017-11-20] MEDS: VITAMIN E 400 INTLU CAP PO SCH (06:30)
[2017-11-20] MEDS: PANTOPRAZOLE 40 MG (PROTONIX) TAB PO SCH (06:30)
[2017-11-20] MEDS: metFORMIN 500 MG (GLUCOPHAGE) TAB PO SCH ×2 (06:30→16:56)
[2017-11-20] MEDS: CYANOCOBALAMIN 500 MCG TAB (VITAMIN B-12) PO SCH (06:30)
[2017-11-20] MEDS: MECLIZINE 25 MG (ANTIVERT) TAB PO PRN ×2 (06:30→20:51)
[2017-11-20] MEDS: VITAMIN D3 1,000 UNITS (CHOLECALCIFEROL) TABLET PO SCH (06:30)
[2017-11-20] MEDS: TROSPIUM 20 MG (SANCTURA) TAB PO SCH ×2 (06:30→16:56)
[2017-11-20] MEDS: GABAPENTIN 100 MG (NEURONTIN) CAP PO SCH ×2 (08:21→20:51)
[2017-11-20] MEDS: LORATADINE (CLARITIN) 10 MG TAB PO SCH (08:21)
[2017-11-20] MEDS: inSUlin DETERMIR 1 UNIT/0.01 ML (LEVEMIR) CHARGE PER UNIT SQ SCH (08:21)
[2017-11-20] MEDS: SENNA W/DOCUSATE (SENOKOT S) TABLET PO SCH ×2 (08:21→20:54)
[2017-11-20] MEDS: FAMOTIDINE 20 MG (PEPCID) TABLET PO SCH (08:21)
[2017-11-20] MEDS: meTOprolol TARTRATE 25 MG (LOPRESSOR) TABLET PO SCH ×2 (08:21→20:52)
[2017-11-20] MEDS: DOCUSATE SODIUM 100 MG (COLACE) CAP PO SCH ×2 (08:21→20:54)
[2017-11-20] MEDS: LIDOCAINE (LIDODERM) 5% PATCH TOP SCH (08:21)
[2017-11-20] MEDS: lisINopril 20 MG (PRINIVIL) TABLET PO SCH (08:21)
[2017-11-20] MEDS: MAGNESIUM OXIDE (MAG-OX)400 MG TAB PO SCH ×2 (08:21→16:56)
[2017-11-20] MEDS: MENTHOL/ZINC OXIDE (CALMOSEPTINE) 113 GM TUBE TOP SCH ×2 (08:22→20:54)
--- NOTE | 2017-11-20 08:48 | Cardiology Progress Note ---
Subjective Date Seen by Provider: Nov 20, 2017 Time Seen by Provider: 08:44 Subjective/Events-last exam Patient is in bed, no new complaints. Denies any chest pain or palpitations. Continues to complain of intermittent dizziness. Review of Systems General: No Night Sweats, No Fatigue, No Malaise; Other (dizziness) HEENT: No Visual Changes, No Dysphasia, No Sore Throat Pulmonary: No Dyspnea, No Cough Cardiovascular: No: Chest Pain, Palpitations, Paroxysmal Noc. Dyspnea Gastrointestinal: Nausea Genitourinary: No Dysuria, No Frequency Musculoskeletal: No: neck pain, back pain Neurological: No: Weakness, Numbness, Change in speech, Confusion Objective-Cardiology Exam Last Set of Vital Signs Vital Signs 11/20/17 05:14 Temp 97.1 Pulse 77 Resp 18 B/P (MAP) 111/64 (80) Pulse Ox 92 O2 Delivery Room Air Capillary Refill : Less Than 3 Seconds I&O Intake and Output 11/20/17 00:00 Intake Total 1037 ml Output Total 1250 ml Balance -213 ml Intake Oral 1037 ml Output Urine Total 1250 ml General: Alert, Oriented X3, Cooperative HEENT: Atraumatic, PERRLA Neck: Supple, No JVD Lungs: Clear to Auscultation, Normal Air Movement Heart: Regular Rate, Normal S1, Normal S2 Abdomen: Normal Bowel Sounds, Soft Extremities: No Clubbing, No Edema Skin: No Rashes Neuro: Other (able to move her legs) A/P-Cardiology Admission Diagnosis Paralysis Paroxysmal atrial fibrillation Hypertension Hyperlipidemia Assessment/Plan Status post back surgery done on October 14, 2017, had hematoma, multiple surgical evacuation, improving, still having pain and discomfort, diminished proprioception, incontinent to urine and stool Dizziness and nausea with vomiting, mainly positional, history of [place] disease, seen by Dr. Lewis, reporting improvement today. Paroxysmal atrial fibrillation, had an episode of atrial fibrillation with rapid ventricular response on October 17, 2017, converted to sinus rhythm. Continue to monitor [id number] score is 5, yearly risk of stroke without oral anticoagulation is 6.7 percent, currently off oral anticoagulation due to hematoma. Hypertension, having episodes of borderline hypotension. Continue to hold hydrochlorothiazide and monitor her tolerance and response Hyperlipidemia, monitor lipids Diabetes mellitus, monitor and managed by primary care physician Obesity, BMI is 28 Fibromyalgia, multiple complain about joint and back pain in the past, managed by primary care physician. Clinical Quality Measures DVT/VTE Risk/Contraindication: Risk Factor Score Per Nursin RFS Level Per Nursing on Admit: 4+=Very High RAGHU JAY Nov 20, 2017 08:48
--- NOTE | 2017-11-20 10:24 | Occupational Ther Daily Note ---
OT Current Status-Daily Note Subjective Pt alert, lying in bed. Family and social work administrator in room. Pt agreed to therapy. Mental Status/Objective Patient Orientation: Person, Place, Time, Situation Functional [place] Measure 0=Not Assessed/NA 4=Minimal Assistance 1=Total Assistance 5=Supervision or Setup 2=Maximal Assistance 6=Modified [place] 3=Moderate Assistance 7=Complete [place] ADL-Treatment OT/PT co-treated due to pt's inactivity ability and nausea issues. PT worked on transfers, bed mobility and standing. OT worked on ADLs and UE strengthening. PT assisted pt out of bed and transferred pt to shower chair. Pt was transported to large shower room. Pt was able to bathe all areas using shower chair with cutout, hand held shower, long handle sponge and grabbars to complete all areas except buttocks. Pt required set up to squeeze soap and turn on water. Pt was fatigued after shower and asked if she could go back to bed. Pt encouraged to work with PT for standing. Pt did assist with [facility] gown. Dependent for donning/doffing lower body clothing, assist to don over feet and assist x2 to stand while hiking pants over feet. See PT notes for standing progress. Pt using UE's to pull to stand then wt bearing with arm to stay in standing. Pt became nauseous during standing. Pt then was transferred to recliner. After therapy, pt sitting in recliner with emesis basin and family present. Call light/phone in reach. All needs met in room. Functional [place] Measure 0=Not Assessed/NA 4=Minimal Assistance 1=Total Assistance 5=Supervision or Setup 2=Maximal Assistance 6=Modified [place] 3=Moderate Assistance 7=Complete IndependenceIRFPAI Quality Coding Scale 6 Independent with activity with or without an assistive device 5 Patient requires set up or clean up by helper. Patient completes activity by themselves 4 Supervision or touching assist (CGA). [place] provide cues , steadying assist 3 The helper provides less than half the effort to complete the activity 2 The helper provides more than half the effort to complete the activity 1 Dependent. The helper does all the effort to complete an activity 7 Patient refused to complete or attempt activity 9 The patient did not perform the activity before the current illness or injury 88 Not attempted due to Medical conditions or safety concerns Eating (FIM): 6 Eating (QC): 6 Grooming (FIM): 5 Oral Hygiene (QC): 5 Bathing (FIM): 3 Shower/Bathe Self (QC): 2 Upper Body (FIM): 4 Upper Body Dressing (QC): 3 Lower Body Dressing (FIM): 1 Lower Body Dressing (QC): 1 On/Off Footwear (QC): 1 Toileting (FIM): 1 Toileting Hygiene (QC): 1 Transfers (B, C, W/C) (FIM): 1 Toilet/Commode Transfer (FIM): 1 Toilet Transfer (QC): 1 Shower Transfer(FIM): 1 OT Short Term Goals Short Term Goals Time Frame: Nov 15, 2017 Bathing(FIM): 4 Upper Body Dressing(FIM): 4 Lower Body Dressing(FIM): 3 Transfers (B,C,W/C) (FIM): 3 Toilet/Commode Transfer(FIM): 3 1=Demonstrate adherence to instructed precautions during ADL tasks. 2=Patient will verbalize/demonstrate understanding of assistive devices/ modifications for ADL. 3=Patient will improve strength/tolerance for activity to enable patient to perform ADL's. OT Regional Clinical Director Goals Regional Clinical Director Goals Time Frame: Nov 29, 2017 Eating (FIM): 6 Eating (QC): 6 Groomin Oral Hygiene (QC): 6 Bathing(FIM): 5 Shower/Bathe Self (QC): 5 Upper Body Dressing(FIM): 6 Upper Body Dressing (QC): 6 Lower Body Dressing(FIM): 5 Lower Body Dressing (QC): 5 On/Off Footwear (QC): 5 Toileting(FIM): 5 Toileting Hygiene (QC): 5 Toilet/Commode Transfer(FIM): 5 Toilet/Commode Transfer (QC): 5 Shower Transfer(FIM): 5 Additional Goals: 1-Demonstrate ADL Tasks, 2-Verbalize Understanding, 3- ImproveStrength/Dyana 1=Demonstrate adherence to instructed precautions during ADL tasks. 2=Patient will verbalize/demonstrate understanding of assistive devices/ modifications for ADL. 3=Patient will improve strength/tolerance for activity to enable patient to perform ADL's. OT Education/Plan Problem List/Assessment Pt would benefit from skilled OT to increase her independence with basic self care to allow her to safely return to her home Discharge Recommendations Plan/Recommendations: Continue POC Treatment Plan/Plan of Care Patient would benefit from OT for education, treatment and training to promote independence in ADL's, mobility, safety and/or upper extremity function for ADL' s. Plan of Care: ADL Retraining, Group Exercise/Act as Ind (education, exercise, funct activities, activity tolerance, mobility), Orthotic Fitting/Training, UE Neuromus Re-Ed/Coord Treatment Duration: Nov 29, 2017 Frequency: At least 5 of 7 days/Wk (IRF) Estimated Hrs Per Day: 1.5 hours per day Agreement: Yes Rehab Potential: Guarded Time/GCodes Start Time: 09:00 Stop Time: 10:00 Total Time Billed (hr/min): 60 Billed Treatment Time 1 visit-ADL 2 (30 min) FA 2 (30 min) co-treat 60 min LINDSEY DAMIAN Nov 20, 2017 10:24
--- NOTE | 2017-11-20 10:57 | Physical Therapy Daily Note ---
PT Daily Note-Current Subjective Patient in bed pre tx, agrees to PT, no complaints of pain at rest. Will be co- treating with OT for 60 min. Patient is discharging from this facility tomorrow and needs to be [facility]'ed. Appearance Patient in recliner post tx with nurse call, phone, tray, all needs met. Family in the room, legs elevated. Mental Status Patient Orientation: Person, Place, Situation back brace Transfers Functional [place] Measure 0=Not Assessed/NA 4=Minimal Assistance 1=Total Assistance 5=Supervision or Setup 2=Maximal Assistance 6=Modified [place] 3=Moderate Assistance 7=Complete IndependenceIRFPAI Quality Coding Scale 6 Independent with activity with or without an assistive device 5 Patient requires set up or clean up by helper. Patient completes activity by themselves 4 Supervision or touching assist (CGA). [place] provide cues , steadying assist 3 The helper provides less than half the effort to complete the activity 2 The helper provides more than half the effort to complete the activity 1 Dependent. The helper does all the effort to complete an activity 7 Patient refused to complete or attempt activity 9 The patient did not perform the activity before the current illness or injury 88 Not attempted due to Medical conditions or safety concerns Transfers (B, C, W/C) (FIM): 1 Scootin Rollin Roll Left to Right (QC): 2 Supine to/from Sit: 3 Sit to/from Stand: 1 Sit to Lying (QC): 3 Sit to Stand (QC): 1 Chair/Hck-ts-Bpohs Xfer(QC): 1 Bed to/from Chair: 1 Car Transfer (QC): 1 Patient is dependent for car transfers and sit to stand and stand pivot transfers. She performs bed mobility with mod assist, needs help with both legs getting into and out of bed. Weight Bearing Right Lower Extremity: Right Weight Bearing/Tolerated Left Lower Extremity: Left Weight Bearing/Tolerated Gait Training Does the Patient Walk?: No and Walking Goal NOT indicated Gait (FIM): 0 Wheelchair Training Does the Pt Use a Wheelchair?: Yes Wheelchair (FIM): 5 Distance: 100' Wheelchair Level of Assist: 5 Wheel 50 ft with 2 turns (QC): 4 Wheel 150 ft (QC): 88 Type of Wheelchair: Manual household exception, patient can propel a manual wheelchair 100' with SBA, needs occasional rest breaks, but no assist. Exercises Patient stood in the parallel bars x4 with min/mod assist, however, she is using her legs little if any. She uses arm strength mostly to stand and the therapist pulls her forward and blocks her knees. Treatments Patient was transferred to the shower chair from her bed, undressed, and taken to the shower room, showered, taken back to her room, dressed, and transferred to wheelchair. She wheeled to therapy gym and stood in parallel bars and then was taken back to her room and placed in the recliner. PT worked on bed mobility, transfers, wheelchair mobility, trunk balance and positioning during shower, and standing in the parallel bars. OT worked on transfers, dressing, bathing, and UE positioning and assist during standing in parallel bars. Assessment Current Status: Poor Progress Patient still dependent for transfers. PT Short Term Goals Short Term Goals Time Frame: Nov 13, 2017 Transfers (B,C,W/C) (FIM): 3 Wheelchair (FIM): 2 Wheelchair Distance: 75' Wheelchair Level of Assist: 4 PT Retirement Goals Retirement Goals PT Environmental Emergencies Assistant Goals Time Frame: Nov 27, 2017 Transfers (B,C,W/C) (FIM): 4 Sit to Lying (QC): 3 Lying-Sitting on Side/Bed(QC): 3 Sit to Stand (QC): 3 Rollin Roll Left to Right (QC): 3 Chair/Qdb-xk-Antoe Xfer(QC): 3 Car Transfer (QC): 3 Wheelchair (FIM): 5 Distance: 150' Wheelchair Level of Assist: 5 Wheel 50 feet with 2 turns (QC: 4 PT Plan Problem List Problem List: Activity Tolerance, Functional Strength, Safety, Balance, Gait, Transfer, Bed Mobility, ROM Treatment/Plan Treatment Plan: Continue Plan of Care Treatment Plan: Bed Mobility, Concurrent Therapy, Education, Functional Activity Dyana, Functional Strength, Group Therapy, Gait, Safety, Therapeutic Exercise, Transfers Treatment Duration: Nov 27, 2017 Frequency: At least 5 of 7 days/Wk (IRF) Estimated Hrs Per Day: 1.5 hours per day Patient and/or Family Agrees t: Yes Safety Risks/Education Patient Education: Transfer Techniques, Correct Positioning, W/C Management, Reviewed Don/Doff Brace, Safety Issues Teaching Recipient: Patient Teaching Methods: Demonstration, Discussion Response to Teaching: Reinforcement Needed Time/GCodes Time In: 0900 Time Out: 1000 Total Billed Treatment Time: 60 Total Billed Treatment 1 visit [facility] 10' FA 50' LEXI CALERO PT Nov 20, 2017 10:57
--- NOTE | 2017-11-20 11:19 | Progress Note-Hospitalist ---
Subjective HPI/CC On Admission Date Seen by Provider: Nov 20, 2017 Time Seen by Provider: 11:15 Subjective/Events-last exam Patient doing well except depression appears to be a factor I talked to the patient about situational depression and she was on an antidepressant when she was hospitalized at many years ago Agrees for antidepressant therapy Celexa will be chosen because Cymbalta although that would help neuropathy pain and chronic pain that can cause nausea and dizziness Bowels are moving Alvarenga catheter remains Right upper arm rash is resolving but it was nonspecific in appearance and will monitor only Review of Systems Neurological: Other (depression) Objective Exam Vital Signs Vital Signs Date Time Temp Pulse Resp B/P (MAP) Pulse Ox O2 Delivery O2 Flow Rate FiO2 11/20/17 09:00 Room Air 11/20/17 05:14 97.1 77 18 111/64 (80) 92 Capillary Refill : Less Than 3 Seconds General Appearance: No Apparent Distress, WD/WN Respiratory: Lungs Clear, Normal Breath Sounds Cardiovascular: Regular Rate, Rhythm Neurologic/Psychiatric: Depressed Affect, Motor Weakness (lower legs) Results/Procedures Lab Patient resulted labs reviewed. 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 PAF off anticoagulation due to risks outweigh benefits currently DM HTN OA HLP Continued nausea and vomiting appears improved Severe lower leg and feet neuropathy Chronic dizziness Depression situational Plan: Scop patch Zofran Dr Ryan consultation is appreciated Cardiology is appreciated Monitor closely Monitor for elevated sugars Gabapentin increased dose Consult Dr Schmitt is appreciated Dr Lewis consultation is appreciated Celexa 20mg daily Diagnosis/Problems Diagnosis/Problems (1) Cauda equina syndrome Status: Acute (2) Episodic atrial fibrillation Status: Chronic (3) Urinary retention Status: Acute (4) Constipation Status: Acute Qualifiers: Constipation type: drug induced constipation Qualified Codes: K59.03 - Drug induced constipation (5) Acute depression Status: Acute (6) Adverse effect of anticoagulant Status: Acute Qualifiers: Encounter type: subsequent encounter Qualified Codes: T45.515D - Adverse effect of anticoagulants, subsequent encounter (7) Nausea & vomiting Status: Acute Qualifiers: Vomiting type: unspecified Vomiting Intractability: unspecified Qualified Codes: R11.2 - Nausea with vomiting, unspecified Clinical Quality Measures DVT/VTE Risk/Contraindication: Risk Factor Score Per Nursin RFS Level Per Nursing on Admit: 4+=Very High MOY LOGAN DO Nov 20, 2017 11:19
--- NOTE | 2017-11-20 13:36 | Occupational Ther Daily Note ---
OT Current Status-Daily Note Subjective Pt alert, finishing up lunch in recliner. Pt agreed to therapy. No c/o pain. Mental Status/Objective Patient Orientation: Person, Place, Time, Situation Functional [place] Measure 0=Not Assessed/NA 4=Minimal Assistance 1=Total Assistance 5=Supervision or Setup 2=Maximal Assistance 6=Modified [place] 3=Moderate Assistance 7=Complete [place] ADL-Treatment Functional [place] Measure 0=Not Assessed/NA 4=Minimal Assistance 1=Total Assistance 5=Supervision or Setup 2=Maximal Assistance 6=Modified [place] 3=Moderate Assistance 7=Complete IndependenceIRFPAI Quality Coding Scale 6 Independent with activity with or without an assistive device 5 Patient requires set up or clean up by helper. Patient completes activity by themselves 4 Supervision or touching assist (CGA). [place] provide cues , steadying assist 3 The helper provides less than half the effort to complete the activity 2 The helper provides more than half the effort to complete the activity 1 Dependent. The helper does all the effort to complete an activity 7 Patient refused to complete or attempt activity 9 The patient did not perform the activity before the current illness or injury 88 Not attempted due to Medical conditions or safety concerns Eating (FIM): 6 Eating (QC): 6 Grooming (FIM): 5 Oral Hygiene (QC): 5 Transfers (B, C, W/C) (FIM): 1 Other Treatment OT/PT co-treated due to pt's inactivity ability and nausea issues. PT worked on LE strengthening, bed mobility and transfers. OT worked on grooming and UE strengthening. Assistance x2 for stand pivot transfers. After set up, pt able to complete own grooming. Then worked on bridging for dressing in bed. After therapy, pt lying in bed with call light/phone in reach. All needs met in room. OT Short Term Goals Short Term Goals Time Frame: Nov 15, 2017 Bathing(FIM): 4 Upper Body Dressing(FIM): 4 Lower Body Dressing(FIM): 3 Transfers (B,C,W/C) (FIM): 3 Toilet/Commode Transfer(FIM): 3 1=Demonstrate adherence to instructed precautions during ADL tasks. 2=Patient will verbalize/demonstrate understanding of assistive devices/ modifications for ADL. 3=Patient will improve strength/tolerance for activity to enable patient to perform ADL's. OT French Folder Goals French Folder Goals Time Frame: Nov 29, 2017 Eating (FIM): 6 (met-11/20/2017) Eating (QC): 6 (met-11/20/2017) Groomin (not met) Oral Hygiene (QC): 6 (not met) Bathing(FIM): 5 (not met) Shower/Bathe Self (QC): 5 (not met) Upper Body Dressing(FIM): 6 (not met) Upper Body Dressing (QC): 6 (not met) Lower Body Dressing(FIM): 5 (no met) Lower Body Dressing (QC): 5 (not met) On/Off Footwear (QC): 5 (not met) Toileting(FIM): 5 (not met) Toileting Hygiene (QC): 5 (not met) Toilet/Commode Transfer(FIM): 5 (not met) Toilet/Commode Transfer (QC): 5 (not met) Shower Transfer(FIM): 5 (not met) Additional Goals: 1-Demonstrate ADL Tasks, 2-Verbalize Understanding, 3- ImproveStrength/Dyana 1=Demonstrate adherence to instructed precautions during ADL tasks. 2=Patient will verbalize/demonstrate understanding of assistive devices/ modifications for ADL. 3=Patient will improve strength/tolerance for activity to enable patient to perform ADL's. OT Education/Plan Problem List/Assessment Pt would benefit from skilled OT to increase her independence with basic self care to allow her to safely return to her home Discharge Recommendations Plan/Recommendations: Continue POC Treatment Plan/Plan of Care Patient would benefit from OT for education, treatment and training to promote independence in ADL's, mobility, safety and/or upper extremity function for ADL' s. Plan of Care: ADL Retraining, Group Exercise/Act as Ind (education, exercise, funct activities, activity tolerance, mobility), Orthotic Fitting/Training, UE Neuromus Re-Ed/Coord Treatment Duration: Nov 29, 2017 Frequency: At least 5 of 7 days/Wk (IRF) Estimated Hrs Per Day: 1.5 hours per day Agreement: Yes Rehab Potential: Guarded Time/GCodes Start Time: 13:00 Stop Time: 13:30 Total Time Billed (hr/min): 30 Billed Treatment Time 1 visit-FA 2 (30 min) co-treat 30 min LINDSEY DAMIAN Nov 20, 2017 13:36
--- NOTE | 2017-11-20 14:00 | Physical Therapy Daily Note ---
PT Daily Note-Current Subjective Patient in recliner pre tx, agrees to PT, no complaints of pain. Will be co- treating with OT for 30 min. Appearance Patient in bed post tx with nurse call, ,phone, tray, all needs met. Mental Status Patient Orientation: Person, Place, Situation Transfers Functional [place] Measure 0=Not Assessed/NA 4=Minimal Assistance 1=Total Assistance 5=Supervision or Setup 2=Maximal Assistance 6=Modified [place] 3=Moderate Assistance 7=Complete IndependenceIRFPAI Quality Coding Scale 6 Independent with activity with or without an assistive device 5 Patient requires set up or clean up by helper. Patient completes activity by themselves 4 Supervision or touching assist (CGA). [place] provide cues , steadying assist 3 The helper provides less than half the effort to complete the activity 2 The helper provides more than half the effort to complete the activity 1 Dependent. The helper does all the effort to complete an activity 7 Patient refused to complete or attempt activity 9 The patient did not perform the activity before the current illness or injury 88 Not attempted due to Medical conditions or safety concerns Transfers (B, C, W/C) (FIM): 1 Scootin Rollin Supine to/from Sit: 2 Sit to/from Stand: 1 Bed to/from Chair: 1 Patient dependent transfer from recliner to bed. Weight Bearing Right Lower Extremity: Right Weight Bearing/Tolerated Left Lower Extremity: Left Weight Bearing/Tolerated Exercises Supine Ex: Heel Slides, Straight leg raise, Hip abd/add Supine Reps: 15 PROM/stretching bilateral lower extremities (dorsiflexion, hip flexion, knee flexion) Treatments bed mobility, transfers, stretching, functional strengthening. PT worked on transfers, bed mobility, and LE ROM and strengthening while OT assisted with transfers and bed mobility and worked on ADL's while patient was in bed. Assessment Current Status: Poor Progress no change in mobility PT Short Term Goals Short Term Goals Time Frame: Nov 13, 2017 Transfers (B,C,W/C) (FIM): 3 Wheelchair (FIM): 2 Wheelchair Distance: 100' Wheelchair Level of Assist: 4 PT Nursing Home Goals Cold Press Operator Goals PT Cold Press Operator Goals Time Frame: Nov 27, 2017 Transfers (B,C,W/C) (FIM): 4 Sit to Lying (QC): 3 Lying-Sitting on Side/Bed(QC): 3 Sit to Stand (QC): 3 Rollin Roll Left to Right (QC): 3 Chair/Rif-oc-Qegfp Xfer(QC): 3 Car Transfer (QC): 3 Wheelchair (FIM): 5 Distance: 150' Wheelchair Level of Assist: 5 Wheel 50 feet with 2 turns (QC: 4 PT Plan Problem List Problem List: Activity Tolerance, Functional Strength, Safety, Balance, Gait, Transfer, Bed Mobility, ROM Treatment/Plan Treatment Plan: Continue Plan of Care Treatment Plan: Bed Mobility, Concurrent Therapy, Education, Functional Activity Dyana, Functional Strength, Group Therapy, Gait, Safety, Therapeutic Exercise, Transfers Treatment Duration: Nov 27, 2017 Frequency: At least 5 of 7 days/Wk (IRF) Estimated Hrs Per Day: 1.5 hours per day Patient and/or Family Agrees t: Yes Safety Risks/Education Patient Education: Transfer Techniques, Correct Positioning, Safety Issues Teaching Recipient: Patient Teaching Methods: Demonstration, Discussion Response to Teaching: Reinforcement Needed Time/GCodes Time In: 1300 Time Out: 1330 Total Billed Treatment Time: 30 Total Billed Treatment 1 visit EX 20' FA 10' Co-treated with OT for the whole 30 min. LEXI CALERO PT Nov 20, 2017 14:00
--- NOTE | 2017-11-20 16:04 | Cardiology Progress Note ---
Subjective Date Seen by Provider: Nov 20, 2017 Time Seen by Provider: 08:00 Subjective/Events-last exam patient is laying down in bed, feeling better this morning. Review of Systems General: No Chills, No Night Sweats, No Fatigue, No Malaise, No Appetite, No Other HEENT: No Head Aches, No Visual Changes, No Eye Pain, No Ear Pain, No Dysphasia , No Sinus Congestion, No Post Nasal Drip, No Sore Throat, No Other Pulmonary: No Dyspnea, No Cough, No Pleuritic Chest Pain, No Other Cardiovascular: No: Chest Pain, Palpitations, Orthopnea, Paroxysmal Noc. Dyspnea, Edema, Lt Headedness, Other Objective-Cardiology Exam Last Set of Vital Signs Vital Signs 11/20/17 11/20/17 05:14 09:00 Temp 97.1 Pulse 77 Resp 18 B/P (MAP) 111/64 (80) Pulse Ox 92 O2 Delivery Room Air Capillary Refill : Less Than 3 Seconds I&O Intake and Output 11/20/17 00:00 Intake Total 1037 ml Output Total 1250 ml Balance -213 ml Intake Oral 1037 ml Output Urine Total 1250 ml General: Alert, Oriented X3, Cooperative HEENT: Atraumatic, PERRLA Neck: Supple, No JVD Lungs: Clear to Auscultation, Normal Air Movement Heart: Regular Rate, Normal S1, Normal S2 Abdomen: Normal Bowel Sounds, Soft Extremities: No Clubbing, No Edema Skin: No Rashes Neuro: Other (able to move her legs) A/P-Cardiology Admission Diagnosis Paralysis Paroxysmal atrial fibrillation Hypertension Hyperlipidemia Assessment/Plan Status post back surgery done on October 14, 2017, had hematoma, multiple surgical evacuation, improving, still having pain and discomfort, diminished proprioception, incontinent to urine and stool, receiving physical and occupational therapy. Continue to monitor Dizziness and nausea with vomiting, mainly positional, history of Mn[place] disease, seen by Dr. Lewis, reporting improvement today. Paroxysmal atrial fibrillation, had an episode of atrial fibrillation with rapid ventricular response on October 17, 2017, converted to sinus rhythm. Continue to monitor [id number] score is 5, yearly risk of stroke without oral anticoagulation is 6.7 percent, currently off oral anticoagulation due to hematoma. Hypertension, having episodes of borderline hypotension. Continue to hold hydrochlorothiazide and monitor her tolerance and response Hyperlipidemia, monitor lipids Diabetes mellitus, monitor and managed by primary care physician Obesity, BMI is 28 Fibromyalgia, multiple complain about joint and back pain in the past, managed by primary care physician. Clinical Quality Measures DVT/VTE Risk/Contraindication: Risk Factor Score Per Nursin RFS Level Per Nursing on Admit: 4+=Very High GEORGE CULLEN MD Nov 20, 2017 16:04
[2017-11-20 18:00] VITALS: BP 134/64
--- NOTE | 2017-11-20 19:41 | Consultation ---
History of Present Illness History of Present Illness Patient Consulted On(hoda/time) 11/20/17 19:38 Time Seen by Provider: 19:40 Reason for Visit: Atrial fibrillation History of Present Illness Patient here for rehabilitation. I'm covering for Dr. Pride. Patient be discharged tomorrow. Patient states she's not having much pain. Patient complained of headache at time Allergies and Home Medications Allergies Coded Allergies: Iodine and Iodide Containing Produc (Verified Allergy, Unknown, ANAPHYLAXIS, RASH, 11/09/14) Sulfa (Sulfonamide Antibiotics) (Unverified Allergy, Unknown, NAUSEA AND VOMITING, 11/09/14) adhesive (Unverified Allergy, Unknown, 11/09/14) codeine (Unverified Allergy, Unknown, N/V , 11/09/14) tramadol (Unverified Allergy, Unknown, NAUSEA AND VOMITING, 11/09/14) Uncoded Allergies: PERFUME (Allergy, Unknown, 11/09/14) Home Medications Atorvastatin Calcium 40 Mg Tablet, 40 MG PO HS, (Reported) LAST FILLED #90 05-21-17 Cetirizine HCl 10 Mg Tablet, 10 MG PO DAILY PRN for ALLERGIES, (Reported) Cholecalciferol (Vitamin D3) 1,000 Unit Capsule, 1,000 UNIT PO DAILY, (Reported) Colestipol HCl 1 Gm Tablet, 1 GM PO QID PRN for DIARRHEA, (Reported) Cyanocobalamin (Vitamin B-12) 1,000 Mcg Tablet, 1,000 MCG PO DAILY, (Reported) Famotidine 20 Mg Tablet, 20 MG PO DAILY, (Reported) Hydrochlorothiazide 50 Mg Tablet, 50 MG PO DAILY, (Reported) Hydrocodone/Acetaminophen 1 Each Tablet, 1 TAB PO Q4H PRN for PAIN-MODERATE, ( Reported) Insulin Glargine,Hum.rec.anlog 100 Unit/1 Ml Insuln.pen, 60-105 UNITS SC DAILY, (Reported) Liraglutide 0.6 Mg/0.1 Ml Pen.injctr, 1.8 MG SC HS, (Reported) Lisinopril 40 Mg Tablet, 40 MG PO DAILY, (Reported) Meclizine HCl 25 Mg Tablet, 25 MG PO TID PRN for DIZZINESS, (Reported) Metformin HCl 1,000 Mg Tablet, 1,000 MG PO BID WITH MEALS, (Reported) Solifenacin Succinate 5 Mg Tablet, 5 MG PO HS, (Reported) Ubidecarenone 200 Mg Capsule, 200 MG PO DAILY, (Reported) Vit C/Vit E/Lutein/Min/[place]-3 1 Each Capsule, 1 CAP PO DAILY, (Reported) Vitamin E Acetate 400 Unit Capsule, 400 UNIT PO DAILY, (Reported) Patient Home Medication List Home Medication List Reviewed: Yes Past Mbpftrh-Giyvfs-Aebkyh Hx Patient Social History Alcohol Use: Denies Use Recreational Drug Use: No Smoking Status: Never a Smoker Recent Foreign Travel: No Contact w/Someone Who Travel: No Recent Infectious Disease Expo: No Recent Hopitalizations: No Immunizations Up To Date Tetanus Booster (TDap): Less than 5yrs Date of Pneumonia Vaccine: May 05, 2014 Date of Influenza Vaccine: Jun 19, 2017 Seasonal Allergies Seasonal Allergies: No Past Medical History Surgeries: Yes (EXPLORATORY LAP, LEFT OOPHERECTOMY) Orthopedic (lumbar spine 10/14/17 Dr Mejia at [facility] then hematoma evacuation x 2) Respiratory: Yes (ALLERGIES) Currently Using CPAP: No Currently Using BIPAP: No Cardiac: Yes Atrial Fibrillation (AF w/RVR 10/21/17 post op lumbar spine surgery), High Cholesterol, Hypertension Neurological: Yes (INNER EAR PROBLEMS CAUSING DIZZINESS) Neuropathy, Spinal Cord Injury (spinal hematoma 10/28/17) Reproductive Disorders: No Female Reproductive Disorders: Denies Sexually Transmitted Disease: No HIV/AIDS: No Genitourinary: Yes Bladder Infection Gastrointestinal: Yes Chronic Constipation, Cirrhosis Musculoskeletal: Yes (DEGENERATIVE JOINT DISEASE-weakness post op) Arthritis, Fibromyalgia Endocrine: Yes Diabetes, Insulin dep Are Your Blood Sugars Over 250: No HEENT: Yes Cataract Loss of Vision: Denies Hearing Impairment: Hard of Hearing Cancer: No Psychosocial: No Integumentary: Yes (DRY SKIN) Blood Disorders: No Adverse Reaction/Blood Tranf: No Family Medical History Asthma 19 MOTHER Cardiovascular disease 19 FATHER Coronary thrombosis 19 FATHER 19 MOTHER Fibromyalgia 19 MOTHER Osteoporosis 19 MOTHER Heart Disease, Diabetes Review of Systems-General Constitutional: weakness EENTM: no symptoms reported Respiratory: no symptoms reported Cardiovascular: no symptoms reported Gastrointestinal: other (Not eating well) Genitourinary: no symptoms reported Physical Exam-General Problems Physical Exam Vital Signs Vital Signs - First Documented 11/14/17 06:00 Temp 98.7 Pulse 71 Resp 18 B/P (MAP) 129/71 (90) Pulse Ox 96 O2 Delivery Room Air Capillary Refill : Less Than 3 Seconds General Appearance: WD/WN, no apparent distress Eyes: Bilateral Eye Normal Inspection HEENT: normal ENT inspection Neck: full range of motion, normal inspection Respiratory: no respiratory distress, no accessory muscle use Cardiovascular: regular rate, rhythm Assessment/Plan Assessment/Plan Admission Diagnosis/Plan Cauda equina syndrome. Weakness. Alvarenga catheter. Renal insufficiency Clinical Quality Measures DVT/VTE Risk/Contraindication: Risk Factor Score Per Nursin RFS Level Per Nursing on Admit: 4+=Very High MICHAEL WELCH DO Nov 20, 2017 19:41
--- NOTE | 2017-11-20 19:49 | Discharge Inst-Skilled Nursing ---
Discharge Inst-Skilled NF Consult/Follow Up/Orders Skilled NF Admit to: [facility] Certification (SNF) I certify that SNF services are required to be given on an inpatient basis because of the above named patient's need for care home care on a continuing basis for the conditions(s) for which he/she was receiving inpatient hospital services prior to his/her transfer to the SNF. [facility] Facility Order: Nursing Services, Respiratory Director-Evaluate & Treat, Physical Therapy-Evaluate & Treat, Speech Language-Evaluate & Treat, Wound Care-Eval/Treat Discharge Diet: ADA Diet New & Resume Previous Orders Brijesh Welch Nov 20, 2017 19:48 BRIJESH WELCH DO Nov 20, 2017 19:49
[2017-11-20] MEDS: ATORVASTATIN 40 MG (LIPITOR) TABLET PO SCH (20:52)
[2017-11-20] MEDS: LIDOCAINE PATCH REMOVAL TP SCH (20:54)
[2017-11-21] MEDS: HYDROcodone/APAP 10 MG/325 MG (LORTAB) TAB PO PRN (05:26)
[2017-11-21] MEDS: MECLIZINE 25 MG (ANTIVERT) TAB PO PRN (05:26)
[2017-11-21 05:48] VITALS: BP 126/64
[2017-11-21 06:03] LABS: HEMOGLOBIN 9.2 G/DL (11.5-16.0); MEAN PLATELET VOLUME 9.2 FL (7.4-10.4); RED BLOOD COUNT 3.39 10^6/uL (4.35-5.85)
[2017-11-21] MEDS: metFORMIN 500 MG (GLUCOPHAGE) TAB PO SCH (06:04)
[2017-11-21] MEDS: VITAMIN E 400 INTLU CAP PO SCH (06:04)
[2017-11-21] MEDS: TROSPIUM 20 MG (SANCTURA) TAB PO SCH (06:04)
[2017-11-21] MEDS: CYANOCOBALAMIN 500 MCG TAB (VITAMIN B-12) PO SCH (06:04)
[2017-11-21] MEDS: inSUlin (REGULAR) HUMAN 1 UNIT/0.01 ML (CHARGE PER UNIT) SC SCH ×2 (06:04→11:46)
[2017-11-21] MEDS: VITAMIN D3 1,000 UNITS (CHOLECALCIFEROL) TABLET PO SCH (06:04)
[2017-11-21] MEDS: PANTOPRAZOLE 40 MG (PROTONIX) TAB PO SCH (06:04)
[2017-11-21 06:25] LABS: BUN/CREATININE RATIO 47; CALCIUM 9.6 MG/DL (8.5-10.1); CARBON DIOXIDE 31 MMOL/L (21-32); CHLORIDE 97 MMOL/L (98-107); GFR ESTIMATED > 60; GLUCOSE 85 MG/DL (70-105); POTASSIUM 4.1 MMOL/L (3.6-5.0); SODIUM 137 MMOL/L (135-145)
[2017-11-21] MEDS ORDERED: ACET325T38 PO (07:52)
--- NOTE | 2017-11-21 07:55 | Progress Note (SOAP) ---
Subjective Time Seen by Provider: 07:50 Subjective/Events-last exam Patient feeling okay today. Patient excited about discharge. Renal insufficiency resolved Objective Exam Vital Signs Date Time Temp Pulse Resp B/P (MAP) Pulse Ox O2 Delivery O2 Flow Rate FiO2 11/21/17 05:48 97.8 76 20 126/64 (84) 94 Room Air 11/20/17 20:00 Room Air 11/20/17 18:00 97.7 99 18 134/64 (87) 96 Room Air 11/20/17 09:00 Room Air I & O 11/21/17 07:00 Intake Total 1250 ml Output Total 1550 ml Balance -300 ml Capillary Refill : Less Than 3 Seconds General Appearance: No Apparent Distress HEENT: Normal ENT Inspection Neck: Full Range of Motion, Normal Inspection Respiratory: No Accessory Muscle Use, No Respiratory Distress Cardiovascular: Regular Rate, Rhythm, No Murmur Results Lab Laboratory Tests 11/20/17 11:27: Glucometer 150H 11/20/17 16:54: Glucometer 104 11/20/17 20:50: Glucometer 86 11/21/17 05:29: Glucometer 100 11/21/17 05:41: White Blood Count 8.0, Red Blood Count 3.39L, Hemoglobin 9.2L, Hematocrit 29L, Mean Corpuscular Volume 86, Mean Corpuscular Hemoglobin 27, Mean Corpuscular Hemoglobin Concent 31L, Red Cell Distribution Width 15.0H, Platelet Count 403H, Mean Platelet Volume 9.2, Sodium Level 137, Potassium Level 4.1, Chloride Level 97L, Carbon Dioxide Level 31, Anion Gap 9, Blood Urea Nitrogen 33H, Creatinine 0.70, Estimat Glomerular Filtration Rate > 60, BUN/Creatinine Ratio 47, Glucose Level 85, Calcium Level 9.6 Assessment/Plan Assessment/Plan Assess & Plan/Chief Complaint Cauda equina syndrome. Weakness. Alvarenga catheter. Renal insufficiency. . 11/21/17. Cauda equina syndrome. Weakness. Alvarenga catheter. Renal insufficiency resolved. Patient excited going back to [place] Clinical Quality Measures DVT/VTE Risk/Contraindication: Risk Factor Score Per Nursin RFS Level Per Nursing on Admit: 4+=Very High MICHAEL WELCH DO Nov 21, 2017 07:55
[2017-11-21] MEDS: LIDOCAINE (LIDODERM) 5% PATCH TOP SCH (08:12)
[2017-11-21] MEDS: GABAPENTIN 100 MG (NEURONTIN) CAP PO SCH (08:12)
[2017-11-21] MEDS: inSUlin DETERMIR 1 UNIT/0.01 ML (LEVEMIR) CHARGE PER UNIT SQ SCH (08:12)
[2017-11-21] MEDS: MENTHOL/ZINC OXIDE (CALMOSEPTINE) 113 GM TUBE TOP SCH (08:13)
[2017-11-21] MEDS: DOCUSATE SODIUM 100 MG (COLACE) CAP PO SCH (08:13)
[2017-11-21] MEDS: LORATADINE (CLARITIN) 10 MG TAB PO SCH (08:13)
[2017-11-21] MEDS: lisINopril 20 MG (PRINIVIL) TABLET PO SCH (08:13)
[2017-11-21] MEDS: MAGNESIUM OXIDE (MAG-OX)400 MG TAB PO SCH (08:13)
[2017-11-21] MEDS: FAMOTIDINE 20 MG (PEPCID) TABLET PO SCH (08:13)
[2017-11-21] MEDS: meTOprolol TARTRATE 25 MG (LOPRESSOR) TABLET PO SCH (08:13)
[2017-11-21] MEDS: SENNA W/DOCUSATE (SENOKOT S) TABLET PO SCH (08:13)
--- NOTE | 2017-11-21 08:30 | Cardiology Progress Note ---
Subjective Date Seen by Provider: Nov 21, 2017 Time Seen by Provider: 08:28 Subjective/Events-last exam Patient is feeling better, going to keyser today, no chest pain Review of Systems General: No Chills, No Night Sweats, No Fatigue, No Malaise, No Appetite, No Other HEENT: No Head Aches, No Visual Changes, No Eye Pain, No Ear Pain, No Dysphasia , No Sinus Congestion, No Post Nasal Drip, No Sore Throat, No Other Pulmonary: No Dyspnea, No Cough, No Pleuritic Chest Pain, No Other Objective-Cardiology Exam Last Set of Vital Signs Vital Signs 11/21/17 05:48 Temp 97.8 Pulse 76 Resp 20 B/P (MAP) 126/64 (84) Pulse Ox 94 O2 Delivery Room Air Capillary Refill : Less Than 3 Seconds I&O Intake and Output 11/21/17 00:00 Intake Total 1100 ml Output Total 1425 ml Balance -325 ml Intake Oral 1100 ml Output Urine Total 1425 ml General: Alert, Oriented X3, Cooperative HEENT: Atraumatic, PERRLA Neck: Supple, No JVD Lungs: Clear to Auscultation, Normal Air Movement Heart: Regular Rate, Normal S1, Normal S2 Abdomen: Normal Bowel Sounds, Soft Extremities: No Clubbing, No Edema Skin: No Rashes Neuro: Other (able to move her legs) Results Lab Laboratory Tests 11/21/17 05:41 A/P-Cardiology Admission Diagnosis Paralysis Paroxysmal atrial fibrillation Hypertension Hyperlipidemia Assessment/Plan Status post back surgery done on October 14, 2017, had hematoma, multiple surgical evacuation, improving, still having pain and discomfort, diminished proprioception, incontinent to urine and stool, receiving physical and occupational therapy. Continue to monitor Dizziness and nausea with vomiting, mainly positional, history of Mnire disease, seen by Dr. Lewis, reporting improvement today. Paroxysmal atrial fibrillation, had an episode of atrial fibrillation with rapid ventricular response on October 17, 2017, converted to sinus rhythm. Continue to monitor [id number] score is 5, yearly risk of stroke without oral anticoagulation is 6.7 percent, currently off oral anticoagulation due to hematoma. Hypertension, having episodes of borderline hypotension. Continue to hold hydrochlorothiazide and monitor her tolerance and response Hyperlipidemia, monitor lipids Diabetes mellitus, monitor and managed by primary care physician Obesity, BMI is 28 Fibromyalgia, multiple complain about joint and back pain in the past, managed by primary care physician. Follow with Dr Avila in 2-4 weeks Clinical Quality Measures DVT/VTE Risk/Contraindication: Risk Factor Score Per Nursin RFS Level Per Nursing on Admit: 4+=Very High GEORGE CULLEN MD Nov 21, 2017 08:30
--- NOTE | 2017-11-21 09:03 | Therapy Team Discharge Summary ---
Therapy Discharge Summary Discharge Recommendations Date of Discharge Therapy D/C Recommendations: 24 hr Supervision, Long-Term (TCU/NH) Occupational Therapy Pt was referred for skilled OT to increase her independence in basic self care after L3-L4 PSIF. On admission she required setup with eating and grooming, supervision with upper body dressing, mod assist with bathing, max assist lower body dressing in bed and was unable to do to toileting/toilet transfers. By discharge she was modified independent with eating, required setup with grooming , needed min assist with upper body dressing, required mod assist with bathing and was dependant with lower body dressing, toileting, toilet transfer, and shower transfer. Equipment used included wheeled shower chair, long handled sponge, wheel chair. See tx plan for goals met. Pt did not progress to be discharged to home and will go to SNF for continued therapy. DC OT. Decreased Activ Tolerance, Decreased UE Strength, Dependent Transfers, Impaired Bed Mobility, Impaired Cognition, Impaired Funct Balance, Impaired I ADL's, Impaired Self-Care Skills PT Retirement Goals Retirement Goals PT Sample Puller Goals Time Frame: Nov 27, 2017 Transfers (B,C,W/C) (FIM): 4 Roll Left to Right (QC): 3 Sit to Lying (QC): 3 Lying-Sitting on Side/Bed(QC): 3 Sit to Stand (QC): 3 Chair/Pyy-an-Kvbxz Xfer(QC): 3 Car Transfer (QC): 3 Wheelchair (FIM): 5 Distance: 150' Wheelchair Level of Assist: 5 Wheel 50 feet with 2 turns (QC: 4 OT Sample Puller Goals Sample Puller Goals Time Frame: Nov 29, 2017 Eating (FIM): 6 (met-11/20/2017) Eating (QC): 6 (met-11/20/2017) Oral Hygiene (QC): 6 (not met) Grooming(FIM): 6 (not met) Bathing(FIM): 5 (not met) Shower/Bathe Self (QC): 5 (not met) Upper Body Dressing(FIM): 6 (not met) Upper Body Dressing (QC): 6 (not met) Lower Body Dressing(FIM): 5 (no met) Lower Body Dressing (QC): 5 (not met) On/Off Footwear (QC): 5 (not met) Toileting(FIM): 5 (not met) Toileting Hygiene (QC): 5 (not met) Toilet/Commode Transfer(FIM): 5 (not met) Toilet/Commode Transfer (QC): 5 (not met) Shower Transfer(FIM): 5 (not met) Additional Goals: 1-Demonstrate ADL Tasks, 2-Verbalize Understanding, 3- ImproveStrength/Dyana 1=Demonstrate adherence to instructed precautions during ADL tasks. 2=Patient will verbalize/demonstrate understanding of assistive devices/ modifications for ADL. 3=Patient will improve strength/tolerance for activity to enable patient to perform ADL's. NATIVIDAD LOCKHART OT Nov 21, 2017 09:03
--- NOTE | 2017-11-21 09:09 | Therapy Team Discharge Summary ---
Therapy Discharge Summary Discharge Recommendations Date of Discharge Therapy D/C Recommendations: 24 hr Supervision, Care Home (TCU/NH) Physical Therapy Patient came to rehab with cauda equinq syndrome, L3-L4 PSIF. Upon evaluation patient performed bed mobility with max assist, dependent with sit to stand and stand pivot transfers. Patient has been performing bed mobility and transfer training, balance and endurance training, functional strengthening, and education. Patient has made poor progress and has not met any of her detention goals. Now, patient performs bed mobility with mod assist, dependent with car transfers and sit to stand and stand pivot transfers, and can propel a manual wheelchair 100' with standby assist. Patient is discharging from this facility today and will be discharged from PT at this time. Occupational Therapy Decreased Activ Tolerance, Decreased UE Strength, Dependent Transfers, Impaired Bed Mobility, Impaired Cognition, Impaired Funct Balance, Impaired I ADL's, Impaired Self-Care Skills PT Machine Fancy Stitcher Goals Machine Fancy Stitcher Goals PT Care Home Goals Time Frame: Nov 27, 2017 Transfers (B,C,W/C) (FIM): 4 Roll Left to Right (QC): 3 Sit to Lying (QC): 3 Lying-Sitting on Side/Bed(QC): 3 Sit to Stand (QC): 3 Chair/Foq-zo-Nfesr Xfer(QC): 3 Car Transfer (QC): 3 Wheelchair (FIM): 5 Distance: 150' Wheelchair Level of Assist: 5 Wheel 50 feet with 2 turns (QC: 4 OT Care Home Goals Care Home Goals Time Frame: Nov 29, 2017 Eating (FIM): 6 (met-11/20/2017) Eating (QC): 6 (met-11/20/2017) Oral Hygiene (QC): 6 (not met) Grooming(FIM): 6 (not met) Bathing(FIM): 5 (not met) Shower/Bathe Self (QC): 5 (not met) Upper Body Dressing(FIM): 6 (not met) Upper Body Dressing (QC): 6 (not met) Lower Body Dressing(FIM): 5 (no met) Lower Body Dressing (QC): 5 (not met) On/Off Footwear (QC): 5 (not met) Toileting(FIM): 5 (not met) Toileting Hygiene (QC): 5 (not met) Toilet/Commode Transfer(FIM): 5 (not met) Toilet/Commode Transfer (QC): 5 (not met) Shower Transfer(FIM): 5 (not met) Additional Goals: 1-Demonstrate ADL Tasks, 2-Verbalize Understanding, 3- ImproveStrength/Dyana 1=Demonstrate adherence to instructed precautions during ADL tasks. 2=Patient will verbalize/demonstrate understanding of assistive devices/ modifications for ADL. 3=Patient will improve strength/tolerance for activity to enable patient to perform ADL's. LEXI CALERO PT Nov 21, 2017 09:09
--- NOTE | 2017-11-21 11:35 | Progress Note-Hospitalist ---
Subjective HPI/CC On Admission Date Seen by Provider: Nov 21, 2017 Time Seen by Provider: 11:30 Subjective/Events-last exam Patient leaving for half-way in [facility] today Alvarenga catheter will remain Urology follow-up will be scheduled Pain is controlled Overall bowels are moving and ready to move on to skilled therapy Updated spine surgery service regarding the disposition Review of Systems Neurological: Weakness, Incoordination Objective Exam Vital Signs Vital Signs Date Time Temp Pulse Resp B/P (MAP) Pulse Ox O2 Delivery O2 Flow Rate FiO2 11/21/17 09:00 Room Air 11/21/17 05:48 97.8 76 20 126/64 (84) 94 Capillary Refill : Less Than 3 Seconds General Appearance: No Apparent Distress, WD/WN, Chronically ill Respiratory: Lungs Clear, Normal Breath Sounds Cardiovascular: Regular Rate, Rhythm, No Edema Neurologic/Psychiatric: Motor Weakness (lower legs) Results/Procedures Lab Laboratory Tests 11/21/17 05:41 Patient resulted labs reviewed. 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 PAF off anticoagulation due to risks outweigh benefits currently DM HTN OA HLP Continued nausea and vomiting appears improved Severe lower leg and feet neuropathy Chronic dizziness Depression situational Plan: Scop patch Zofran Dr Ryan consultation is appreciated Cardiology is appreciated Monitor closely Monitor for elevated sugars Gabapentin increased dose Consult Dr Schmitt is appreciated Dr Lewis consultation is appreciated Celexa 20mg daily Diagnosis/Problems Diagnosis/Problems (1) Cauda equina syndrome Status: Acute (2) Episodic atrial fibrillation Status: Chronic (3) Urinary retention Status: Acute (4) Constipation Status: Acute Qualifiers: Constipation type: drug induced constipation Qualified Codes: K59.03 - Drug induced constipation (5) Acute depression Status: Acute (6) Adverse effect of anticoagulant Status: Acute Qualifiers: Encounter type: subsequent encounter Qualified Codes: T45.515D - Adverse effect of anticoagulants, subsequent encounter (7) Nausea & vomiting Status: Acute Qualifiers: Vomiting type: unspecified Vomiting Intractability: unspecified Qualified Codes: R11.2 - Nausea with vomiting, unspecified Clinical Quality Measures DVT/VTE Risk/Contraindication: Risk Factor Score Per Nursin RFS Level Per Nursing on Admit: 4+=Very High MOY LOGAN DO Nov 21, 2017 11:35
[2017-11-21 13:20] VITALS: BP 126/64
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
== END 2017-11-21 13:35 | DRG 74 ==
PROVIDERS: ADMIT Physical Medicine & Rehabilitation; ATTEND Physical Medicine & Rehabilitation
DX: G83.4 Cauda equina syndrome (principal); G57.93 Unspecified mononeuropathy of bilateral lower limbs; Z48.811 Encounter for surgical aftercare following surgery on the nervous system; M21.371 Foot drop, right foot; M21.372 Foot drop, left foot; K59.2 Neurogenic bowel, not elsewhere classified; R33.9 Retention of urine, unspecified; E11.65 Type 2 diabetes mellitus with hyperglycemia; I48.0 Paroxysmal atrial fibrillation; I10 Essential (primary) hypertension; K74.60 Unspecified cirrhosis of liver; M79.7 Fibromyalgia; F43.21 Adjustment disorder with depressed mood; M19.90 Unspecified osteoarthritis, unspecified site; K21.9 Gastro-esophageal reflux disease without esophagitis; E78.5 Hyperlipidemia, unspecified; K59.03 Drug induced constipation; R11.2 Nausea with vomiting, unspecified; H81.02 Meniere's disease, left ear; S40.811A Abrasion of right upper arm, initial encounter; Y84.8 Other medical procedures as the cause of abnormal reaction of the patient, or of later complication, without mention of misadventure at the time of the procedure; Z79.4 Long term (current) use of insulin; T45.515D Adverse effect of anticoagulants, subsequent encounter; T38.0X5A Adverse effect of glucocorticoids and synthetic analogues, initial encounter
CPT/HCPCS: 36415; 74019; 80048; 80053; 82962; 83735; 85025; 85027; 93005

== ENCOUNTER 2019-07-05 16:23 | Inpatient (IN) | payer MEDICARE ==
[~2019-07-05] VITALS: Ht 165.1 cm; Wt 101.6 kg
[~2019-07-05 16:23] MED LIST changes: +ACET325T38 PO; +CYAN-41 PO; -CYAN10006 PO; +METF-399 PO; -METF10002 PO; +OCUVITE SOFTGE1 EACH PO; -VIT1CAPS9 PO
[2019-07-05] MEDS ORDERED: NS IV 1000 ML 1,000 ML IV SCH ×2 (16:37→17:55)
[2019-07-05] MEDS ORDERED: CEFEPIME INJECTION 1,000 MG in WATER (STERILE) FOR INJECTION 10 ML IV ONE ×2 (16:45→18:15)
[2019-07-05 16:46] LABS: BILIRUBIN,URINE NEGATIVE (NEGATIVE); CLARITY,URINE CLOUDY; COLOR,URINE YELLOW; GLUCOSE, URINE (UA) 2+ (NEGATIVE); KETONES,URINE NEGATIVE (NEGATIVE); LEUKOCYTE ESTERASE ,URINE 2+ (NEGATIVE); NITRITE,URINE NEGATIVE (NEGATIVE); PH,URINE 5.5 (5-9); PROTEIN,URINE NEGATIVE (NEGATIVE)
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
[2019-07-05 16:55] LABS: BASOPHILS % (AUTO) 0 % (0-10); EOSINOPHILS # (AUTO) 0.1 10^3/uL (0.0-0.3); EOSINOPHILS % (AUTO) 1 % (0-10); HEMATOCRIT 36 % (35-52); HEMOGLOBIN 11.8 G/DL (11.5-16.0); LYMPHOCYTES # (AUTO) 0.9 X 10^3 (1.0-4.0); LYMPHOCYTES % (AUTO) 9 % (12-44); MEAN CORPUSCULAR HEMOGLOBIN 27 PG (25-34); MEAN CORPUSCULAR HGB CONC 32 G/DL (32-36); MEAN CORPUSCULAR VOLUME 82 FL (80-99); MEAN PLATELET VOLUME 11.1 FL (7.4-10.4); MONOCYTES % (AUTO) 9 % (0-12); NEUTROPHILS # (AUTO) 8.6 X 10^3 (1.8-7.8); NEUTROPHILS % (AUTO) 81 % (42-75); PLATELET COUNT 137 10^3/uL (130-400); WHITE BLOOD COUNT 10.6 10^3/uL (4.3-11.0)
[2019-07-05 16:56] LABS: BACTERIA,URINE MODERATE /HPF; WBC,URINE >100 /HPF
[2019-07-05 16:57] LABS: YEAST,URINE MODERATE /HPF
[2019-07-05 17:06] LABS: INR 1.1 (0.8-1.4); PROTHROMBIN TIME PATIENT 14.4 SEC (12.2-14.7)
[2019-07-05 17:15] LABS: ALANINE AMINOTRANSFERASE 18 U/L (0-55); ALBUMIN 3.7 GM/DL (3.2-4.5); ALKALINE PHOSPHATASE 60 U/L (40-136); BILIRUBIN,TOTAL 1.4 MG/DL (0.1-1.0); BUN/CREATININE RATIO 43; CALCIUM 9.1 MG/DL (8.5-10.1); CARBON DIOXIDE 23 MMOL/L (21-32); CHLORIDE 103 MMOL/L (98-107); CREATININE SERUM 1.43 MG/DL (0.60-1.30); GFR ESTIMATED 35; GLUCOSE 147 MG/DL (70-105); POTASSIUM 4.4 MMOL/L (3.6-5.0); SODIUM 138 MMOL/L (135-145); TOTAL PROTEIN 7.9 GM/DL (6.4-8.2)
--- NOTE | 2019-07-05 17:30 | NUR ---
Pt repositioned and pillow placed behind back at this time.
[2019-07-05] MEDS ORDERED: KETOROLAC 30 MG/ML VIAL IVP ONE (18:00)
--- NOTE | 2019-07-05 18:04 | Diagnostic Imaging Report ---
EXAMINATION: Chest radiograph, portable AP view. DATE: 07/05/2019 5:07 PM. INDICATION: 79-year-old female, hypoxia. COMPARISON: October 18, 2017. FINDINGS: There is hardware at the level of the left proximal humerus, incompletely imaged. There is an anchor overlying the right humeral head. Stable overall appearance of the cardiomediastinal silhouette. There is no identified pneumothorax. There is no large pleural effusion. There are bilateral predominantly interstitial opacities with a similar appearance to the comparison exam. IMPRESSION: Unchanged bilateral predominantly interstitial opacities which could relate to chronic lung changes, pulmonary interstitial edema or atypical infection. Dictated by: Dictated on workstation # [id number]
[2019-07-05] MEDS ORDERED: ACETAMINOPHEN 500 MG TAB (TYLENOL) PO ONE (18:15)
[2019-07-05] MEDS ORDERED: PHENAZOPYRIDINE 100 MG (PYRIDIUM) TABLET PO ONE (18:15)
--- NOTE | 2019-07-05 18:15 | NUR ---
Pt much more alert and oriented. Pt talking and smiling in bed at this time.
--- NOTE | 2019-07-05 18:26 | NUR ---
Attempted to call report at this time. Was told it would have to be after shift change.
[2019-07-05] MEDS ORDERED: RT-ALBUTEROL/IPRATROPIUM 3 ML (DUONEB) VIAL ONE (18:35)
--- NOTE | 2019-07-05 19:35 | NUR ---
JOHANN MARIANO admitted to room 425-1, with an admitting diagnosis of UTI; ACUTE RESPIRATORY FAILURE - HYPOXIA; PASS PNEUMONIA; ACUTE RENAL FAILURE/DEHYDRATION, on 07/05/19 from ER via BED, accompanied by ER STAFF. JOHANN MARIANO introduced to surroundings, call light, bed controls, phone, TV, temperature control, lights, meal times, smoking policy, visitor policy, side rail policy, bathrooms and showers. Patient Rights given to patient in the handbook. JOHANN MARIANO verbalizes understanding that [facility] is not responsible for the loss or damage to any personal effects or valuables that are kept in the patients possession during their hospitalization.
[2019-07-05 20:10] VITALS: BP 143/72
[2019-07-05 20:13] VITALS: BP 143/72
[2019-07-05] MEDS ORDERED: ACETAMINOPHEN 500 MG TAB (TYLENOL) PO PRN (20:15)
[2019-07-05 20:27] VITALS: BP 143/72
[2019-07-05] MEDS: D5 1/2 NS 1000 ML IV SOLUTION 1,000 ML IV SCH (20:42)
[2019-07-05] MEDS: PHENAZOPYRIDINE 100 MG (PYRIDIUM) TABLET PO SCH (20:43)
[2019-07-05] MEDS ORDERED: inSUlin ASPART (NovoLOG) 1 UNIT/0.01 ML (CHARGE PER UNIT) SC SCH (21:30)
[2019-07-05] MEDS: inSUlin ASPART (NovoLOG) 1 UNIT/0.01 ML (CHARGE PER UNIT) SC SCH (21:33)
[2019-07-06] VITALS (10 sets, daily range): BP systolic 121–188; BP diastolic 61–84
[2019-07-06] MEDS ORDERED: RT-ALBUTEROL/IPRATROPIUM 3 ML (DUONEB) VIAL INH PRN
[2019-07-06] MEDS: KETOROLAC 30 MG/ML VIAL IV PRN ×3 (04:24→22:53)
[2019-07-06 05:32] LABS: BASOPHILS % (AUTO) 0 % (0-10); EOSINOPHILS # (AUTO) 0.2 10^3/uL (0.0-0.3); EOSINOPHILS % (AUTO) 2 % (0-10); HEMATOCRIT 34 % (35-52); HEMOGLOBIN 10.5 G/DL (11.5-16.0); LYMPHOCYTES % (AUTO) 12 % (12-44); MEAN CORPUSCULAR HEMOGLOBIN 26 PG (25-34); MEAN CORPUSCULAR HGB CONC 31 G/DL (32-36); MEAN CORPUSCULAR VOLUME 83 FL (80-99); MEAN PLATELET VOLUME 11.1 FL (7.4-10.4); MONOCYTES # (AUTO) 0.8 X 10^3 (0.0-1.0); MONOCYTES % (AUTO) 10 % (0-12); NEUTROPHILS # (AUTO) 6.1 X 10^3 (1.8-7.8); NEUTROPHILS % (AUTO) 76 % (42-75); PLATELET COUNT 118 10^3/uL (130-400); RED CELL DISTRIBUTION WIDTH 16.9 % (10.0-14.5); WHITE BLOOD COUNT 8.1 10^3/uL (4.3-11.0)
[2019-07-06 06:02] LABS: ALBUMIN 3.1 GM/DL (3.2-4.5); BILIRUBIN,TOTAL 1.3 MG/DL (0.1-1.0); CALCIUM 8.3 MG/DL (8.5-10.1); CREATININE SERUM 1.21 MG/DL (0.60-1.30); POTASSIUM 3.9 MMOL/L (3.6-5.0); TOTAL PROTEIN 6.7 GM/DL (6.4-8.2)
[2019-07-06] MEDS: D5 1/2 NS 1000 ML IV SOLUTION 1,000 ML IV SCH (06:10)
[2019-07-06] MEDS: inSUlin ASPART (NovoLOG) 1 UNIT/0.01 ML (CHARGE PER UNIT) SC SCH ×4 (06:11→22:46)
--- NOTE | 2019-07-06 07:02 | NUR ---
Dr. Salazar notified of DVT score at 11. states she will address when she sees this patient today.
--- NOTE | 2019-07-06 07:59 | Diagnostic Imaging Report ---
INDICATION: Pneumonia. Upright portable AP view of the chest is obtained. FINDINGS: Since examination of one day earlier, overall heart size remains within normal limits. There is air trapping bilaterally with prominent interstitial markings in both lungs. There is mild increased density in right perihilar region; however, this is improved compared to the previous exam. IMPRESSION: Improving aeration of the right perihilar region which is likely due to decreasing edema or pneumonitis. Dictated by: Dictated on workstation # [id number]
[2019-07-06] MEDS: PHENAZOPYRIDINE 100 MG (PYRIDIUM) TABLET PO SCH ×3 (08:29→20:50)
--- NOTE | 2019-07-06 08:34 | NUR ---
Dr. Montgomery notified of consult (no answer/message left).
[2019-07-06] MEDS: RT-ALBUTEROL/IPRATROPIUM 3 ML (DUONEB) VIAL INH SCH ×4 (09:12→19:09)
[2019-07-06] MEDS ORDERED: BISA10SU58 RC (10:26)
[2019-07-06] MEDS ORDERED: PREG150C PO (10:26)
[2019-07-06] MEDS ORDERED: INSU100I23 SQ (10:26)
[2019-07-06] MEDS ORDERED: DEXT37.5 PO (10:26)
[2019-07-06] MEDS ORDERED: INSU100I23 SC (10:26)
[2019-07-06] MEDS ORDERED: CITA20TA9 PO (10:26)
[2019-07-06] MEDS ORDERED: METO-333 PO (10:26)
[2019-07-06] MEDS ORDERED: EMPA25TA PO (10:26)
[2019-07-06] MEDS ORDERED: INSU100I32 SC (10:26)
[2019-07-06] MEDS ORDERED: DOCU-143 PO (10:26)
[2019-07-06] MEDS ORDERED: TIZA2TAB4 PO (10:26)
[2019-07-06] MEDS ORDERED: ANTI1CAP5 PO (10:26)
[2019-07-06] MEDS ORDERED: ACET325T38 PO (10:26)
[2019-07-06] MEDS ORDERED: LINA5TAB PO (10:26)
[2019-07-06] MEDS ORDERED: LORA10TA7 PO (10:26)
[2019-07-06] MEDS ORDERED: GLUC1KIT SC (10:26)
[2019-07-06] MEDS ORDERED: ASCO500T6 PO (10:26)
[2019-07-06] MEDS ORDERED: ASPI-983 PO (10:26)
[2019-07-06] MEDS ORDERED: IPRA3AMP31 NEB (10:26)
[2019-07-06] MEDS ORDERED: HYDR-3812 PO (10:26)
[2019-07-06] MEDS ORDERED: FLUT16SP22 NS (10:26)
[2019-07-06] MEDS ORDERED: SACC250C PO (10:26)
[2019-07-06] MEDS ORDERED: MULT-166 PO (10:26)
[2019-07-06] MEDS ORDERED: PROP10TA8 PO (10:26)
--- NOTE | 2019-07-06 10:30 | NUR ---
UPDATED MED REC WITH MAR FROM [facility].
--- NOTE | 2019-07-06 10:30 | NUR ---
PATIENT SOB, DIAPHORETIC, WHEEZING, RT NOTIFIED, O2 SAT 75 PERCENT, BP 110/56. DR BANEGAS NOTIFIED
[2019-07-06] MEDS ORDERED: RT-ALBUTEROL SULF 2.5 MG/3 ML PRE-MIX VIAL ONE (10:40)
--- NOTE | 2019-07-06 10:45 | NUR ---
RT HERE, HOUR LONG BREATHING TREATMENT GIVEN
--- NOTE | 2019-07-06 10:59 | History & Physical-Hospitalist ---
[facility] 07/06/19 1059: History of Present Illness HPI/Chief Complaint Emily ham is a 79 y/o female that presented to [facility] via EMS for being lethargic and altered metal status. Her O2 status was 88% on Room air on arrival in the ER. While speaking to Emily she could not remember why she was brought here and what had happened. At this time she is alert and oriented x 3 so I proceeded to ask her questions. The Patient has had SOB in the past but the associated AMS and lethargy is new for her. She says she feels SOB when she has a cold or allergies, but has never been hospitalized in the past for this. She has not had coughing spells, but when she does cough she has had green color sputum. Pt feels more short of breath when speaking, but oxygen via NC 2L has improved her feeling of SOB. Pt also has moments of shooting pain in her hip that she states is related to fibromyalgia. Source: patient Date Seen 07/06/19 Attending Physician Nina Banegas MD PCP Marcel Castillo DO Referring Physician Date of Admission Jul 05, 2019 at 18:00 Home Medications & Allergies Home Medications Reviewed patient Home Medication Reconciliation performed by pharmacy medication reconciliations fiberglass technician and/or nursing. Patients Allergies have been reviewed. Allergies Allergies Coded Allergies Iodine and Iodide Containing Produc (Verified Allergy, Unknown, ANAPHYLAXIS, RASH, 11/09/14) Sulfa (Sulfonamide Antibiotics) (Unverified Allergy, Unknown, NAUSEA AND VOMITING, 11/09/14) adhesive (Unverified Allergy, Unknown, 11/09/14) codeine (Unverified Allergy, Unknown, N/V , 11/09/14) tramadol (Unverified Allergy, Unknown, NAUSEA AND VOMITING, 11/09/14) Uncoded Allergies PERFUME ( Allergy, Unknown, 11/09/14) Past Lgwryno-Rprggu-Vywuim Hx Patient Social History Alcohol Use: Denies Use Recreational Drug Use: No Smoking Status: Former Smoker Type Used: Cigarettes 2nd Hand Smoke Exposure: No Recent Foreign Travel: No Contact w/other who traveled: No Recent Hopitalizations: No Recent Infectious Disease Expo: No Immunizations Up To Date Tetanus Booster (TDap): Unknown Date of Pneumonia Vaccine: Jun 07, 2016 Date of Influenza Vaccine: Jun 05, 2019 Seasonal Allergies Seasonal Allergies: No Past Medical History Surgeries: Abdominal, Appendectomy, Gallbladder, Hysterectomy, Oophorectomy, Orthopedic, Tonsillectomy Respiratory: Sleep Apnea Currently Using CPAP: No Currently Using BIPAP: No Cardiac: Atrial Fibrillation, High Cholesterol, Hypertension Neurological: Neuropathy, Paralysis, Spinal Cord Injury, Vertigo : No Reproductive: No Sexually Transmitted Disease: No HIV/AIDS: No Hysterectomy, Menopausal Genitourinary: Bladder Infection, Neurogenic Bladder, UTI-Chronic Gastrointestinal: Gastroesophageal Reflux, Liver Disease/Jaundice, Chronic Constipation, Cirrhosis Musculoskeletal: Degenerate Disk Disease, Arthritis, Fibromyalgia, Back Injury, Foot Drop, Chronic Back Pain, Fractures Endocrine: Diabetes, Insulin dep HEENT: Cataract Loss of Vision: Denies Hearing Impairment: Hard of Hearing Psychosocial: Depression History of Blood Disorders: No Adverse Reaction to Blood Cast: No Family History Asthma 19 MOTHER Cardiovascular disease 19 FATHER Coronary thrombosis 19 FATHER 19 MOTHER Fibromyalgia 19 MOTHER Osteoporosis 19 MOTHER Heart Disease, Diabetes Review of Systems Constitutional: chills, weakness; No weight loss EENTM: hearing loss, eye pain; No blurred vision, No tearing, No vision loss Respiratory: cough, phlegm, short of breath Cardiovascular: No chest pain, No palpitations Gastrointestinal: no symptoms reported Genitourinary: incontinence (stress) Musculoskeletal: joint pain, muscle pain, muscle weakness Skin: dryness Psychiatric/Neurological: No Symptoms Reported Physical Exam Physical Exam Vital Signs Vital Signs - First Documented 07/05/19 07/05/19 07/05/19 16:23 19:28 20:27 Temp 38.1 Pulse 92 Resp 17 B/P (MAP) 148/73 (98) Pulse Ox 88 O2 Delivery Room Air O2 Flow Rate 2.00 FiO2 28 Capillary Refill : Less Than 3 Seconds Height, Weight, BMI Height: 5'10.00" Weight: 195lbs. 6.4oz. 88.731938pq; 38.30 BMI Method: General Appearance: WD/WN, Chronically ill, Mild Distress Eyes: Bilateral Eye PERRL, Bilateral Eye EOMI HEENT: No Photophobia; Other (patinet has tosils removed, mild thrush, and has bilateral parotid enlargment ) Respiratory: Chest Non Tender, Accessory Muscle Use, Wheezing Cardiovascular: Other (Hear sounds sounded normal but was diffiut to hear over wheezing. Peripheral pulses 2/4 Radial and 1/4 dorsasl pedial, Edema of lower extremities. ) Gastrointestinal: Normal Bowel Sounds; No Guarding, No Rebound Genital/Rectal: Other (Blood in catheter, possible leakage around catheter) Back: Vertebral Tenderness Extremity: No Calf Tenderness, Pedal Edema, Other (Golden had no sensation present on the bottom of both feet and could not mirtha or plantarflex feet. She was 5/5 bilateral while sqeezing fingers. ) Neurologic/Psychiatric: Alert, Oriented x3, clinical team lead II-XII Norm as Tested Skin: Normal Color, Warm/Dry, Other (Patient has left lateral foot ulcer, and right foot wound, sacral ulcer. ) Lymphatic: No Adenopathy Results Results/Procedures Labs Laboratory Tests 07/05/19 16:45 07/06/19 05:05 07/07/19 03:10 07/07/19 05:05 Patient resulted labs reviewed. Assessment/Plan Admission Diagnosis - Acute respiratory distress secondary to Atypical pneumonia and Severe Sepsis - Severe Sepsis - Atypical Pneumonia - UTI - Leukocytosis - CKD (stage III) - GERD - Hyperalgesia (fibromyalgia) - HTN - Diabetes - Chronic wounds ( bilateral LE and Sacral/Coccus) - Blood in urine secondary to UTI and recent catheter change Assessment and Plan - Acute respiratory distress secondary to Atypical pneumonia and Severe Sepsis - Severe sepsis - Atypical Pneumonia - UTI - Leukocytosis - CKD (stage III) - GERD - Hyperalgesia (fibromyalgia) - HTN - Diabetes - Chronic wounds ( bilateral LE and Sacral/Coccus) - Blood in urine secondary to UTI and recent catheter change - yeast infection - Possible Constipation ARDS secondary to Atypical pneumonia and Severe Sepsis 1. moving patient to ICU, consider BiPAP 2. Continue ABX regimen 3. Blood Culture 4. Repeat CXR 5. Consult Pulmonary 6. Continuous Pulse ox UTI 1. Continue ABX regimen - Leukocytosis 1. Improving CKD (stage III) 1. Continue IV Fluids GERD 1.Consider PPI Hyperalgesia (fibromyalgia) 1.Continue Pain management HTN 1. Continuos monitoring, want to keep off of BP medications due to sepsis issue Diabetes 1. Continue home medications for diabetes Chronic wounds ( bilateral LE and Sacral/Cocci) 1. Consult Wound care Blood in urine secondary to UTI and recent catheter change 1. Most likely secondary to UTI will continue to monitor 2. Have nursing look at catheter to insure proper size Yeast infection 1. Consider fluconazole if patient is positive Constipation: 1. patient has not had a bowel movement in 2 days, continue to monitor. Consider stool softeners if patient does not go. Clinical Quality Measures DVT/VTE Risk/Contraindication: Risk Factor Score Per Nursin RFS Level Per Nursing on Admit: 4+=Very High NINA BANEGAS MD 07/06/192046: History of Present Illness Time Seen by a Provider: 10:30 Past Sdqnbee-Yqfaeg-Kcvfmt Hx Past Med/Social Hx: Reviewed Nursing Past Med/Soc Hx, Reviewed and Corrections made Family History Asthma 19 MOTHER Cardiovascular disease 19 FATHER Coronary thrombosis 19 FATHER 19 MOTHER Fibromyalgia 19 MOTHER Osteoporosis 19 MOTHER Assessment/Plan Admission Diagnosis Admission Status: Inpatient Order (span 2 midnights) Reason for Inpatient Admission: IV antibiotics. in acute resp distress. high risk for decompensation. Will likely need more than two midnights to stabilize for DC Assessment and Plan Pt admitted with sepsis presumed due to UTI but developed worsening respiratory symptoms this morning. Normally has no oxygen requirement but on 8lpm at time of my exam. Proceeded with hour long nebulizer treatment and reassessed. Work of breathing improved but still tachypneic. Discussed code status with patient and while she continues to want no CODE BLUE she is agreeablet o short term ventilation if needed. Will transfer to the ICU and consult pulm. Continue IV abx to cover both respiratory and urinary sources. Does have chronic wound and wound care consulted. Continue home insulin regimen with SSI. Diagnosis/Problems Diagnosis/Problems (1) Acute respiratory failure with hypoxia Status: Acute (2) Chronic indwelling Alvarenga catheter Status: Acute (3) Sacral decubitus ulcer Status: Acute (4) Altered mental status Status: Acute (5) UTI (urinary tract infection) Status: Acute (6) Sepsis Status: Acute (7) Acute renal insufficiency Status: Acute (8) Cauda equina syndrome Status: Acute Supervisory-Addendum Brief Verification & Attestation Participated in pt care: history, MDM, physical Personally performed: exam, history, MDM, supervision of care Care discussed with: Medical Student Procedures: n/a Results interpretation: Verified all documentation Verification and Attestation of Medical Student E/M Service A medical student performed and documented this service in my presence. I reviewed and verified all information documented by the medical student and made modifications to such information, when appropriate. I personally performed the physical exam and medical decision making. Nina Banegas, Jul 06, 2019,20:49 [facility] MED STUD Jul 06, 2019 10:59 NINA MELVIN MD Jul 06, 2019 20:47 POS
--- NOTE | 2019-07-06 11:02 | NUR ---
ABG DONE BY RT, RESULTS CALLED TO DR BANEGAS
[2019-07-06 11:11] LABS: ABG BASE EXCESS -1.5 MMOL/L (-2.5-2.5); ABG OXYGEN SATURATION 99 % (94-100); ABG PCO2 57 MMHG (35-45); ABG PO2 193 MMHG (79-93); ABG TCO2 25.9 MMOL/L (21.0-31.0)
[2019-07-06 11:12] LABS: ALLENS TEST YES-POS; INSPIRED O2 16; PATIENT TEMP 38.4; VENTILATOR NO
[2019-07-06 11:14] LABS: ABG PH 7.26 (7.37-7.43)
[2019-07-06] MEDS ORDERED: FUROSEMIDE 40 MG/4 ML INJ (LASIX) ONE (11:36)
--- NOTE | 2019-07-06 11:44 | NUR ---
TYLENOL GIVEN FOR TEMP 100.6
--- NOTE | 2019-07-06 11:45 | NUR ---
LASIX 20MG GIVEN IV INSTRUCTED
[2019-07-06] MEDS: CEFEPIME 1,000 MG/SWFI 10 ML IV PUSH IV SCH ×4 (11:46→20:49)
[2019-07-06] MEDS ORDERED: FUROSEMIDE 40 MG/4 ML INJ (LASIX) IVP NR (12:30)
--- NOTE | 2019-07-06 13:00 | NUR ---
TRANSFERED TO ICU, 44106 ML URINE OUTPUT, IV FLUIDS DC, O2 ON 8 LITERS PER HIGH FLOW TUBING, HOYT PATENT, BREATHING EASIER, O2 SAT 95 PERCENT, REPORT GIVEN TO ICU NURSE, FAMILY HERE.
[2019-07-06] MEDS ORDERED: CEFEPIME 1,000 MG/SWFI 10 ML IV PUSH IV SCH ×2 (16:00)
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
[2019-07-06] MEDS: ENOXAPARIN 40 MG/0.4 ML (LOVENOX) SYR SQ SCH (17:03)
--- NOTE | 2019-07-06 17:45 | NUR ---
THIS NURSE NOTIFIED DR SCHWARTZ THAT PT IS ALLERGIC TO IODINE AND CANNOT DO CTA. [address] SCHWARTZ THAT PT IS ALLERGIC TO IODINE. ORDERS GIVEN FOR CT OF CHEST WITHOUT CONTRAST
--- NOTE | 2019-07-06 17:52 | Wound Care Assessment ---
Wound Care Assessment Date Seen by Provider: Jul 06, 2019 Time Seen by Provider: 17:40 Chief Complaint Sacral pressure ulcer. HPI The patient is an 79 year old female with a Stage 2 sacral pressure ulcer, present on admission. There is a moisture component to the ulcer, but it appears to be well treated with Allevyn BFD. Will continue same dressing and see again as needed. Past Medical History: Admits Diabetes Type II, Admits Heart Disease (Hypetension, cauda equina syndrome, urinary incontinence.) Smoking Status: Former Smoker Recreational Drug Use: No Alcohol Use: Denies Use Review of Systems Pulmonary: No Dyspnea Cardiovascular: No: Chest Pain Musculoskeletal: back pain Exam Vital Signs Date Time Temp Pulse Resp B/P (MAP) Pulse Ox O2 Delivery O2 Flow Rate FiO2 07/06/19 16:00 99 27 126/72 (90) 97 Nasal Cannula 5.00 07/06/19 15:34 37.5 07/05/19 20:27 28 Capillary Refill : Less Than 3 Seconds General Appearance: no apparent distress Respiratory: no respiratory distress Back: other (Sacral area -- 4 x 5 cm area of partial thickness loss with mild maceration. Dressing is wet with urine.) Results Laboratory Tests 07/05/19 21:14: Glucometer 151H 07/06/19 05:05: White Blood Count 8.1, Red Blood Count 4.09L, Hemoglobin 10.5L, Hematocrit 34L, Mean Corpuscular Volume 83, Mean Corpuscular Hemoglobin 26, Mean Corpuscular Hemoglobin Concent 31L, Red Cell Distribution Width 16.9H, Platelet Count 118L, Mean Platelet Volume 11.1H, Neutrophils (%) (Auto) 76H, Lymphocytes (%) (Auto) 12, Monocytes (%) (Auto) 10, Eosinophils (%) (Auto) 2, Basophils (%) (Auto) 0, Neutrophils # (Auto) 6.1, Lymphocytes # (Auto) 1.0, Monocytes # (Auto) 0.8, Eosinophils # (Auto) 0.2, Basophils # (Auto) 0.0, Sodium Level 137, Potassium Level 3.9, Chloride Level 106, Carbon Dioxide Level 22, Anion Gap 9, Blood Urea Nitrogen 54H, Creatinine 1.21, Estimat Glomerular Filtration Rate 43, BUN/Creatinine Ratio 45, Glucose Level 138H, Calcium Level 8.3L, Corrected Calcium 9.0, Total Bilirubin 1.3H, Aspartate Amino Transf (AST/SGOT) 18, Alanine Aminotransferase (ALT/SGPT) 16, Alkaline Phosphatase 54, Total Protein 6.7, A lbumin 3.1L, Procalcitonin 0.46H 07/06/19 05:29: Glucometer 150H 07/06/19 11:05: Blood Gas Puncture Site RR, Blood Gas Patient Temperature 38.4, Arterial Blood pH 7.26*L, Arterial Blood Partial Pressure CO2 57H, Arterial Blood Partial Pressure O2 193H, Arterial Blood HCO3 24, Arterial Blood Total CO2 25.9, Arterial Blood Oxygen Saturation 99, Arterial Blood Base Excess -1.5, Yoav Test YES-POS, Blood Gas Ventilator Setting NO, Blood Gas Inspired Oxygen 16 07/06/19 11:54: Glucometer 267H 07/06/19 15:48: Glucometer 258H Microbiology 07/05/19 Blood Culture - Preliminary, Resulted No growth 07/05/19 Influenza Types A,B Antigen (FRANCIS) - Final, Complete 07/05/19 Urine Culture - Preliminary, Resulted Gram Negative Bacillus 1 Microbiology 07/05/19 Blood Culture - Preliminary, Resulted No growth 07/05/19 Blood Culture - Preliminary, Resulted No growth 07/05/19 Influenza Types A,B Antigen (FRANCIS) - Final, Complete 07/05/19 Urine Culture - Preliminary, Resulted Gram Negative Bacillus 1 Assessment/Plan/Dx 1. Pressure ulcer, sacral, Stage 2, present on admission. 2. Cauda equina syndrome. 3. Urinary incontinence, continuous. 4. Allevyn dressings with scrupulous hygiene. STACY SHI MD Jul 06, 2019 17:52 POS
[2019-07-06] MEDS ORDERED: CEFEPIME 1 GM (MAXIPIME) VIAL ONE (20:07)
[2019-07-06] MEDS ORDERED: WATER (STERILE) FOR INJECTION 10 ML ONE (20:07)
--- NOTE | 2019-07-06 20:36 | Diagnostic Imaging Report ---
PROCEDURE: CT chest without contrast. TECHNIQUE: Multiple contiguous axial images were obtained through the chest without the use of intravenous contrast. Auto Exposure Controls were utilized during the CT exam to meet ALARA standards for radiation dose reduction. INDICATION: Acute respiratory failure There are small bilateral pleural effusions layering out to a depth of 1.7 cm on the right and 6 mm on the left. There is some adjacent atelectasis. There is some alveolar infiltrate in the right upper lobe that could be developing pneumonia. There is coronary atherosclerosis. There is no appreciable hilar or mediastinal lymphadenopathy. IMPRESSION: Small bilateral pleural effusions with basilar atelectasis. Right upper lobe infiltrate could represent pneumonia. Dictated by: Dictated on workstation # [id number]
[2019-07-07] VITALS: BP 126/58
[2019-07-07] MEDS ORDERED: CEFEPIME 1 GM (MAXIPIME) VIAL ONE (03:05)
[2019-07-07] MEDS ORDERED: WATER (STERILE) FOR INJECTION 10 ML ONE (03:05)
[2019-07-07] MEDS: CEFEPIME 1,000 MG/SWFI 10 ML IV PUSH IV SCH ×8 (03:14→19:57)
[2019-07-07 04:00] VITALS: BP 138/59
[2019-07-07] MEDS ORDERED: FLUCONAZOLE 200 MG/100 ML 100 ML IV ONE (04:45)
--- NOTE | 2019-07-07 04:48 | Pulmonary Progress Note ---
Subjective Time Seen by a Provider: 06:43 Subjective/Events-last exam Pt appears to be doing better. Sepsis Event Evaluation Height, Weight, BMI Height: 5'10.00" Weight: 195lbs. 6.4oz. [id number]; 38.30 BMI Method: Focused Exam Lactate Level 07/05/19 16:45: Lactic Acid Level 0.76 Exam Exam Vital Signs Date Time Temp Pulse Resp B/P (MAP) Pulse Ox O2 Delivery O2 Flow Rate FiO2 07/07/19 04:00 Nasal Cannula 1.00 07/07/19 03:34 36.7 Nasal Cannula 1.00 07/07/19 01:25 Nasal Cannula 2.00 07/07/19 01:00 82 07/07/19 00:02 36.6 Nasal Cannula 3.00 07/07/19 00:00 Nasal Cannula 3.00 07/06/19 22:48 90 07/06/19 22:48 90 21 96 Nasal Cannula 4.00 07/06/19 22:00 87 127/81 (96) Nasal Cannula 4.00 07/06/19 21:00 89 132/72 (92) Nasal Cannula 4.00 07/06/19 20:56 Nasal Cannula 4.00 07/06/19 20:00 98 Nasal Cannula 4.00 07/06/19 20:00 95 121/79 (93) Nasal Cannula 5.00 07/06/19 19:47 36.5 07/06/19 19:09 97 Nasal Cannula 5.00 07/06/19 19:00 90 07/06/19 19:00 90 125/66 (85) 100 Nasal Cannula 5.00 07/06/19 16:00 99 27 126/72 (90) 97 Nasal Cannula 5.00 07/06/19 16:00 98 Nasal Cannula 5.00 07/06/19 15:34 37.5 07/06/19 14:50 Nasal Cannula 5.00 07/06/19 14:39 97 Nasal Cannula 7.00 07/06/19 13:00 108 07/06/19 13:00 105 6 149/79 (102) 96 Nasal Cannula 7.00 07/06/19 12:55 36.5 07/06/19 12:50 97 Nasal Cannula 8.00 07/06/19 12:00 37.3 115 24 188/84 (118) 95 Nasal Cannula 8.00 07/06/19 11:42 37.2 07/06/19 10:48 92 Nasal Cannula 8.00 07/06/19 10:34 90 Nasal Cannula 4.00 07/06/19 10:23 38.1 113 82 Nasal Cannula 4.00 07/06/19 08:00 96 Nasal Cannula 2.00 07/06/19 08:00 36.5 78 20 158/70 (99) 97 Nasal Cannula 2.00 07/06/19 07:00 64 I & O 07/07/19 07:00 Intake Total 2270 ml Output Total 1625 ml Balance 645 ml Height & Weight Height: 5'10.00" Weight: 195lbs. 6.4oz. 88.270264sz; 38.30 BMI Method: General Appearance: No Apparent Distress, WD/WN, Chronically ill HEENT: No Photophobia; Other (golden has tosils removed, mild thrush, and has bilateral parotid enlargment ) Respiratory: Chest Non Tender, Accessory Muscle Use, Wheezing Cardiovascular: Other (Hear sounds sounded normal but was diffiut to hear over wheezing. Peripheral pulses 2/4 Radial and 1/4 dorsasl pedial, Edema of lower extremities. ) Capillary Refill: Less Than 3 Seconds Extremity: No Calf Tenderness, Pedal Edema, Other (Golden had no sensation present on the bottom of both feet and could not mirtha or plantarflex feet. She was 5/5 bilateral while sqeezing fingers. ) Neurologic/Psychiatric: Alert, Oriented x3, band master II-XII Norm as Tested Skin: Normal Color, Warm/Dry, Other (Patient has left lateral foot ulcer, and right foot wound, sacral ulcer. ) Lymphatic: No Adenopathy Results Lab Laboratory Tests 07/05/19 16:45 07/06/19 05:05 Assessment/Plan Assessment/Plan Pneumonia with sepsis and hypoxia from ECF Tm 38.1 -Cefepime -Zapata cultures pending -MRSA nasal swab pending - CT of chest -Check echo cardiogram -Check BNP in AM Pulmonary edema -Echo pending -Continue Lasix -Labs are pending UTI CKD III IDDM Sacral wounds -Wound care consulted KAROLINA SCHWARTZ DO Jul 07, 2019 04:48 POS
[2019-07-07 05:12] LABS: ALBUMIN 3.1 GM/DL (3.2-4.5); BILIRUBIN,TOTAL 1.7 MG/DL (0.1-1.0); CALCIUM 8.4 MG/DL (8.5-10.1); CREATININE SERUM 1.05 MG/DL (0.60-1.30); MAGNESIUM 1.9 MG/DL (1.6-2.4); POTASSIUM 3.5 MMOL/L (3.6-5.0); TOTAL PROTEIN 6.7 GM/DL (6.4-8.2)
[2019-07-07 05:40] LABS: BASOPHILS % (AUTO) 0 % (0-10); EOSINOPHILS # (AUTO) 0.2 10^3/uL (0.0-0.3); EOSINOPHILS % (AUTO) 2 % (0-10); HEMATOCRIT 32 % (35-52); HEMOGLOBIN 10.4 G/DL (11.5-16.0); LYMPHOCYTES # (AUTO) 1.1 X 10^3 (1.0-4.0); LYMPHOCYTES % (AUTO) 13 % (12-44); MEAN CORPUSCULAR HEMOGLOBIN 27 PG (25-34); MEAN CORPUSCULAR HGB CONC 32 G/DL (32-36); MEAN CORPUSCULAR VOLUME 82 FL (80-99); MEAN PLATELET VOLUME 11.3 FL (7.4-10.4); MONOCYTES # (AUTO) 1.1 X 10^3 (0.0-1.0); MONOCYTES % (AUTO) 13 % (0-12); NEUTROPHILS # (AUTO) 5.8 X 10^3 (1.8-7.8); NEUTROPHILS % (AUTO) 71 % (42-75); PLATELET COUNT 110 10^3/uL (130-400); RED CELL DISTRIBUTION WIDTH 16.6 % (10.0-14.5); WHITE BLOOD COUNT 8.2 10^3/uL (4.3-11.0)
[2019-07-07] MEDS: KETOROLAC 30 MG/ML VIAL IV PRN ×3 (06:04→20:34)
[2019-07-07] MEDS: inSUlin ASPART (NovoLOG) 1 UNIT/0.01 ML (CHARGE PER UNIT) SC SCH ×4 (06:05→20:34)
[2019-07-07] MEDS: RT-ALBUTEROL/IPRATROPIUM 3 ML (DUONEB) VIAL INH SCH ×4 (08:00→21:05)
--- NOTE | 2019-07-07 08:00 | NUR ---
pt was having a procedure at this time so tx not given
[2019-07-07] MEDS ORDERED: NON-FORMULARY MEDICATION 1 EA EA (Hydrocodone/Acetaminophen (Hydrocodone-Acetamin 5-325 mg PO PRN (08:30)
[2019-07-07] MEDS ORDERED: ACETAMINOPHEN 325 MG TABLET PO PRN (08:30)
[2019-07-07] MEDS ORDERED: BISACODYL 10 MG SUPP (DULCOLAX) RC PRN (08:30)
[2019-07-07] MEDS ORDERED: MECLIZINE 25 MG (ANTIVERT) TAB PO PRN (08:30)
[2019-07-07] MEDS: FUROSEMIDE 40 MG/4 ML INJ (LASIX) IVP SCH (08:45)
[2019-07-07] MEDS: PHENAZOPYRIDINE 100 MG (PYRIDIUM) TABLET PO SCH ×3 (08:45→20:33)
[2019-07-07] MEDS: PANTOPRAZOLE 40 MG (PROTONIX) VIAL IV SCH (08:45)
[2019-07-07] MEDS ORDERED: HYDROcodone/APAP 5 MG/325 MG (LORTAB) TAB PO PRN (08:45)
[2019-07-07] MEDS: HYDROCHLOROTHIAZIDE 25 MG (HCTZ) TAB PO SCH (08:46)
[2019-07-07] MEDS: ASPIRIN E.C. 81 MG (ECOTRIN) TAB PO SCH (08:46)
[2019-07-07] MEDS: LORATADINE (CLARITIN) 10 MG TAB PO SCH (08:46)
[2019-07-07] MEDS: PREGABALIN 150 MG (LYRICA) CAPSULE PO SCH ×3 (08:46→20:33)
[2019-07-07] MEDS: lisINopril 40 MG (PRINIVIL) TABLET PO SCH (08:46)
[2019-07-07] MEDS: meTOprolol TARTRATE 25 MG (LOPRESSOR) TABLET PO SCH ×2 (08:46→20:34)
[2019-07-07] MEDS ORDERED: NON-FORMULARY MEDICATION 1 EA EA (Hydrochlorothiazide 50 MG) PO SCH (09:00)
--- NOTE | 2019-07-07 09:18 | Progress Note - Hospitalist ---
[facility] 07/07/19 0918: Subjective HPI/CC On Admission Date Seen by Provider: Jul 07, 2019 Time Seen by Provider: 08:30 Subjective/Events-last exam Pt is alert and oriented and in no acute distress no family at bedside Pt states she is feeling better and she is no longer using the NC She denies SOB Tolerating her current diet Alvarenga catheter in place and draining. Review of Systems General: No Chills Pulmonary: No Dyspnea Cardiovascular: No: Chest Pain Gastrointestinal: No: Nausea, Vomiting, Abdominal Pain Focused Exam Lactate Level 07/05/19 16:45: Lactic Acid Level 0.76 Objective Exam Vital Signs Vital Signs Date Time Temp Pulse Resp B/P (MAP) Pulse Ox O2 Delivery O2 Flow Rate FiO2 07/07/19 08:00 96 92 Room Air 07/07/19 04:00 1.00 07/07/19 03:34 36.7 07/07/19 00:00 23 07/05/19 20:27 28 Capillary Refill : Less Than 3 Seconds General Appearance: No Apparent Distress, WD/WN Neck: Full Range of Motion, Non Tender Respiratory: Chest Non Tender, No Accessory Muscle Use, No Respiratory Distress, Other (Improved breath sounds ) Cardiovascular: Regular Rate, Rhythm, Other (BL LE Edema ) Extremity: No Calf Tenderness, Pedal Edema Neurologic/Psychiatric: Alert, Oriented x3, Normal Mood/Affect Results/Procedures Lab Laboratory Tests 07/07/19 03:10 07/07/19 05:05 Patient resulted labs reviewed. Assessment/Plan Assessment and Plan Assess & Plan/Chief Complaint - Acute respiratory distress secondary to Atypical pneumonia and Severe Sepsis - Severe sepsis - Atypical Pneumonia - UTI - Leukocytosis - CKD (stage III) - Elevated BNP - GERD - Hyperalgesia (fibromyalgia) - HTN - Diabetes - Chronic wounds ( bilateral LE and Sacral/Coccus) - Blood in urine secondary to UTI and recent catheter change - yeast infection - Possible Constipation KARTHIK secondary to Atypical pneumonia and Severe Sepsis 1. patient is improving, pt is stating >90% on RA 2. Continue ABX regimen and respiratory treatments 3. Moving patient to the 4th floor 4. MAT protocol UTI 1. Continue ABX regimen, waiting for culture sensitivity Leukocytosis 1. Resolved CKD (stage III) 1. Continue diuresis, BUN/Cr are improving Elevated BNP 1. Pt had ECHO done waiting for results GERD 1.Consider PPI Hyperalgesia (fibromyalgia) 1.Continue Pain management HTN 1. Continuos monitoring, want to keep off of BP medications due to sepsis issue Diabetes 1. Continue home medications for diabetes Chronic wounds ( bilateral LE and Sacral/Cocci) 1. Wound care was consulted and inspected wound. Blood in urine secondary to UTI and recent catheter change 1. Urine has cleared up, no blood visible in Alvarenga bag Yeast infection 1. Treated with fluconazole Constipation: 1. patient has not had a bowel movement in 2 days, continue to monitor. Consider stool softeners if patient does not go. Pt is tolerating clear diet, will advance diet recommended low sodium low cholesterol diet. Clinical Quality Measures DVT/VTE Risk/Contraindication: Risk Factor Score Per Nursin RFS Level Per Nursing on Admit: 4+=Very High MADINA BANEGAS MD 07/07/19 1234: Assessment/Plan Assessment and Plan Assess & Plan/Chief Complaint Acute Respiratory distress now resolved. CT shows possible infiltrate. Will continue on antibiotics for UTI. Await cultures and sensitivity. Transfer to the 4th floor as is clinically improved. BP trending up so will resume home BP meds. Will likely be able to DC home tomorrow or pending c/s results. Supervisory-Addendum Brief Verification & Attestation Participated in pt care: history, MDM, physical Personally performed: exam, history, MDM, supervision of care Care discussed with: Medical Student Procedures: n/a Results interpretation: Verified all documentation Verification and Attestation of Medical Student E/M Service A medical student performed and documented this service in my presence. I reviewed and verified all information documented by the medical student and made modifications to such information, when appropriate. I personally performed the physical exam and medical decision making. Madina Banegas, Jul 07, 2019,12:32 [facility] Jul 07, 2019 09:18 MADINA MELVIN MD Jul 07, 2019 12:34 POS
[2019-07-07 09:32] LABS: BILIRUBIN,URINE NEGATIVE (NEGATIVE); CLARITY,URINE CLEAR; COLOR,URINE ORANGE; GLUCOSE, URINE (UA) 3+ (NEGATIVE); KETONES,URINE NEGATIVE (NEGATIVE); LEUKOCYTE ESTERASE ,URINE TRACE (NEGATIVE); NITRITE,URINE POSITIVE (NEGATIVE); PH,URINE 5.5 (5-9); PROTEIN,URINE TRACE (NEGATIVE)
[2019-07-07 09:42] LABS: ABG OXYGEN SATURATION 91 % (94-100); ABG PCO2 36 MMHG (35-45); ABG PH 7.44 (7.37-7.43); ABG PO2 63 MMHG (79-93)
[2019-07-07 09:48] LABS: ALLENS TEST YES-POS; INSPIRED O2 RA; PATIENT TEMP 36.1; VENTILATOR NO
[2019-07-07 09:50] LABS: BACTERIA,URINE TRACE /HPF; RBC,URINE RARE /HPF; WBC,URINE 25-50 /HPF
[2019-07-07 09:51] LABS: YEAST,URINE LARGE /HPF
--- NOTE | 2019-07-07 11:20 | NUR ---
REPORT GIVEN TO CURT ASHBY. PERSONAL ITEMS PACK. THIS RN AND TECH TRANSFERRED TO THE FORTH FLOOR VIA BED.
[2019-07-07] MEDS: FLUTICASONE NASAL SPRAY (FLONASE) 16 GM BTL NS SCH (11:49)
[2019-07-07 12:00] VITALS: BP 122/62
--- NOTE | 2019-07-07 12:00 | NUR ---
Report received from Beverly ASHBY, patient to room 414, patient oriented to room, call light within reach. Family at bedside.
--- NOTE | 2019-07-07 14:11 | NUR ---
CM DISCHARGE PLANNING: Chart reviewed for any discharge planning needs. Anticipate that the patient will discharge within the next day or two. Contacted [facility] staff to alert them of any pending needs. They report the patient would benefit from skilled therapies.
[2019-07-07 15:30] VITALS: BP 144/63
[2019-07-07] MEDS: ENOXAPARIN 40 MG/0.4 ML (LOVENOX) SYR SQ SCH (17:09)
[2019-07-07 19:35] VITALS: BP 129/59
[2019-07-07] MEDS ORDERED: NON-FORMULARY MEDICATION 1 EA EA (Tizanidine HCl 2 MG) PO SCH (21:00)
[2019-07-08] VITALS (7 sets, daily range): BP systolic 95–152; BP diastolic 52–70
[2019-07-08] MEDS: CEFEPIME 1,000 MG/SWFI 10 ML IV PUSH IV SCH ×2 (02:24)
[2019-07-08 05:16] LABS: BASOPHILS % (AUTO) 0 % (0-10); EOSINOPHILS # (AUTO) 0.4 10^3/uL (0.0-0.3); EOSINOPHILS % (AUTO) 5 % (0-10); HEMATOCRIT 31 % (35-52); HEMOGLOBIN 9.9 G/DL (11.5-16.0); LYMPHOCYTES # (AUTO) 1.6 X 10^3 (1.0-4.0); LYMPHOCYTES % (AUTO) 19 % (12-44); MEAN CORPUSCULAR HEMOGLOBIN 26 PG (25-34); MEAN CORPUSCULAR HGB CONC 32 G/DL (32-36); MEAN CORPUSCULAR VOLUME 83 FL (80-99); MEAN PLATELET VOLUME 11.9 FL (7.4-10.4); MONOCYTES % (AUTO) 12 % (0-12); NEUTROPHILS # (AUTO) 5.4 X 10^3 (1.8-7.8); NEUTROPHILS % (AUTO) 65 % (42-75); PLATELET COUNT 154 10^3/uL (130-400); RED CELL DISTRIBUTION WIDTH 16.3 % (10.0-14.5); WHITE BLOOD COUNT 8.4 10^3/uL (4.3-11.0)
[2019-07-08] MEDS: inSUlin ASPART (NovoLOG) 1 UNIT/0.01 ML (CHARGE PER UNIT) SC SCH ×4 (05:34→21:13)
[2019-07-08 05:35] LABS: CALCIUM 8.8 MG/DL (8.5-10.1); CREATININE SERUM 1.59 MG/DL (0.60-1.30); PHOSPHORUS 3.5 MG/DL (2.3-4.7); POTASSIUM 4.3 MMOL/L (3.6-5.0)
[2019-07-08] MEDS ORDERED: FLUCONAZOLE 200 MG/100 ML 50 ML, EMPTY IV BAG (PVC) 1 EA IV SCH ×2 (06:00)
[2019-07-08] MEDS ORDERED: FLUCONAZOLE 200 MG/100 ML 100 ML IV ONE (06:46)
[2019-07-08] MEDS ORDERED: INSULIN DEGLUDEC 100 UNIT SC SCH (07:30)
[2019-07-08] MEDS: PANTOPRAZOLE 40 MG (PROTONIX) VIAL IV SCH (08:43)
[2019-07-08] MEDS: lisINopril 40 MG (PRINIVIL) TABLET PO SCH (08:44)
[2019-07-08] MEDS: FUROSEMIDE 40 MG/4 ML INJ (LASIX) IVP SCH (08:44)
[2019-07-08] MEDS: LORATADINE (CLARITIN) 10 MG TAB PO SCH (08:45)
[2019-07-08] MEDS: ASPIRIN E.C. 81 MG (ECOTRIN) TAB PO SCH (08:45)
[2019-07-08] MEDS: meTOprolol TARTRATE 25 MG (LOPRESSOR) TABLET PO SCH ×2 (08:45→20:18)
[2019-07-08] MEDS: PHENAZOPYRIDINE 100 MG (PYRIDIUM) TABLET PO SCH ×3 (08:45→20:18)
[2019-07-08] MEDS: HYDROCHLOROTHIAZIDE 25 MG (HCTZ) TAB PO SCH (08:45)
[2019-07-08] MEDS: PREGABALIN 150 MG (LYRICA) CAPSULE PO SCH ×3 (08:50→20:18)
[2019-07-08] MEDS: FLUTICASONE NASAL SPRAY (FLONASE) 16 GM BTL NS SCH (08:50)
[2019-07-08] MEDS: RT-ALBUTEROL/IPRATROPIUM 3 ML (DUONEB) VIAL INH SCH ×4 (09:43→19:11)
--- NOTE | 2019-07-08 09:44 | NUR ---
patient did not get her 0600 svn bt due to RT not being available
--- NOTE | 2019-07-08 13:40 | Progress Note - Hospitalist ---
[facility] 07/08/19 1340: Subjective HPI/CC On Admission Date Seen by Provider: Jul 08, 2019 Time Seen by Provider: 08:15 Subjective/Events-last exam Pt is alert and oriented and in no acute distress. No family at bedside Pt denies any pain at this time Pt recently had catheter up-sized, urine and blood present in lorenz bag Having bowel movements without issue Pt states she needed oxygen last night due to an anxiety attack but she is feeling better and has not required supplemental oxygen since. Pt denies SOB, chest pain, N/V, and F/C Focused Exam Lactate Level 07/05/19 16:45: Lactic Acid Level 0.76 Objective Exam Vital Signs Vital Signs Date Time Temp Pulse Resp B/P (MAP) Pulse Ox O2 Delivery O2 Flow Rate FiO2 07/08/19 13:09 73 07/08/19 12:00 36.2 18 127/70 (89) 93 Room Air 07/08/19 04:16 3.00 07/05/19 20:27 28 Capillary Refill : Less Than 3 SecondsNONE General Appearance: No Apparent Distress, WD/WN HEENT: PERRL/EOMI Neck: Non Tender, Supple Respiratory: Chest Non Tender, Normal Breath Sounds, No Accessory Muscle Use, No Respiratory Distress Cardiovascular: Regular Rate, Rhythm, Normal Peripheral Pulses Gastrointestinal: Normal Bowel Sounds, Non Tender; No Distended, No Guarding Extremity: No Calf Tenderness, Pedal Edema Neurologic/Psychiatric: Alert, Oriented x3 Skin: Normal Color, Warm/Dry Lymphatic: No Adenopathy Results/Procedures Lab Laboratory Tests 07/08/19 04:55 Patient resulted labs reviewed. Assessment/Plan Assessment and Plan Assess & Plan/Chief Complaint - Acute respiratory distress secondary to Atypical pneumonia and Severe Sepsis - Severe sepsis - Atypical Pneumonia - UTI - GEETHA - Leukocytosis - CKD (stage III) - Elevated BNP - GERD - Hyperalgesia (fibromyalgia) - HTN - Diabetes - Chronic wounds ( bilateral LE and Sacral/Coccus) - Blood in urine secondary to UTI and recent catheter change - yeast infection - Possible Constipation KARTHIK secondary to Atypical pneumonia and Severe Sepsis 1. Resolved, pt is stable on room air UTI 1. Culture showed Klebsiella Pneumoniae 2. Will change to more sensitive ABX GEETHA - D/C lasix and thiazide diuretics, holding lisinopril and Ketoralac Leukocytosis 1. Resolved CKD (stage III) 1. will continue to monitor Elevated BNP 1. Pt had ECHO done waiting for results GERD 1.Consider PPI Hyperalgesia (fibromyalgia) 1.Continue Pain management HTN 1. Continuos monitoring, want to keep off of BP medications due to sepsis issue Diabetes 1. Continue home medications for diabetes Chronic wounds ( bilateral LE and Sacral/Cocci) 1. Wound care was consulted and inspected wound. Blood in urine secondary to UTI and recent catheter change 1. Urine has cleared up, no blood visible in Lorenz bag Yeast infection 1. Treated with fluconazole Constipation: 1. Patient is having bowel movements Pt is tolerating clear diet, will advance diet recommended low sodium low cholesterol diet. Clinical Quality Measures DVT/VTE Risk/Contraindication: Risk Factor Score Per Nursin RFS Level Per Nursing on Admit: 4+=Very High NINA BANEGAS MD 07/09/19 1110: Supervisory-Addendum Brief Verification & Attestation Participated in pt care: history, MDM, physical Personally performed: exam, history, MDM, supervision of care Care discussed with: Medical Student Procedures: n/a Results interpretation: Verified all documentation Verification and Attestation of Medical Student E/M Service A medical student performed and documented this service in my presence. I reviewed and verified all information documented by the medical student and made modifications to such information, when appropriate. I personally performed the physical exam and medical decision making. Nina Banegas, Jul 09, 2019,11:13 [facility] Jul 08, 2019 13:40 NINA MELVIN MD Jul 09, 2019 11:10 POS
--- NOTE | 2019-07-08 14:13 | Physical Therapy Evaluation ---
PT Evaluation-General Medical Diagnosis Admission Date Jul 05, 2019 at 18:00 Medical Diagnosis: AMS, UTI Onset Date: Jul 05, 2019 Therapy Diagnosis Therapy Diagnosis: cauda equina syndrome, gen weakness, B/L foot drop Height/Weight Height (Feet): 5 Height (Inches): 10.00 Weight (Pounds): 195 Weight (Ounces): 6.4 Precautions Precautions/Isolations: Fall Prevention, Standard Precautions Weight Bear Status Right Lower Extremity: Right Weight Bearing/Tolerated Left Lower Extremity: Left Weight Bearing/Tolerated Referral Physician: Martin Reason for Referral: Evaluation/Treatment Medical History Pertinent Medical History: Arthritis, CAD, DM, GERD, HTN Additional Medical History Past Medical History Surgeries: Abdominal, Appendectomy, Gallbladder, Hysterectomy, Oophorectomy, Orthopedic, Tonsillectomy Respiratory: Sleep Apnea Currently Using CPAP: No Currently Using BIPAP: No Cardiac: Atrial Fibrillation, High Cholesterol, Hypertension Neurological: Neuropathy, Paralysis, Spinal Cord Injury, Vertigo : No Reproductive: No Sexually Transmitted Disease: No HIV/AIDS: No Hysterectomy, Menopausal Genitourinary: Bladder Infection, Neurogenic Bladder, UTI-Chronic Gastrointestinal: Gastroesophageal Reflux, Liver Disease/Jaundice, Chronic Constipation, Cirrhosis Musculoskeletal: Degenerate Disk Disease, Arthritis, Fibromyalgia, Back Injury, Foot Drop, Chronic Back Pain, Fractures Endocrine: Diabetes, Insulin dep HEENT: Cataract Loss of Vision: Denies Hearing Impairment: Hard of Hearing Psychosocial: Depression History of Blood Disorders: No Adverse Reaction to Blood Cast: No Reviewed History: Yes Social History Home: Senior Living Prior Prior Level of Function SCALE: Activities may be completed with or without assistive devices. 7-Hmmcystjeu-vfodrow completes the activity by him/herself with no assistance from a helper. 5-Set-up or Clean-up Assistance-helper sets up or cleans up; patient completes activity. [place] assists only prior to or following the activity. 4-Supervision or Touching Assistance-helper provides verbal cues and/or touching/steadying and/or contact guard assistance as patient completes activity. Assistance may be provided throughout the activity or intermittently. 3-Partial/Moderate Assistance-helper does LESS THAN HALF the effort. [place] lifts, holds or supports trunk or limbs, but provides less than half the effort. 2-Substantial/Maximal Assistance-helper does MORE THAN HALF the effort. [place] lifts or holds trunk or limbs and provides more than half the effort. 8-Gusaptjnn-sxidgf does ALL the effort. Patient does none of the effort to complete the activity. Or, the assistance of 2 or more helpers is required for the patient to complete the activity. If activity was not attempted, code reason: 7-Patient Refused. 9-Not Applicable-not attempted and the patient did not perform the activity before the current illness, exacerbation or injury. 10-Not Attempted due to Environmental Limitations-(lack of equipment, weather restraints, etc.). 88-Not Attempted due to Medical Conditions or Safety Concerns. Bed Mobility: 6 Transfers (B,C,W/C): 1 Gait: 9 Stairs: 9 Indoor Mobility (Ambulation): Dependent Stairs: Dependent Prior Device Use: hx states pt used christina to transfer PT Evaluation-Current Subjective pt in bed pre-tx agrees to therapy and is motivated and pleasant. pt reports no pain at this time. pt in recliner post-tx with call light, phone, table in reach with all needs met at this time. Nurse notified that patient is in recliner. Pt/Family Goals pt just wants to get back to her home Objective Patient Orientation: Person, Confused, Place Attachments: SCD's, Alvarenga Catheter, IV ROM/Strength ROM Lower Extremities R ankle limited motion and not able to reach neutral dorsiflexion L ankle limited motion to neutral dorsiflexion. Strength Lower Extremities globally 3/5 throughout hips and knees Integumentary/Posture Integumentary see nursing notes Bowel Incontinence: Yes Bladder Incontinence: Alvarenga Cath Sensory Vision: Wears Glasses Hearing: Functional Sensation Right Lower Extremit: Impaired Sensation Left Lower Extremity: Impaired Sensation Lower Extremities pt has decreased sensation toward the medial thighs B/L and decreased sensation in B/L feet Transfers Roll Left to Right (QC): 88 Sit to Lying (QC): 88 Lying to Sitting/Side of Bed(Q: 4 (SBA) Sit to Stand (QC): 2 (maxAx1) Chair/Erm-zj-Mvuus Xfer(QC): 2 (maxAx1) Car Transfer (QC): 88 Gait Does the Patient Walk?: No and Walking Goal NOT indicated Mode of Locomotion: Wheelchair Anticipated Mode of Locomotion: Wheelchair Walk 10 feet (QC): 88 Walk 50 ft with 2 Turns(QC): 88 Walk 150 ft (QC): 88 Walking 10ft/uneven surface-QC: 88 Gait Assistive Device: None Comments/Gait Description pt was able to take a few small shuffle steps maxAx1 from EOB to the chair Wheelchair Training Does the Pt Use a Wheelchair?: No Wheel 50 ft with 2 turns (QC): 88 Wheel 150 ft (QC): 88 Type of Wheelchair: Manual Stairs 1 Step (curb) (QC): 88 4 Steps (QC): 88 12 Steps (QC): 88 Balance Sitting Static: Good Sitting Dynamic: Good Standing Static: Poor Standing Dynamic: Poor Picking up an Object (QC): 88 Treatment pt performed transfer training, bed mobility training, education, and functional LE strengthening (10reps Supine: AP's, HS's, hip ABD/ADD, SLR) Assessment/Needs pt was able to get supine to EOB and maintain balance with SBA. Pt requires maxAx1 to transfer to the chair but is able to take a few small shuffle steps to get to the chair. Rehab Potential: Guarded PT Supply Tech Goals Supply Tech Goals PT Supply Tech Goals Time Frame: Jul 15, 2019 Roll Left & Right (QC): 6 Sit to Lying (QC): 3 Lying-Sitting on Side/Bed(QC): 6 Sit to Stand (QC): 3 (mod) Chair/Pdp-jo-Jvyep Xfer(QC): 3 (mod) Toilet Transfer (QC): 3 (mod) Car Transfer (QC): 88 Does the Patient Walk: No and Walking Goal NOT indicated Walk 10 feet (QC): 88 Walk 50ft with 2 Turns (QC): 88 Walk 150 ft (QC): 88 Walking 10ft on Uneven Surface: 88 1 Step (curb) (QC): 88 4 Steps (QC): 88 12 Steps (QC): 88 Picking up an Object (QC): 88 Does the Pt use WC or Scooter?: No Type: N/A Type: N/A PT Plan Problem List Problem List: Activity Tolerance, Functional Strength, Safety, Balance, Gait, Transfer, Bed Mobility, ROM Treatment/Plan Treatment Plan: Continue Plan of Care Treatment Plan: Bed Mobility, Concurrent Therapy, Education, Functional Activity Dyana, Functional Strength, Safety, Therapeutic Exercise, Transfers Treatment Duration: Jul 15, 2019 Frequency: 6 times per week Estimated Hrs Per Day: .25 hour per day Patient and/or Family Agrees t: Yes Safety Risks/Education Patient Education: Transfer Techniques, Correct Positioning, Safety Issues Teaching Recipient: Patient Teaching Methods: Demonstration, Discussion Response to Teaching: Return Demonstration, Reinforcement Needed Discharge Recommendations Therapy Discharge Recommendati: Other, See Comments (NH) Time/GCodes Time In: 1347 Time Out: 1410 Total Billed Treatment Time: 23 Total Billed Treatment 1 visit EV 10' FA 13' LEXI CALERO PT Jul 08, 2019 14:13 POS
--- NOTE | 2019-07-08 15:01 | Occupational Therapy Eval ---
OT Evaluation-General/PLF Medical Diagnosis Admission Date Jul 05, 2019 at 18:00 Medical Diagnosis: AMS, UTI Onset Date: Jul 05, 2019 Therapy Diagnosis Therapy Diagnosis: impaired ADLs and functional mobility Height/Weight Height (Feet): 5 Height (Inches): 10.00 Weight (Pounds): 195 Weight (Ounces): 6.4 Precautions Precautions/Isolations: Fall Prevention, Standard Precautions Safety Interventions: Reorient-PRN Referral Physician: Martin Referral Reason: Activity Tolerance, Self Care, Evaluation/Treatment, Strengthening/ROM Medical History Pertinent Medical History: Arthritis, CAD, DM, GERD, HTN Current History Per H&P: "Emily ham is a 79 y/o female that presented to [facility] via EMS for being lethargic and altered metal status. Her O2 status was 88% on Room air on arrival in the ER. While speaking to Emily she could not remember why she was brought here and what had happened. At this time she is alert and oriented x 3 so I proceeded to ask her questions. The Patient has had SOB in the past but the associated AMS and lethargy is new for her. She says she feels SOB when she has a cold or allergies, but has never been hospitalized in the past for this. She has not had coughing spells, but when she does cough she has had green color sputum. Pt feels more short of breath when speaking, but oxygen via NC 2L has improved her feeling of SOB. Pt also has moments of shooting pain in her hip that she states is related to fibromyalgia." Reviewed History: Yes Social History Home: [facility] ADL-Prior Level of Function SCALE: Activities may be completed with or without assistive devices. 7-Kcmibnyela-acqlktz completes the activity by him/herself with no assistance from a helper. 5-Set-up or Clean-up Assistance-helper sets up or cleans up; patient completes activity. [place] assists only prior to or following the activity. 4-Supervision or Touching Assistance-helper provides verbal cues and/or touching/steadying and/or contact guard assistance as patient completes activity. Assistance may be provided throughout the activity or intermittently. 3-Partial/Moderate Assistance-helper does LESS THAN HALF the effort. [place] lifts, holds or supports trunk or limbs, but provides less than half the effort. 2-Substantial/Maximal Assistance-helper does MORE THAN HALF the effort. [place] lifts or holds trunk or limbs and provides more than half the effort. 7-Fcwegzxqp-ischvv does ALL the effort. Patient does none of the effort to c omplete the activity. Or, the assistance of 2 or more helpers is required for the patient to complete the activity. If activity was not attempted, code reason: 7-Patient Refused. 9-Not Applicable-not attempted and the patient did not perform the activity before the current illness, exacerbation or injury. 10-Not Attempted due to Environmental Limitations-(lack of equipment, weather restraints, etc.). 88-Not Attempted due to Medical Conditions or Safety Concerns. ADL PLOF Comments Per pt report: pt requires assistance for all ADLs and a lift is required for transfers. Self Care: Needed Some Help Functional Cognition: Needed Some Help DME/Equipment Comments pt requires a lift for transfers at the [facility]ci OT Current Status Subjective Pt upright in recliner at start of session, agreeable to OT evaluation on this date. Pt did not report any pain Mental Status/Objective Patient Orientation: Person, Place, Time, Situation Attachments: IV, SCD's Current Glasses/Contacts: Yes Hearing Aids: No Dentures/Partials: Yes Hand Dominance: Right Upper Extremity ROM WFL, BUE shoulder flexion to approximately 150 degrees, pt able to bend elbows and touch back of her head Upper Extremity Coordination WFL Upper Extremity Sensation pt denied any changes in sensation BUE Upper Extremity Strength grossly 4/5 MMT ADL-Treatment Eating (QC): 7 Oral Hygiene (QC): 7 Shower/Bathe Self (QC): 7 Upper Body Dressing (QC): 7 Lower Body Dressing (QC): 7 On/Off Footwear (QC): 1 Toileting Hygiene (QC): 7 Toilet Transfer (QC): 7 Other Treatments Pt seated in recliner, provided information about PLOF. Pt attempted to don/doff socks but required total assistance with task. Pt denied other ADLs and denied repositioning at this time stating she was comfortable in the recliner. Post OT session, pt seated in recliner, call light in reach and all needs met. Education OT Patient Education: Correct positioning, Energy conservation, Modified ADL techniques, Progress toward Goal/Update tx plan, Purpose of tx/functional activities Teaching Recipient: Patient Teaching Methods: Discussion Response to Teaching: Verbalize Understanding OT [facility] Goals Fci Goals Time Frame: Jul 17, 2019 Eating (QC): 5 Oral Hygiene (QC): 3 Toileting Hygiene (QC): 2 Shower/Bathe Self (QC): 2 Upper Body Dressing (QC): 3 Lower Body Dressing (QC): 2 On/Off Footwear (QC): 2 Additional Goals: 1-Demonstrate ADL Tasks, 2-Verbalize Understanding, 3-Improve Strength/Dyana 1=Demonstrate adherence to instructed precautions during ADL tasks. 2=Patient will verbalize/demonstrate understanding of assistive devices/modifications for ADL. 3=Patient will improve strength/tolerance for activity to enable patient to pe rform ADL's. OT Education/Plan Problem List/Assessment Assessment: Decreased Activ Tolerance, Decreased UE Strength, Impaired I ADL's, Impaired Self-Care Skills Discharge Recommendations Plan/Recommendations: Continue POC Treatment Plan/Plan of Care Treatment,Training & Education: Yes Patient would benefit from OT for education, treatment and training to promote independence in ADL's, mobility, safety and/or upper extremity function for ADL's. Plan of Care: ADL Retraining, Caregiver Training, Functional Mobility, UE Funct Exercise/Act Treatment Duration: Jul 17, 2019 Frequency: 5 times per week Estimated Hrs Per Day: .25 hour per day Agreement: Yes Rehab Potential: Guarded Time/GCodes Start Time: 14:40 Stop Time: 14:50 Total Time Billed (hr/min): 10 Billed Treatment Time 1, LATOYA CATHERINE OT Jul 08, 2019 15:01 POS
[2019-07-08] MEDS: ENOXAPARIN 40 MG/0.4 ML (LOVENOX) SYR SQ SCH (16:02)
[2019-07-08] MEDS: CEPHALEXIN 250 MG (KEFLEX) CAP PO SCH (20:19)
[2019-07-09 00:10] VITALS: BP 100/61
[2019-07-09 04:00] VITALS: BP 97/56
[2019-07-09] MEDS: inSUlin ASPART (NovoLOG) 1 UNIT/0.01 ML (CHARGE PER UNIT) SC SCH ×2 (05:51→11:46)
[2019-07-09 06:42] LABS: BASOPHILS # (AUTO) 0.1 10^3/uL (0.0-0.1); BASOPHILS % (AUTO) 1 % (0-10); EOSINOPHILS # (AUTO) 0.4 10^3/uL (0.0-0.3); EOSINOPHILS % (AUTO) 6 % (0-10); HEMATOCRIT 32 % (35-52); HEMOGLOBIN 9.9 G/DL (11.5-16.0); LYMPHOCYTES # (AUTO) 1.6 X 10^3 (1.0-4.0); LYMPHOCYTES % (AUTO) 25 % (12-44); MEAN CORPUSCULAR HEMOGLOBIN 26 PG (25-34); MEAN CORPUSCULAR HGB CONC 31 G/DL (32-36); MEAN CORPUSCULAR VOLUME 83 FL (80-99); MEAN PLATELET VOLUME 11.3 FL (7.4-10.4); MONOCYTES # (AUTO) 0.8 X 10^3 (0.0-1.0); MONOCYTES % (AUTO) 12 % (0-12); NEUTROPHILS # (AUTO) 3.6 X 10^3 (1.8-7.8); NEUTROPHILS % (AUTO) 56 % (42-75); PLATELET COUNT 164 10^3/uL (130-400); RED CELL DISTRIBUTION WIDTH 16.4 % (10.0-14.5); WHITE BLOOD COUNT 6.5 10^3/uL (4.3-11.0)
--- NOTE | 2019-07-09 06:50 | Pulmonary Progress Note ---
Subjective Time Seen by a Provider: 06:47 Subjective/Events-last exam Pt appears to be doing better. No complications noted. Sepsis Event Evaluation Height, Weight, BMI Height: 5'10.00" Weight: 195lbs. 6.4oz. 88.362211pg; 38.30 BMI Method: Exam Exam Vital Signs Date Time Temp Pulse Resp B/P (MAP) Pulse Ox O2 Delivery O2 Flow Rate FiO2 07/09/19 04:00 36.6 62 20 97/56 (70) 95 Room Air 07/09/19 00:10 36.6 76 16 100/61 (74) 94 Room Air 07/08/19 20:25 Nasal Cannula 2.00 07/08/19 19:32 36.2 80 22 152/65 (94) 95 Nasal Cannula 2.00 07/08/19 19:11 87 Room Air 07/08/19 16:07 36.6 67 0 116/56 (76) 90 Room Air 07/08/19 13:46 36.2 66 92 21 07/08/19 13:09 73 07/08/19 12:00 36.2 75 18 127/70 (89) 93 Room Air 07/08/19 11:32 90 Room Air 07/08/19 08:00 36.4 65 18 98/60 (73) 92 Room Air 07/08/19 08:00 92 Room Air 07/08/19 06:47 60 I & O 07/09/19 07:00 Intake Total 1940 ml Output Total 2550 ml Balance -610 ml Height & Weight Height: 5'10.00" Weight: 195lbs. 6.4oz. 88.299023yb; 38.30 BMI Method: General Appearance: No Apparent Distress, WD/WN, Chronically ill HEENT: No Photophobia Neck: Non Tender, Supple Respiratory: Chest Non Tender, Accessory Muscle Use, Decreased Breath Sounds Cardiovascular: No Edema, No Murmur Capillary Refill: Less Than 3 Seconds Extremity: No Calf Tenderness, Pedal Edema, Other (Patinet had no sensation present on the bottom of both feet and could not mirtha or plantarflex feet. She was 5/5 bilateral while sqeezing fingers. 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 ) Lymphatic: No Adenopathy Results Lab Laboratory Tests 07/08/19 04:55 07/09/19 05:45 Assessment/Plan Assessment/Plan Pneumonia with sepsis and hypoxia from ECF Tm 38.1 - CT of chest shows RUL infiltrate and small bilateral pleural effusions -Will need repeat CT scan 8wks after discharge to ensure resolution. -currently on keflex -BNP - 1064 Pulmonary edema -Echo- grade I diastolic dysfunction -Repeat CXR -Continue Lasix -Labs are pending UTI CKD III IDDM Sacral wounds -Wound care consulted Pt is ok from pulmonary standpoint for discharge. KAROLINA SCHWARTZ DO Jul 09, 2019 06:50 POS
[2019-07-09 07:13] LABS: CALCIUM 8.9 MG/DL (8.5-10.1); CREATININE SERUM 1.46 MG/DL (0.60-1.30); PHOSPHORUS 4.4 MG/DL (2.3-4.7); POTASSIUM 3.2 MMOL/L (3.6-5.0)
[2019-07-09] MEDS: RT-ALBUTEROL/IPRATROPIUM 3 ML (DUONEB) VIAL INH SCH ×2 (07:28→10:46)
[2019-07-09 08:00] VITALS: BP 112/55
--- NOTE | 2019-07-09 08:11 | Progress Note - Hospitalist ---
Subjective HPI/CC On Admission Date Seen by Provider: Jul 09, 2019 Time Seen by Provider: 07:35 Subjective/Events-last exam Pt is alert and oriented and in no acute distress. No family at bedside. Patient denies pain. She stated she required some oxygen in the middle of the night and is currently on 2L 95% Pt is feeling better and just wants to make sure her infection is gone Having bowel movements and Alvarenga catheter is draining Eating and drinking without issue Pt denies SOB, N/V, F/C and Chest pain Review of Systems General: No Chills Pulmonary: No Dyspnea, No Pleuritic Chest Pain Cardiovascular: Edema (Cjronic BL LE ); No: Chest Pain, Palpitations Gastrointestinal: No: Nausea, Vomiting, Abdominal Pain Objective Exam Vital Signs Vital Signs Date Time Temp Pulse Resp B/P (MAP) Pulse Ox O2 Delivery O2 Flow Rate FiO2 07/09/19 08:00 36.4 61 18 112/55 (74) 96 Room Air 07/09/19 07:28 2.00 07/08/19 13:46 21 Capillary Refill : Less Than 3 SecondsLess Than 3 Seconds General Appearance: No Apparent Distress, WD/WN HEENT: PERRL/EOMI, Moist Mucous Membranes Neck: Normal Inspection, Non Tender Respiratory: Chest Non Tender, Normal Breath Sounds (Lung sounds improved), No Accessory Muscle Use, No Respiratory Distress Cardiovascular: Regular Rate, Rhythm; No Friction Rub Gastrointestinal: Normal Bowel Sounds, Non Tender Extremity: No Calf Tenderness, Pedal Edema Neurologic/Psychiatric: Alert, Oriented x3 Skin: Normal Color, Cool Lymphatic: No Adenopathy Results/Procedures Lab Laboratory Tests 07/09/19 05:45 Patient resulted labs reviewed. Assessment/Plan Assessment and Plan Assess & Plan/Chief Complaint - Acute respiratory distress secondary to Atypical pneumonia and Severe Sepsis - Severe sepsis - Atypical Pneumonia - UTI - GEETHA - Leukocytosis - CKD (stage III) - Elevated BNP - GERD - Hyperalgesia (fibromyalgia) - HTN - Diabetes - Chronic wounds ( bilateral LE and Sacral/Coccus) - Blood in urine secondary to UTI and recent catheter change - yeast infection - Possible Constipation KARTHIK secondary to Atypical pneumonia and Severe Sepsis 1. Resolved, pt is stable on room air UTI 1. Culture showed Klebsiella Pneumoniae 2. Currently on Cephalexin 500mg BID, consider 7-14 day tx. GEETHA - D/C lasix and thiazide diuretics, holding lisinopril and Ketoralac - BUN/Cr has improved currently 55/1.46 - Monitor K+ was 4.3 and is now 3.2. Consider potassium supplement if needed Leukocytosis 1. Resolved CKD (stage III) 1. will continue to monitor Elevated BNP 1. Pt had ECHO showed EF of 50% with hypokinesia of the anterior wall, and Grade 1 diastolic dysfunction GERD 1.Consider PPI Hyperalgesia (fibromyalgia) 1.Continue Pain management HTN 1. Continuos monitoring Diabetes 1. Continue home medications for diabetes Chronic wounds ( bilateral LE and Sacral/Cocci) 1. Wound care was consulted and inspected wound. Blood in urine secondary to UTI and recent catheter change 1. Urine has cleared up, no blood visible in Alvarenga bag Yeast infection 1. Treated with fluconazole. COnsider 7-14 days Constipation: 1. Patient is having bowel movements Clinical Quality Measures DVT/VTE Risk/Contraindication: Risk Factor Score Per Nursin RFS Level Per Nursing on Admit: 4+=Very High [facility] Jul 09, 2019 08:10 POS
[2019-07-09] MEDS ORDERED: fluCOnazole (DIFLUCAN) 100 MG TAB PO SCH (09:00)
[2019-07-09] MEDS ORDERED: KCL 20 MEQ TAB (K-DUR) PO NR (09:01)
[2019-07-09] MEDS ORDERED: CEPH250C PO (09:21)
[2019-07-09] MEDS ORDERED: FLUC100T6 PO (09:21)
--- NOTE | 2019-07-09 09:22 | Discharge Inst-Skilled Nursing ---
Discharge Inst-Skilled NF Chief Complaint Consult/Follow Up/Orders Follow Up Appt.: Dr Castillo in 1 week Skilled NF Admit to: [facility] (SNF) I certify that SNF services are required to be given on an inpatient basis because of the above named patient's need for usp care on a continuing basis for the conditions(s) for which he/she was receiving inpatient hospital services prior to his/her transfer to the SNF. Alf Facility Order: Nursing Services, [facility]-Evaluate & Treat, Physical Therapy-Evaluate & Treat, Wound Care-Eval/Treat Oxygen Delivery Method: Room Air Discharge Diet: ADA Diet Daily Activity as Tolerated: Yes Resuscitation Status: Do Not Resuscitate New & Resume Previous Orders Nina Salazar Jul 09, 2019 09:22 NINA SALAZAR MD Jul 09, 2019 09:22 POS
--- NOTE | 2019-07-09 09:24 | Discharge Summary ---
[facility] 07/09/19 0924: Diagnosis/Chief Complaint Date of Admission Jul 05, 2019 at 18:00 Date of Discharge Discharge Date: Jul 09, 2019 Discharge Time: 09:17 Admission Diagnosis - Acute respiratory distress secondary to Atypical pneumonia and Severe Sepsis - Severe Sepsis - Atypical Pneumonia - UTI - Leukocytosis - CKD (stage III) - GERD - Hyperalgesia (fibromyalgia) - HTN - Diabetes - Chronic wounds ( bilateral LE and Sacral/Coccus) - Blood in urine secondary to UTI and recent catheter change Primary Care Marcel Castillo DO Discharge Diagnosis (1) Acute respiratory failure with hypoxia Status: Acute (2) Chronic indwelling Alvarenga catheter Status: Acute (3) Sacral decubitus ulcer Status: Acute (4) Altered mental status Status: Acute (5) UTI (urinary tract infection) Status: Acute (6) Sepsis Status: Acute (7) Acute renal insufficiency Status: Acute (8) Cauda equina syndrome Status: Acute Discharge Summary Discharge Physical Exam Allergies: Coded Allergies: Iodine and Iodide Containing Produc (Verified Allergy, Unknown, ANAPHYLAXIS, RASH, 11/09/14) Sulfa (Sulfonamide Antibiotics) (Unverified Allergy, Unknown, NAUSEA AND VOMITING, 11/09/14) adhesive (Unverified Allergy, Unknown, 11/09/14) codeine (Unverified Allergy, Unknown, N/V , 11/09/14) tramadol (Unverified Allergy, Unknown, NAUSEA AND VOMITING, 11/09/14) Uncoded Allergies: PERFUME (Allergy, Unknown, 11/09/14) Vitals & I&Os Vital Signs Date Time Temp Pulse Resp B/P (MAP) Pulse Ox O2 Delivery O2 Flow Rate FiO2 07/09/19 08:00 36.4 61 18 112/55 (74) 96 Room Air 07/09/19 07:28 2.00 07/08/19 13:46 21 General Appearance: No Apparent Distress, WD/WN HEENT: PERRL/EOMI, Moist Mucous Membranes Respiratory: Chest Non Tender, Normal Breath Sounds, No Accessory Muscle Use, No Respiratory Distress Cardiovascular: Regular Rate, Rhythm; No Friction Rub Gastrointestinal: Normal Bowel Sounds, Non Tender, Soft; No Distended, No Guarding Extremity: No Calf Tenderness, Pedal Edema Skin: Normal Color, Warm/Dry Neurologic/Psychiatric: Alert, Oriented x3, Normal Mood/Affect, detective homicide squad II-XII Norm as Tested Hospital Course Was the Problem List Reviewed?: Yes Emily was admitted to [facility] on 07/05/19 and will be discharged today 07/09/19. She was admitted for Acute respiratory distress secondary to atypical pneumonia and sepsis. She has a PMH of CKD stage III, GERD, Fibromyalgia, HTN, Diabetes. Chronic wounds, and spinal cord injury. Emily was under the care of Dr. Banegas Hospitalist. Consulted physicians included Dr. Castro Conventional Mortgage Underwriter and Dr. Montgomery Wound care. She also received care from OT and PT. Imaging included CXR , CT of the C/A that showed RUL infiltrate and an ECHO that showed and EF 50% with hypokinesia of the anterior wall with grade I diastolic dysfunction. UA was performed and the patient was found to have a UTI and Yeast infection. Urine cultures came back positive for Klebsielleae pneumoniae infection, but negative for Listeria and Strep pneumoniae antigens. The patient had a negative Influenza A and B test, negative blood cultures and a negative occult blood stool test. Exam findings were positive for SOB associated with lethargy, sporadic coughing that was producing mucus, accessory muscle use with wheezing on auscultation. Pertinent lab findings showed upper limits of normal WBC and a BNP of >1000. The patient was started on broad spectrum antibiotics, albuterol/Ipratropium for respiratory support, supplemental oxygen, antibiotics for yeast infection, and diuretics for increased BNP. The patient has improved breathing with no accessory muscle use and improved lung sounds. She denies being short of breath and only requires oxygen periodically. The patient was switched to more specific abx for UTI and will continue her course at home, WBC is at 6.5, patient is not running fevers and is feeling much better, patient will continue antibiotic regimen for yeast infection at home and BNP levels have returned to normal. The patient is being discharged today in a stable condition and should continue to take medication as directed in discharge packet. Follow up with pulmonary in 6-8 weeks to monitor resolution of pulmonary infection. All other follow up informat ion is outlined in discharge paper work. The following information is only a summary of the patients admission while at [facility] and is not all inclusive. Please review the entire chart for more information. Labs (last 24 hrs) Laboratory Tests 07/08/19 12:07: Glucometer 170H 07/08/19 16:35: Glucometer 184H 07/08/19 20:53: Glucometer 178H 07/09/19 05:41: Glucometer 182H 07/09/19 05:45: White Blood Count 6.5, Red Blood Count 3.80L, Hemoglobin 9.9L, Hematocrit 32L, Mean Corpuscular Volume 83, Mean Corpuscular Hemoglobin 26, Mean Corpuscular He moglobin Concent 31L, Red Cell Distribution Width 16.4H, Platelet Count 164, Mean Platelet Volume 11.3H, Neutrophils (%) (Auto) 56, Lymphocytes (%) (Auto) 25, Monocytes (%) (Auto) 12, Eosinophils (%) (Auto) 6, Basophils (%) (Auto) 1, Neutrophils # (Auto) 3.6, Lymphocytes # (Auto) 1.6, Monocytes # (Auto) 0.8, Eosinophils # (Auto) 0.4H, Basophils # (Auto) 0.1, Sodium Level 139, Potassium Level 3.2L, Chloride Level 101, Carbon Dioxide Level 23, Anion Gap 15H, Blood Urea Nitrogen 55H, Creatinine 1.46H, Estimat Glomerular Filtration Rate 34, BUN/Creatinine Ratio 38, Glucose Level 169H, Calcium Level 8.9, Phosphorus Level 4.4, Magnesium Level 2.0 07/09/19 05:46: B-Type Natriuretic Peptide 68.6 Microbiology 07/05/19 Blood Culture - Preliminary, Resulted No growth 07/05/19 Influenza Types A,B Antigen (RFANCIS) - Final, Complete 07/07/19 Urine Culture - Final, Complete YEAST Patient resulted labs reviewed. Pending Labs Laboratory Tests 07/09/19 05:41: Glucometer 182 07/09/19 05:45: White Blood Count 6.5, Red Blood Count 3.80, Hemoglobin 9.9, Hematocrit 32, Mean Corpuscular Volume 83, Mean Corpuscular Hemoglobin 26, Mean Corpuscular Hemoglobin Concent 31, Red Cell Distribution Width 16.4, Platelet Count 164, Mean Platelet Volume 11.3, Neutrophils (%) (Auto) 56, Lymphocytes (%) (Auto) 25, Monocytes (%) (Auto) 12, Eosinophils (%) (Auto) 6, Basophils (%) (Auto) 1, Neutrophils # (Auto) 3.6, Lymphocytes # (Auto) 1.6, Monocytes # (Auto) 0.8, Eosinophils # (Auto) 0.4, Basophils # (Auto) 0.1, Sodium Level 139, Potassium Level 3.2, Chloride Level 101, Carbon Dioxide Level 23, Anion Gap 15, Blood Urea Nitrogen 55, Creatinine 1.46, Estimat Glomerular Filtration Rate 34, BUN/Creatinine Ratio 38, Glucose Level 169, Calcium Level 8.9, Phosphorus Level 4.4, Magnesium Level 2.0 07/09/19 05:46: B-Type Natriuretic Peptide 68.6 Discharge Home Medications: Active Scripts Active Reported Eye Health Adult 50+ Softgel (Antiox #11/Om3/Dha/Epa/Lut/Lucien) 1 Each Capsule 1 Cap PO BID Tylenol (Acetaminophen) 325 Mg Tablet 650 Mg PO Q6H PRN Iprat-Albut 0.5-3(2.5) mg/3 ml (Ipratropium/Albuterol Sulfate) 3 Ml Ampul.neb 3 Ml NEB Q6H PRN Hydrocodone-Acetamin 5-325 mg (Hydrocodone/Acetaminophen) 1 Each Tablet 1 Tab PO Q6H PRN Glutose 15 (Dextrose) 37.5 Gm Gel..gram. 15 Gm PO UD PRN Glucagon Emergency Kit (Glucagon,Human Recombinant) 1 Mg/Kit Soln 1 Mg SC UD PRN Dulcolax (Bisacodyl) 10 Mg Supp.rect 10 Mg RC Q72H PRN Lyrica (Pregabalin) 150 Mg Capsule 150 Mg PO TID Humalog Kwikpen (Insulin Lispro) 100 Unit/1 Ml Insuln.pen SQ TIDAC 0-119 = 0 UNITS 120-160 = 7 UNITS 161-200 = 12 UNITS 201-240 = 17 UNITS 241-280 = 21 UNITS 281-320 = 25 UNITS 321+ = 27 UNITS Tresiba Flextouch U-100 (Insulin Degludec) 100 Unit/1 Ml Insuln.pen 100 Units SC 0730 Humalog Kwikpen (Insulin Lispro) 100 Unit/1 Ml Insuln.pen SC HS 201-240 = 7 UNITS 241-280 = 9 UNITS 281-320 = 12 UNITS >320 = 14 UNITS Propranolol HCl 10 Mg Tablet 10 Mg PO BID Metoprolol Tartrate 25 Mg Tablet 25 Mg PO BID HOLD IF SBP<100 OR HR <60 Florastor (Saccharomyces Boulardii) 250 Mg Capsule 250 Mg PO BID Colace (Docusate Sodium) 100 Mg Capsule 100 Mg PO BID Vitamin C (Ascorbic Acid) 500 Mg Tablet 500 Mg PO DAILY Tradjenta (Linagliptin) 5 Mg Tablet 5 Mg PO DAILY Tizanidine HCl 2 Mg Tablet 2 Mg PO HS Multivitamins with Minerals (Multivitamin with Minerals) 1 Each Tablet 1 Tab PO DAILY Jardiance (Empagliflozin) 25 Mg Tablet 25 Mg PO DAILY Fluticasone Propionate 16 Gm [place].susp 1 [place] NS DAILY Loratadine 10 Mg Tablet 10 Mg PO DAILY Citalopram HBr (Citalopram Hydrobromide) 20 Mg Tablet 20 Mg PO DAILY Aspirin EC (Aspirin) 81 Mg Tablet.dr 81 Mg PO DAILY Lisinopril 40 Mg Tablet 40 Mg PO DAILY HOLD FOR SBP<100 Atorvastatin Calcium 40 Mg Tablet 40 Mg PO HS Meclizine HCl 25 Mg Tablet 25 Mg PO TID PRN Co Q-10 (Ubidecarenone) 200 Mg Capsule 200 Mg PO DAILY Famotidine 20 Mg Tablet 20 Mg PO DAILY Hydrochlorothiazide 50 Mg Tablet 50 Mg PO DAILY Instructions to patient/family Please see electronic discharge instructions given to patient. Clinical Quality Measures DVT/VTE Risk/Contraindication: Risk Factor Score Per Nursin RFS Level Per Nursing on Admit: 4+=Very High NINA BANEGAS MD 07/09/19 1138: Discharge Summary Discharge Physical Exam Allergies: Coded Allergies: Iodine and Iodide Containing Produc (Verified Allergy, Unknown, ANAPHYLAXIS, RASH, 11/09/14) Sulfa (Sulfonamide Antibiotics) (Unverified Allergy, Unknown, NAUSEA AND VOMITING, 11/09/14) adhesive (Unverified Allergy, Unknown, 11/09/14) codeine (Unverified Allergy, Unknown, N/V , 11/09/14) tramadol (Unverified Allergy, Unknown, NAUSEA AND VOMITING, 11/09/14) Uncoded Allergies: PERFUME (Allergy, Unknown, 11/09/14) Discussion & Recommendations Discharge Planning: >30 minutes discharge planning Supervisory-Addendum Brief Verification & Attestation Participated in pt care: history, MDM, physical Personally performed: exam, history, MDM, supervision of care Care discussed with: Medical Student Procedures: n/a Results interpretation: Verified all documentation Verification and Attestation of Medical Student E/M Service A medical student performed and documented this service in my presence. I reviewed and verified all information documented by the medical student and made modifications to such information, when appropriate. I personally performed the physical exam and medical decision making. iNna Banegas, Jul 09, 2019,11:38 [facility] Jul 09, 2019 09:24 NINA MELVIN MD Jul 09, 2019 11:38 POS
--- NOTE | 2019-07-09 09:26 | Diagnostic Imaging Report ---
CHEST 1 VIEW, AP/PA ONLY INDICATION: Shortness of breath. COMPARISON: 07/06/2019. FINDINGS: Reticular and nodular opacities in the right upper and lower lung zone. Probable trace right pleural effusion persists. No pneumothorax. Stable cardiomediastinal silhouette. IMPRESSION: 1. Vague airspace opacities are unchanged and may relate to pulmonary edema or infection. Dictated by: Dictated on workstation # [id number]
--- NOTE | 2019-07-09 09:33 | Physical Therapy Daily Note ---
PT Daily Note-Current Subjective Patient agrees to PT. States she usually uses a slide board to transfer to chair or can stand to transfer but doesn't use walker to transfer. Reports 6/10 pain in L hip with movement. Pain Numeric Pain Scale: 7 Location: Left Location Body Site: Hip Pain Description: Ache Mental Status Patient Orientation: Normal For Age Attachments: Oxygen (2L), Alvarenga Catheter Transfers SCALE: Activities may be completed with or without assistive devices. 3-Vatgpmtwgn-flybyab completes the activity by him/herself with no assistance from a helper. 5-Set-up or Clean-up Assistance-helper sets up or cleans up; patient completes a ctivity. [place] assists only prior to or following the activity. 4-Supervision or Touching Assistance-helper provides verbal cues and/or touching/steadying and/or contact guard assistance as patient completes activity. Assistance may be provided throughout the activity or intermittently. 3-Partial/Moderate Assistance-helper does LESS THAN HALF the effort. [place] lifts, holds or supports trunk or limbs, but provides less than half the effort. 2-Substantial/Maximal Assistance-helper does MORE THAN HALF the effort. [place] lifts or holds trunk or limbs and provides more than half the effort. 8-Jfmznzpzn-flmmsh does ALL the effort. Patient does none of the effort to complete the activity. Or, the assistance of 2 or more helpers is required for the patient to complete the activity. If activity was not attempted, code reason: 7-Patient Refused. 9-Not Applicable-not attempted and the patient did not perform the activity before the current illness, exacerbation or injury. 10-Not Attempted due to Environmental Limitations-(lack of equipment, weather restraints, etc.). 88-Not Attempted due to Medical Conditions or Safety Concerns. Roll Left & Right (QC): 4 Lying to Sitting/Side of Bed(Q: 4 Sit to Stand (QC): 2 Chair/Tpw-im-Kdise Xfer(QC): 2 Max assist to transfer to chair Weight Bearing Right Lower Extremity: Right Weight Bearing/Tolerated Left Lower Extremity: Left Weight Bearing/Tolerated Exercises Supine Ex: Ankle pumps, Heel Slides, Straight leg raise, Hip abd/add Supine Reps: 10 Seated Therapy Exercises: Long arc quads, Hip flexion Seated Reps: 10 Assessment Patient completed supine exercises with assistance for ankle movements d/t bilateral foot drop. Transferred from supine to sitting EOB with CGA-SBA. Required max assist to stand and transfer to chair, with patient able to take little steps to complete transfer. Patient seated in recliner with legs elevated at conclusion of treatment with nursing present. PT Halfway Goals Advanced Practice Professional Goals PT Advanced Practice Professional Goals Time Frame: Jul 15, 2019 Roll Left & Right (QC): 6 Sit to Lying (QC): 3 Lying-Sitting on Side/Bed(QC): 6 Sit to Stand (QC): 3 (mod) Chair/Vjk-lf-Djvsv Xfer(QC): 3 (mod) Toilet Transfer (QC): 3 (mod) Car Transfer (QC): 88 Does the Patient Walk: No and Walking Goal NOT indicated Walk 10 feet (QC): 88 Walk 50ft with 2 Turns (QC): 88 Walk 150 ft (QC): 88 Walking 10ft on Uneven Surface: 88 1 Step (curb) (QC): 88 4 Steps (QC): 88 12 Steps (QC): 88 Picking up an Object (QC): 88 Does the Pt use WC or Scooter?: No Type: N/A Type: N/A PT Plan Treatment/Plan Treatment Plan: Continue Plan of Care Treatment Plan: Bed Mobility, Concurrent Therapy, Education, Functional Activity [place], Functional Strength, Safety, Therapeutic Exercise, Transfers Treatment Duration: Jul 15, 2019 Frequency: 6 times per week Estimated Hrs Per Day: .25 hour per day Patient and/or Family Agrees t: Yes Time/GCodes Time In: 854 Time Out: 909 Total Billed Treatment Time: 15 Total Billed Treatment 1 visit EX 15min MANJEET GONSALEZ PT Jul 09, 2019 09:33 POS
--- NOTE | 2019-07-09 09:41 | NUR ---
GEOVANNY FINALIZED DISCHARGE PLAN: Patient will return to [facility] for Physical, Occupational Therapies, Nursing for wound care. She has a new need for oxygen continuous at 2LPM. Visited with patient et she indicates that she needs clothes et portable oxygen for transport. Finalized discharge orders faxed to facility. Awaiting return call from WALI Egan for a spanish moss picker time. We have requested 1p.m. for spanish moss picker. Addendum: 07/09/19 at 1320 by SAVANNAH TAM RN Patient had o2 testing et did not need oxygen. Updated [facility] that patient does not need oxygen. She is requesting her electric wheel chair for transport. They will see if they can accommodate that request.
[2019-07-09] MEDS: PANTOPRAZOLE 40 MG (PROTONIX) VIAL IV SCH (09:46)
[2019-07-09] MEDS: ASPIRIN E.C. 81 MG (ECOTRIN) TAB PO SCH (09:46)
[2019-07-09] MEDS: PHENAZOPYRIDINE 100 MG (PYRIDIUM) TABLET PO SCH (09:46)
[2019-07-09] MEDS: meTOprolol TARTRATE 25 MG (LOPRESSOR) TABLET PO SCH (09:46)
[2019-07-09] MEDS: PREGABALIN 150 MG (LYRICA) CAPSULE PO SCH (09:46)
[2019-07-09] MEDS: LORATADINE (CLARITIN) 10 MG TAB PO SCH (09:46)
[2019-07-09] MEDS: CEPHALEXIN 250 MG (KEFLEX) CAP PO SCH (09:47)
[2019-07-09] MEDS: FLUTICASONE NASAL SPRAY (FLONASE) 16 GM BTL NS SCH (09:48)
--- NOTE | 2019-07-09 10:45 | NUR ---
PATIENT IS UNABLE TO WALK PATIENTS SAT DROPPED TO 90% ON ROOM AIR Addendum: 07/09/19 at 1045 by WENDY VALERIO RT Amended: Links added.
--- NOTE | 2019-07-09 11:20 | Occupational Ther Daily Note ---
OT Current Status-Daily Note Subjective Pt seated in recliner at start of session, agreeable to OT tx with focus on exercise. Pt reports she is hopefully being discharged later today. Mental Status/Objective Attachments: Alvarenga Catheter ADL-Treatment Therapy Code Descriptions/Definitions Functional [place] Measure: 0=Not Assessed/NA 4=Minimal Assistance 1=Total Assistance 5=Supervision or Setup 2=Maximal Assistance 6=Modified [place] 3=Moderate Assistance 7=Complete IndependenceSCALE: Activities may be completed with or without assistive devices. 3-Odrxdzndrz-kddowke completes the activity by him/herself with no assistance from a helper. 5-Set-up or Clean-up Assistance-helper sets up or cleans up; patient completes activity. [place] assists only prior to or following the activity. 4-Supervision or Touching Assistance-helper provides verbal cues and/or touching/steadying and/or contact guard assistance as patient completes activity. Assistance may be provided throughout the activity or intermittently. 3-Partial/Moderate Assistance-helper does LESS THAN HALF the effort. [place] lifts, holds or supports trunk or limbs, but provides less than half the effort. 2-Substantial/Maximal Assistance-helper does MORE THAN HALF the effort. [place] lifts or holds trunk or limbs and provides more than half the effort. 6-Jrpuabyhd-akjwci does ALL the effort. Patient does none of the effort to complete the activity. Or, the assistance of 2 or more helpers is required for the patient to complete the activity. If activity was not attempted, code reason: 7-Patient Refused. 9-Not Applicable-not attempted and the patient did not perform the activity before the current illness, exacerbation or injury. 10-Not Attempted due to Environmental Limitations-(lack of equipment, weather restraints, etc.). 88-Not Attempted due to Medical Conditions or Safety Concerns. Other Treatment Pt seated in recliner throughout session. Pt declined ADLs at this time. In order to increase BUE strength and functional endurance, pt completed x10 reps each of the following exercises using yellow theraband: elbow flexion, elbow extension and horizontal abduction. Post OT session, pt seated in recliner, call light in reach and all needs met. Education OT Patient Education: Correct positioning, Energy conservation, Exercise program, Modified ADL techniques, Progress toward Goal/Update tx plan, Purpose of tx/functional activities Teaching Recipient: Patient Teaching Methods: Demonstration, Discussion Response to Teaching: Verbalize Understanding, Return Demonstration OT Asset Protection Specialist Goals Assisted Goals Time Frame: Jul 17, 2019 Eating (QC): 5 Oral Hygiene (QC): 3 Toileting Hygiene (QC): 2 Shower/Bathe Self (QC): 2 Upper Body Dressing (QC): 3 Lower Body Dressing (QC): 2 On/Off Footwear (QC): 2 Additional Goals: 1-Demonstrate ADL Tasks, 2-Verbalize Understanding, 3- ImproveStrength/Dyana 1=Demonstrate adherence to instructed precautions during ADL tasks. 2=Patient will verbalize/demonstrate understanding of assistive devices/modifications for ADL. 3=Patient will improve strength/tolerance for activity to enable patient to perform ADL's. OT Education/Plan Problem List/Assessment Assessment: Decreased Activ Tolerance, Decreased UE Strength, Dependent Transfers, Impaired Bed Mobility, Impaired Funct Balance, Impaired I ADL's, Impaired Self-Care Skills, Restricted Funct UE ROM Discharge Recommendations Plan/Recommendations: Continue POC Treatment Plan/Plan of Care Treatment,Training & Education: Yes Patient would benefit from OT for education, treatment and training to promote independence in ADL's, mobility, safety and/or upper extremity function for ADL's. Plan of Care: ADL Retraining, Caregiver Training, Functional Mobility, UE Funct Exercise/Act Treatment Duration: Jul 17, 2019 Frequency: 5 times per week Estimated Hrs Per Day: .25 hour per day Agreement: Yes Rehab Potential: Guarded Time/GCodes Start Time: 11:02 Stop Time: 11:10 Total Time Billed (hr/min): 8 Billed Treatment Time 1, EX LATOYA ROSE OT Jul 09, 2019 11:20 POS
[2019-07-09] MEDS ORDERED: LACTOBACILLUS ACIDOPHILUS (PROBIOTIC) CAPSULE PO SCH (12:00)
--- NOTE | 2019-07-09 13:06 | NUR ---
NO RETURN CALL FROM [facility] TO GIVE REPORT. CUSTOMER SALES REPRESENTATIVE HERE TO TAKE PT AND MY PHONE NUMBER GIVEN TO CUSTOMER SALES REPRESENTATIVE FOR NURSE TO CALL FOR REPORT WHEN PT ARRIVES.
--- NOTE | 2019-07-09 13:14 | NUR ---
DC'D PER JOSE DANIEL TO [facility].
--- OUTSIDE RECORDS SUMMARY | 2019-07-30 11:51 | XMS REPORT | Clinical Summary ---
Author Author [facility] Organization [facility] Address Unknown Phone Unavailable Care Team Providers Care Deli/Bakery Associate Name Role Phone Kevin Lindsey MD Unavailable Unavailable Marcel Castillo DO PCP Angely Amato APRN Unavailable Tre Toribio MD Unavailable Lalita Lozano MD Unavailable Source Comments Some departments are not documenting in the electronic medical record. If you d o not see the information that you expected, contact Release of Information in [facility] Information Management department at [phone] for further assistan ce in locating additional records.[facility] Allergies Comments Active Allergy Reactions Severity Noted Date Iodine UNKNOWN 11/11/2011 Tape Unclassified Drug UNKNOWN 11/04/2012 Sulfa (Sulfonamide UNKNOWN 11/12/2011 Antibiotics) Medications End Date Status Medication Sig Dispensed Refills Start Date Active metFORMIN (GLUCOPHAGE) Take 1 Tab by 180 Tab 0 0 500 mg tablet mouth twice 2 daily with meals. Active pioglitazone (ACTOS) 15 Take 1 Tab by 90 Tab 0 201 mg tablet mouth daily 2 with breakfast. Active lisinopril (PRINIVIL, Take 1 Tab by 90 Tab 0 201 ZESTRIL) 30 mg tablet mouth daily. 2 Active famotidine (PEPCID) 20 mg Take 1 Tab by 180 Tab 0 201 tablet mouth daily. 2 Active potassium chloride SR Take 2 Tabs 90 Cap 0 05/0 3/201 (K-DUR) 20 mEq tablet by mouth 2 once. Active CHOLECALCIFEROL (VITAMIN Take by 0 D3) (D-3-5 PO) mouth. Active CYANOCOBALAMIN (VITAMIN Take by 0 B-12) (B-12 DOTS PO) mouth. Active LUTEIN PO Take by 0 mouth. Active insulin glargine (LANTUS) Inject 80 0 100 unit/mL injection Units into area(s) as directed at bedtime daily. Active [...] of left humerus 11/11/2011 Left acetabular fracture 11/11/2011 Multiple rib fractures 11/11/2011 Social History Date Tobacco Use Types Packs/Day Years Used Never Smoker Smokeless Tobacco: Never Used Tobacco Cessation: Counseling Given: Yes Drinks/Week oz/Week Comments Alcohol Use No Sex Assigned at Date Recorded Not on file Industry Job Start Date Occupation Not on file Not on file Not on file Travel End Travel History Travel Start No recent travel history available. Last Filed Vital Signs Reading Time Taken Comments Vital Sign 120/68 12/30/2013 12:03 PM CDT Blood Pressure 85 12/30/2013 12:03 PM CDT Pulse 37 C (98.6 F) 12/06/2011 8:00 AM CDT Temperature - - Respiratory Rate 97% 12/06/2011 8:00 AM CDT Oxygen Saturation - - Inhaled Oxygen Concentration 98.9 kg (218 lb) 12/30/2013 12:03 PM CDT Weight 157.5 cm (5' 2.01") 12/30/2013 12:03 PM CDT Height 39.86 12/30/2013 12:03 PM CDT Body Mass Index Plan of Treatment Health Maintenance Due Date Last Done Comments MEDICARE ANNUAL WELLNESS 1938 VISIT DTAP/TDAP VACCINES (1 - 1949 Tdap) PHYSICAL (COMPREHENSIVE) 1956 EXAM SHINGLES RECOMBINANT 1988 VACCINE (1 of 2) OSTEOPOROSIS 2003 SCREENING/MONITORING PNEUMONIA (PCV13/PPSV23) 2003 VACCINES (1 of 2 - PCV13) INFLUENZA VACCINE 03/05/2019 Results Not on filefrom Last 3 Months Additional Health Concerns Resolved Time Infection Noted 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 needed 11/11/2011 5:14 PM Full Code 11/11/2011 5:13 PM Provider has discussed Code Status No, more discussi on w/Patient or Family? needed
--- OUTSIDE RECORDS SUMMARY | 2019-07-30 11:52 | XMS REPORT | Continuity of Care Document ---
Author Organization Unknown Address Unknown Phone Unavailable Allergies Active Description Code Type Severity Reaction Onset Reported/Identified Relationship to Patient Clinical Status Yes adhesive [id number] Drug Allergy Unknown N/A 11/09/2014 Yes codeine [id number] Drug Allergy Unknown N/V 11/09/2014 Yes Iodine and Iodide Containing Produc [id number] Drug Allergy Unknown ANAPHYLAXIS, RA 11/09/2014 Yes PERFUME PERFUME Unknown N/A 11/09/2014 Yes Sulfa (Sulfonamide Antibiotics) [id number] Drug Allergy Unknown NAUSEA AND VOMI 11/09/2014 Yes tramadol [id number] Drug Allergy Unknown NAUSEA AND VOMI 11/09/2014 [...] DREW F Ot V72.83 11/16/2014 TRUONG DO, RDEW F Ot V74.8 11/16/2014 TRUONG DO, DREW [...] Ot 272.0 PURE HYPERCHOLESTEROLEM 11/29/2014 TRUONG DO, DERW F Ot 285.1 AC POSTHEMORRHAG ANEMIA 11/29/2014 TRUONG DO, DREW F Ot 386.11 BENIGN PARXYSMAL VERTIGO 11/29/2014 TRUONG DO, DREW F Ot 401.9 HYPERTENSION NOS 11/29/2014 TRUONG DO, DREW F Ot 530.81 ESOPHAGEAL REFLUX 11/29/2014 TRUONG DO, DREW F Ot 571.5 CIRRHOSIS OF LIVER NOS 11/29/2014 TRUONG DO, DREW F Ot 715.36 LOC OSTEOARTH NOS-L/LEG 11/29/2014 TRUONG DO DREW F Ot 729.1 MYALGIA AND MYOSITIS NOS 11/29/2014 TRUONG DO, DREW F Ot 780.4 11/29/2014 TRUONG DO, DREW F Ot 782.4 JAUNDICE NOS 11/29/2014 TRUONG DO, DREW F Ot 787.02 NAUSEA ALONE 11/29/2014 TRUONG DO, DREW F Ot V58.67 LONG-TERM (CURRENT) USE [...] F Ot 787.02 11/29/2014 TRUONG DO, DREW Gunter Ot V58.67 11/29/2014 TRUONG DO, DREW Gunter Ot 715.36 11/29/2014 TRUONG DO, DREW Gunter Ot V72.63 11/29/2014 TRUONG DO, DREW Gunter Ot V72.83 11/29/2014 TRUONG DO, DREW Gunter Ot V74.8 12/01/2014 SAMMY MCWILLIAMS, CLARK E Ot 250.0 0 12/01/2014 SAMMY MCWILLIAMS, CLARK E Ot 272.0 12/01/2014 SAMMY MCWILLIAMS, CLARK E Ot 285.9 12/01/2014 SAMMY MCWILLIAMS, CLARK E Ot 401.9 12/01/2014 SAMMY MCWILLIAMS, CLARK E Ot 530.8 1 12/01/2014 SAMMY MCWILLIAMS, CLARK E Ot 729.1 12/01/2014 SAMMY MCWILLIAMS, CLARK E Ot V43.6 5 12/01/2014 SAMMY MCWILLIAMS, CLARK E Ot V54.8 1 12/01/2014 SAMMY MCWILLIAMS, CLARK E Ot V57.8 9 12/01/2014 SAMMY MCWILLIAMS, CLARK E Ot 250.0 0 12/01/2014 SAMMY MCWILLIAMS, CLARK E Ot 272.0 12/01/2014 SAMMY MCWILLIAMS, CLARK E Ot 285.9 12/01/2014 SAMMY MCWILLIAMS, CLARK E Ot 401.9 12/01/2014 SAMMY MCWILLIAMS, CLARK E Ot 530.8 1 12/01/2014 SAMMY MCWILLIAMS, CLARK E Ot 729.1 12/01/2014 SAMMY MCWILLIAMS, CLARK E Ot V43.6 5 12/01/2014 SAMMY MCWILLIAMS, CLARK E Ot V54.8 1 12/01/2014 SAMMY MCWILLIAMS, CLARK E Ot V57.8 9 12/03/2014 SAMMY MCWILLIAMS, CLARK E Ot 250.0 0 12/03/2014 SAMMY MCWILLIAMS, CLARK E Ot 272.0 12/03/2014 SAMMY MCWILLIAMS, CLARK E Ot 285.9 12/03/2014 SAMMY MCWILLIAMS, CLARK E Ot 401.9 12/03/2014 SAMMY MCWILLIAMS, CLARK E Ot 530.8 1 12/03/2014 CLARK CHRISTIANSON MD E Ot 729.1 12/03/2014 CLARK CHRISTIANSON MD Ot V43.6 5 12/03/2014 CLARK CHRISTIANSON MD Ot V54.8 1 12/03/2014 CLARK CHRISTIANSON MD Ot V57.8 9 12/04/2014 CLARK CHRISTIANSON MD Ot 250.0 0 DIAB BRO WO COMPL, TYPE II OR UNSPEC TY 12/04/2014 CLARK CHRISTIANSON MD Ot 272.0 PURE HYPERCHOLESTEROLEM 12/04/2014 CLARK CHRISTIANSON MD Ot 285.9 ANEMIA NOS 12/04/2014 CLARK CHRISTIANSON MD Ot 401.9 HYPERTENSION NOS 12/04/2014 CLARK CHRISTIANSON MD Ot 530.8 1 ESOPHAGEAL REFLUX 12/04/2014 CLARK CHRISTIANSON MD Ot 729.1 MYALGIA AND MYOSITIS NOS 12/04/2014 CLARK CHRISTIANSON MD Ot 736.7 9 ACQ ANKLE-FOOT DEF NEC 12/04/2014 CLARK CHRISTIANSON MD Ot E932. 0 ADV EFF CORTICOSTEROIDS 12/04/2014 CLARK CHRISTIANSON MD Ot V43.6 5 KNEE JOINT REPLACEMENT STATUS 12/04/2014 CLARK CHRISTIANSON MD Ot V54.8 1 AFTERCARE FOLLOWING JOINT REPLACEMENT 12/04/2014 CLARK CHRISTIANSON MD Ot V57.8 9 REHABILITATION PROC NEC 12/14/2014 TRUONG DO, DREW [...] 715.36 LOC OSTEOARTH NOS-L/LEG 09/05/2017 TRUONG DO, DRWE Gunter Ot V72.63 PRE-PROCEDURAL LABORATORY EXAMINATION 09/05/2017 [...] DO, MOY Ot E78.5 HYPERLIPIDEMIA, UNSPECIFIED 10/18/2017 LOGAN DO, MOY Ot H83.90 UNSPECIFIED DISEASE OF INNER EAR, UNSPEC 10/18/2017 LOGAN DO, MOY Ot I10 ESSENTIAL (PRIMARY) HYPERTENSION 10/18/2017 LOGAN DO, MOY Ot I48.0 PAROXYSMAL ATRIAL FIBRILLATION 10/18/2017 LOGAN DO MOY Ot I49.1 ATRIAL PREMATURE DEPOLARIZATION 10/18/2017 LOGAN DO MOY Ot K56.7 ILEUS, UNSPECIFIED 10/18/2017 LOGAN DO, MOY Ot K59.09 OTHER CONSTIPATION 10/18/2017 LOGAN DO, MOY Ot K74.60 UNSPECIFIED CIRRHOSIS OF LIVER 10/18/2017 LOGAN DO MOY Ot K91.89 OTH POSTPROCEDURAL COMPLICATIONS AND DIS 10/18/2017 LOGAN DO MOY Ot M79.7 FIBROMYALGIA 10/18/2017 LOGANMATILDE ROSAS MOY Ot R09.02 HYPOXEMIA 10/18/2017 DOREEN ROSAS MOY Ot R11.2 NAUSEA WITH VOMITING, UNSPECIFIED 10/18/2017 LOGAN DO MOY Ot R53.83 OTHER FATIGUE 10/18/2017 LOGAN DO MOY Ot Z68.36 BODY MASS INDEX (BMI) 36.0-36.9, ADULT 10/18/2017 DOREEN ROSAS MOY Ot Z79.4 LONG-TERM (CURRENT) USE OF INSULIN 10/18/2017 DOREEN ROSAS MOY Ot Z87.89 1 PERSONAL HISTORY OF NICOTINE DEPENDENCE 10/18/2017 DOREEN ROSAS MOY Ot Z98.89 0 OTHER SPECIFIED POSTPROCEDURAL STATES 11/13/2017 SAMMY MCWILLIAMS, CLARK E Ot E11.6 5 TYPE 2 DIABETES MELLITUS WITH HYPERGLYCE 11/13/2017 SAMMY MCWILLIAMS, CLARK E Ot E78.5 HYPERLIPIDEMIA, UNSPECIFIED 11/13/2017 CLARK CHRISTIANSON MD Ot F32.9 MAJOR DEPRESSIVE DISORDER, SINGLE EPISOD 11/13/2017 CLARK CHRISTIANSON MD E Ot G83.4 CAUDA EQUINA SYNDROME 11/13/2017 CLARK CHRISTIANSON MD E Ot I10 ESSENTIAL (PRIMARY) HYPERTENSION 11/13/2017 CLARK CHRISTIANSON MD Ot I48.0 PAROXYSMAL ATRIAL FIBRILLATION 11/13/2017 CLARK CHRISTIANSON MD E Ot K21.9 GASTRO-ESOPHAGEAL REFLUX DISEASE WITHOUT 11/13/2017 SAMMY MCWILLIAMS CLARK E Ot K59.0 3 DRUG INDUCED CONSTIPATION 11/13/2017 SAMMY MCWILLIAMS CLARK E Ot K59.2 NEUROGENIC BOWEL, NOT ELSEWHERE CLASSIFI 11/13/2017 SAMMY MCWILLIAMS CLARK E Ot K74.6 0 UNSPECIFIED CIRRHOSIS OF LIVER 11/13/2017 SAMMY MCWILLIAMS CLARK E Ot M19.9 0 UNSPECIFIED OSTEOARTHRITIS, UNSPECIFIED 11/13/2017 SAMMY MCWILLIAMS CLARK E Ot M21.3 71 FOOT DROP, RIGHT FOOT 11/13/2017 SAMMY MCWILLIAMS CLARK E Ot M21.3 72 FOOT DROP, LEFT FOOT 11/13/2017 SAMMY MCWILLIAMS CLARK E Ot M79.7 FIBROMYALGIA 11/13/2017 SAMMY MCWILLIAMS CLARK E Ot R11.2 NAUSEA WITH VOMITING, UNSPECIFIED 11/13/2017 SAMMY MCWILLIAMS CLARK E Ot R33.9 RETENTION OF URINE, UNSPECIFIED 11/13/2017 SAMMY MCWILLIAMS CLARK E Ot T38.0X5A ADVERSE EFFECT OF GLUCOCORT/SYNTH ANALOG 11/13/2017 SAMMY MCWILLIAMS CLARK E Ot T45.515D ADVERSE EFFECT OF ANTICOAGULANTS, SUBSEQ 11/13/2017 SAMMY MCWILLIAMS CLARK E Ot Z48.8 11 ENCNTR FOR SURGICAL AFTCR FOL SURGERY ON 11/13/2017 CLARK CHRISTIANSON MD E Ot Z79.4 LONG-TERM (CURRENT) USE OF INSULIN 11/14/2017 SAMMY MCWILLIAMS CLARK E Ot E11.6 5 TYPE 2 DIABETES MELLITUS WITH HYPERGLYCE 11/14/2017 SAMMY MCWILLIAMS CLARK E Ot E78.5 HYPERLIPIDEMIA, UNSPECIFIED 11/14/2017 SAMMY MCWILLIAMS CLARK E Ot F32.9 MAJOR DEPRESSIVE DISORDER, SINGLE EPISOD 11/14/2017 SAMMY MCWILLIAMS CLARK E Ot G83.4 CAUDA EQUINA SYNDROME 11/14/2017 SAMMY MCWILLIAMS CLARK E Ot I10 ESSENTIAL (PRIMARY) HYPERTENSION 11/14/2017 SAMMY MCWILLIAMS CLARK E Ot I48.0 PAROXYSMAL ATRIAL FIBRILLATION 11/14/2017 SAMMY MCWILLIAMS CLARK E Ot K21.9 GASTRO-ESOPHAGEAL REFLUX DISEASE WITHOUT 11/14/2017 SAMMY MCWILLIAMS CLARK E Ot K59.0 3 DRUG INDUCED CONSTIPATION 11/14/2017 SAMMY MCWILLIAMS CLARK E Ot K59.2 NEUROGENIC BOWEL, NOT ELSEWHERE CLASSIFI 11/14/2017 SAMMY MCWILLIAMS CLARK E Ot K74.6 0 UNSPECIFIED CIRRHOSIS OF LIVER 11/14/2017 SAMMY MCWILLIAMS CLARK E Ot M19.9 0 UNSPECIFIED OSTEOARTHRITIS, UNSPECIFIED 11/14/2017 SAMMY MCWILLIAMS CLARK E Ot M21.3 71 FOOT DROP, RIGHT FOOT 11/14/2017 NANCY CHRISTIANSON MDIC E Ot M21.3 72 FOOT DROP, LEFT FOOT 11/14/2017 NANCY CHRISTIANSON MDIC E Ot M79.7 FIBROMYALGIA 11/14/2017 SAMMY MCWILLIAMS CLARK E Ot R11.2 NAUSEA WITH VOMITING, UNSPECIFIED 11/14/2017 NANCY CHRISTIANSON MDIC E Ot R33.9 RETENTION OF URINE, UNSPECIFIED 11/14/2017 CLARK CHRISTIANSON MD E Ot T38.0X5A ADVERSE EFFECT OF GLUCOCORT/SYNTH ANALOG 11/14/2017 CLARK CHRISTIANSON MD E Ot T45.515D ADVERSE EFFECT OF ANTICOAGULANTS, SUBSEQ 11/14/2017 NANCY CHRISTIANSON MDIC E Ot Z48.8 11 ENCNTR FOR SURGICAL AFTCR FOL SURGERY ON 11/14/2017 CLARK CHRISTIANSON MD E Ot Z79.4 GEOTECHNICIAN (CURRENT) USE OF INSULIN 11/19/2017 NANCY CHRISTIANSON MDIC E Ot E11.6 5 TYPE 2 DIABETES MELLITUS WITH HYPERGLYCE 11/19/2017 SAMMY MCWILLIAMS CLARK E Ot E78.5 HYPERLIPIDEMIA, UNSPECIFIED 11/19/2017 NANCY CHRISTIANSON MDIC E Ot F32.9 MAJOR DEPRESSIVE DISORDER, SINGLE EPISOD 11/19/2017 SAMMY MCWILLIAMS CLARK E Ot G83.4 CAUDA EQUINA SYNDROME 11/19/2017 SAMMY MCWILLIAMS CLARK E Ot I10 ESSENTIAL (PRIMARY) HYPERTENSION 11/19/2017 SAMMY MCWILLIAMS CLARK E Ot I48.0 PAROXYSMAL ATRIAL FIBRILLATION 11/19/2017 NANCY CHRISTIANSON MDIC E Ot K21.9 GASTRO-ESOPHAGEAL REFLUX DISEASE WITHOUT 11/19/2017 NANCY CHRISTIANSON MDIC E Ot K59.0 3 DRUG INDUCED CONSTIPATION 11/19/2017 SAMMY MCWILLIAMS CLARK E Ot K59.2 NEUROGENIC BOWEL, NOT ELSEWHERE CLASSIFI 11/19/2017 SAMMY MCWILLIAMS CLARK E Ot K74.6 0 UNSPECIFIED CIRRHOSIS OF LIVER 11/19/2017 SAMMY MCWILLIAMS CLARK E Ot M19.9 0 UNSPECIFIED OSTEOARTHRITIS, UNSPECIFIED 11/19/2017 SAMMY MCWILLIAMS CLARK E Ot M21.3 71 FOOT DROP, RIGHT FOOT 11/19/2017 NANCY CHRISTIANSON MDIC E Ot M21.3 72 FOOT DROP, LEFT FOOT 11/19/2017 CLARK CHRISTIANSON MD E Ot M79.7 FIBROMYALGIA 11/19/2017 CLARK CHRISTIANSON MD E Ot R11.2 NAUSEA WITH VOMITING, UNSPECIFIED 11/19/2017 CLARK CHRISTIANSON MD E Ot R33.9 RETENTION OF URINE, UNSPECIFIED 11/19/2017 CLARK CHRISTIANSON MD Ot T38.0X5A ADVERSE EFFECT OF GLUCOCORT/SYNTH ANALOG 11/19/2017 CLARK CHRISTIANSON MD E Ot T45.515D ADVERSE EFFECT OF ANTICOAGULANTS, SUBSEQ 11/19/2017 CLARK CHRISTIANSON MD E Ot Z48.8 11 ENCNTR FOR SURGICAL AFTCR FOL SURGERY ON 11/19/2017 CLARK CHRISTIANSON MD Ot Z79.4 GEOTECHNICIAN (CURRENT) USE OF INSULIN 11/20/2017 CLARK CHRISTIANSON MD Ot E11.6 5 TYPE 2 DIABETES MELLITUS WITH HYPERGLYCE 11/20/2017 CLARK CHRISTIANSON MD E Ot E78.5 HYPERLIPIDEMIA, UNSPECIFIED 11/20/2017 NANCY CHRISTIANSON MDIC E Ot F32.9 MAJOR DEPRESSIVE DISORDER, SINGLE EPISOD 11/20/2017 SAMMY MCWILLIAMS CLARK E Ot G83.4 CAUDA EQUINA SYNDROME 11/20/2017 SAMMY MCWILLIAMS CLARK E Ot I10 ESSENTIAL (PRIMARY) HYPERTENSION 11/20/2017 SAMMY MCWILLIAMS CLARK E Ot I48.0 PAROXYSMAL ATRIAL FIBRILLATION 11/20/2017 CLARK CHRISTIANSON MD E Ot K21.9 GASTRO-ESOPHAGEAL REFLUX DISEASE WITHOUT 11/20/2017 NANCY CHRISTIANSON MDIC E Ot K59.0 3 DRUG INDUCED CONSTIPATION 11/20/2017 SAMMY MCWILLIAMS CLARK E Ot K59.2 NEUROGENIC BOWEL, NOT ELSEWHERE CLASSIFI 11/20/2017 SAMMY MCWILLIAMS CLARK E Ot K74.6 0 UNSPECIFIED CIRRHOSIS OF LIVER 11/20/2017 CLARK CHRISTIANSON MD E Ot M19.9 0 UNSPECIFIED OSTEOARTHRITIS, UNSPECIFIED 11/20/2017 SAMMY MCWILLIAMS CLARK E Ot M21.3 71 FOOT DROP, RIGHT FOOT 11/20/2017 CLARK CHRISTIANSON MD E Ot M21.3 72 FOOT DROP, LEFT FOOT 11/20/2017 CLARK CHRISTIANSON MD E Ot M79.7 FIBROMYALGIA 11/20/2017 CHRISTIANSON MD, CLARK E Ot R11.2 NAUSEA WITH VOMITING, UNSPECIFIED 11/20/2017 SAMMY MCWILLIAMS CLARK E Ot R33.9 RETENTION OF URINE, UNSPECIFIED 11/20/2017 NANCY CHRISTIANSON MDIC E Ot T38.0X5A ADVERSE EFFECT OF GLUCOCORT/SYNTH ANALOG 11/20/2017 NANCY CHRISTIANSON MDIC E Ot T45.515D ADVERSE EFFECT OF ANTICOAGULANTS, SUBSEQ 11/20/2017 CLARK CHRISTIANSON MD E Ot Z48.8 11 ENCNTR FOR SURGICAL AFTCR FOL SURGERY ON 11/20/2017 CLARK CHRISTIANSON MD E Ot Z79.4 LONG-TERM (CURRENT) USE OF INSULIN 11/21/2017 CLARK CHRISTIANSON MD E Ot E11.6 5 TYPE 2 DIABETES MELLITUS WITH HYPERGLYCE 11/21/2017 CLARK CHRISTIANSON MD E Ot E78.5 HYPERLIPIDEMIA, UNSPECIFIED 11/21/2017 SAMMY MCWILLIAMS CLARK E Ot F32.9 MAJOR DEPRESSIVE DISORDER, SINGLE EPISOD 11/21/2017 SAMMY MCWILLIAMS CLARK E Ot F43.2 1 ADJUSTMENT DISORDER WITH DEPRESSED MOOD 11/21/2017 SAMMY MCWILLIAMS CLARK E Ot G57.9 3 UNSPECIFIED MONONEUROPATHY OF BILATERAL 11/21/2017 SAMMY MCWILLIAMS CLARK E Ot G83.4 CAUDA EQUINA SYNDROME 11/21/2017 SAMMY MCWILLIAMS CLARK E Ot 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, LEFT EAR 11/21/2017 SAMMY MCWILLIAMS CLARK E Ot I10 ESSENTIAL (PRIMARY) HYPERTENSION 11/21/2017 SAMMY MCWILLIAMS CLARK E Ot I48.0 PAROXYSMAL ATRIAL FIBRILLATION 11/21/2017 NANCY CHRISTIANSON MDIC E Ot K21.9 GASTRO-ESOPHAGEAL REFLUX DISEASE WITHOUT 11/21/2017 SAMMY MCWILLIAMS CLARK E Ot K59.0 3 DRUG INDUCED CONSTIPATION 11/21/2017 SAMMY MCWILLIAMS CLARK E Ot K59.2 NEUROGENIC BOWEL, NOT ELSEWHERE CLASSIFI 11/21/2017 SAMMY MCWILLIAMS CLARK E Ot K74.6 0 UNSPECIFIED CIRRHOSIS OF LIVER 11/21/2017 SAMMY MCWILLIAMS CLARK E Ot M19.9 0 UNSPECIFIED OSTEOARTHRITIS, UNSPECIFIED 11/21/2017 SAMMY MCWILLIAMS CLARK E Ot M21.3 71 FOOT DROP, RIGHT FOOT 11/21/2017 CLARK CHRISTIANSON MD E Ot M21.3 72 FOOT DROP, LEFT FOOT 11/21/2017 SAMMY MCWILLIAMS CLARK E Ot M79.7 FIBROMYALGIA 11/21/2017 CLARK CHRISTIANSON MD Ot R11.2 NAUSEA WITH VOMITING, UNSPECIFIED 11/21/2017 CLARK CHRISTIANSON MD Ot R33.9 RETENTION OF URINE, UNSPECIFIED 11/21/2017 CLARK CHRISTIANSON MD Ot S40.811A ABRASION OF RIGHT UPPER ARM, INITIAL ENC 11/21/2017 CLARK CHRISTIANSON MD Ot T38.0X5A ADVERSE EFFECT OF GLUCOCORT/SYNTH ANALOG 11/21/2017 CLARK CHRISTIANSON MD Ot T45.515D ADVERSE EFFECT OF ANTICOAGULANTS, SUBSEQ 11/21/2017 CLARK CHRISTIANSON MD Ot Y84.8 OT MEDICAL PROCEDURES CAUSE ABN REACT/C 11/21/2017 CLARK CHRISTIANSON MD Ot Z48.8 11 ENCNTR FOR SURGICAL AFTCR FOL SURGERY ON 11/21/2017 CLARK CHRISTIANSON MD Ot Z79.4 LONG-TERM (CURRENT) USE OF INSULIN 11/22/2017 TRUONG DO, DREW F Ot 715.36 LOC OSTEOARTH NOS-L/LEG 11/22/2017 TRUONG DO DREW F Ot V72.63 PRE-PROCEDURAL LABORATORY EXAMINATION 11/22/2017 TRUONG DO, DREW F Ot V72.83 EXAM PRE-OPERATIVE NEC 11/22/2017 TRUONG DO, DREW F Ot V74.8 SCREEN-BACTERIAL DIS NEC 02/09/2018 TRUONG DO, DREW F Ot 715.36 LOC OSTEOARTH NOS-L/LEG 02/09/2018 TRUONG DO DREW F Ot V72.63 PRE-PROCEDURAL LABORATORY EXAMINATION 02/09/2018 TRUONG DO DREW F Ot V72.83 EXAM PRE-OPERATIVE NEC 02/09/2018 TRUONG DO, DREW F Ot V74.8 SCREEN-BACTERIAL DIS NEC 06/17/2018 TRUONG DO, DREW F Ot 715.36 LOC OSTEOARTH NOS-L/LEG 06/17/2018 TRUONG DO, DREW F Ot V72.63 PRE-PROCEDURAL LABORATORY EXAMINATION 06/17/2018 TRUONG DO DREW F Ot V72.83 EXAM PRE-OPERATIVE NEC 06/17/2018 TRUONG DO, DREW F Ot V74.8 SCREEN-BACTERIAL DIS NEC 08/21/2018 TRUONG DO DREW F Ot 715.36 LOC OSTEOARTH NOS-L/LEG 08/21/2018 TRUONG DO, DREW F Ot V72.63 PRE-PROCEDURAL LABORATORY EXAMINATION 08/21/2018 TRUONG DO, DREW F Ot V72.83 EXAM PRE-OPERATIVE NEC 08/21/2018 TRUONG DO, DREW F Ot V74.8 SCREEN-BACTERIAL DIS NEC 07/05/2019 TRUONG DO, DREW F Ot 715.36 LOC OSTEOARTH NOS-L/LEG 07/05/2019 TRUONG DO, DREW F Ot V72.63 PRE-PROCEDURAL LABORATORY EXAMINATION 07/05/2019 TRUONG DO, DREW F Ot V72.83 EXAM PRE-OPERATIVE NEC 07/05/2019 TRUONG DO, DREW F Ot V74.8 SCREEN-BACTERIAL DIS NEC 07/05/2019 TRUONG DO, DREW F Ot 715.36 LOC OSTEOARTH NOS-L/LEG 07/05/2019 RTUONG DO, DREW F Ot V72.63 PRE-PROCEDURAL LABORATORY EXAMINATION 07/05/2019 TRUONG DO, DREW F Ot V72.83 EXAM PRE-OPERATIVE NEC 07/05/2019 TRUONG DO, DREW F Ot V74.8 SCREEN-BACTERIAL DIS NEC 07/09/2019 NINA BANEGAS MD Ot A41. 9 SEPSIS, UNSPECIFIED ORGANISM 07/09/2019 NINA BANEGAS MD Ot B37. 0 CANDIDAL STOMATITIS 07/09/2019 NINA BANEGAS MD Ot E11. 40 TYPE 2 DIABETES MELLITUS WITH DIABETIC N 07/09/2019 NINA BANEGAS MD Ot E66. 01 MORBID (SEVERE) OBESITY DUE TO EXCESS CA 07/09/2019 NINA BANEGAS MD Ot E78. 00 PURE HYPERCHOLESTEROLEMIA, UNSPECIFIED 07/09/2019 NINA BANEGAS MD Ot F32. 9 MAJOR DEPRESSIVE DISORDER, SINGLE EPISOD 07/09/2019 NINA BANEGAS MD Ot G47. 30 SLEEP APNEA, UNSPECIFIED 07/09/2019 NINA BANEGAS MD Ot G82. 20 PARAPLEGIA, UNSPECIFIED 07/09/2019 NINA BANEGAS MD Ot G83. 4 CAUDA EQUINA SYNDROME 07/09/2019 NINA BANEGAS MD Ot I12. 9 HYPERTENSIVE CHRONIC KIDNEY DISEASE W ST 07/09/2019 NINA BANEGAS MD Ot I48. 91 UNSPECIFIED ATRIAL FIBRILLATION 07/09/2019 NINA BANEGAS MD Ot J18. 9 PNEUMONIA, UNSPECIFIED ORGANISM 07/09/2019 NINA BANEGAS MD, Ot J80 ACUTE RESPIRATORY DISTRESS SYNDROME 07/09/2019 NINA BANEGAS MD, Ot K21. 9 GASTRO-ESOPHAGEAL REFLUX DISEASE WITHOUT 07/09/2019 NINA BANEGAS MD, Ot K59. 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 7 FIBROMYALGIA 07/09/2019 NINA BANEGAS MD, Ot N18. 3 CHRONIC KIDNEY DISEASE, STAGE 3 (MODERAT 07/09/2019 NINA BANEGAS MD, Ot N39. 0 URINARY TRACT INFECTION, SITE NOT SPECIF 07/09/2019 NINA BANEGAS MD, Ot N39. 45 CONTINUOUS LEAKAGE 07/09/2019 NINA BANEGAS MD, Ot R31. 9 HEMATURIA, UNSPECIFIED 07/09/2019 NINA BANEGAS MD, Ot R65. 20 SEVERE SEPSIS WITHOUT SEPTIC SHOCK 07/09/2019 NINA BANEGAS MD, Ot Z66 DO NOT RESUSCITATE 07/09/2019 NINA BANEGAS MD, Ot Z68. 38 BODY MASS INDEX (BMI) 38.0-38.9, ADULT 07/09/2019 NINA BANEGAS MD, Ot Z79. 4 LONG-TERM (CURRENT) USE OF INSULIN 07/09/2019 NINA BANEGAS MD, Ot Z87.891 PERSONAL HISTORY OF NICOTINE DEPENDENCE 07/09/2019 NINA BANEGAS MD, Ot A41. 9 SEPSIS, UNSPECIFIED ORGANISM 07/09/2019 NINA BANEGAS MD, Ot B37. 0 CANDIDAL STOMATITIS 07/09/2019 NINA BANEGAS MD, Ot E11. 40 TYPE 2 DIABETES MELLITUS WITH DIABETIC N 07/09/2019 NINA BANEGAS MD, Ot E66. 01 MORBID (SEVERE) OBESITY DUE TO EXCESS CA 07/09/2019 NINA BANEGAS MD, Ot E78. 00 PURE HYPERCHOLESTEROLEMIA, UNSPECIFIED 07/09/2019 NINA BANEGAS MD Ot F32. 9 MAJOR DEPRESSIVE DISORDER, SINGLE EPISOD 07/09/2019 NINA BANEGAS MD Ot F41. 9 ANXIETY DISORDER, UNSPECIFIED 07/09/2019 NINA BANEGAS MD Ot G47. 30 SLEEP APNEA, UNSPECIFIED 07/09/2019 NINA BANEGAS MD Ot G82. 20 PARAPLEGIA, UNSPECIFIED 07/09/2019 NINA BANEGAS MD Ot G83. 4 CAUDA EQUINA SYNDROME 07/09/2019 NINA BANEGAS MD, Ot I12. 9 HYPERTENSIVE CHRONIC KIDNEY DISEASE W ST 07/09/2019 NINA BANEGAS MD Ot I48. 91 UNSPECIFIED ATRIAL FIBRILLATION 07/09/2019 NINA BANEGAS MD, Ot J18. 9 PNEUMONIA, UNSPECIFIED ORGANISM 07/09/2019 NINA BANEGAS MD Ot J80 ACUTE RESPIRATORY DISTRESS SYNDROME 07/09/2019 NINA BANEGAS MD, Ot K21. 9 GASTRO-ESOPHAGEAL REFLUX DISEASE WITHOUT 07/09/2019 NINA BANEGAS MD Ot K59. 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 7 FIBROMYALGIA 07/09/2019 NINA BANEGAS MD, Ot N17. 9 ACUTE KIDNEY FAILURE, UNSPECIFIED 07/09/2019 NINA BANEGAS MD, Ot N18. 3 CHRONIC KIDNEY DISEASE, STAGE 3 (MODERAT 07/09/2019 NINA BANEGAS MD, Ot N39. 0 URINARY TRACT INFECTION, SITE NOT SPECIF 07/09/2019 NINA BANEGAS MD Ot N39. 45 CONTINUOUS LEAKAGE 07/09/2019 NINA BANEGAS MD Ot R31. 9 HEMATURIA, UNSPECIFIED 07/09/2019 NINA BANEGAS MD Ot R65. 20 SEVERE SEPSIS WITHOUT SEPTIC SHOCK 07/09/2019 NINA BANEGAS MD, Ot Z66 DO NOT RESUSCITATE 07/09/2019 NINA BANEGAS MD, Ot Z68. 38 BODY MASS INDEX (BMI) 38.0-38.9, ADULT 07/09/2019 NINA BANEGAS MD, Ot Z79. 4 GEOTECHNICIAN (CURRENT) USE OF INSULIN 07/09/2019 NINA BANEGAS MD, Ot Z87.891 PERSONAL HISTORY OF NICOTINE DEPENDENCE Procedures Code Description Performed By Per formed On 81.54 TOTA L KNEE REPLACEMENT 11/23/2014 Results Test Result Range Complete blood count (CBC) with automate d white blood cell (WBC) differential - 10/17/17 14:24 Blood leukocytes automated count (number/volume) 11.0 10*3/uL 4.3-11.0 Blood erythrocytes automated count (number/volume) 3.78 10*6/uL 4.35-5.85 Venous blood hemoglobin measurement (mass/volume) 10.8 g/dL 11.5-16.0 Blood hematocrit (volume fraction) 31 % 35-52 Automated erythrocyte mean corpuscular volume 83 [ foz_us] 80-99 Automated erythrocyte mean corpuscular h emoglobin (mass per erythrocyte) 29 pg 25-34 Automated erythrocyte mean corpuscular h emoglobin concentration measurement (mass/volume) 35 g/dL 32-36 Automated erythrocyte distribution width ratio 13. 5 % 10.0- 14.5 Automated blood platelet count (count/volume) 207 10*3/uL [...] 10*3 1.0-4.0 Blood monocytes automated count (number/volume) 1. 1 10*3 0.0-1.0 Automated eosinophil count 0.1 10*3/uL 0 .0-0.3 Automated blood basophil count (count/volume) 0.0 10*3/uL 0.0-0.1 Comprehensive metabolic panel - 10/17/17 14:24 Serum or plasma sodium measurement (moles/volume) 134 mmol/L 135-145 Serum or plasma potassium measurement (moles/volume) 3.5 mmol/L 3.6-5.0 Serum or plasma chloride measurement (moles/volume) 95 mmol/L 98-107 Carbon dioxide 32 mmol/L 21-32 Serum or plasma anion gap determination (moles/volume) 7 mmol/L 5-14 Serum or plasma urea nitrogen measurement (mass/volume ) 12 mg/dL 7-18 Serum or plasma creatinine measurement (mass/volume) 0.71 mg/dL 0.60-1.30 Serum or plasma urea nitrogen/creatinine mass ratio 17 NRG Serum or plasma creatinine measurement w ith calculation of estimated glomerular filtration rate > NRG Serum or plasma glucose measurement (mass/volume) 223 mg/dL 70-105 Serum or plasma calcium measurement (mass/volume) 9.3 mg/dL 8.5-10.1 Serum or plasma total bilirubin measurement (mass/volu me) 1.5 mg/dL 0.1-1.0 Serum or plasma alkaline phosphatase ignacio surement (enzymatic activity/volume) 52 U/L 40-136 Serum or plasma aspartate aminotransfera se measurement (enzymatic activity/volume) 19 U/L 5-34 Serum or plasma alanine aminotransferase measurement (enzymatic activity/volume) 17 U/L 0-55 Serum or plasma protein measurement (mass/volume) 6.2 g/dL 6.4-8.2 Serum or plasma albumin measurement (mass/volume) 3.3 g/dL 3.2-4.5 Blood manual differential performed dete ction - 10/17/17 14:24 Blood monocytes/100 leukocytes 9 % NRG Manual blood segmented neutrophils/100 leukocytes 87 % NRG Manual blood lymphocytes/100 leukocytes 4 % NRG Blood erythrocyte morphology finding identification NORMAL NRG Serum or plasma lithium measurement (mol es/volume) - 10/17/17 14:24 BNP level 57.3 pg/mL <100.0 Serum or plasma troponin i.cardiac measu rement (mass/volume) - 10/17/17 14:24 Serum or plasma troponin i.cardiac measurement (mass/v olume) < ng/mL <0.30 Methicillin resistant Staphylococcus aur eus (MRSA) screening culture - 10/17/17 18:00 Methicillin resistant Staphylococcus aureus (MRSA) scr eening culture NEG NRG Capillary blood glucose measurement by g lucometer (mass/volume) - 10/17/17 21:35 Capillary blood glucose measurement by glucometer (mas s/volume) 197 mg/dL 70-110 Complete blood count (CBC) with automate d white blood cell (WBC) differential - 10/18/17 02:20 Blood leukocytes automated count (number/volume) 12.7 10*3/uL 4.3-11.0 Blood erythrocytes automated count (number/volume) 3.72 10*6/uL 4.35-5.85 Venous blood hemoglobin measurement (mass/volume) 10.6 g/dL 11.5-16.0 Blood hematocrit (volume fraction) 31 % 35-52 Automated erythrocyte mean corpuscular volume 83 [ foz_us] 80-99 Automated erythrocyte mean corpuscular h emoglobin (mass per erythrocyte) 29 pg 25-34 Automated erythrocyte mean corpuscular h emoglobin concentration measurement (mass/volume) 34 g/dL 32-36 Automated erythrocyte distribution width ratio 13. 4 % 10.0- 14.5 Automated blood platelet count (count/volume) 298 10*3/uL [...] 10*3 1.0-4.0 Blood monocytes automated count (number/volume) 1. 4 10*3 0.0-1.0 Automated eosinophil count 0.2 10*3/uL 0 .0-0.3 Automated blood basophil count (count/volume) 0.0 10*3/uL 0.0-0.1 Whole blood basic metabolic panel - 10/03 01/20 02:20 Serum or plasma sodium measurement (moles/volume) 135 mmol/L 135-145 Serum or plasma potassium measurement (moles/volume) 3.5 mmol/L 3.6-5.0 Serum or plasma chloride measurement (moles/volume) 97 mmol/L 98-107 Carbon dioxide 29 mmol/L 21-32 Serum or plasma anion gap determination (moles/volume) 9 mmol/L 5-14 Serum or plasma urea nitrogen measurement (mass/volume ) 12 mg/dL 7-18 Serum or plasma creatinine measurement (mass/volume) 0.72 mg/dL 0.60-1.30 Serum or plasma urea nitrogen/creatinine mass ratio 17 NRG Serum or plasma creatinine measurement w ith calculation of estimated glomerular filtration rate > NRG Serum or plasma glucose measurement (mass/volume) 135 mg/dL 70-105 Serum or plasma calcium measurement (mass/volume) 9.0 mg/dL 8.5-10.1 Serum or plasma phosphate measurement (m ass/volume) - 10/18/17 02:20 Serum or plasma phosphate measurement (mass/volume) 2.9 mg/dL 2.3-4.7 Magnesium - 10/18/17 02:20 Magnesium 1.3 mg/dL 1.8-2.4 Capillary blood glucose measurement by g lucometer (mass/volume) - 10/18/17 06:31 Capillary blood glucose measurement by glucometer (mas s/volume) 131 mg/dL 70-110 Capillary blood glucose measurement by g lucometer (mass/volume) - 10/18/17 14:33 Capillary blood glucose measurement by glucometer (mas s/volume) 183 mg/dL 70-110 Capillary blood glucose measurement by g lucometer (mass/volume) - 11/06/17 13:21 Capillary blood glucose measurement by glucometer (mas s/volume) 181 mg/dL 70-110 Capillary blood glucose measurement by g lucometer (mass/volume) - 11/06/17 16:23 Capillary blood glucose measurement by glucometer (mas s/volume) 256 mg/dL 70-110 Capillary blood glucose measurement by g lucometer (mass/volume) - 11/06/17 20:30 Capillary blood glucose measurement by glucometer (mas s/volume) 154 mg/dL 70-110 Capillary blood glucose measurement by g lucometer (mass/volume) - 11/07/17 05:17 Capillary blood glucose measurement by glucometer (mas s/volume) 133 mg/dL 70-110 Capillary blood glucose measurement by g lucometer (mass/volume) - 11/07/17 10:55 Capillary blood glucose measurement by glucometer (mas s/volume) 177 mg/dL 70-110 Capillary blood glucose measurement by g lucometer (mass/volume) - 11/07/17 16:00 Capillary blood glucose measurement by glucometer (mas s/volume) 191 mg/dL 70-110 Capillary blood glucose measurement by g lucometer (mass/volume) - 11/08/17 06:01 Capillary blood glucose measurement by glucometer (mas s/volume) 136 mg/dL 70-110 Capillary blood glucose measurement by g lucometer (mass/volume) - 11/08/17 11:34 Capillary blood glucose measurement by glucometer (mas s/volume) 154 mg/dL 70-110 Capillary blood glucose measurement by g lucometer (mass/volume) - 11/08/17 16:10 Capillary blood glucose measurement by glucometer (mas s/volume) 171 mg/dL 70-110 Capillary blood glucose measurement by g lucometer (mass/volume) - 11/08/17 20:55 Capillary blood glucose measurement by glucometer (mas s/volume) 85 mg/dL 70-110 Capillary blood glucose measurement by g lucometer (mass/volume) - 11/09/17 04:38 Capillary blood glucose measurement by glucometer (mas s/volume) 111 mg/dL 70-110 Complete blood count (CBC) with automate d white blood cell (WBC) differential - 11/09/17 05:20 Blood leukocytes automated count (number/volume) 13.6 10*3/uL 4.3-11.0 Blood erythrocytes automated count (number/volume) 3.54 10*6/uL 4.35-5.85 Venous blood hemoglobin measurement (mass/volume) 10.1 g/dL 11.5-16.0 Blood hematocrit (volume fraction) 31 % 35-52 Automated erythrocyte mean corpuscular volume 86 [ foz_us] 80-99 Automated erythrocyte mean corpuscular h emoglobin (mass per erythrocyte) 29 pg 25-34 Automated erythrocyte mean corpuscular h emoglobin concentration measurement (mass/volume) 33 g/dL 32-36 Automated erythrocyte distribution width ratio 15. 1 % 10.0- 14.5 Automated blood platelet count (count/volume) 381 10*3/uL 130-400 Automated blood platelet mean volume measurement 9.0 [foz_us] 7.4-10.4 Automated blood neutrophils/100 leukocytes 71 % 42-75 Automated blood lymphocytes/100 leukocytes 14 % 12-44 Blood monocytes/100 leukocytes 11 % 0-12 Automated blood eosinophils/100 leukocytes 4 % 0-10 Automated blood basophils/100 leukocytes 0 % 0-10 Blood neutrophils automated count (number/volume) 9.6 10*3 1.8-7.8 Blood lymphocytes automated count (number/volume) 1.9 10*3 1.0-4.0 Blood monocytes automated count (number/volume) 1. 5 10*3 0.0-1.0 Automated eosinophil count 0.5 10*3/uL 0 .0-0.3 Automated blood basophil count (count/volume) 0.0 10*3/uL 0.0-0.1 Comprehensive metabolic panel - 11/09/17 05:20 Serum or plasma sodium measurement (moles/volume) 134 mmol/L 135-145 Serum or plasma potassium measurement (moles/volume) 4.0 mmol/L 3.6-5.0 Serum or plasma chloride measurement (moles/volume) 95 mmol/L 98-107 Carbon dioxide 27 mmol/L 21-32 Serum or plasma anion gap determination (moles/volume) 12 mmol/L 5-14 Serum or plasma urea nitrogen measurement (mass/volume ) 26 mg/dL 7-18 Serum or plasma creatinine measurement (mass/volume) 0.79 mg/dL 0.60-1.30 Serum or plasma urea nitrogen/creatinine mass ratio 33 NRG Serum or plasma creatinine measurement w ith calculation of estimated glomerular filtration rate > NRG Serum or plasma glucose measurement (mass/volume) 114 mg/dL 70-105 Serum or plasma calcium measurement (mass/volume) 9.4 mg/dL 8.5-10.1 Serum or plasma total bilirubin measurement (mass/volu me) 1.6 mg/dL 0.1-1.0 Serum or plasma alkaline phosphatase ignacio surement (enzymatic activity/volume) 92 U/L 40-136 Serum or plasma aspartate aminotransfera se measurement (enzymatic activity/volume) 13 U/L 5-34 Serum or plasma alanine aminotransferase measurement (enzymatic activity/volume) 12 U/L 0-55 Serum or plasma protein measurement (mass/volume) 6.3 g/dL 6.4-8.2 Serum or plasma albumin measurement (mass/volume) 3.3 g/dL 3.2-4.5 Capillary blood glucose measurement by g lucometer (mass/volume) - 11/09/17 10:50 Capillary blood glucose measurement by glucometer (mas s/volume) 167 mg/dL 70-110 Capillary blood glucose measurement by g lucometer (mass/volume) - 11/09/17 16:21 Capillary blood glucose measurement by glucometer (mas s/volume) 169 mg/dL 70-110 Capillary blood glucose measurement by g lucometer (mass/volume) - 11/09/17 20:30 Capillary blood glucose measurement by glucometer (mas s/volume) 119 mg/dL 70-110 Capillary blood glucose measurement by g lucometer (mass/volume) - 11/10/17 05:36 Capillary blood glucose measurement by glucometer (mas s/volume) 107 mg/dL 70-110 Capillary blood glucose measurement by g lucometer (mass/volume) - 11/10/17 10:50 Capillary blood glucose measurement by glucometer (mas s/volume) 135 mg/dL 70-110 Capillary blood glucose measurement by g lucometer (mass/volume) - 11/10/17 16:20 Capillary blood glucose measurement by glucometer (mas s/volume) 178 mg/dL 70-110 Capillary blood glucose measurement by g lucometer (mass/volume) - 11/10/17 20:42 Capillary blood glucose measurement by glucometer (mas s/volume) 165 mg/dL 70-110 Capillary blood glucose measurement by g lucometer (mass/volume) - 11/11/17 05:28 Capillary blood glucose measurement by glucometer (mas s/volume) 175 mg/dL 70-110 Capillary blood glucose measurement by g lucometer (mass/volume) - 11/11/17 11:12 Capillary blood glucose measurement by glucometer (mas s/volume) 175 mg/dL 70-110 Capillary blood glucose measurement by g lucometer (mass/volume) - 11/11/17 16:24 Capillary blood glucose measurement by glucometer (mas s/volume) 151 mg/dL 70-110 Capillary blood glucose measurement by g lucometer (mass/volume) - 11/11/17 20:22 Capillary blood glucose measurement by glucometer (mas s/volume) 125 mg/dL 70-110 Capillary blood glucose measurement by g lucometer (mass/volume) - 11/12/17 06:22 Capillary blood glucose measurement by glucometer (mas s/volume) 121 mg/dL 70-110 Capillary blood glucose measurement by g lucometer (mass/volume) - 11/12/17 11:19 Capillary blood glucose measurement by glucometer (mas s/volume) 182 mg/dL 70-110 Capillary blood glucose measurement by g lucometer (mass/volume) - 11/12/17 16:12 Capillary blood glucose measurement by glucometer (mas s/volume) 163 mg/dL 70-110 Capillary blood glucose measurement by g lucometer (mass/volume) - 11/12/17 21:02 Capillary blood glucose measurement by glucometer (mas s/volume) 188 mg/dL 70-110 Complete blood count (CBC) with automate d white blood cell (WBC) differential - 11/13/17 05:10 Blood leukocytes automated count (number/volume) 9.4 10*3/uL 4.3-11.0 Blood erythrocytes automated count (number/volume) 3.17 10*6/uL 4.35-5.85 Venous blood hemoglobin measurement (mass/volume) 9.0 g/dL 11.5-16.0 Blood hematocrit (volume fraction) 27 % 35-52 Automated erythrocyte mean corpuscular volume 86 [ foz_us] 80-99 Automated erythrocyte mean corpuscular h emoglobin (mass per erythrocyte) 28 pg 25-34 Automated erythrocyte mean corpuscular h emoglobin concentration measurement (mass/volume) 33 g/dL 32-36 Automated erythrocyte distribution width ratio 15. 0 % 10.0- 14.5 Automated blood platelet count (count/volume) 296 10*3/uL 130-400 Automated blood platelet mean volume measurement 9.3 [foz_us] 7.4-10.4 Automated blood neutrophils/100 leukocytes 58 % 42-75 Automated blood lymphocytes/100 leukocytes 24 % 12-44 Blood monocytes/100 leukocytes 13 % 0-12 Automated blood eosinophils/100 leukocytes 5 % 0-10 Automated blood basophils/100 leukocytes 1 % 0-10 Blood neutrophils automated count (number/volume) 5.4 10*3 1.8-7.8 Blood lymphocytes automated count (number/volume) 2.3 10*3 1.0-4.0 Blood monocytes automated count (number/volume) 1. 2 10*3 0.0-1.0 Automated eosinophil count 0.5 10*3/uL 0 .0-0.3 Automated blood basophil count (count/volume) 0.1 10*3/uL 0.0-0.1 Comprehensive metabolic panel - 11/13/17 05:10 Serum or plasma sodium measurement (moles/volume) 132 mmol/L 135-145 Serum or plasma potassium measurement (moles/volume) 4.2 mmol/L 3.6-5.0 Serum or plasma chloride measurement (moles/volume) 93 mmol/L 98-107 Carbon dioxide 27 mmol/L 21-32 Serum or plasma anion gap determination (moles/volume) 12 mmol/L 5-14 Serum or plasma urea nitrogen measurement (mass/volume ) 48 mg/dL 7-18 Serum or plasma creatinine measurement (mass/volume) 1.39 mg/dL 0.60-1.30 Serum or plasma urea nitrogen/creatinine mass ratio 35 NRG Serum or plasma creatinine measurement w ith calculation of estimated glomerular filtration rate 37 NRG Serum or plasma glucose measurement (mass/volume) 119 mg/dL 70-105 Serum or plasma calcium measurement (mass/volume) 9.1 mg/dL 8.5-10.1 Serum or plasma total bilirubin measurement (mass/volu me) 1.1 mg/dL 0.1-1.0 Serum or plasma alkaline phosphatase ignacio surement (enzymatic activity/volume) 71 U/L 40-136 Serum or plasma aspartate aminotransfera se measurement (enzymatic activity/volume) 19 U/L 5-34 Serum or plasma alanine aminotransferase measurement (enzymatic activity/volume) 13 U/L 0-55 Serum or plasma protein measurement (mass/volume) 5.9 g/dL 6.4-8.2 Serum or plasma albumin measurement (mass/volume) 3.0 g/dL 3.2-4.5 Magnesium - 11/13/17 05:10 Magnesium 2.3 mg/dL 1.8-2.4 Capillary blood glucose measurement by g lucometer (mass/volume) - 11/13/17 05:30 Capillary blood glucose measurement by glucometer (mas s/volume) 123 mg/dL 70-110 Capillary blood glucose measurement by g lucometer (mass/volume) - 11/13/17 11:23 Capillary blood glucose measurement by glucometer (mas s/volume) 126 mg/dL 70-110 Capillary blood glucose measurement by g lucometer (mass/volume) - 11/13/17 15:57 Capillary blood glucose measurement by glucometer (mas s/volume) 120 mg/dL 70-110 Capillary blood glucose measurement by g lucometer (mass/volume) - 11/13/17 21:43 Capillary blood glucose measurement by glucometer (mas s/volume) 89 mg/dL 70-110 Capillary blood glucose measurement by g lucometer (mass/volume) - 11/14/17 05:39 Capillary blood glucose measurement by glucometer (mas s/volume) 114 mg/dL 70-110 Capillary blood glucose measurement by g lucometer (mass/volume) - 11/14/17 11:49 Capillary blood glucose measurement by glucometer (mas s/volume) 145 mg/dL 70-110 Capillary blood glucose measurement by g lucometer (mass/volume) - 11/14/17 16:51 Capillary blood glucose measurement by glucometer (mas s/volume) 116 mg/dL 70-110 Capillary blood glucose measurement by g lucometer (mass/volume) - 11/14/17 20:44 Capillary blood glucose measurement by glucometer (mas s/volume) 111 mg/dL 70-110 Capillary blood glucose measurement by g lucometer (mass/volume) - 11/15/17 05:14 Capillary blood glucose measurement by glucometer (mas s/volume) 114 mg/dL 70-110 Capillary blood glucose measurement by g lucometer (mass/volume) - 11/15/17 11:11 Capillary blood glucose measurement by glucometer (mas s/volume) 208 mg/dL 70-110 Capillary blood glucose measurement by g lucometer (mass/volume) - 11/15/17 17:03 Capillary blood glucose measurement by glucometer (mas s/volume) 106 mg/dL 70-110 Capillary blood glucose measurement by g lucometer (mass/volume) - 11/15/17 20:47 Capillary blood glucose measurement by glucometer (mas s/volume) 69 mg/dL 70-110 Capillary blood glucose measurement by g lucometer (mass/volume) - 11/16/17 00:09 Capillary blood glucose measurement by glucometer (mas s/volume) 83 mg/dL 70-110 Capillary blood glucose measurement by g lucometer (mass/volume) - 11/16/17 05:07 Capillary blood glucose measurement by glucometer (mas s/volume) 98 mg/dL 70-110 Capillary blood glucose measurement by g lucometer (mass/volume) - 11/16/17 11:23 Capillary blood glucose measurement by glucometer (mas s/volume) 117 mg/dL 70-110 Capillary blood glucose measurement by g lucometer (mass/volume) - 11/16/17 16:04 Capillary blood glucose measurement by glucometer (mas s/volume) 187 mg/dL 70-110 Capillary blood glucose measurement by g lucometer (mass/volume) - 11/16/17 20:34 Capillary blood glucose measurement by glucometer (mas s/volume) 187 mg/dL 70-110 Capillary blood glucose measurement by g lucometer (mass/volume) - 11/17/17 05:30 Capillary blood glucose measurement by glucometer (mas s/volume) 126 mg/dL 70-110 Capillary blood glucose measurement by g lucometer (mass/volume) - 11/17/17 11:00 Capillary blood glucose measurement by glucometer (mas s/volume) 129 mg/dL 70-110 Capillary blood glucose measurement by g lucometer (mass/volume) - 11/17/17 15:08 Capillary blood glucose measurement by glucometer (mas s/volume) 141 mg/dL 70-110 Capillary blood glucose measurement by g lucometer (mass/volume) - 11/17/17 20:46 Capillary blood glucose measurement by glucometer (mas s/volume) 92 mg/dL 70-110 Capillary blood glucose measurement by g lucometer (mass/volume) - 11/18/17 05:20 Capillary blood glucose measurement by glucometer (mas s/volume) 87 mg/dL 70-110 Capillary blood glucose measurement by g lucometer (mass/volume) - 11/18/17 08:54 Capillary blood glucose measurement by glucometer (mas s/volume) 118 mg/dL 70-110 Capillary blood glucose measurement by g lucometer (mass/volume) - 11/18/17 10:44 Capillary blood glucose measurement by glucometer (mas s/volume) 126 mg/dL 70-110 Capillary blood glucose measurement by g lucometer (mass/volume) - 11/18/17 16:16 Capillary blood glucose measurement by glucometer (mas s/volume) 124 mg/dL 70-110 Capillary blood glucose measurement by g lucometer (mass/volume) - 11/18/17 20:36 Capillary blood glucose measurement by glucometer (mas s/volume) 171 mg/dL 70-110 Capillary blood glucose measurement by g lucometer (mass/volume) - 11/19/17 06:01 Capillary blood glucose measurement by glucometer (mas s/volume) 114 mg/dL 70-110 Capillary blood glucose measurement by g lucometer (mass/volume) - 11/19/17 11:19 Capillary blood glucose measurement by glucometer (mas s/volume) 125 mg/dL 70-110 Capillary blood glucose measurement by g lucometer (mass/volume) - 11/19/17 16:05 Capillary blood glucose measurement by glucometer (mas s/volume) 191 mg/dL 70-110 Capillary blood glucose measurement by g lucometer (mass/volume) - 11/19/17 20:33 Capillary blood glucose measurement by glucometer (mas s/volume) 99 mg/dL 70-110 Capillary blood glucose measurement by g lucometer (mass/volume) - 11/20/17 05:46 Capillary blood glucose measurement by glucometer (mas s/volume) 94 mg/dL 70-110 Capillary blood glucose measurement by g lucometer (mass/volume) - 11/20/17 11:27 Capillary blood glucose measurement by glucometer (mas s/volume) 150 mg/dL 70-110 Capillary blood glucose measurement by g lucometer (mass/volume) - 11/20/17 16:54 Capillary blood glucose measurement by glucometer (mas s/volume) 104 mg/dL 70-110 Capillary blood glucose measurement by g lucometer (mass/volume) - 11/20/17 20:50 Capillary blood glucose measurement by glucometer (mas s/volume) 86 mg/dL 70-110 Capillary blood glucose measurement by g lucometer (mass/volume) - 11/21/17 05:29 Capillary blood glucose measurement by glucometer (mas s/volume) 100 mg/dL 70-110 Automated blood complete blood count (he mogram) panel - 11/21/17 05:41 Blood leukocytes automated count (number/volume) 8.0 10*3/uL 4.3-11.0 Blood erythrocytes automated count (number/volume) 3.39 10*6/uL 4.35-5.85 Venous blood hemoglobin measurement (mass/volume) 9.2 g/dL 11.5-16.0 Blood hematocrit (volume fraction) 29 % 35-52 Automated erythrocyte mean corpuscular volume 86 [ foz_us] 80-99 Automated erythrocyte mean corpuscular h emoglobin (mass per erythrocyte) 27 pg 25-34 Automated erythrocyte mean corpuscular h emoglobin concentration measurement (mass/volume) 31 g/dL 32-36 Automated erythrocyte distribution width ratio 15. 0 % 10.0- 14.5 Automated blood platelet count (count/volume) 403 10*3/uL 130-400 Automated blood platelet mean volume measurement 9.2 [foz_us] 7.4-10.4 Whole blood basic metabolic panel - 11/03 04/22 05:41 Serum or plasma sodium measurement (moles/volume) 137 mmol/L 135-145 Serum or plasma potassium measurement (moles/volume) 4.1 mmol/L 3.6-5.0 Serum or plasma chloride measurement (moles/volume) 97 mmol/L 98-107 Carbon dioxide 31 mmol/L 21-32 Serum or plasma anion gap determination (moles/volume) 9 mmol/L 5-14 Serum or plasma urea nitrogen measurement (mass/volume ) 33 mg/dL 7-18 Serum or plasma creatinine measurement (mass/volume) 0.70 mg/dL 0.60-1.30 Serum or plasma urea nitrogen/creatinine mass ratio 47 NRG Serum or plasma creatinine measurement w ith calculation of estimated glomerular filtration rate > NRG Serum or plasma glucose measurement (mass/volume) 85 mg/dL 70-105 Serum or plasma calcium measurement (mass/volume) 9.6 mg/dL 8.5-10.1 Capillary blood glucose measurement by g lucometer (mass/volume) - 11/21/17 11:40 Capillary blood glucose measurement by glucometer (mas s/volume) 127 mg/dL 70-110 Complete urinalysis with reflex to cultu re - 07/05/19 16:29 Urine color determination YELLOW NRG Urine clarity determination CLOUDY NR G Urine pH measurement by test strip 5.5 5-9 Specific gravity of urine by test strip 1.020 1.016-1.022 Urine protein assay by test strip, semi-quantitative NEGATIVE NEGATIVE Urine glucose detection by automated test strip 2+ NEGATIVE Erythrocytes detection in urine sediment by light micr oscopy 2+ NEGATIVE Urine ketones detection by automated test strip NE GATIVE NEGATIVE Urine nitrite detection by test strip NEGATIVE NEGATIVE Urine total bilirubin detection by test strip NEGA TIVE NEGATIVE Urine urobilinogen measurement by automated test strip (mass/volume) 0.2 mg/dL < = 1.0 Urine leukocyte esterase detection by dipstick 2+ NEGATIVE Automated urine sediment erythrocyte cou nt by microscopy (number/high power field) [HPF] NRG Automated urine sediment leukocyte count by microscopy (number/high power field) > [HPF] NRG Bacteria detection in urine sediment by light microsco py MODERATE NRG Squamous epithelial cells detection in u rine sediment by light microscopy 10-25 NRG Crystals detection in urine sediment by light microsco py NONE NRG Casts detection in urine sediment by light microscopy NONE NRG Mucus detection in urine sediment by light microscopy NEGATIVE NRG Complete urinalysis with reflex to culture YES NRG Yeast detection in urine sediment by light microscopy MODERATE NRG Bacterial urine culture - 07/05/19 16:29 Bacterial urine culture [id number] NRG COLONY COUNT >100,000/ML NRG FTX;REPORTABLE SUSCEPTIBILITY REPORTED 07/08 09:40 NRG Dirithromycin susceptibility test by dis k diffusion - 07/05/19 16:29 Gentamicin susceptibility test by minimum inhibitory c oncentration <= NRG Trimethoprim/sulfamethoxazole susceptibi lity test by minimum inhibitoryconcentration <= NRG Levofloxacin susceptibility test by minimum inhibitory concentration <= NRG Ampicillin susceptibility test by minimum inhibitory c oncentration R NRG Cefazolin susceptibility test by minimum inhibitory co ncentration <= NRG Ceftriaxone susceptibility test by minimum inhibitory concentration <= NRG Ciprofloxacin susceptibility test by minimum inhibitor y concentration <= NRG Meropenem susceptibility test by minimum inhibitory co ncentration <= NRG Nitrofurantoin susceptibility test by mi nimum inhibitory concentration 32 NRG Amoxicillin and clavulanate potassium susc FRANCIS < NRG Dirithromycin susceptibility test by dis k diffusion - 07/05/19 16:29 Gentamicin susceptibility test by minimum inhibitory c oncentration <= NRG Trimethoprim/sulfamethoxazole susceptibi lity test by minimum inhibitoryconcentration <= NRG Levofloxacin susceptibility test by minimum inhibitory concentration <= NRG Ampicillin susceptibility test by minimum inhibitory c oncentration R NRG Cefazolin susceptibility test by minimum inhibitory co ncentration <= NRG Ceftriaxone susceptibility test by minimum inhibitory concentration <= NRG Ciprofloxacin susceptibility test by minimum inhibitor y concentration <= NRG Meropenem susceptibility test by minimum inhibitory co ncentration <= NRG Nitrofurantoin susceptibility test by mo nimum inhibitory concentration 64 NRG Amoxicillin and clavulanate potassium susc FRANCIS <= NRG Complete blood count (CBC) with automate d white blood cell (WBC) differential - 07/05/19 16:45 Blood leukocytes automated count (number/volume) 10.6 10*3/uL 4.3-11.0 Blood erythrocytes automated count (number/volume) 4.45 10*6/uL 4.35-5.85 Venous blood hemoglobin measurement (mass/volume) 11.8 g/dL 11.5-16.0 Blood hematocrit (volume fraction) 36 % 35-52 Automated erythrocyte mean corpuscular volume 82 [ foz_us] 80-99 Automated erythrocyte mean corpuscular h emoglobin (mass per erythrocyte) 27 pg 25-34 Automated erythrocyte mean corpuscular h emoglobin concentration measurement (mass/volume) 32 g/dL 32-36 Automated erythrocyte distribution width ratio 17. 0 % 10.0- 14.5 Automated blood platelet count (count/volume) 137 10*3/uL 130-400 Automated blood platelet mean volume measurement 11.1 [foz_us] 7.4-10.4 Automated blood neutrophils/100 leukocytes 81 % 42-75 Automated blood lymphocytes/100 leukocytes 9 % 12-44 Blood monocytes/100 leukocytes 9 % 0-12 Automated blood eosinophils/100 leukocytes 1 % 0-10 Automated blood basophils/100 leukocytes 0 % 0-10 Blood neutrophils automated count (number/volume) 8.6 10*3 1.8-7.8 Blood lymphocytes automated count (number/volume) 0.9 10*3 1.0-4.0 Blood monocytes automated count (number/volume) 1. 0 10*3 0.0-1.0 Automated eosinophil count 0.1 10*3/uL 0 .0-0.3 Automated blood basophil count (count/volume) 0.0 10*3/uL 0.0-0.1 PT panel in platelet poor plasma by coag ulation assay - 07/05/19 16:45 Prothrombin time (PT) in platelet poor plasma by coagu lation assay 14.4 s 12.2-14.7 INR in platelet poor plasma or blood by coagulation as say 1.1 0.8-1.4 Activated partial thromboplastin time (a PTT) in platelet poor plasma bycoagulation assay - 07/05/19 16:45 Activated partial thromboplastin time (a PTT) in platelet poor plasma bycoagulation assay 36 s 24-35 Blood lactic acid measurement (moles/vol ume) - 07/05/19 16:45 Blood lactic acid measurement (moles/volume) 0.76 mmol/L 0.50-2.00 Comprehensive metabolic panel - 07/05/19 16:45 Serum or plasma sodium measurement (moles/volume) 138 mmol/L 135-145 Serum or plasma potassium measurement (moles/volume) 4.4 mmol/L 3.6-5.0 Serum or plasma chloride measurement (moles/volume) 103 mmol/L 98-107 Carbon dioxide 23 mmol/L 21-32 Serum or plasma anion gap determination (moles/volume) 12 mmol/L 5-14 Serum or plasma urea nitrogen measurement (mass/volume ) 61 mg/dL 7-18 Serum or plasma creatinine measurement (mass/volume) 1.43 mg/dL 0.60-1.30 Serum or plasma urea nitrogen/creatinine mass ratio 43 NRG Serum or plasma creatinine measurement w ith calculation of estimated glomerular filtration rate 35 NRG Serum or plasma glucose measurement (mass/volume) 147 mg/dL 70-105 Serum or plasma calcium measurement (mass/volume) 9.1 mg/dL 8.5-10.1 Serum or plasma total bilirubin measurement (mass/volu me) 1.4 mg/dL 0.1-1.0 Serum or plasma alkaline phosphatase ignacio surement (enzymatic activity/volume) 60 U/L 40-136 Serum or plasma aspartate aminotransfera se measurement (enzymatic activity/volume) 20 U/L 5-34 Serum or plasma alanine aminotransferase measurement (enzymatic activity/volume) 18 U/L 0-55 Serum or plasma protein measurement (mass/volume) 7.9 g/dL 6.4-8.2 Serum or plasma albumin measurement (mass/volume) 3.7 g/dL 3.2-4.5 CALCIUM CORRECTED 9.3 mg/dL 8.5-10.1 Serum or plasma troponin i.cardiac measu rement (mass/volume) - 07/05/19 16:45 Serum or plasma troponin i.cardiac measurement (mass/v olume) < ng/mL <0.028 Bacterial blood culture - 07/05/19 16:45 Bacterial blood culture NG NRG Influenza virus A and B antigen detectio n - 07/05/19 16:50 FLU RESULT NEGATIVE FOR INFLUENZA A AND B ANTIGENS BY IA NRG Capillary blood glucose measurement by g lucometer (mass/volume) - 07/05/19 16:53 Capillary blood glucose measurement by glucometer (mas s/volume) 149 mg/dL 70-110 Bacterial blood culture - 07/05/19 17:24 Bacterial blood culture NG NRG Capillary blood glucose measurement by g lucometer (mass/volume) - 07/05/19 21:14 Capillary blood glucose measurement by glucometer (mas s/volume) 151 mg/dL 70-110 Complete blood count (CBC) with automate d white blood cell (WBC) differential - 07/06/19 05:05 Blood leukocytes automated count (number/volume) 8.1 10*3/uL 4.3-11.0 Blood erythrocytes automated count (number/volume) 4.09 10*6/uL 4.35-5.85 Venous blood hemoglobin measurement (mass/volume) 10.5 g/dL 11.5-16.0 Blood hematocrit (volume fraction) 34 % 35-52 Automated erythrocyte mean corpuscular volume 83 [ foz_us] 80-99 Automated erythrocyte mean corpuscular h emoglobin (mass per erythrocyte) 26 pg 25-34 Automated erythrocyte mean corpuscular h emoglobin concentration measurement (mass/volume) 31 g/dL 32-36 Automated erythrocyte distribution width ratio 16. 9 % 10.0- 14.5 Automated blood platelet count (count/volume) 118 10*3/uL 130-400 Automated blood platelet mean volume measurement 11.1 [foz_us] 7.4-10.4 Automated blood neutrophils/100 leukocytes 76 % 42-75 Automated blood lymphocytes/100 leukocytes 12 % 12-44 Blood monocytes/100 leukocytes 10 % 0-12 Automated blood eosinophils/100 leukocytes 2 % 0-10 Automated blood basophils/100 leukocytes 0 % 0-10 Blood neutrophils automated count (number/volume) 6.1 10*3 1.8-7.8 Blood lymphocytes automated count (number/volume) 1.0 10*3 1.0-4.0 Blood monocytes automated count (number/volume) 0. 8 10*3 0.0-1.0 Automated eosinophil count 0.2 10*3/uL 0 .0-0.3 Automated blood basophil count (count/volume) 0.0 10*3/uL 0.0-0.1 Comprehensive metabolic panel - 07/06/19 05:05 Serum or plasma sodium measurement (moles/volume) 137 mmol/L 135-145 Serum or plasma potassium measurement (moles/volume) 3.9 mmol/L 3.6-5.0 Serum or plasma chloride measurement (moles/volume) 106 mmol/L 98-107 Carbon dioxide 22 mmol/L 21-32 Serum or plasma anion gap determination (moles/volume) 9 mmol/L 5-14 Serum or plasma urea nitrogen measurement (mass/volume ) 54 mg/dL 7-18 Serum or plasma creatinine measurement (mass/volume) 1.21 mg/dL 0.60-1.30 Serum or plasma urea nitrogen/creatinine mass ratio 45 NRG Serum or plasma creatinine measurement w ith calculation of estimated glomerular filtration rate 43 NRG Serum or plasma glucose measurement (mass/volume) 138 mg/dL 70-105 Serum or plasma calcium measurement (mass/volume) 8.3 mg/dL 8.5-10.1 Serum or plasma total bilirubin measurement (mass/volu me) 1.3 mg/dL 0.1-1.0 Serum or plasma alkaline phosphatase ignacio surement (enzymatic activity/volume) 54 U/L 40-136 Serum or plasma aspartate aminotransfera se measurement (enzymatic activity/volume) 18 U/L 5-34 Serum or plasma alanine aminotransferase measurement (enzymatic activity/volume) 16 U/L 0-55 Serum or plasma protein measurement (mass/volume) 6.7 g/dL 6.4-8.2 Serum or plasma albumin measurement (mass/volume) 3.1 g/dL 3.2-4.5 CALCIUM CORRECTED 9.0 mg/dL 8.5-10.1 PROCALCITONIN (PCT) - 07/06/19 05:05 PROCALCITONIN (PCT) 0.46 ng/mL <0.10 Capillary blood glucose measurement by g lucometer (mass/volume) - 07/06/19 05:29 Capillary blood glucose measurement by glucometer (mas s/volume) 150 mg/dL 70-110 Arterial blood gas measurement - 9 11:05 Blood pCO2 57 mm[Hg] 35-45 Blood pO2 193 mm[Hg] 79-93 Arterial blood bicarbonate measurement (moles/volume) 24 mmol/L 23-27 Arterial blood base excess by calculation -1.5 mmo l/L -2.5-2.5 Arterial blood oxygen saturation measurement 99 % 94-100 * Inhaled oxygen flow rate 16 NRG Arterial blood pH measurement with patient temperature correction 7.26 7.37-7.43 Arterial blood carbon dioxide, total measurement (mole s/volume) 25.9 mmol/L 21.0-31.0 Body site RR NRG Assessment of wrist artery patency prior to arterial p uncture YES-POS NRG Setting of ventilation mode NO NR G Measurement of body temperature 38.4 NRG Capillary blood glucose measurement by g lucometer (mass/volume) - 07/06/19 11:54 Capillary blood glucose measurement by glucometer (mas s/volume) 267 mg/dL 70-110 Capillary blood glucose measurement by g lucometer (mass/volume) - 07/06/19 15:48 Capillary blood glucose measurement by glucometer (mas s/volume) 258 mg/dL 70-110 Capillary blood glucose measurement by g lucometer (mass/volume) - 07/06/19 22:26 Capillary blood glucose measurement by glucometer (mas s/volume) 205 mg/dL 70-110 Serum or plasma lithium measurement (mol es/volume) - 07/07/19 03:10 BNP PT 1064.9 pg/mL <100.0 Comprehensive metabolic panel - 07/07/19 03:10 Serum or plasma sodium measurement (moles/volume) 138 mmol/L 135-145 Serum or plasma potassium measurement (moles/volume) 3.5 mmol/L 3.6-5.0 Serum or plasma chloride measurement (moles/volume) 103 mmol/L 98-107 Carbon dioxide 23 mmol/L 21-32 Serum or plasma anion gap determination (moles/volume) 12 mmol/L 5-14 Serum or plasma urea nitrogen measurement (mass/volume ) 43 mg/dL 7-18 Serum or plasma creatinine measurement (mass/volume) 1.05 mg/dL 0.60-1.30 Serum or plasma urea nitrogen/creatinine mass ratio 41 NRG Serum or plasma creatinine measurement w ith calculation of estimated glomerular filtration rate 50 NRG Serum or plasma glucose measurement (mass/volume) 122 mg/dL 70-105 Serum or plasma calcium measurement (mass/volume) 8.4 mg/dL 8.5-10.1 Serum or plasma total bilirubin measurement (mass/volu me) 1.7 mg/dL 0.1-1.0 Serum or plasma alkaline phosphatase ignacio surement (enzymatic activity/volume) 65 U/L 40-136 Serum or plasma aspartate aminotransfera se measurement (enzymatic activity/volume) 26 U/L 5-34 Serum or plasma alanine aminotransferase measurement (enzymatic activity/volume) 24 U/L 0-55 Serum or plasma protein measurement (mass/volume) 6.7 g/dL 6.4-8.2 Serum or plasma albumin measurement (mass/volume) 3.1 g/dL 3.2-4.5 CALCIUM CORRECTED 9.1 mg/dL 8.5-10.1 Serum or plasma phosphate measurement (m ass/volume) - 07/07/19 03:10 Serum or plasma phosphate measurement (mass/volume) 3.0 mg/dL 2.3-4.7 Magnesium - 07/07/19 03:10 Magnesium 1.9 mg/dL 1.6-2.4 Complete blood count (CBC) with automate d white blood cell (WBC) differential - 07/07/19 05:05 Blood leukocytes automated count (number/volume) 8.2 10*3/uL 4.3-11.0 Blood erythrocytes automated count (number/volume) 3.91 10*6/uL 4.35-5.85 Venous blood hemoglobin measurement (mass/volume) 10.4 g/dL 11.5-16.0 Blood hematocrit (volume fraction) 32 % 35-52 Automated erythrocyte mean corpuscular volume 82 [ foz_us] 80-99 Automated erythrocyte mean corpuscular h emoglobin (mass per erythrocyte) 27 pg 25-34 Automated erythrocyte mean corpuscular h emoglobin concentration measurement (mass/volume) 32 g/dL 32-36 Automated erythrocyte distribution width ratio 16. 6 % 10.0- 14.5 Automated blood platelet count (count/volume) 110 10*3/uL 130-400 Automated blood platelet mean volume measurement 11.3 [foz_us] 7.4-10.4 Automated blood neutrophils/100 leukocytes 71 % 42-75 Automated blood lymphocytes/100 leukocytes 13 % 12-44 Blood monocytes/100 leukocytes 13 % 0-12 Automated blood eosinophils/100 leukocytes 2 % 0-10 Automated blood basophils/100 leukocytes 0 % 0-10 Blood neutrophils automated count (number/volume) 5.8 10*3 1.8-7.8 Blood lymphocytes automated count (number/volume) 1.1 10*3 1.0-4.0 Blood monocytes automated count (number/volume) 1. 1 10*3 0.0-1.0 Automated eosinophil count 0.2 10*3/uL 0 .0-0.3 Automated blood basophil count (count/volume) 0.0 10*3/uL 0.0-0.1 Urine Legionella pneumophila antigen ass ay - 07/07/19 09:10 Urine Legionella pneumophila antigen assay Negativ e NRG Streptococcus pneumoniae antigen detecti on - 07/07/19 09:10 Streptococcus pneumoniae antigen detection Negativ e NRG Complete urinalysis with reflex to cultu re - 07/07/19 09:12 Urine color determination ORANGE NRG Urine clarity determination CLEAR NR G Urine pH measurement by test strip 5.5 5-9 Specific gravity of urine by test strip 1.015 1.016-1.022 Urine protein assay by test strip, semi-quantitative TRACE NEGATIVE Urine glucose detection by automated test strip 3+ NEGATIVE Erythrocytes detection in urine sediment by light micr oscopy TRACE-I NEGATIVE Urine ketones detection by automated test strip NE GATIVE NEGATIVE Urine nitrite detection by test strip POSITIVE NEGATIVE Urine total bilirubin detection by test strip NEGA TIVE NEGATIVE Urine urobilinogen measurement by automated test strip (mass/volume) 1.0 mg/dL < = 1.0 Urine leukocyte esterase detection by dipstick TRA CE NEGATIVE Automated urine sediment erythrocyte cou nt by microscopy (number/high power field) RARE NRG Automated urine sediment leukocyte count by microscopy (number/high power field) [HPF] NRG Bacteria detection in urine sediment by light microsco py TRACE NRG Crystals detection in urine sediment by light microsco py NONE NRG Casts detection in urine sediment by light microscopy NONE NRG Mucus detection in urine sediment by light microscopy NEGATIVE NRG Complete urinalysis with reflex to culture YES NRG Yeast detection in urine sediment by light microscopy LARGE NRG Bacterial urine culture - 07/07/19 09:12 Bacterial urine culture [id number] NRG COLONY COUNT >100,000/ML NRG Arterial blood gas measurement - 9 09:30 Blood pCO2 36 mm[Hg] 35-45 Blood pO2 63 mm[Hg] 79-93 Arterial blood bicarbonate measurement (moles/volume) 24 mmol/L 23-27 Arterial blood base excess by calculation 0.0 mmol /L -2.5-2.5 Arterial blood oxygen saturation measurement 91 % 94-100 * Inhaled oxygen flow rate RA NRG Arterial blood pH measurement with patient temperature correction 7.44 7.37-7.43 Arterial blood carbon dioxide, total measurement (mole s/volume) 25.0 mmol/L 21.0-31.0 Body site R BRACH NRG Assessment of wrist artery patency prior to arterial p uncture YES-POS NRG Setting of ventilation mode NO NR G Measurement of body temperature 36.1 NRG OCCULT BLOOD STOOL - 07/07/19 10:28 Stool gastrointestinal hemoglobin detection NEGATI VE NEGATIVE Capillary blood glucose measurement by g lucometer (mass/volume) - 07/07/19 11:46 Capillary blood glucose measurement by glucometer (mas s/volume) 183 mg/dL 70-110 Capillary blood glucose measurement by g lucometer (mass/volume) - 07/07/19 15:37 Capillary blood glucose measurement by glucometer (mas s/volume) 199 mg/dL 70-110 Capillary blood glucose measurement by g lucometer (mass/volume) - 07/07/19 19:57 Capillary blood glucose measurement by glucometer (mas s/volume) 258 mg/dL 70-110 Complete blood count (CBC) with automate d white blood cell (WBC) differential - 07/08/19 04:55 Blood leukocytes automated count (number/volume) 8.4 10*3/uL 4.3-11.0 Blood erythrocytes automated count (number/volume) 3.77 10*6/uL 4.35-5.85 Venous blood hemoglobin measurement (mass/volume) 9.9 g/dL 11.5-16.0 Blood hematocrit (volume fraction) 31 % 35-52 Automated erythrocyte mean corpuscular volume 83 [ foz_us] 80-99 Automated erythrocyte mean corpuscular h emoglobin (mass per erythrocyte) 26 pg 25-34 Automated erythrocyte mean corpuscular h emoglobin concentration measurement (mass/volume) 32 g/dL 32-36 Automated erythrocyte distribution width ratio 16. 3 % 10.0- 14.5 Automated blood platelet count (count/volume) 154 10*3/uL 130-400 Automated blood platelet mean volume measurement 11.9 [foz_us] 7.4-10.4 Automated blood neutrophils/100 leukocytes 65 % 42-75 Automated blood lymphocytes/100 leukocytes 19 % 12-44 Blood monocytes/100 leukocytes 12 % 0-12 Automated blood eosinophils/100 leukocytes 5 % 0-10 Automated blood basophils/100 leukocytes 0 % 0-10 Blood neutrophils automated count (number/volume) 5.4 10*3 1.8-7.8 Blood lymphocytes automated count (number/volume) 1.6 10*3 1.0-4.0 Blood monocytes automated count (number/volume) 1. 0 10*3 0.0-1.0 Automated eosinophil count 0.4 10*3/uL 0 .0-0.3 Automated blood basophil count (count/volume) 0.0 10*3/uL 0.0-0.1 Whole blood basic metabolic panel - 11/21 04:55 Serum or plasma sodium measurement (moles/volume) 140 mmol/L 135-145 Serum or plasma potassium measurement (moles/volume) 4.3 mmol/L 3.6-5.0 Serum or plasma chloride measurement (moles/volume) 103 mmol/L 98-107 Carbon dioxide 25 mmol/L 21-32 Serum or plasma anion gap determination (moles/volume) 12 mmol/L 5-14 Serum or plasma urea nitrogen measurement (mass/volume ) 47 mg/dL 7-18 Serum or plasma creatinine measurement (mass/volume) 1.59 mg/dL 0.60-1.30 Serum or plasma urea nitrogen/creatinine mass ratio 30 NRG Serum or plasma creatinine measurement w ith calculation of estimated glomerular filtration rate 31 NRG Serum or plasma glucose measurement (mass/volume) 182 mg/dL 70-105 Serum or plasma calcium measurement (mass/volume) 8.8 mg/dL 8.5-10.1 Serum or plasma phosphate measurement (m ass/volume) - 07/08/19 04:55 Serum or plasma phosphate measurement (mass/volume) 3.5 mg/dL 2.3-4.7 Magnesium - 07/08/19 04:55 Magnesium 2.0 mg/dL 1.6-2.4 Capillary blood glucose measurement by g lucometer (mass/volume) - 07/08/19 05:10 Capillary blood glucose measurement by glucometer (mas s/volume) 201 mg/dL 70-110 Capillary blood glucose measurement by g lucometer (mass/volume) - 07/08/19 12:07 Capillary blood glucose measurement by glucometer (mas s/volume) 170 mg/dL 70-110 Capillary blood glucose measurement by g lucometer (mass/volume) - 07/08/19 16:35 Capillary blood glucose measurement by glucometer (mas s/volume) 184 mg/dL 70-110 Capillary blood glucose measurement by g lucometer (mass/volume) - 07/08/19 20:53 Capillary blood glucose measurement by glucometer (mas s/volume) 178 mg/dL 70-110 Capillary blood glucose measurement by g lucometer (mass/volume) - 07/09/19 05:41 Capillary blood glucose measurement by glucometer (mas s/volume) 182 mg/dL 70-110 Complete blood count (CBC) with automate d white blood cell (WBC) differential - 07/09/19 05:45 Blood leukocytes automated count (number/volume) 6.5 10*3/uL 4.3-11.0 Blood erythrocytes automated count (number/volume) 3.80 10*6/uL 4.35-5.85 Venous blood hemoglobin measurement (mass/volume) 9.9 g/dL 11.5-16.0 Blood hematocrit (volume fraction) 32 % 35-52 Automated erythrocyte mean corpuscular volume 83 [ foz_us] 80-99 Automated erythrocyte mean corpuscular h emoglobin (mass per erythrocyte) 26 pg 25-34 Automated erythrocyte mean corpuscular h emoglobin concentration measurement (mass/volume) 31 g/dL 32-36 Automated erythrocyte distribution width ratio 16. 4 % 10.0- 14.5 Automated blood platelet count (count/volume) 164 10*3/uL 130-400 Automated blood platelet mean volume measurement 11.3 [foz_us] 7.4-10.4 Automated blood neutrophils/100 leukocytes 56 % 42-75 Automated blood lymphocytes/100 leukocytes 25 % 12-44 Blood monocytes/100 leukocytes 12 % 0-12 Automated blood eosinophils/100 leukocytes 6 % 0-10 Automated blood basophils/100 leukocytes 1 % 0-10 Blood neutrophils automated count (number/volume) 3.6 10*3 1.8-7.8 Blood lymphocytes automated count (number/volume) 1.6 10*3 1.0-4.0 Blood monocytes automated count (number/volume) 0. 8 10*3 0.0-1.0 Automated eosinophil count 0.4 10*3/uL 0 .0-0.3 Automated blood basophil count (count/volume) 0.1 10*3/uL 0.0-0.1 Whole blood basic metabolic panel - 12/21 05:45 Serum or plasma sodium measurement (moles/volume) 139 mmol/L 135-145 Serum or plasma potassium measurement (moles/volume) 3.2 mmol/L 3.6-5.0 Serum or plasma chloride measurement (moles/volume) 101 mmol/L 98-107 Carbon dioxide 23 mmol/L 21-32 Serum or plasma anion gap determination (moles/volume) 15 mmol/L 5-14 Serum or plasma urea nitrogen measurement (mass/volume ) 55 mg/dL 7-18 Serum or plasma creatinine measurement (mass/volume) 1.46 mg/dL 0.60-1.30 Serum or plasma urea nitrogen/creatinine mass ratio 38 NRG Serum or plasma creatinine measurement w ith calculation of estimated glomerular filtration rate 34 NRG Serum or plasma glucose measurement (mass/volume) 169 mg/dL 70-105 Serum or plasma calcium measurement (mass/volume) 8.9 mg/dL 8.5-10.1 Serum or plasma phosphate measurement (m ass/volume) - 07/09/19 05:45 Serum or plasma phosphate measurement (mass/volume) 4.4 mg/dL 2.3-4.7 Magnesium - 07/09/19 05:45 Magnesium 2.0 mg/dL 1.6-2.4 Serum or plasma lithium measurement (mol es/volume) - 07/09/19 05:46 BNP PT 68.6 pg/mL <100.0 Capillary blood glucose measurement by g lucometer (mass/volume) - 07/09/19 11:03 Capillary blood glucose measurement by glucometer (mas s/volume) 227 mg/dL 70-110 Encounters ACCT No. Visit Date/Time Discharge Status Pt. Type Provider Facility Loc./Unit Complaint [id number] 07/05/2019 18:00:00 019 13:15:00 DIS Outpatient MAKENZIE MCWILLIAMS, NINA Ralph [facility] 4TH UTI,ACUTE RESP. FAILURE,HYPOXIA,SEPSIS [id number] 11/06/2017 10:24:00 018 13:35:00 DIS Inpatient CLARK CHRISTIANSON MD [facility] IRF CAUDA EQUINA SYNDROME [id number] 10/17/2017 13:30:00 018 15:00:00 DIS Inpatient MOY LOGAN DO [facility] ICU AFIB WITH RVR [id number] 11/29/2014 14:53:00 015 11:30:00 DIS Inpatient CLARK CHRISTIANSON MD [facility] IRF IRF TOTAL KNEE REPLACEM ENT [id number] 11/23/2014 05:58:00 14:53:00 DIS Inpatient DREW GUERIN DO [facility] SURGICAL DEGENERATIVE DISK DISE ASE RIGHT KNEE [id number] 11/09/2014 11:46:00 015 23:59:59 CLS Outpatient DREW GUERIN DO [facility] 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
== END 2019-07-09 13:15 | DRG 871 ==
LOC: EDUNIT# 16:23 → ER 16:25 → 4TH 18:00 → ICU 07-06 13:03 → 4TH 07-07 12:03
PROVIDERS: ADMIT Family Medicine; ATTEND Family Medicine
DX: A41.9 Sepsis, unspecified organism (principal); R65.20 Severe sepsis without septic shock; J18.9 Pneumonia, unspecified organism; J80 Acute respiratory distress syndrome; N39.0 Urinary tract infection, site not specified; N17.9 Acute kidney failure, unspecified; G83.4 Cauda equina syndrome; G82.20 Paraplegia, unspecified; Z66 Do not resuscitate; B37.0 Candidal stomatitis; M21.371 Foot drop, right foot; M21.372 Foot drop, left foot; I12.9 Hypertensive chronic kidney disease with stage 1 through stage 4 chronic kidney disease, or unspecified chronic kidney disease; N18.3 Chronic kidney disease, stage 3 (moderate); E11.40 Type 2 diabetes mellitus with diabetic neuropathy, unspecified; R31.9 Hematuria, unspecified; G47.30 Sleep apnea, unspecified; K21.9 Gastro-esophageal reflux disease without esophagitis; K59.09 Other constipation; L89.152 Pressure ulcer of sacral region, stage 2; N39.45 Continuous leakage; E66.01 Morbid (severe) obesity due to excess calories; I48.91 Unspecified atrial fibrillation; E78.00 Pure hypercholesterolemia, unspecified; M79.7 Fibromyalgia; F32.9 Major depressive disorder, single episode, unspecified; L97.529 Non-pressure chronic ulcer of other part of left foot with unspecified severity; F41.9 Anxiety disorder, unspecified; Z79.4 Long term (current) use of insulin; Z68.38 Body mass index [BMI] 38.0-38.9, adult
CPT/HCPCS: 36415; 36600; 71045; 71250; 80048; 80053; 81000; 82274; 82805; 82962; 83605; 83735; 83880; 84100; 84145; 84484; 85025; 85610; 85730; 87040; 87077; 87088; 87186; 87449; 87804; 87899; 93005; 93306; 94640; 94644; 94760; 96361; 96365; 96375

== ENCOUNTER → 2019-09-08 | Outpatient (CLI) | payer MEDICARE ==
[~2019-09-08] MED LIST changes: +ANTI1CAP5 PO; +ASCO500T6 PO; +ASPI-983 PO; +CEPH250C PO; +CITA20TA9 PO; +DEXT37.5 PO; +DOCU-143 PO; +EMPA25TA PO; +FLUC100T6 PO; +FLUT16SP22 NS; +GLUC1KIT SC; +HYDR-3812 PO; +INSU100I23 SC; +INSU100I23 SQ; +INSU100I32 SC; +IPRA3AMP31 NEB; +LINA5TAB PO; +LORA10TA7 PO; +MULT-166 PO; +PREG150C PO; +PROP10TA8 PO; +SACC250C PO; +TIZA2TAB4 PO
--- NOTE | 2019-09-08 13:03 | Diagnostic Imaging Report ---
EXAMINATION: CT Chest without contrast. TECHNIQUE: Multiple contiguous axial images were obtained through the chest without the use of intravenous contrast. All CT scans use one or more of the following dose optimizing techniques: automated exposure control, MA and/or KvP adjustment based on a patient size and exam type, or iterative reconstruction. HISTORY: PNEUMONIA COMPARISON: 07/06/2019 FINDINGS: Previously seen groundglass and septal line thickening. The areas of consolidation in the upper lobes has resolved. A few areas of scarring are seen in the lingula and right lung base. No pleural effusion. No pneumothorax. No suspicious nodules. Heart is mildly enlarged. There are mitral annular calcifications and coronary artery calcifications. No pericardial effusion. Aorta is normal in caliber. There is no axillary or supraclavicular lymphadenopathy. There is no mediastinal lymphadenopathy. Small left thyroid nodule is stable. There is a nonobstructing 4 mm stone in the upper pole of the left kidney. There are no suspicious osseous lesions. IMPRESSION: 1. Resolved groundglass and septal line thickening in keeping with resolution of an infectious process. No acute abnormality in the chest. Dictated by: Dictated on workstation # [id number]
== END ==
LOC: RAD 12:10
PROVIDERS: ATTEND Nurse Practitioner Family
DX: J18.8 Other pneumonia, unspecified organism (principal); J98.4 Other disorders of lung
CPT/HCPCS: 71250

== ENCOUNTER 2021-12-31 14:29 | Inpatient (IN) | payer MEDICARE ==
[~2021-12-31] VITALS: Ht 160 cm; Wt 107.6 kg
[~2021-12-31 14:29] MED LIST changes: +ASCO500T17 PO; -ASCO500T6 PO; +ASPI-1238 PO; -ASPI-983 PO; +FLUC100T10 PO; -FLUC100T6 PO; +GLUC1KIT IM; -GLUC1KIT SC; +HYDR-34 PO; -HYDR-3812 PO; -HYDR-3816 PO; +HYDR50TA6 PO; -LISI-552 PO; +LISI20TA26 PO; +LISI40TA9 PO; -MECL-106 PO; +MECL-149 PO; -PANT40TA3 PO; +PANT40TA52 PO; +SCOP1PAT10 TOP; -SCOP1PAT11 TOP; +TIZA-169 PO; -TIZA2TAB4 PO
[2021-12-31] MEDS ORDERED: ASPIRIN 81 MG CHEW (CHILDREN'S ASA) PO ONE (14:45)
--- NOTE | 2021-12-31 14:51 | ED Dyspnea ---
General Chief Complaint: Respiratory Problems Stated Complaint: SOA Nursing Triage Note: PT TO RM 9 BY [facility] FROM [facility] WITH CC OF SOB AND CONFUSION, NO RESULTS FROM UA DONE SATURDAY. PAIN IN RT BUTTOCKS OCCATIONALLY Source of Information: Patient, EMS Exam Limitations: No Limitations, Physical Impairments History of Present Illness Date Seen by Provider: December 31, 2021 Time Seen by Provider: 14:47 Initial Comments Patient is a 81-year-old female who is a resident at [facility] who presents ED by EMS for shortness of breath. Patient states she has had shortness of breath over the past week with a cough. She reports intermittent right-sided chest pain over the past 3 days without any current chest pain at this time. Patient with a history of left bundle branch block, atrial fibril lation, pacemaker type 2 diabetes, cauda equina syndrome, GERD, Mnire's disease, essential hypertension. Patient states she has not been feeling well over the past week. Patient was found to be in the mid to upper 80s with her oxygen at [facility]. Patient was placed on 4 L of nasal cannula by EMS. Currently on 2 L sitting around 95%. Patient reports chronic pain in her lower extremity since surgery from cauda equina syndrome. She reports sharp shooting pain bilateral lower extremities. Has been taking narcotics which makes her confused. She does have some pain in her lower extremities. According to son noted bilateral leg swelling. Does take Lasix intermittently. No known history of COPD, coronary artery disease. She denies any fever, vomiting, diarrhea, abdominal pain. Difficulty obtaining history from patient. Patient denies of any urinary symptoms but there was concern for UTI at [facility].. Allergies and Home Medications Allergies Coded Allergies: Iodine and Iodide Containing Produc (Verified Allergy, Unknown, ANAPHYLAXIS, RASH, 11/09/14) Sulfa (Sulfonamide Antibiotics) (Unverified Allergy, Unknown, NAUSEA AND VOMITING, 11/09/14) adhesive (Unverified Allergy, Unknown, 11/09/14) codeine (Unverified Allergy, Unknown, N/V , 11/09/14) tramadol (Unverified Allergy, Unknown, NAUSEA AND VOMITING, 11/09/14) Uncoded Allergies: PERFUME (Allergy, Unknown, 11/09/14) Patient Home Medication List Home Medication List Reviewed: Yes Acetaminophen (Tylenol) 325 Mg Tablet, 650 MG PO Q6H PRN for PAIN-MILD (1-4), (Reported) Entered as Reported by: CRISTHIAN GHOSH on 07/06/19 1026 Antiox #11/Om3/Dha/Epa/Lut/Lucien (Eye Health Adult 50+ Softgel) 1 Each Capsule, 1 CAP PO BID, (Reported) Entered as Reported by: CRISTHIAN GHOSH on 07/06/19 1026 Ascorbic Acid (Vitamin C) 500 Mg Tablet, 500 MG PO DAILY, (Reported) Entered as Reported by: CRISTHIAN GHOSH on 07/06/19 1026 Aspirin (Aspirin EC) 81 Mg Tablet.dr, 81 MG PO DAILY, (Reported) Entered as Reported by: CRISTHIAN GHOSH on 07/06/19 1026 Atorvastatin Calcium (Atorvastatin Calcium) 40 Mg Tablet, 40 MG PO HS, (Reported) Entered as Reported by: CRISTHIAN GHOSH on 10/17/17 1511 Bisacodyl (Dulcolax) 10 Mg Supp.rect, 10 MG RC Q72H PRN for CONSTIPATION-4TH TAHIRA E, (Reported) Entered as Reported by: CRISTHIAN GHOSH on 07/06/19 1026 Cephalexin (Cephalexin) 250 Mg Capsule, 500 MG PO BID Prescribed by: NINA BANEGAS on 07/09/19 0921 Citalopram Hydrobromide (Citalopram HBr) 20 Mg Tablet, 20 MG PO DAILY, (Reported) Entered as Reported by: CRISTHIAN GHOSH on 07/06/19 1026 Dextrose (Glutose 15) 37.5 Gm Gel..gram., 15 GM PO UD PRN for BS<70MG/DL, (Reported) Entered as Reported by: CRISTHIAN GHOSH on 07/06/19 1026 Docusate Sodium (Colace) 100 Mg Capsule, 100 MG PO BID, (Reported) Entered as Reported by: CRISTHIAN GHOSH on 07/06/19 1026 Empagliflozin (Jardiance) 25 Mg Tablet, 25 MG PO DAILY, (Reported) Entered as Reported by: CRISTHIAN GHOSH on 07/06/19 1026 Famotidine (Famotidine) 20 Mg Tablet, 20 MG PO DAILY, (Reported) Entered as Reported by: CRISTHIAN GHOSH on 3/15/18 1501 Fluconazole (Fluconazole) 100 Mg Tablet, 100 MG PO DAILY Prescribed by: NINA BANEGAS on 07/09/19 0921 Fluticasone Propionate (Fluticasone Propionate) 16 Gm [place].susp, 1 SPRAY NS DAILY, (Reported) Entered as Reported by: CRISTHIAN GHOSH on 07/06/19 1026 Glucagon,Human Recombinant (Glucagon Emergency Kit) 1 Mg/Kit Soln, 1 MG SC UD PRN for BS<40MG/DL, (Reported) Entered as Reported by: CRISTHIAN GHOSH on 07/06/19 1026 Hydrocodone Bit/Acetaminophen (Lortab 5 Mg Tablet) 1 Each Tablet, 1 TAB PO Q6H PRN for PAIN-MODERATE (5-7), (Reported) Entered as Reported by: CRISTHIAN GHOSH on 07/06/19 1026 Insulin Degludec (Tresiba Flextouch U-100) 100 Unit/1 Ml Insuln.pen, 100 UNITS SC 0730, (Reported) Entered as Reported by: CRISTHIAN GHOSH on 07/06/19 1026 Insulin Lispro (Humalog Kwikpen) 100 Unit/1 Ml Insuln.pen, SC HS, (Reported) Entered as Reported by: CRISTHIAN GHOSH on 07/06/19 1026 Insulin Lispro (Humalog Kwikpen) 100 Unit/1 Ml Insuln.pen, SQ TIDAC, (Reported) Entered as Reported by: CRISTHIAN GHOSH on 07/06/19 1026 Ipratropium/Albuterol Sulfate (Iprat-Albut 0.5-3(2.5) mg/3 ml) 3 Ml Ampul.neb, 3 ML NEB Q6H PRN for SHORTNESS OF BREATH, (Reported) Entered as Reported by: CRISTHIAN GHOSH on 07/06/19 1026 Linagliptin (Tradjenta) 5 Mg Tablet, 5 MG PO DAILY, (Reported) Entered as Reported by: CRISTHIAN GHOSH on 07/06/19 1026 Lisinopril (Lisinopril) 40 Mg Tablet, 40 MG PO DAILY, (Reported) Entered as Reported by: CRISTHIAN GHOSH on 11/07/17 1437 Loratadine (Loratadine) 10 Mg Tablet, 10 MG PO DAILY, (Reported) Entered as Reported by: CRISTHIAN GHOSH on 07/06/19 1026 Meclizine HCl (Meclizine HCl) 25 Mg Tablet, 25 MG PO TID PRN for DIZZINESS, (Reported) Entered as Reported by: CRISTHIAN GHOSH on 10/17/17 1511 Metoprolol Tartrate (Metoprolol Tartrate) 25 Mg Tablet, 25 MG PO BID, (Reported) Entered as Reported by: CRISTHIAN GHOSH on 07/06/19 1026 Multivitamin with Minerals (Multivitamins with Minerals) 1 Each Tablet, 1 TAB PO DAILY, (Reported) Entered as Reported by: CRISTHIAN GHOSH on 07/06/19 1026 Pregabalin (Lyrica) 150 Mg Capsule, 150 MG PO TID, (Reported) Entered as Reported by: CRISTHIAN GHOSH on 07/06/19 1026 Propranolol HCl (Propranolol HCl) 10 Mg Tablet, 10 MG PO BID, (Reported) Entered as Reported by: CRISTHIAN GHOSH on 07/06/19 1026 Saccharomyces Boulardii (Florastor) 250 Mg Capsule, 250 MG PO BID, (Reported) Entered as Reported by: CRISTHIAN GHOSH on 07/06/19 1026 Tizanidine HCl (Tizanidine HCl) 2 Mg Tablet, 2 MG PO HS, (Reported) Entered as Reported by: CRISTHIAN GHOSH on 07/06/19 1026 Ubidecarenone (Co Q-10) 200 Mg Capsule, 200 MG PO DAILY, (Reported) Entered as Reported by: CRISTHIAN GHOSH on 10/17/17 1511 Review of Systems Review of Systems Constitutional: No chills, No diaphoresis; malaise EENTM: No ear pain, No blurred vision, No double vision, No mouth pain, No mouth swelling Respiratory: cough, short of breath Cardiovascular: edema Gastrointestinal: No abdominal pain, No nausea, No vomiting Genitourinary: No decreased output, No discharge Musculoskeletal: No back pain, No joint pain Skin: change in color, change in hair/nails All Other Systems Reviewed Negative Unless Noted: Yes Past Faxfyjc-Aegjai-Xilyxl Hx Immunizations Up To Date Tetanus Booster (TDap): Unknown Seasonal Allergies Seasonal Allergies: No Past Medical History Surgeries: Yes Abdominal, Appendectomy, Gallbladder, Hysterectomy, Oophorectomy, Orthopedic, Tonsillectomy Respiratory: Yes (ALLERGIES) Currently Using CPAP: No Currently Using BIPAP: No Cardiac: Yes Atrial Fibrillation, High Cholesterol, Hypertension Neurological: Yes Neuropathy, Paralysis, Spinal Cord Injury, Vertigo Reproductive Disorders: No [employer] History: Hysterectomy, Menopausal Sexually Transmitted Disease: No HIV/AIDS: No Genitourinary: Yes Bladder Infection, Neurogenic Bladder, UTI-Chronic Gastrointestinal: Yes (NEUROGENIC BOWEL; S/P BELLA; S/P APPY) Gastroesophageal Reflux, Liver Disease/Jaundice, Chronic Constipation, Cirrhosis Musculoskeletal: Yes Degenerate Disk Disease, Arthritis, Fibromyalgia, Back Injury, Foot Drop, Chronic Back Pain, Fractures Endocrine: Yes (OBESITY) Diabetes, Insulin dep HEENT: Yes (MENIERE'S DISEASE; CHRONIC SINUSITIS/ALLERGIES) Cataract Loss of Vision: Denies Hearing Impairment: Hard of Hearing Cancer: No Psychosocial: Yes Depression Integumentary: Yes (DRY SKIN) Blood Disorders: No Adverse Reaction/Blood Tranf: No Family Medical History Asthma 19 MOTHER Cardiovascular disease 19 FATHER Coronary thrombosis 19 FATHER 19 MOTHER Fibromyalgia 19 MOTHER Osteoporosis 19 MOTHER Heart Disease, Diabetes Physical Exam Vital Signs Vital Signs - First Documented 12/31/21 14:31 Temp 37.6 Pulse 93 Resp 20 B/P (MAP) 132/74 (93) Pulse Ox 96 O2 Delivery Nasal Cannula O2 Flow Rate 2.00 Capillary Refill : Height, Weight, BMI Height: 5'10.00" Weight: 195lbs. 6.4oz. [id number]; 40.00 BMI Method: General Appearance: No Apparent Distress, WD/WN HEENT: PERRL/EOMI, TMs Normal, Normal ENT Inspection, Pharynx Normal Neck: Full Range of Motion, Normal Inspection, Non Tender, Supple Respiratory: Chest Non Tender, Lungs Clear, Normal Breath Sounds, No Accessory Muscle Use, No Respiratory Distress Cardiovascular: Regular Rate, Rhythm, No Edema, No Gallop, No JVD, Other (Paced rhythm) Gastrointestinal: Normal Bowel Sounds, No Organomegaly, No Pulsatile Mass, Non Tender, Soft Extremity: Normal Capillary Refill, Swelling (Mild pitting edema bilateral lower extremities.) Neurologic/Psychiatric: Alert, Oriented x3, No Motor/Sensory Deficits, Normal Mood/Affect Skin: Normal Color, Warm/Dry Focused Exam Lactate Level 12/31/21 14:50: Lactic Acid Level 0.94 Lactic Acid Level Laboratory Tests Test 12/31/21 14:50 Lactic Acid Level 0.94 MMOL/L (0.50-2.00) Progress/Results/Core Measures Results/Orders Lab Results Laboratory Tests Test 12/31/21 14:45 12/31/21 14:50 12/31/21 14:55 12/31/21 15:10 Range/Units White Blood Count 9.1 4.3-11.0 10^3/uL Red Blood Count 4.09 3.80-5.11 10^6/uL Hemoglobin 11.8 11.5-16.0 g/dL Hematocrit 36 35-52 % Mean Corpuscular Volume 87 80-99 fL Mean Corpuscular Hemoglobin 29 25-34 pg Mean Corpuscular Hemoglobin Concent 33 32-36 g/dL Red Cell Distribution Width 15.3 H 10.0-14.5 % Platelet Count 117 L 130-400 10^3/uL Mean Platelet Volume 11.8 9.0-12.2 fL Immature Granulocyte % (Auto) 1 % Neutrophils (%) (Auto) 75 42-75 % Lymphocytes (%) (Auto) 11 L 12-44 % Monocytes (%) (Auto) 12 0-12 % Eosinophils (%) (Auto) 2 0-10 % Basophils (%) (Auto) 0 0-10 % Neutrophils # (Auto) 6.8 1.8-7.8 X 10^3 Lymphocytes # (Auto) 1.0 1.0-4.0 X 10^3 Monocytes # (Auto) 1.1 H 0.0-1.0 X 10^3 Eosinophils # (Auto) 0.2 0.0-0.3 10^3/uL Basophils # (Auto) 0.0 0.0-0.1 10^3/uL Immature Granulocyte # (Auto) 0.1 0.0-0.1 10^3/uL Prothrombin Time 16.7 H 12.2-14.7 SEC INR Comment 1.3 0.8-1.4 Activated Partial Thromboplast Time 44 H 24-35 SEC Sodium Level 137 135-145 MMOL/L Potassium Level 4.0 3.6-5.0 MMOL/L Chloride Level 97 L 98-107 MMOL/L Carbon Dioxide Level 24 21-32 MMOL/L Anion Gap 16 H 5-14 MMOL/L Blood Urea Nitrogen 38 H 7-18 MG/DL Creatinine 1.33 H 0.60-1.30 MG/DL Estimat Glomerular Filtration Rate 40 BUN/Creatinine Ratio 29 Glucose Level 173 H 70-105 MG/DL Calcium Level 9.1 8.5-10.1 MG/DL Corrected Calcium 9.7 8.5-10.1 MG/DL Magnesium Level 1.7 1.6-2.4 MG/DL Total Bilirubin 1.9 H 0.1-1.0 MG/DL Aspartate Amino Transf (AST/SGOT) 28 5-34 U/L Alanine Aminotransferase (ALT/SGPT) 24 0-55 U/L Alkaline Phosphatase 76 40-136 U/L Myoglobin 205.0 H 10.0-92.0 NG/ML Troponin I 0.125 H <0.028 NG/ML B-Type Natriuretic Peptide 210.2 H <100.0 PG/ML Total Protein 7.3 6.4-8.2 GM/DL Albumin 3.3 3.2-4.5 GM/DL Lactic Acid Level 0.94 0.50-2.00 MMOL/L Influenza Type A (RT-PCR) Not Detected Not Detecte Influenza Type B (RT-PCR) Not Detected Not Detecte SARS-CoV-2 RNA (RT-PCR) Not Detected Not Detecte Urine Color YELLOW Urine Clarity CLEAR Urine pH 6.0 5-9 Urine Specific [place] 1.010 L 1.016-1.022 Urine Protein TRACE H NEGATIVE Urine Glucose (UA) NEGATIVE NEGATIVE Urine Ketones NEGATIVE NEGATIVE Urine Nitrite NEGATIVE NEGATIVE Urine Bilirubin NEGATIVE NEGATIVE Urine Urobilinogen 0.2 < = 1.0 MG/DL Urine Leukocyte Esterase 1+ H NEGATIVE Urine RBC (Auto) 1+ H NEGATIVE Urine RBC 2-5 H /HPF Urine WBC 5-10 H /HPF Urine Crystals NONE /LPF Urine Bacteria TRACE /HPF Urine Casts NONE /LPF Urine Mucus NEGATIVE /LPF Urine Culture Indicated YES My Orders Orders - AURA RUBIO PA Ekg Tracing (12/31/21 14:36) Cbc With Automated Diff (12/31/21 14:44) Magnesium (12/31/21 14:44) Chest 1 View, Ap/Pa Only (12/31/21 14:44) Ekg Tracing (12/31/21 14:44) Comprehensive Metabolic Panel (12/31/21 14:44) Myoglobin Serum (12/31/21 14:44) Protime With Inr (12/31/21 14:44) Partial Thromboplastin Time (12/31/21 14:44) O2 (12/31/21 14:44) Monitor-Rhythm Ecg Trace Only (12/31/21 14:44) Lipid Panel (01/01/22 06:00) Ed Iv/Invasive Line Start (12/31/21 14:44) Bnp Giles (12/31/21 14:44) Troponin I [place] (12/31/21 14:44) Aspirin Chewable Tablet (Baby Aspirin Ch (12/31/21 14:45) Blood Culture (12/31/21 14:44) Lactic Acid Analyzer (12/31/21 14:44) Covid 19 Inhouse Test (12/31/21 14:44) Influenza A And B By Pcr (12/31/21 14:44) Ua Culture If Indicated (12/31/21 14:49) Blood Culture (12/31/21 15:09) Urine Culture (12/31/21 15:10) Furosemide Injection (Lasix Injection) (12/31/21 16:00) Ceftriaxone 1 Gm Pre-Mix (Rocephin 1 Gm (12/31/21 15:56) Medications Given in ED Current Medications Medications Dose Ordered Sig/Kirk Route Start Time Stop Time Status Last Admin Dose Admin Aspirin 324 mg ONCE ONCE PO 12/31/21 14:45 12/31/21 14:46 DC 12/31/21 14:56 324 MG Vital Signs/I&O 12/31/21 12/31/21 12/31/21 14:31 14:40 15:10 Temp 37.6 Pulse 93 Resp 20 B/P (MAP) 132/74 (93) Pulse Ox 96 96 O2 Delivery Nasal Cannula Nasal Cannula Nasal Cannula O2 Flow Rate 2.00 2.00 2.00 2.00 Blood Pressure Mean: 93 Comment Ventricular paced, 83 bpm, QRS duration 156 MS, QTc 435 MS Departure Communication (Admissions) Time/Spoke to Admitting Phy: 15:59 Patient was discussed with Dr. Castro who accepts patient. Patient appears to have CHF with elevated troponin and acute kidney disease. Concerning for fluid overload. No known history of CHF or COPD going through patient's records. No current chest pain but has had right-sided intermittent chest pain over the past 3 days. Ventricular paced rhythm. Currently on Eliquis. She states she takes Lasix intermittently. Was given 40 mg Lasix here. COVID, influenza negative. Chest x-ray negative for pneumonia. Normal white blood count. Further cardiac evaluation will be needed. Patient was given aspirin Patient reports chronic pain in her lower extremities with some pain and discomfort over the past 2 or 3 days. She states today's pain feels similar. This has been ongoing since her surgery. She has been taking [place] which she states makes her feel confused. She is slightly disoriented. Breathing is much better with oxygen. She does have some mild edema in the lower extremities. Does need assistance with standing. EKG did show ventricular paced rhythm. Does not wear oxygen at home. History of kidney disease with a creatinine of 1.33 and a BUN 38, GFR 40. Blood glucose 173. She is diabetic does use insulin. Impression Primary Impression: CHF (congestive heart failure) Additional Impressions: Elevated troponin Dyspnea Kidney disease Disposition: ADMITTED INPATIENT Condition: Stable Admissions Decision to Admit Reason: Admit from ER (General) Decision to Admit/Date: December 31, 2021 Time/Decision to Admit Time: 15:59 Departure-Patient Inst. Referrals: FORTINO FOSTER DO (PCP/Family) Primary Care Physician AURA RUBIO December 31, 2021 14:51
[2021-12-31 15:08] LABS: BASOPHILS % (AUTO) 0 % (0-10); EOSINOPHILS # (AUTO) 0.2 10^3/uL (0.0-0.3); EOSINOPHILS % (AUTO) 2 % (0-10); HEMATOCRIT 36 % (35-52); HEMOGLOBIN 11.8 g/dL (11.5-16.0); LYMPHOCYTES % (AUTO) 11 % (12-44); MEAN CORPUSCULAR HEMOGLOBIN 29 pg (25-34); MEAN CORPUSCULAR HGB CONC 33 g/dL (32-36); MEAN CORPUSCULAR VOLUME 87 fL (80-99); MEAN PLATELET VOLUME 11.8 fL (9.0-12.2); MONOCYTES # (AUTO) 1.1 X 10^3 (0.0-1.0); MONOCYTES % (AUTO) 12 % (0-12); NEUTROPHILS # (AUTO) 6.8 X 10^3 (1.8-7.8); NEUTROPHILS % (AUTO) 75 % (42-75); PLATELET COUNT 117 10^3/uL (130-400); WHITE BLOOD COUNT 9.1 10^3/uL (4.3-11.0)
[2021-12-31 15:14] LABS: ALBUMIN 3.3 GM/DL (3.2-4.5)
[2021-12-31 15:15] LABS: CALCIUM 9.1 MG/DL (8.5-10.1)
[2021-12-31 15:17] LABS: TOTAL PROTEIN 7.3 GM/DL (6.4-8.2)
[2021-12-31 15:18] LABS: BILIRUBIN,TOTAL 1.9 MG/DL (0.1-1.0)
[2021-12-31 15:20] LABS: CREATININE SERUM 1.33 MG/DL (0.60-1.30)
[2021-12-31 15:23] LABS: MAGNESIUM 1.7 MG/DL (1.6-2.4)
--- NOTE | 2021-12-31 15:24 | Diagnostic Imaging Report ---
INDICATION: Chest pain. COMPARISON: 07/09/2019. TECHNIQUE: Three radiographs of the chest dated December 31, 2021. FINDINGS: Pacer device is now identified with battery pack overlying the left chest. The cardiac silhouette is mildly enlarged. Mild central pulmonary vascular congestion. Diffuse prominence of the pulmonary interstitium is present, increased since the prior examination. No additional focal pulmonary opacity. No significant pleural effusion. No pneumothorax. Postsurgical changes associated with the partially visualized proximal left humerus. Postsurgical changes within the partially visualized lumbar spine. No acute osseous abnormality. IMPRESSION: 1. Increased prominence of the pulmonary interstitium is felt related to minimal interstitial edema given prominence of the cardiac silhouette and pulmonary vasculature. 2. Interval placement of a pacer device overlying the left chest without pneumothorax. 3. Additional postsurgical and chronic findings as above. Dictated by: Dictated on workstation # [id number]
[2021-12-31 15:25] LABS: INR 1.3 (0.8-1.4); PROTHROMBIN TIME PATIENT 16.7 SEC (12.2-14.7)
[2021-12-31 15:28] LABS: BILIRUBIN,URINE NEGATIVE (NEGATIVE); CLARITY,URINE CLEAR; COLOR,URINE YELLOW; GLUCOSE, URINE (UA) NEGATIVE (NEGATIVE); KETONES,URINE NEGATIVE (NEGATIVE); LEUKOCYTE ESTERASE ,URINE 1+ (NEGATIVE); NITRITE,URINE NEGATIVE (NEGATIVE); PROTEIN,URINE TRACE (NEGATIVE)
[2021-12-31 15:35] LABS: BACTERIA,URINE TRACE /HPF
[2021-12-31] MEDS ORDERED: cefTRIAXone 1 GM PRE-MIX 50 ML IV STA (15:56)
[2021-12-31] MEDS ORDERED: FUROSEMIDE 40 MG/4 ML INJ (LASIX) IVP ONE (16:00)
--- NOTE | 2021-12-31 16:50 | Tele-ICU Consult ---
Progress Note 81 y/o female presents [facility] with SOB Has hx of DM, and a fib Covid test : negative CXR: ECHNIQUE: Three radiographs of the chest dated December 31, 2021. FINDINGS: Pacer device is now identified with battery pack overlying the left chest. The cardiac silhouette is mildly enlarged. Mild central pulmonary vascular congestion. Diffuse prominence of the pulmonary interstitium is present, increased since the prior examination. No additional focal pulmonary opacity. No significant pleural effusion. No pneumothorax. Postsurgical changes associated with the partially visualized proximal left humerus. Postsurgical changes within the partially visualized lumbar spine. No acute osseous abnormality. IMPRESSION: 1. Increased prominence of the pulmonary interstitium is felt related to minimal interstitial edema given prominence of the cardiac silhouette and pulmonary vasculature. 2. Interval placement of a pacer device overlying the left chest without pneumothorax. 3. Additional postsurgical and chronic findings as above. WBC: 9.1 BNP: 210 PLAN: ICU admission for hypoxemia and CHF Diuresis cardiology to evaluate Focused Exam Lactate Level 12/31/21 14:50: Lactic Acid Level 0.94 Height, Weight, BMI Height: 5'10.00" Weight: 195lbs. 6.4oz. 88.971731cd; 40.00 BMI Method: Lactic Acid Level Laboratory Tests Test 12/31/21 14:50 Lactic Acid Level 0.94 MMOL/L (0.50-2.00) Laboratory Tests 12/31/21 14:45 Results Labs Labs Laboratory Tests 12/31/21 14:45: White Blood Count 9.1, Red Blood Count 4.09, Hemoglobin 11.8, Hematocrit 36, Mean Corpuscular Volume 87, Mean Corpuscular Hemoglobin 29, Mean Corpuscular Hemoglobin Concent 33, Red Cell Distribution Width 15.3H, Platelet Count 117L, Mean Platelet Volume 11.8, Immature Granulocyte % (Auto) 1, Neutrophils (%) (Auto) 75, Lymphocytes (%) (Auto) 11L, Monocytes (%) (Auto) 12, Eosinophils (%) (Auto) 2, Basophils (%) (Auto) 0, Neutrophils # (Auto) 6.8, Lymphocytes # (Auto) 1.0, Monocytes # (Auto) 1.1H, Eosinophils # (Auto) 0.2, Basophils # (Auto) 0.0, Immature Granulocyte # (Auto) 0.1, Prothrombin Time 16.7H, INR Comment 1.3, Activated Partial Thromboplast Time 44H, Sodium Level 137, Potassium Level 4.0, Chloride Level 97L, Carbon Dioxide Level 24, Anion Gap 16H, Blood Urea Nitrogen 38H, Creatinine 1.33H, Estimat Glomerular Filtration Rate 40, BUN/Creatinine Ratio 29, Glucose Level 173H, Calcium Level 9.1, Corrected Calcium 9.7, Magnesium Level 1.7, Total Bilirubin 1.9H, Aspartate Amino Transf (AST/SGOT) 28, Alanine Aminotransferase (ALT/SGPT) 24, Alkaline Phosphatase 76, Myoglobin 205.0H, Troponin I 0.125H, B-Type Natriuretic Peptide 210.2H, Total Protein 7.3, Albumin 3.3 12/31/21 14:50: Lactic Acid Level 0.94 12/31/21 14:55: Influenza Type A (RT-PCR) Not Detected, Influenza Type B (RT-PCR) Not Detected, SARS-CoV-2 RNA (RT-PCR) Not Detected 12/31/21 15:10: Urine Color YELLOW, Urine Clarity CLEAR, Urine pH 6.0, Urine Specific [place] 1.010L, Urine Protein TRACEH, Urine Glucose (UA) NEGATIVE, Urine Ketones NEGATIVE, Urine Nitrite NEGATIVE, Urine Bilirubin NEGATIVE, Urine Urobilinogen 0.2, Urine Leukocyte Esterase 1+H, Urine RBC (Auto) 1+H, Urine RBC 2-5H, Urine WBC 5-10H, Urine Crystals NONE, Urine Bacteria TRACE, Urine Casts NONE, Urine Mucus NEGATIVE, Urine Culture Indicated YES Results Results/Procedures Labs Laboratory Tests 12/31/21 14:45 Patient resulted labs reviewed. BLAS HERNANDEZ MD December 31, 2021 16:50
--- NOTE | 2021-12-31 18:58 | Diagnostic Imaging Report ---
Pelvis INDICATION: Sharp pain in the pelvis. COMPARISON: None available. TECHNIQUE: AP view of the pelvis. FINDINGS: Left total hip arthroplasty has changes of reconstruction around the acetabulum with reconstruction plate and screws. There is also a cerclage cable and curved plate fixating a peritrochanteric fracture. Probable old fracture in the left pubic rami. Assessment of the osseous structures of the pelvis are otherwise limited due to osseous demineralization. No gross diastasis in the SI joints or symphysis pubis. Surgical changes are present in the lower lumbar spine. IMPRESSION: 1. Left total hip arthroplasty with multiple prior periprostatic fractures which have undergone ORIF. 2. No acute abnormality in the pelvis by radiography. Dictated by: Dictated on workstation # [id number]
[2021-12-31 19:59] VITALS: BP 155/84
[2021-12-31] MEDS ORDERED: CATHETER FLUSH 10 ML SYR IVP PRN (21:15)
[2021-12-31 22:49] VITALS: BP 122/62
[2021-12-31] MEDS: CATHETER FLUSH 10 ML SYR IVP SCH (23:55)
[2022-01-01] VITALS (8 sets, daily range): BP systolic 132–142; BP diastolic 58–74
[2022-01-01 03:32] LABS: POTASSIUM 3.4 MMOL/L (3.6-5.0)
[2022-01-01 03:33] LABS: BASOPHILS % (AUTO) 0 % (0-10); CALCIUM 9.1 MG/DL (8.5-10.1); MEAN CORPUSCULAR HEMOGLOBIN 29 pg (25-34); MEAN CORPUSCULAR HGB CONC 33 g/dL (32-36)
[2022-01-01 03:35] LABS: EOSINOPHILS # (AUTO) 0.1 10^3/uL (0.0-0.3); EOSINOPHILS % (AUTO) 1 % (0-10); HEMATOCRIT 34 % (35-52); HEMOGLOBIN 11.2 g/dL (11.5-16.0); LYMPHOCYTES # (AUTO) 1.3 10^3/uL (1.0-4.0); LYMPHOCYTES % (AUTO) 15 % (12-44); MEAN CORPUSCULAR VOLUME 88 fL (80-99); MONOCYTES # (AUTO) 1.2 10^3/uL (0.0-1.0); MONOCYTES % (AUTO) 14 % (0-12); NEUTROPHILS % (AUTO) 69 % (42-75); PLATELET COUNT 121 10^3/uL (130-400); WHITE BLOOD COUNT 8.7 10^3/uL (4.3-11.0)
[2022-01-01 03:37] LABS: CREATININE SERUM 1.06 MG/DL (0.60-1.30)
[2022-01-01] MEDS: CATHETER FLUSH 10 ML SYR IVP SCH ×3 (05:53→19:58)
[2022-01-01] MEDS: FUROSEMIDE 40 MG (LASIX) TAB PO SCH (06:54)
--- NOTE | 2022-01-01 09:56 | History & Physical-Hospitalist ---
History of Present Illness HPI/Chief Complaint Patient is a 81-year-old female with past medical history of insulin- dependent diabetes type 2, atrial fibrillation, cauda equina syndrome, hypertension who presented to the emergency department due to shortness of breath. She is unable to tell me much of her history which appears to be somewhat her baseline in reviewing ER notes. When told that she was short of breath she does agree with that when asked about chest pain she denies that adamantly. She was found to be hypoxic for the assisted though and sent in for evaluation. Her sats were in the mid 80s and she was placed on 4 L of oxygen by EMS. Chest x-ray revealed pulmonary edema and she was admitted for presumed CHF exacerbation. This morning she denies any complaints including pain which she had complained to the RN about yesterday. Source: patient Date Seen 01/01/22 Time Seen by a Provider: 09:10 Attending Physician Marcel Castillo DO PCP Admitting Physician: Nina Banegas MD Attending Physician: Nina Banegas MD Referring Physician Date of Admission December 31, 2021 at 15:57 Home Medications & Allergies Home Medications Reviewed patient Home Medication Reconciliation performed by pharmacy medication reconciliations surgery technician and/or nursing. Patients Allergies have been reviewed. Allergies Allergies Coded Allergies Iodine and Iodide Containing Produc (Verified Allergy, Unknown, ANAPHYLAXIS, RASH, 11/09/14) Sulfa (Sulfonamide Antibiotics) (Unverified Allergy, Unknown, NAUSEA AND VOMITING, 11/09/14) adhesive (Unverified Allergy, Unknown, 11/09/14) codeine (Unverified Allergy, Unknown, N/V , 11/09/14) tramadol (Unverified Allergy, Unknown, NAUSEA AND VOMITING, 11/09/14) Uncoded Allergies PERFUME ( Allergy, Unknown, 11/09/14) Past Lkyjhhx-Pprsuk-Fwphop Hx Patient Social History Employed/Student: retired Tobacco Use?: No Use of E-Cig and/or Vaping dev: No Substance use?: No Alcohol Use?: No Pt feels they are or have been: No Immunizations Up To Date Date of Influenza Vaccine: Jun 05, 2019 Tetanus Booster (TDap): Unknown Date of Pneumonia Vaccine: Jun 07, 2016 Seasonal Allergies Seasonal Allergies: No Current Status status: No status: No Advance Directives: No Communicates: Verbally Primary Language: Amharic Preferred Spoken Language: Amharic Sensory deficits: Vision impairment, Hearing impairment Implanted or Applied Medical D: Pacemaker Past Medical History Surgeries: Abdominal, Appendectomy, Gallbladder, Hysterectomy, Oophorectomy, Orthopedic, Tonsillectomy Currently Using CPAP: No Currently Using BIPAP: No Atrial Fibrillation, High Cholesterol, Hypertension Neuropathy, Paralysis, Spinal Cord Injury, Vertigo [employer] History: Hysterectomy, Menopausal Sexually Transmitted Disease: No HIV/AIDS: No Bladder Infection, Neurogenic Bladder, UTI-Chronic Gastroesophageal Reflux, Liver Disease/Jaundice, Chronic Constipation, Cirrhosis Degenerate Disk Disease, Arthritis, Fibromyalgia, Back Injury, Foot Drop, Chronic Back Pain, Fractures Diabetes, Insulin dep Cataract Loss of Vision: Denies Hearing Impairment: Hard of Hearing Depression Blood Disorders: No Adverse Reaction/Blood Tranf: No Family Medical History Reviewed Nursing Family Hx Asthma 19 MOTHER Cardiovascular disease 19 FATHER Coronary thrombosis 19 FATHER 19 MOTHER Fibromyalgia 19 MOTHER Osteoporosis 19 MOTHER Heart Disease, Diabetes Review of Systems ROS-Unable to Obtain: does not recall events that brought her to the hospital so unsure if accura Constitutional: see HPI EENTM: no symptoms reported Respiratory: short of breath Cardiovascular: No chest pain, No edema, No palpitations Gastrointestinal: No abdominal pain, No constipation, No diarrhea, No nausea, No vomiting Genitourinary: no symptoms reported Musculoskeletal: see HPI Skin: no symptoms reported Psychiatric/Neurological: No Symptoms Reported Physical Exam Physical Exam Vital Signs Vital Signs - First Documented 12/31/21 14:31 Temp 37.6 Pulse 93 Resp 20 B/P (MAP) 132/74 (93) Pulse Ox 96 O2 Delivery Nasal Cannula O2 Flow Rate 2.00 Capillary Refill : Height, Weight, BMI Height: 5'10.00" Weight: 195lbs. 6.4oz. 88.613552ri; 42.03 BMI Method: General Appearance: No Apparent Distress, Chronically ill, Obese HEENT: PERRL/EOMI, Moist Mucous Membranes; No Scleral Icterus (L), No Scleral Icterus (R) Neck: Normal Inspection, Supple; No JVD Respiratory: Lungs Clear, No Respiratory Distress Cardiovascular: Regular Rate, Rhythm, Systolic Murmur Gastrointestinal: Normal Bowel Sounds, Non Tender, Soft Extremity: No Calf Tenderness, Pedal Edema, Swelling Neurologic/Psychiatric: Alert, Oriented x3, Normal Mood/Affect Skin: Normal Color, Warm/Dry Results Results/Procedures Labs Laboratory Tests 5/29/22 14:45 01/01/22 03:00 Patient resulted labs reviewed[facility] [place] [place] NAME: JOHANN MARIANO [facility] REC#: [id number] PT STATUS: ADM IN : 1940 PHYSICIAN: AURA RUBIO ADMIT DATE: 12/31/21/ICU Signed Date of Exam:12/31/21 CHEST 1 VIEW, AP/PA ONLY INDICATION: Chest pain. COMPARISON: 07/09/2019. TECHNIQUE: Three radiographs of the chest dated December 31, 2021. FINDINGS: Pacer device is now identified with battery pack overlying the left chest. The cardiac silhouette is mildly enlarged. Mild central pulmonary vascular congestion. Diffuse prominence of the pulmonary interstitium is present, increased since the prior examination. No additional focal pulmonary opacity. No significant pleural effusion. No pneumothorax. Postsurgical changes associated with the partially visualized proximal left humerus. Postsurgical changes within the partially visualized lumbar spine. No acute osseous abnormality. IMPRESSION: 1. Increased prominence of the pulmonary interstitium is felt related to minimal interstitial edema given prominence of the cardiac silhouette and pulmonary vasculature. 2. Interval placement of a pacer device overlying the left chest without pneumothorax. 3. Additional postsurgical and chronic findings as above. Dictated by: Dictated on workstation # [id number] Dict: 12/31/21 1517 Trans: 12/31/211718 [facility] [id number] Interpreted by: MARK PARKER MD Electronically signed by: MARK PARKER MD 12/31/219 [facility] [place] [place] NAME: JOHANN MARIANO [facility] REC#: [id number] PT STATUS: ADM IN : 1940 PHYSICIAN: NINA BANEGAS MD ADMIT DATE: 12/31/21/[facility] Signed Date of Exam:12/31/21 PELVIS Pelvis INDICATION: Sharp pain in the pelvis. COMPARISON: None available. TECHNIQUE: AP view of the pelvis. FINDINGS: Left total hip arthroplasty has changes of reconstruction around the acetabulum with reconstruction plate and screws. There is also a cerclage cable and curved plate fixating a peritrochanteric fracture. Probable old fracture in the left pubic rami. Assessment of the osseous structures of the pelvis are otherwise limited due to osseous demineralization. No gross diastasis in the SI joints or symphysis pubis. Surgical changes are present in the lower lumbar spine. IMPRESSION: 1. Left total hip arthroplasty with multiple prior periprostatic fractures which have undergone ORIF. 2. No acute abnormality in the pelvis by radiography. Dictated by: Dictated on workstation # [id number] Dict: 12/31/211850 Trans: 12/31/211928 [facility] [id number] Interpreted by: KENNETH KATZ MD Electronically signed by: KENNETH KATZ MD 12/31/211928 Assessment/Plan Admission Diagnosis CHF exacerbation Admission Status: Inpatient Order (span 2 midnights) Reason for Inpatient Admission: see below Assessment and Plan CHF exacerbation NSTEMI Atrial fibrillation s/p pacemaker BNP elevated on arrival and hypoxic with pulm vasc congestion on CXR- presumed from CHF Will get echo Troponin elevated but has remained stable, consulted cardiology, appreciate recs Continue diuresis Continue home meds as able GEETHA Already resolved Creatinine 1.33 yesterday and back to 1.03 today IDDMII Resume home meds when med rec done Fasting BS 153 so within goal SSI HTN HLD Resume home meds when med rec done H/o cauda equina syndrome PT/OT DVT ppx: On NINA Locke MD January 01, 2022 09:56
--- NOTE | 2022-01-01 10:31 | Consultation-Cardiology ---
HPI-Cardiology Cardiology Consultation: Date of Consultation 01/01/22 Date of Admission 12/31/21 Attending Physician Marcel Castillo DO Admitting Physician Admitting Physician: Nina Banegas MD Attending Physician: Nina Banegas MD Consulting Physician DOMINIQUE FINN JR, MD HPI: Time Seen by a Provider: 10:29 Chief Complaint: REASON FOR CONSULTATION: Heart failure and elevated troponin. I had the pleasure of seeing Emily on the cardiac stepdown unit at [facility] in [place], [place] today. She normally follows with a world travel counselor at [facility] in [place], [place]. She is a resident of a local detention near [place] She states that she was brought to the hospital yesterday due to some confusion and fever. However, she does not recall actually being brought here. 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 She has not walked since that time. She denies any chest discomfort, dyspnea at rest, paroxysmal nocturnal dyspnea, orthopnea, palpitations, lightheadedness, or syncope. She has chronic, mild bilateral lower extremity edema. She is aware that she has aortic stenosis and has been told that she may need an aortic valve replacement in the future. She states that she takes Eliquis for previous history of atrial fibrillation. When she was admitted to the hospital, she was found to have pulmonary congestion on her chest x-ray as well as an elevated BNP and troponin level. As such, a cardiology consultation was requested. Certain portions of this document may have been dictated utilizing voice recognition technology. Inherent to this technology, typographical and grammatical errors may exist. As much as I am diligent to identify and correct these mistakes, some errors may remain in the document. Review of Systems-Cardiology Review of Systems Other comments Review of 10 organ systems is as per the history of present illness, otherwise negative. All Other Systems Reviewed Negative Unless Noted: Yes MFI-Gpsdwy-Eogswb Hx Patient Social History Smoking Status: Never a Smoker 2nd Hand Smoke Exposure: No Have you traveled recently?: No Alcohol Use?: No Pt feels they are or have been: No Immunizations Up To Date Tetanus Booster (TDap): Unknown Date of Pneumonia Vaccine: Jun 07, 2016 Date of Influenza Vaccine: Jun 05, 2019 Past Medical History PMH As described under Assessment. Family Medical History Family History: Asthma 19 MOTHER Cardiovascular disease 19 FATHER Coronary thrombosis 19 FATHER 19 MOTHER Fibromyalgia 19 MOTHER Osteoporosis 19 MOTHER Allergies and Home Medications Allergies Coded Allergies: Iodine and Iodide Containing Produc (Verified Allergy, Unknown, ANAPHYLAXIS, RASH, 11/09/14) Sulfa (Sulfonamide Antibiotics) (Unverified Allergy, Unknown, NAUSEA AND VOMITING, 11/09/14) adhesive (Unverified Allergy, Unknown, 11/09/14) codeine (Unverified Allergy, Unknown, N/V , 11/09/14) tramadol (Unverified Allergy, Unknown, NAUSEA AND VOMITING, 11/09/14) Uncoded Allergies: PERFUME (Allergy, Unknown, 11/09/14) Patient Home Medication List Home Medication List Reviewed: Yes Acetaminophen (Tylenol) 325 Mg Tablet, 650 MG PO Q6H PRN for PAIN-MILD (1-4), (Reported) Entered as Reported by: CRISTHIAN GHOSH on 07/06/19 1026 Antiox #11/Om3/Dha/Epa/Lut/Lucien (Eye Health Adult 50+ Softgel) 1 Each Capsule, 1 CAP PO BID, (Reported) Entered as Reported by: CRISTHIAN GHOSH on 07/06/19 1026 Ascorbic Acid (Vitamin C) 500 Mg Tablet, 500 MG PO DAILY, (Reported) Entered as Reported by: CRISTHIAN GHOSH on 07/06/19 1026 Aspirin (Aspirin EC) 81 Mg Tablet.dr, 81 MG PO DAILY, (Reported) Entered as Reported by: CRISTHIAN GHOSH on 07/06/19 1026 Atorvastatin Calcium (Atorvastatin Calcium) 40 Mg Tablet, 40 MG PO HS, (Reported) Entered as Reported by: CRISTHIAN GHOSH on 10/17/17 1511 Bisacodyl (Dulcolax) 10 Mg Supp.rect, 10 MG RC Q72H PRN for CONSTIPATION-4TH LINE, (Reported) Entered as Reported by: CRISTHIAN GHOSH on 07/06/19 1026 Cephalexin (Cephalexin) 250 Mg Capsule, 500 MG PO BID Prescribed by: NINA BANEGAS on 07/09/19 0921 Citalopram Hydrobromide (Citalopram HBr) 20 Mg Tablet, 20 MG PO DAILY, (Reported) Entered as Reported by: CRISTHIAN GHOSH on 07/06/19 1026 Dextrose (Glutose 15) 37.5 Gm Gel..gram., 15 GM PO UD PRN for BS<70MG/DL, (Rep orted) Entered as Reported by: CRISTHIAN GHOSH on 07/06/19 1026 Docusate Sodium (Colace) 100 Mg Capsule, 100 MG PO BID, (Reported) Entered as Reported by: CRISTHIAN GHOSH on 07/06/19 1026 Empagliflozin (Jardiance) 25 Mg Tablet, 25 MG PO DAILY, (Reported) Entered as Reported by: CRISTHIAN GHOSH on 07/06/19 1026 Famotidine (Famotidine) 20 Mg Tablet, 20 MG PO DAILY, (Reported) Entered as Reported by: CRISTHIAN GHOSH on 10/17/17 1501 Fluconazole (Fluconazole) 100 Mg Tablet, 100 MG PO DAILY Prescribed by: NINA BANEGAS on 07/09/19 0921 Fluticasone Propionate (Fluticasone Propionate) 16 Gm [place].susp, 1 SPRAY NS DAILY, (Reported) Entered as Reported by: CRISTHIAN GHOSH on 07/06/19 1026 Glucagon,Human Recombinant (Glucagon Emergency Kit) 1 Mg/Kit Soln, 1 MG SC UD PRN for BS<40MG/DL, (Reported) Entered as Reported by: CRISTHIAN GHOSH on 07/06/19 1026 Hydrocodone Bit/Acetaminophen (Lortab 5 Mg Tablet) 1 Each Tablet, 1 TAB PO Q6H PRN for PAIN-MODERATE (5-7), (Reported) Entered as Reported by: CRISTHIAN GHOSH on 07/06/19 1026 Insulin Degludec (Tresiba Flextouch U-100) 100 Unit/1 Ml Insuln.pen, 100 UNITS SC 0730, (Reported) Entered as Reported by: CRISTHIAN GHOSH on 07/06/19 1026 Insulin Lispro (Humalog Kwikpen) 100 Unit/1 Ml Insuln.pen, SC HS, (Reported) Entered as Reported by: CRISTHIAN GHOSH on 07/06/19 1026 Insulin Lispro (Humalog Kwikpen) 100 Unit/1 Ml Insuln.pen, SQ TIDAC, (Reported) Entered as Reported by: CRISTHIAN GHOSH on 07/06/19 1026 Ipratropium/Albuterol Sulfate (Iprat-Albut 0.5-3(2.5) mg/3 ml) 3 Ml Ampul.neb, 3 ML NEB Q6H PRN for SHORTNESS OF BREATH, (Reported) Entered as Reported by: CRISTHIAN GHOSH on 07/06/19 1026 Linagliptin (Tradjenta) 5 Mg Tablet, 5 MG PO DAILY, (Reported) Entered as Reported by: CRISTHIAN GHOSH on 07/06/19 1026 Lisinopril (Lisinopril) 40 Mg Tablet, 40 MG PO DAILY, (Reported) Entered as Reported by: CRISTHIAN GHOSH on 11/07/17 1437 Loratadine (Loratadine) 10 Mg Tablet, 10 MG PO DAILY, (Reported) Entered as Reported by: CRISTHIAN GHOSH on 07/06/19 1026 Meclizine HCl (Meclizine HCl) 25 Mg Tablet, 25 MG PO TID PRN for DIZZINESS, (Reported) Entered as Reported by: CRISTHIAN GHOSH on 10/17/17 1511 Metoprolol Tartrate (Metoprolol Tartrate) 25 Mg Tablet, 25 MG PO BID, (Reported) Entered as Reported by: CRISTHIAN GHOSH on 07/06/19 1026 Multivitamin with Minerals (Multivitamins with Minerals) 1 Each Tablet, 1 TAB PO DAILY, (Reported) Entered as Reported by: CRISTHIAN GHOSH on 07/06/19 1026 Pregabalin (Lyrica) 150 Mg Capsule, 150 MG PO TID, (Reported) Entered as Reported by: CRISTHIAN GHOSH on 07/06/19 1026 Propranolol HCl (Propranolol HCl) 10 Mg Tablet, 10 MG PO BID, (Reported) Entered as Reported by: CRISTHIAN GHOSH on 07/06/19 1026 Saccharomyces Boulardii (Florastor) 250 Mg Capsule, 250 MG PO BID, (Reported) Entered as Reported by: CRISTHIAN GHOSH on 07/06/19 1026 Tizanidine HCl (Tizanidine HCl) 2 Mg Tablet, 2 MG PO HS, (Reported) Entered as Reported by: CRISTHIAN GHOSH on 07/06/19 1026 Ubidecarenone (Co Q-10) 200 Mg Capsule, 200 MG PO DAILY, (Reported) Entered as Reported by: CRISTHIAN GHOSH on 10/17/17 1511 Exam Vital Signs Vital Signs Date Time Temp Pulse Resp B/P (MAP) Pulse Ox O2 Delivery O2 Flow Rate FiO2 01/01/22 08:30 Nasal Cannula 2.00 01/01/22 08:30 97 01/01/22 07:44 36.2 92 18 134/69 (90) Physical Exam General: Alert. No acute distress. Well nourished and appears stated age. She is morbidly obese. Eye: Extraocular movements are intact. Conjunctivae are clear. There are no xanthelasma. HENT: Normocephalic. Atraumatic. Carotid pulsations 2/2 without bruits. Neck: Jugular venous pressure does not appear elevated. No thyromegaly appreciated. Respiratory: Lungs are clear to auscultation. Respirations are non-labored. Breath sounds are equal. Symmetrical chest wall expansion. Cardiovascular: Normal rate. Regular rhythm. Distant S1/S2. 3/6 systolic ejection murmur. No gallop. Point of maximal impulse is not appear displaced. Good pulses equal in all extremities. Trace bilateral pretibial edema. Gastrointestinal: Soft. Normal bowel sounds. Skin: Skin turgor is normal. There is no pallor. Musculoskeletal: No kyphosis or scoliosis appreciated. Neurologic: Alert and oriented to person, place, time. Cranial nerves 3-12 appear grossly intact. She can move her right leg but her left leg is essentially paralyzed. She has good motor tone and strength in the upper extremities bilaterally. Psychiatric: Cooperative. Appropriate mood & affect. Labs Laboratory Tests Test 12/31/21 14:45 12/31/21 14:50 12/31/21 14:55 12/31/21 15:10 Range/Units White Blood Count 9.1 4.3-11.0 10^3/uL Red Blood Count 4.09 3.80-5.11 10^6/uL Hemoglobin 11.8 11.5-16.0 g/dL Hematocrit 36 35-52 % Mean Corpuscular Volume 87 80-99 fL Mean Corpuscular Hemoglobin 29 25-34 pg Mean Corpuscular Hemoglobin Concent 33 32-36 g/dL Red Cell Distribution Width 15.3 H 10.0-14.5 % Platelet Count 117 L 130-400 10^3/uL Mean Platelet Volume 11.8 9.0-12.2 fL Immature Granulocyte % (Auto) 1 % Neutrophils (%) (Auto) 75 42-75 % Lymphocytes (%) (Auto) 11 L 12-44 % Monocytes (%) (Auto) 12 0-12 % Eosinophils (%) (Auto) 2 0-10 % Basophils (%) (Auto) 0 0-10 % Neutrophils # (Auto) 6.8 1.8-7.8 X 10^3 Lymphocytes # (Auto) 1.0 1.0-4.0 X 10^3 Monocytes # (Auto) 1.1 H 0.0-1.0 X 10^3 Eosinophils # (Auto) 0.2 0.0-0.3 10^3/uL Basophils # (Auto) 0.0 0.0-0.1 10^3/uL Immature Granulocyte # (Auto) 0.1 0.0-0.1 10^3/uL Prothrombin Time 16.7 H 12.2-14.7 SEC INR Comment 1.3 0.8-1.4 Activated Partial Thromboplast Time 44 H 24-35 SEC Sodium Level 137 135-145 MMOL/L Potassium Level 4.0 3.6-5.0 MMOL/L Chloride Level 97 L 98-107 MMOL/L Carbon Dioxide Level 24 21-32 MMOL/L Anion Gap 16 H 5-14 MMOL/L Blood Urea Nitrogen 38 H 7-18 MG/DL Creatinine 1.33 H 0.60-1.30 MG/DL Estimat Glomerular Filtration Rate 40 BUN/Creatinine Ratio 29 Glucose Level 173 H 70-105 MG/DL Calcium Level 9.1 8.5-10.1 MG/DL Corrected Calcium 9.7 8.5-10.1 MG/DL Magnesium Level 1.7 1.6-2.4 MG/DL Total Bilirubin 1.9 H 0.1-1.0 MG/DL Aspartate Amino Transf (AST/SGOT) 28 5-34 U/L Alanine Aminotransferase (ALT/SGPT) 24 0-55 U/L Alkaline Phosphatase 76 40-136 U/L Myoglobin 205.0 H 10.0-92.0 NG/ML Troponin I 0.125 H <0.028 NG/ML B-Type Natriuretic Peptide 210.2 H <100.0 PG/ML Total Protein 7.3 6.4-8.2 GM/DL Albumin 3.3 3.2-4.5 GM/DL Lactic Acid Level 0.94 0.50-2.00 MMOL/L Influenza Type A (RT-PCR) Not Detected Not Detecte Influenza Type B (RT-PCR) Not Detected Not Detecte SARS-CoV-2 RNA (RT-PCR) Not Detected Not Detecte Urine Color YELLOW Urine Clarity CLEAR Urine pH 6.0 5-9 Urine Specific [place] 1.010 L 1.016-1.022 Urine Protein TRACE H NEGATIVE Urine Glucose (UA) NEGATIVE NEGATIVE Urine Ketones NEGATIVE NEGATIVE Urine Nitrite NEGATIVE NEGATIVE Urine Bilirubin NEGATIVE NEGATIVE Urine Urobilinogen 0.2 < = 1.0 MG/DL Urine Leukocyte Esterase 1+ H NEGATIVE Urine RBC (Auto) 1+ H NEGATIVE Urine RBC 2-5 H /HPF Urine WBC 5-10 H /HPF Urine Crystals NONE /LPF Urine Bacteria TRACE /HPF Urine Casts NONE /LPF Urine Mucus NEGATIVE /LPF Urine Culture Indicated YES Test 12/31/21 20:46 01/01/22 03:00 01/01/22 08:41 Range/Units Troponin I 0.130 H 0.122 H 0.115 H <0.028 NG/ML White Blood Count 8.7 4.3-11.0 10^3/uL Red Blood Count 3.92 3.80-5.11 10^6/uL Hemoglobin 11.2 L 11.5-16.0 g/dL Hematocrit 34 L 35-52 % Mean Corpuscular Volume 88 80-99 fL Mean Corpuscular Hemoglobin 29 25-34 pg Mean Corpuscular Hemoglobin Concent 33 32-36 g/dL Red Cell Distribution Width 15.2 H 10.0-14.5 % Platelet Count 121 L 130-400 10^3/uL Mean Platelet Volume 12.0 9.0-12.2 fL Immature Granulocyte % (Auto) 1 % Neutrophils (%) (Auto) 69 42-75 % Lymphocytes (%) (Auto) 15 12-44 % Monocytes (%) (Auto) 14 H 0-12 % Eosinophils (%) (Auto) 1 0-10 % Basophils (%) (Auto) 0 0-10 % Neutrophils # (Auto) 6.0 1.8-7.8 10^3/uL Lymphocytes # (Auto) 1.3 1.0-4.0 10^3/uL Monocytes # (Auto) 1.2 H 0.0-1.0 10^3/uL Eosinophils # (Auto) 0.1 0.0-0.3 10^3/uL Basophils # (Auto) 0.0 0.0-0.1 10^3/uL Immature Granulocyte # (Auto) 0.1 0.0-0.1 10^3/uL Percent Immature Platelet Fraction 7.0 0.0-7.6 % Sodium Level 140 135-145 MMOL/L Potassium Level 3.4 L 3.6-5.0 MMOL/L Chloride Level 97 L 98-107 MMOL/L Carbon Dioxide Level 25 21-32 MMOL/L Anion Gap 18 H 5-14 MMOL/L Blood Urea Nitrogen 34 H 7-18 MG/DL Creatinine 1.06 0.60-1.30 MG/DL Estimat Glomerular Filtration Rate 52 BUN/Creatinine Ratio 32 Glucose Level 153 H 70-105 MG/DL Calcium Level 9.1 8.5-10.1 MG/DL Triglycerides Level 143 <150 MG/DL Cholesterol Level 101 < 200 MG/DL LDL Cholesterol Direct 44 1-129 MG/DL VLDL Cholesterol 29 5-40 MG/DL HDL Cholesterol 29 L 40-60 MG/DL Radiology ECHOCARDIOGRAM (01/01/2022): 1. This is a technically difficult study due to poor image quality secondary to patient's body habitus. 2. Left ventricle: The cavity size is normal. There is moderate concentric hypertrophy. Systolic function is normal. The estimated ejection fraction is 55- 60%. Regional wall motion abnormalities cannot be excluded due to poor endocardial definition. The left ventricular diastolic function is indeterminate. 3. Aortic valve: The aortic valve appears tricuspid with thickened and calcified leaflets with significantly restricted leaflet mobility. There is moderate to severe aortic stenosis with a mean gradient of 24 mmHg, peak gradient of 44 mmHg, a peak velocity of 3.3 m/s and a calculated aortic valve area of 1 cm. There is mild to moderate aortic regurgitation with a pressure half-time of 388 ms. 4. Mitral valve: The annulus is mildly calcified. There is mild mitral regurgitation. 5. Tricuspid valve: There is mild tricuspid regurgitation. 6. Pulmonary arteries: The estimated pulmonary artery systolic pressure is 35 mmHg assuming a right atrial pressure of 5 mmHg. However, this could be an underestimation since the inferior vena cava was not visualized and therefore, the right atrial pressure cannot be accurately estimated. ECG Impression ECG Comment Electrocardiogram from 12/31/21 shows dual-chamber pacemaker with atrial sensing and ventricular pacing. Diagnosis/Problems Diagnosis/Problems (1) Acute heart failure with preserved ejection fraction (HFpEF) Assessment & Plan: She appears to have some degree of decompensated heart failure. She received intravenous furosemide in the emergency room. She does not subjectively feel short of breath although she does not ambulate and is otherwise not all that active due to her inability to walk. I will obtain a follow-up chest x-ray in the morning. (2) Troponin level elevated Assessment & Plan: Her troponin levels are elevated but flat. She is not having any chest discomfort. This is in the setting of acute on chronic heart failure as well as some degree of acute kidney injury on top of chronic kidney disease. I suspect this is noncardiac elevation of the troponin level due to these other factors and does not represent an acute myocardial infarction. (3) Nonrheumatic aortic valve stenosis with regurgitation Assessment & Plan: She has at least severe aortic stenosis as noted on today's echocardiogram. She does have some degree of aortic regurgitation as well. This may be having some impact on her heart failure. This is being followed by her regular outpatient world travel counselor at the outside facility. (4) Paroxysmal atrial fibrillation Assessment & Plan: She believes that she has been taking Eliquis for a previous history of paroxysmal atrial fibrillation. However, she appears to be in sinus rhythm here in the hospital. She is ventricular pacing which suggest that she has some degree of AV node dysfunction, possibly third-degree AV block. (5) Primary hypertension Assessment & Plan: I recommend she continue on her regular outpatient antihypertensive medication. (6) Mixed hyperlipidemia Assessment & Plan: Her LDL level is under good control on her current dose of statin medication. (7) Acute kidney injury superimposed on chronic kidney disease Assessment & Plan: Possibly related to the decompensated heart failure. Her renal function will need to be followed closely. (8) Type 2 diabetes mellitus with complication Assessment & Plan: This is being managed by the hospitalist. (9) Cardiac pacemaker in situ Assessment & Plan: The device appears to be functioning normally based on the electrocardiogram from the emergency room. The device is followed by her regular outside world travel counselor. (10) Morbid obesity DOMINIQUE FINN JR, MD January 01, 2022 10:31
[2022-01-01] MEDS ORDERED: guaiFENesin SYRUP 100 MG/5 ML 10 ML (ROBITUSSIN SF) PO PRN (10:45)
--- NOTE | 2022-01-01 11:21 | Physical Therapy Evaluation ---
PT Evaluation-General Medical Diagnosis Admission Date December 31, 2021 at 15:57 Medical Diagnosis: CHF Onset Date: December 31, 2021 Therapy Diagnosis Therapy Diagnosis: impaired mobility Height/Weight Height (Feet): 5 Height (Inches): 10.00 Weight (Pounds): 195 Weight (Ounces): 6.4 Precautions Precautions/Isolations: Fall Prevention, Standard Precautions Referral Physician: Martin Reason for Referral: Evaluation/Treatment Medical History Pertinent Medical History: Arthritis, CAD, DM, GERD, HTN Additional Medical History Past Medical History Surgeries: Abdominal, Appendectomy, Gallbladder, Hysterectomy, Oophorectomy, Orthopedic, Tonsillectomy Currently Using CPAP: No Currently Using BIPAP: No Atrial Fibrillation, High Cholesterol, Hypertension Neuropathy, Paralysis, Spinal Cord Injury, 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, Menopausal Sexually Transmitted Disease: No HIV/AIDS: No Bladder Infection, Neurogenic Bladder, UTI-Chronic Gastroesophageal Reflux, Liver Disease/Jaundice, Chronic Constipation, Cirrhosis Degenerate Disk Disease, Arthritis, Fibromyalgia, Back Injury, Foot Drop, Chronic Back Pain, Fractures Diabetes, Insulin dep Cataract Loss of Vision: Denies Hearing Impairment: Hard of Hearing Depression Blood Disorders: No Adverse Reaction/Blood Tranf: No Reviewed History: Yes Social History Home: [facility] Prior Level of Function SCALE: Activities may be completed with or without assistive devices. 5-Elqbavdmos-qybwaho completes the activity by him/herself with no assistance from a helper. 5-Set-up or Clean-up Assistance-helper sets up or cleans up; patient completes activity. [place] assists only prior to or following the activity. 4-Supervision or Touching Assistance-helper provides verbal cues and/or to uching/steadying and/or contact guard assistance as patient completes activity. Assistance may be provided throughout the activity or intermittently. 3-Partial/Moderate Assistance-helper does LESS THAN HALF the effort. [place] lifts, holds or supports trunk or limbs, but provides less than half the effort. 2-Substantial/Maximal Assistance-helper does MORE THAN HALF the effort. [place] lifts or holds trunk or limbs and provides more than half the effort. 2-Mdrmvlswj-jmboqd does ALL the effort. Patient does none of the effort to complete the activity. Or, the assistance of 2 or more helpers is required for the patient to complete the activity. If activity was not attempted, code reason: 7-Patient Refused. 9-Not Applicable-not attempted and the patient did not perform the activity before the current illness, exacerbation or injury. 10-Not Attempted due to Environmental Limitations-(lack of equipment, weather restraints, etc.). 88-Not Attempted due to Medical Conditions or Safety Concerns. Bed Mobility: 4 Transfers (B,C,W/C): 4 Patient states she has not been ambulating for a long time but can now perform transfers with SBA PT Evaluation-Current Subjective Patient in bed pre tx, agrees to PT, has no complaints of pain at rest but does have some pain in legs with movement. Patient has some paralysis on the left leg. Pt/Family Goals "to get stronger" Objective Patient Orientation: Person, Place, Situation Attachments: Oxygen, [place] Catheter ROM/Strength ROM Lower Extremities limited in LLE Sensory Vision: Wears Glasses Hearing: Functional Transfers Roll Left to Right (QC): 3 Lying to Sitting/Side of Bed(Q: 3 Sit to Stand (QC): 3 Chair/Lmo-vt-Jgbmf Xfer(QC): 3 Balance Sitting Static: Fair Sitting Dynamic: Fair Standing Static: Poor Standing Dynamic: Poor Treatment BLE exercises x20 (AP, LAQ), AP not performed on the left side Assessment/Needs Patient in recliner post tx with nurse call, phone, tray, all needs met. Patient has impaired mobility, strength, endurance. Min assist for stand pivot transfer to recliner. Rehab Potential: Fair PT Skilled Nursing Goals Voice Intercept Technician Goals PT Skilled Nursing Goals Time Frame: Jan 08, 2022 Roll Left & Right (QC): 6 Sit to Lying (QC): 6 Lying-Sitting on Side/Bed(QC): 6 Sit to Stand (QC): 4 Chair/Dra-id-Yaevi Xfer(QC): 4 PT Plan Problem List Problem List: Activity Tolerance, Functional Strength, Safety, Balance, Gait, Transfer, Bed Mobility, ROM Treatment/Plan Treatment Plan: Continue Plan of Care Treatment Plan: Bed Mobility, Education, Functional Activity [place], Functional Strength, Gait, Safety, Therapeutic Exercise, Transfers Treatment Duration: Jan 08, 2022 Frequency: 6 times per week Estimated Hrs Per Day: .25 hour per day Patient and/or Family Agrees t: Yes Safety Risks/Education Patient Education: Transfer Techniques, Correct Positioning, Safety Issues Teaching Recipient: Patient Teaching Methods: Demonstration, Discussion Response to Teaching: Reinforcement Needed Discharge Recommendations Plan Patient will perform bed mobility and transfer training, balance and endurance training functional strengthening, and education, to improve functional mobility and independence at home. Therapy Discharge Recommendati: 24 Hour Supervision Time/GCodes Time In: 1046 Time Out: 1103 Total Billed Treatment Time: 17 Total Billed Treatment 1 visit TOY 17' LEXI CALERO PT January 01, 2022 11:21
[2022-01-01] MEDS ORDERED: MILK OF MAGNESIA 400 MG/5 ML 30 ML UDC PO PRN (12:00)
[2022-01-01] MEDS ORDERED: ONDANSETRON 4 MG/2 ML (SDV) Z0FRAN IV PRN (12:00)
[2022-01-01] MEDS ORDERED: ANTACID SUSP 30 ML UDC (MYLANTA) PO PRN (12:00)
[2022-01-01] MEDS ORDERED: MELATONIN 3 MG TABLET PO PRN (12:00)
[2022-01-01] MEDS ORDERED: KCL 20 MEQ TAB (K-DUR) PO ONE (12:00)
[2022-01-01] MEDS ORDERED: APIXABAN 2.5 MG (ELIQUIS) TABLET PO ONE (12:00)
--- NOTE | 2022-01-01 12:04 | Occupational Therapy Eval ---
OT Evaluation-General/PLF Medical Diagnosis Admission Date December 31, 2021 at 15:57 Medical Diagnosis: Heart failure Onset Date: December 31, 2021 Therapy Diagnosis Therapy Diagnosis: Weakness, decreased ADL skills Height/Weight Height (Feet): 5 Height (Inches): 10.00 Weight (Pounds): 195 Weight (Ounces): 6.4 Precautions Precautions/Isolations: Fall Prevention, Standard Precautions Weight Bear Status Weight Bearing Restriction: Weight Bearing/Tolerated Referral Physician: Martin Referral Reason: Activity Tolerance, Self Care, Evaluation/Treatment, Stren gthening/ROM Medical History Pertinent Medical History: Arthritis, CAD, DM, GERD, HTN Additional Medical History pacemaker, hysterectomy, DDD, fibromyalgia Current History Pt. lives in retirement. Began feeling ill. Came to hospital and found to be in heart failure. Reviewed History: Yes Social History Home: Group Home Current Living Status: 24 hour Entry Into Home: Level Entry ADL-Prior Level of Function SCALE: Activities may be completed with or without assistive devices. 8-Zibfefzgov-yqxfoiw completes the activity by him/herself with no assistance from a helper. 5-Set-up or Clean-up Assistance-helper sets up or cleans up; patient completes activity. [place] assists only prior to or following the activity. 4-Supervision or Touching Assistance-helper provides verbal cues and/or touching/steadying and/or contact guard assistance as patient completes activity. Assistance may be provided throughout the activity or intermittently. 3-Partial/Moderate Assistance-helper does LESS THAN HALF the effort. [place] lifts, holds or supports trunk or limbs, but provides less than half the effort. 2-Substantial/Maximal Assistance-helper does MORE THAN HALF the effort. [place] lifts or holds trunk or limbs and provides more than half the effort. 7-Gkpcagtjp-tngqvg does ALL the effort. Patient does none of the effort to complete the activity. Or, the assistance of 2 or more helpers is required for the patient to complete the activity. If activity was not attempted, code reason: 7-Patient Refused. 9-Not Applicable-not attempted and the patient did not perform the activity before the current illness, exacerbation or injury. 10-Not Attempted due to Environmental Limitations-(lack of equipment, weather restraints, etc.). 88-Not Attempted due to Medical Conditions or Safety Concerns. ADL PLOF Comments Pt. reports that she has assistance. She gets into a shower chair and they assist her with showering and dressing. Pt. also reports that she doesn't use a walker, but stands and pivots to where she is going. Self Care: Needed Some Help Functional Cognition: Unknown DME/Equipment: Bath Chair DME/Equipment Comments Wheelchair per pt. OT Current Status Subjective No pain reported. Appearance Pt. in bed. Alert. Agrees to work with therapy. Mental Status/Objective Patient Orientation: Person, Place Attachments: Oxygen ADL-Treatment On/Off Footwear (QC): 2 Other Treatments Pt. seen for co-treatment with PT/OT due to fatigue and weakness. Pt. transferred supine-sit EOB with increased time needed and min assist. Pt. declines using a walker and states that where she lives, they place a chair for her and she stands and pivots around. OT/PT did this for her. Pt. stands with CGA/min assist and as she is pivoting, sits too quickly and does not fully sit on her chair. She is distracted by her IV placement that is in her hand, and requires cues to sit back further on her chair and reposition herself. Pt. is able to scoot back onto chair, but this takes several attempts. Pt. unable to reach her feet to doff/don socks. Declines brushing her teeth. LE elevated in chair and all needs are met. Education OT Patient Education: Correct positioning, Modified ADL techniques, Progress toward Goal/Update tx plan, Purpose of tx/functional activities, Reviewed precautions, Rehab process, Transfer techniques Teaching Recipient: Patient Teaching Methods: Demonstration, Discussion Response to Teaching: Verbalize Understanding, Return Demonstration, Reinforcement Needed OT Short Term Goals Short Term Goals Time Frame: Jan 15, 2022 Eatin Oral hygiene: 4 Toileting hygiene: 3 Upper body dressin OT Cyber Instructor Goals Cyber Instructor Goals Time Frame: Jan 22, 2022 Eating (QC): 6 Oral Hygiene (QC): 5 Toileting Hygiene (QC): 5 Upper Body Dressing (QC): 5 Lower Body Dressing (QC): 3 On/Off Footwear (QC): 3 Additional Goals: 1-Demonstrate ADL Tasks, 2-Verbalize Understanding, 3- ImproveStrength/[place]yana 1=Demonstrate adherence to instructed precautions during ADL tasks. 2=Patient will verbalize/demonstrate understanding of assistive devices/modifications for ADL. 3=Patient will improve strength/tolerance for activity to enable patient to perform ADL's. OT Education/Plan Problem List/Assessment Assessment: Decreased Activ Tolerance, Decreased UE Strength, Dependent Transfers, Impaired Bed Mobility, Impaired Funct Balance, Impaired I ADL's, Impaired Self-Care Skills Discharge Recommendations Plan/Recommendations: Continue POC Therapy Discharge Recommendati: Post Acute OT Treatment Plan/Plan of Care Treatment,Training & Education: Yes Patient would benefit from OT for education, treatment and training to promote independence in ADL's, mobility, safety and/or upper extremity function for ADL's. Plan of Care: ADL Retraining, Functional Mobility, UE Funct Exercise/Act Treatment Duration: Jan 22, 2022 Frequency: 5 times per week Estimated Hrs Per Day: .25 hour per day Agreement: Yes Rehab Potential: Fair Pt. would benefit from OT services 3-5 x per week to increase overall strength and ADL independence. Time/GCodes Start Time: 10:50 Stop Time: 11:05 Total Time Billed (hr/min): 15 Billed Treatment Time 1, RHEAH Co-treat with PT. Please see above note for designated roles. NEDA ARNOLD OT January 01, 2022 12:04
[2022-01-01] MEDS ORDERED: RT-ALBUTEROL SULF 2.5 MG/3 ML PRE-MIX VIAL INH PRN (15:45)
[2022-01-01] MEDS: PREGABALIN 150 MG (LYRICA) CAPSULE PO SCH (15:51)
[2022-01-01] MEDS: ALLOPURINOL 100 MG (ZYLOPRIM) TAB PO SCH (15:51)
[2022-01-01] MEDS: inSUlin ASPART (NovoLOG) 1 UNIT/0.01 ML (CHARGE PER UNIT) SC SCH ×2 (15:58→19:57)
[2022-01-01] MEDS: HYDROcodone/APAP 5 MG/325 MG (LORTAB) TAB PO PRN (19:04)
[2022-01-01] MEDS: APIXABAN 2.5 MG (ELIQUIS) TABLET PO SCH (19:57)
[2022-01-01] MEDS ORDERED: MONTELUKAST 10 MG (SINGULAIR) TAB PO SCH (21:00)
[2022-01-02 03:57] VITALS: BP 142/69
[2022-01-02 04:56] LABS: MEAN PLATELET VOLUME 11.5 fL (9.0-12.2); WHITE BLOOD COUNT 7.6 10^3/uL (4.3-11.0)
[2022-01-02 05:22] LABS: POTASSIUM 3.4 MMOL/L (3.6-5.0)
[2022-01-02 05:28] LABS: CREATININE SERUM 0.85 MG/DL (0.60-1.30)
[2022-01-02] MEDS: FUROSEMIDE 40 MG (LASIX) TAB PO SCH (05:50)
[2022-01-02] MEDS: inSUlin ASPART (NovoLOG) 1 UNIT/0.01 ML (CHARGE PER UNIT) SC SCH ×3 (05:50→16:06)
[2022-01-02] MEDS: CATHETER FLUSH 10 ML SYR IVP SCH ×2 (06:44→13:58)
[2022-01-02 07:00] VITALS: BP 147/77
--- NOTE | 2022-01-02 07:42 | Diagnostic Imaging Report ---
INDICATION: 81-year-old female with heart failure. COMPARISONS: 12/31/2021. FINDINGS: Single view of the chest shows normal heart, pleura and diaphragms. There is some background chronic parenchymal changes. There is mild central venous congestion. There is no effusion or pneumothorax. There is a dual-chamber left-sided pacer. IMPRESSION: Some mild central venous congestion with few scattered alveolar infiltrates the pattern of which is similar to the previous study given differences in technique. Dictated by: Dictated on workstation # [id number]
[2022-01-02] MEDS: PREGABALIN 150 MG (LYRICA) CAPSULE PO SCH (07:53)
[2022-01-02] MEDS: HYDROcodone/APAP 5 MG/325 MG (LORTAB) TAB PO PRN (07:54)
[2022-01-02] MEDS: APIXABAN 2.5 MG (ELIQUIS) TABLET PO SCH (07:54)
[2022-01-02 08:00] VITALS: BP 147/77
[2022-01-02] MEDS ORDERED: ALLOPURINOL 100 MG (ZYLOPRIM) TAB PO SCH (09:00)
[2022-01-02] MEDS ORDERED: FLUTICASONE NASAL SPRAY (FLONASE) 16 GM BTL NS SCH (09:00)
[2022-01-02] MEDS ORDERED: PREGABALIN 150 MG (LYRICA) CAPSULE PO SCH (09:00)
--- NOTE | 2022-01-02 09:24 | Physical Therapy Progress Note ---
Therapy Progress Note Patient refuses physical therapy this morning. She doesn't appear is any distress. Educated patient on the importance of physical therapy but she continues to refuse stating "I woke up a couple of times during the night and I'm too tired". Patient is currently talking to a visitor in her room. LEXI CALERO PT January 02, 2022 09:24
--- NOTE | 2022-01-02 09:26 | Discharge Summary ---
Diagnosis/Chief Complaint Date of Admission December 31, 2021 at 15:57 Date of Discharge Admission Diagnosis CHF exacerbation Primary Care Marcel Castillo DO Discharge Diagnosis (1) Acute heart failure with preserved ejection fraction (HFpEF) Assessment & Plan: She appears to have some degree of decompensated heart failure. She received intravenous furosemide in the emergency room. She does not subjectively feel short of breath although she does not ambulate and is otherwise not all that active due to her inability to walk. I will obtain a follow-up chest x-ray in the morning. (2) Troponin level elevated Assessment & Plan: Her troponin levels are elevated but flat. She is not having any chest discomfort. This is in the setting of acute on chronic heart failure as well as some degree of acute kidney injury on top of chronic kidney disease. I suspect this is noncardiac elevation of the troponin level due to these other factors and does not represent an acute myocardial infarction. (3) Nonrheumatic aortic valve stenosis with regurgitation Assessment & Plan: She has at least severe aortic stenosis as noted on today's echocardiogram. She does have some degree of aortic regurgitation as well. This may be having some impact on her heart failure. This is being followed by her regular outpatient dynamic balancer set up worker at the outside facility. (4) Paroxysmal atrial fibrillation Assessment & Plan: She believes that she has been taking Eliquis for a previous history of paroxysmal atrial fibrillation. However, she appears to be in sinus rhythm here in the hospital. She is ventricular pacing which suggest that she has some degree of AV node dysfunction, possibly third-degree AV block. (5) Primary hypertension Assessment & Plan: I recommend she continue on her regular outpatient antihypertensive medication. (6) Mixed hyperlipidemia Assessment & Plan: Her LDL level is under good control on her current dose of statin medication. (7) Acute kidney injury superimposed on chronic kidney disease Assessment & Plan: Possibly related to the decompensated heart failure. Her renal function will need to be followed closely. (8) Type 2 diabetes mellitus with complication Assessment & Plan: This is being managed by the hospitalist. (9) Cardiac pacemaker in situ Assessment & Plan: The device appears to be functioning normally based on the electrocardiogram from the emergency room. The device is followed by her regular outside dynamic balancer set up worker. (10) Morbid obesity Discharge Summary Discharge Physical Exam Allergies: Coded Allergies: Iodine and Iodide Containing Produc (Verified Allergy, Unknown, ANAPHYLAXI S, RASH, 11/09/14) Sulfa (Sulfonamide Antibiotics) (Unverified Allergy, Unknown, NAUSEA AND VOMITING, 11/09/14) adhesive (Unverified Allergy, Unknown, 11/09/14) codeine (Unverified Allergy, Unknown, N/V , 11/09/14) tramadol (Unverified Allergy, Unknown, NAUSEA AND VOMITING, 11/09/14) Uncoded Allergies: PERFUME (Allergy, Unknown, 11/09/14) Vitals & I&Os Vital Signs Date Time Temp Pulse Resp B/P (MAP) Pulse Ox O2 Delivery O2 Flow Rate FiO2 01/02/22 08:03 High Flow N/C 2.00 01/02/22 08:00 36.8 77 23 147/77 (100) 97 Hospital Course Labs (last 24 hrs) Laboratory Tests 01/01/22 15:55: Glucometer 191H 01/01/22 19:50: Glucometer 248H 01/01/22 20:51: Glucometer 270H 01/02/22 04:45: White Blood Count 7.6, Red Blood Count 3.87, Hemoglobin 11.0L, Hematocrit 34L, Mean Corpuscular Volume 88, Mean Corpuscular Hemoglobin 28, Mean Corpuscular Hemoglobin Concent 32, Red Cell Distribution Width 14.9H, Platelet Count 143, Mean Platelet Volume 11.5, Percent Immature Platelet Fraction 5.9, Sodium Level 141, Potassium Level 3.4L, Chloride Level 99, Carbon Dioxide Level 27, Anion Gap 15H, Blood Urea Nitrogen 29H, Creatinine 0.85, Estimat Glomerular Filtration Rate 68, BUN/Creatinine Ratio 34, Glucose Level 205H, Calcium Level 9.0 Microbiology 12/31/21 Blood Culture - Preliminary, Resulted No growth Patient resulted labs reviewed. Pending Labs Laboratory Tests 01/02/22 04:45: White Blood Count 7.6, Red Blood Count 3.87, Hemoglobin 11.0, Hematocrit 34, Mean Corpuscular Volume 88, Mean Corpuscular Hemoglobin 28, Mean Corpuscular Hemoglobin Concent 32, Red Cell Distribution Width 14.9, Platelet Count 143, Mean Platelet Volume 11.5, Percent Immature Platelet Fraction 5.9, Sodium Level 141, Potassium Level 3.4, Chloride Level 99, Carbon Dioxide Level 27, Anion Gap 15, Blood Urea Nitrogen 29, Creatinine 0.85, Estimat Glomerular Filtration Rate 68, BUN/Creatinine Ratio 34, Glucose Level 205, Calcium Level 9.0 Discharge Home Medications: Active Scripts Active Fluconazole 100 Mg Tablet 100 Mg PO DAILY Cephalexin 250 Mg Capsule 500 Mg PO BID Reported Eye Health Adult 50+ Softgel (Antiox #11/Om3/Dha/Epa/Lut/Lucien) 1 Each Capsule 1 Cap PO BID Tylenol (Acetaminophen) 325 Mg Tablet 650 Mg PO Q6H PRN Iprat-Albut 0.5-3(2.5) mg/3 ml (Ipratropium/Albuterol Sulfate) 3 Ml Ampul.neb 3 Ml NEB Q6H PRN Hydrocodone-Acetamin 5-325 mg (Hydrocodone/Acetaminophen) 1 Each Tablet 1 Tab PO Q6H PRN Glutose 15 (Dextrose) 37.5 Gm Gel..gram. 15 Gm PO UD PRN Glucagon Emergency Kit (Glucagon,Human Recombinant) 1 Mg/Kit Soln 1 Mg SC UD PRN Dulcolax (Bisacodyl) 10 Mg Supp.rect 10 Mg RC Q72H PRN Lyrica (Pregabalin) 150 Mg Capsule 150 Mg PO TID Humalog Kwikpen (Insulin Lispro) 100 Unit/1 Ml Insuln.pen SQ TIDAC 0-119 = 0 UNITS 120-160 = 7 UNITS 161-200 = 12 UNITS 201-240 = 17 UNITS 241-280 = 21 UNITS 281-320 = 25 UNITS 321+ = 27 UNITS Tresiba Flextouch U-100 (Insulin Degludec) 100 Unit/1 Ml Insuln.pen 100 Units SC 0730 Humalog Kwikpen (Insulin Lispro) 100 Unit/1 Ml Insuln.pen SC HS 201-240 = 7 UNITS 241-280 = 9 UNITS 281-320 = 12 UNITS >320 = 14 UNITS Propranolol HCl 10 Mg Tablet 10 Mg PO BID Metoprolol Tartrate 25 Mg Tablet 25 Mg PO BID HOLD IF SBP<100 OR HR <60 Florastor (Saccharomyces Boulardii) 250 Mg Capsule 250 Mg PO BID Colace (Docusate Sodium) 100 Mg Capsule 100 Mg PO BID Vitamin C (Ascorbic Acid) 500 Mg Tablet 500 Mg PO DAILY Tradjenta (Linagliptin) 5 Mg Tablet 5 Mg PO DAILY Tizanidine HCl 2 Mg Tablet 2 Mg PO HS Multivitamins with Minerals (Multivitamin with Minerals) 1 Each Tablet 1 Tab PO DAILY Jardiance (Empagliflozin) 25 Mg Tablet 25 Mg PO DAILY Fluticasone Propionate 16 Gm Moriah.susp 1 Moriah NS DAILY Loratadine 10 Mg Tablet 10 Mg PO DAILY Citalopram HBr (Citalopram Hydrobromide) 20 Mg Tablet 20 Mg PO DAILY Aspirin EC (Aspirin) 81 Mg Tablet.dr 81 Mg PO DAILY Lisinopril 40 Mg Tablet 40 Mg PO DAILY HOLD FOR SBP<100 Atorvastatin Calcium 40 Mg Tablet 40 Mg PO HS Meclizine HCl 25 Mg Tablet 25 Mg PO TID PRN Co Q-10 (Ubidecarenone) 200 Mg Capsule 200 Mg PO DAILY Famotidine 20 Mg Tablet 20 Mg PO DAILY Instructions to patient/family Please see electronic discharge instructions given to patient. NINA BANEGAS MD January 02, 2022 09:26
--- NOTE | 2022-01-02 10:01 | Cardiology Progress Note ---
Progress Note-Cardiology Events since last exam Date Seen by Provider: January 02, 2022 Time Seen by Provider: 10:00 Events since last exam I am following her due to heart failure. Her breathing is improved. She denies chest pain, palpitations, syncope or change in her chronic ankle edema. She follows with a shovel handle assembler at [facility] in [place], [place]. Certain portions of this document may have been dictated utilizing voice recognition technology. Inherent to this technology, typographical and grammatical errors may exist. As much as I am diligent to identify and correct these mistakes, some errors may remain in the document. Vitals Last set of Vitals Signs Vital Signs 01/02/22 01/02/22 01/02/22 01/02/22 08:00 12:00 13:00 14:01 Temp 36.8 Pulse 77 Resp 18 B/P (MAP) 147/71 (96) Pulse Ox 95 O2 Delivery Nasal Cannula O2 Flow Rate 2.00 Labs Labs Laboratory Tests 01/02/22 04:45 Exam Vital Signs Vital Signs Date Time Temp Pulse Resp B/P (MAP) Pulse Ox O2 Delivery O2 Flow Rate FiO2 01/02/22 14:01 Nasal Cannula 2.00 01/02/22 13:00 77 01/02/22 12:00 18 147/71 (96) 95 01/02/22 08:00 36.8 Physical Exam General: Alert. No acute distress. She is morbidly obese. Eye: No xanthelasma. HENT: Normocephalic. Neck: Jugular venous pressure does not appear elevated. Respiratory: Lungs are clear to auscultation. Respirations are non-labored. Breath sounds are equal. Symmetrical chest wall expansion. Cardiovascular: Normal rate. Regular rhythm. 3/6 systolic ejection murmur. No gallop. Bilateral pretibial edema. Gastrointestinal: Soft. Normal bowel sounds. Skin: Warm. Dry. Neurologic: Alert and oriented to person, place, time. Cranial nerves 3-11 grossly intact. Her left leg is nearly paralyzed and her right leg is extremely weak. This is chronic due to previous low back surgery. Psychiatric: Cooperative. Appropriate mood & affect. Labs Laboratory Tests Test 01/01/22 15:55 01/01/22 19:50 01/01/22 20:51 01/02/22 04:45 Range/Units Glucometer 191 H 248 H 270 H 70-110 MG/DL White Blood Count 7.6 4.3-11.0 10^3/uL Red Blood Count 3.87 3.80-5.11 10^6/uL Hemoglobin 11.0 L 11.5-16.0 g/dL Hematocrit 34 L 35-52 % Mean Corpuscular Volume 88 80-99 fL Mean Corpuscular Hemoglobin 28 25-34 pg Mean Corpuscular Hemoglobin Concent 32 32-36 g/dL Red Cell Distribution Width 14.9 H 10.0-14.5 % Platelet Count 143 130-400 10^3/uL Mean Platelet Volume 11.5 9.0-12.2 fL Percent Immature Platelet Fraction 5.9 0.0-7.6 % Sodium Level 141 135-145 MMOL/L Potassium Level 3.4 L 3.6-5.0 MMOL/L Chloride Level 99 98-107 MMOL/L Carbon Dioxide Level 27 21-32 MMOL/L Anion Gap 15 H 5-14 MMOL/L Blood Urea Nitrogen 29 H 7-18 MG/DL Creatinine 0.85 0.60-1.30 MG/DL Estimat Glomerular Filtration Rate 68 BUN/Creatinine Ratio 34 Glucose Level 205 H 70-105 MG/DL Calcium Level 9.0 8.5-10.1 MG/DL Test 01/02/22 12:27 Range/Units Glucometer 204 H 70-110 MG/DL Diagnosis/Problems Diagnosis/Problems (1) Acute heart failure with preserved ejection fraction (HFpEF) Assessment & Plan: She appears to have had some degree of decompensated heart failure. She received intravenous furosemide in the emergency room. She does not subjectively feel short of breath although she does not ambulate and is othe rwise not all that active due to her inability to walk. Her chest x-ray from today [facility] have shown some slight improvement. I would not be opposed to her being transferred to the halfway facility today. She can follow-up with her regular shovel handle assembler at [facility] following discharge. (2) Troponin level elevated Assessment & Plan: Her troponin levels were elevated but flat. She is not having any chest discomfort. This is in the setting of acute on chronic heart failure as well as some degree of acute kidney injury on top of chronic kidney disease. I suspect this is noncardiac elevation of the troponin level due to these other factors and does not represent an acute myocardial infarction. (3) Nonrheumatic aortic valve stenosis with regurgitation Assessment & Plan: She has at least severe aortic stenosis as noted on today's echocardiogram. She does have some degree of aortic regurgitation as well. This may be having some impact on her heart failure. This is being followed by her regular outpatient shovel handle assembler at the outside facility. (4) Paroxysmal atrial fibrillation Assessment & Plan: She believes that she has been taking Eliquis for a previous history of paroxysmal atrial fibrillation. However, she appears to be in sinus rhythm here in the hospital. She is ventricular pacing which suggest that she has some degree of AV node dysfunction, possibly third-degree AV block. (5) Primary hypertension Assessment & Plan: I recommend she continue on her regular outpatient antihypertensive medication. (6) Mixed hyperlipidemia Assessment & Plan: Her LDL level is under good control on her current dose of statin medication. (7) Acute kidney injury superimposed on chronic kidney disease Assessment & Plan: Possibly related to the decompensated heart failure. Her creatinine level improved today. (8) Type 2 diabetes mellitus with complication Assessment & Plan: This is being managed by the hospitalist. (9) Cardiac pacemaker in situ Assessment & Plan: The device appears to be functioning normally based on the electrocardiogram from the emergency room. The device is followed by her regular outside shovel handle assembler. (10) Morbid obesity Assessment & Plan: She needs to work on weight loss. DOMINIQUE FINN JR, MD January 02, 2022 10:01
--- NOTE | 2022-01-02 10:35 | Discharge Inst-Simple/Standard ---
Discharge Inst-Standard Patient Instructions/Follow Up Plan of Care/Instructions/FU: Please continue to take your medications as written. Please follow up with your primary care doctor to follow up this hospital stay. Activity as Tolerated: Yes Discharge Diet: Cardiac Diet Return to The Hospital For: Chest pain, shortness of breath, fever, weakness, if you feel you are getting worse. NINA BANEGAS MD January 02, 2022 10:35
[2022-01-02] MEDS: ALLOPURINOL 100 MG (ZYLOPRIM) TAB PO SCH (10:41)
--- NOTE | 2022-01-02 10:52 | Occupational Ther Daily Note ---
OT Current Status-Daily Note Subjective Pt alert, lying in bed. Daughter present in room. SIMMS and daughter encouraged pt to participate in therapy, pt agreed reluctantly. No c/o pain, only fatigue. Mental Status/Objective Patient Orientation: Person, Place, Time, Situation Attachments: [place] Catheter, IV, Oxygen, Telemetry ADL-Treatment Pt states that she takes shower using shower chair and assistance given for buttock/jenny area and lower legs/feet. CGA for supine <--> EOB then sat EOB independently. Pt completed upper body and upper legs bathing then assist for rest of bathing. Due to lines/tubing, pt requires assist to complete upper body dressing, assist with lower body dressing. Pt declines oral care. After session, pt lying in bed with call light/phone in reach. All needs met in room. Therapy Code Descriptions/Definitions Functional [place] Measure: 0=Not Assessed/NA 4=Minimal Assistance 1=Total Assistance 5=Supervision or Setup 2=Maximal Assistance 6=Modified [place] 3=Moderate Assistance 7=Complete IndependenceSCALE: Activities may be completed with or without assistive devices. 8-Itcveohtuv-zokbuyv completes the activity by him/herself with no assistance from a helper. 5-Set-up or Clean-up Assistance-helper sets up or cleans up; patient completes activity. [place] assists only prior to or following the activity. 4-Supervision or Touching Assistance-helper provides verbal cues and/or touching/steadying and/or contact guard assistance as patient completes activity. Assistance may be provided throughout the activity or intermittently. 3-Partial/Moderate Assistance-helper does LESS THAN HALF the effort. [place] lifts, holds or supports trunk or limbs, but provides less than half the effort. 2-Substantial/Maximal Assistance-helper does MORE THAN HALF the effort. [place] lifts or holds trunk or limbs and provides more than half the effort. 6-Gkmlwqncd-pldcij does ALL the effort. Patient does none of the effort to complete the activity. Or, the assistance of 2 or more helpers is required for the patient to complete the activity. If activity was not attempted, code reason: 7-Patient Refused. 9-Not Applicable-not attempted and the patient did not perform the activity before the current illness, exacerbation or injury. 10-Not Attempted due to Environmental Limitations-(lack of equipment, weather restraints, etc.). 88-Not Attempted due to Medical Conditions or Safety Concerns. Shower/Bathe Self (QC): 2 (mod A) Lower Body Dressing (QC): 2 On/Off Footwear: 2 OT Short Term Goals Short Term Goals Time Frame: Jan 15, 2022 Eatin Oral hygiene: 4 Toileting hygiene: 3 Upper body dressin OT Alf Goals Electronic Commerce Specialist Goals Time Frame: Jan 22, 2022 Eating (QC): 6 Oral Hygiene (QC): 5 Toileting Hygiene (QC): 5 Upper Body Dressing (QC): 5 Lower Body Dressing (QC): 3 On/Off Footwear (QC): 3 Additional Goals: 1-Demonstrate ADL Tasks, 2-Verbalize Understanding, 3- ImproveStrength/Dyana 1=Demonstrate adherence to instructed precautions during ADL tasks. 2=Patient will verbalize/demonstrate understanding of assistive devices /modifications for ADL. 3=Patient will improve strength/tolerance for activity to enable patient to perform ADL's. OT Education/Plan Problem List/Assessment Assessment: Decreased Activ Tolerance, Decreased UE Strength, Impaired Self- Care Skills Discharge Recommendations Plan/Recommendations: Continue POC Treatment Plan/Plan of Care Patient would benefit from OT for education, treatment and training to promote independence in ADL's, mobility, safety and/or upper extremity function for ADL's. Plan of Care: ADL Retraining, Functional Mobility, UE Funct Exercise/Act Treatment Duration: Jan 22, 2022 Frequency: 5 times per week Estimated Hrs Per Day: .25 hour per day Agreement: Yes Rehab Potential: Fair Time/GCodes Start Time: 09:50 Stop Time: 10:30 Total Time Billed (hr/min): 40 Billed Treatment Time 1 visit-ADL 3 (40 min) LINDSEY DAMIAN January 02, 2022 10:52
[2022-01-02 12:00] VITALS: BP 147/71
[2022-01-02] MEDS ORDERED: ALLO100T PO (13:03)
[2022-01-02] MEDS ORDERED: SACC250C PO (13:03)
[2022-01-02] MEDS ORDERED: FURO20TA4 PO (13:03)
[2022-01-02] MEDS ORDERED: POTA-179 PO (13:03)
[2022-01-02] MEDS ORDERED: APIX2.5T PO (13:03)
[2022-01-02] MEDS ORDERED: INSU100I23 SQ ×2 (13:03)
[2022-01-02] MEDS ORDERED: PROP10DR3 OU (13:03)
[2022-01-02] MEDS ORDERED: GUAI1CAP52 PO (13:03)
[2022-01-02] MEDS ORDERED: TIZA-169 PO ×2 (13:03)
[2022-01-02] MEDS ORDERED: MAGN400O7 PO (13:03)
[2022-01-02] MEDS ORDERED: ACET-2267 PO (13:03)
[2022-01-02] MEDS ORDERED: DEXT38GE12 PO (13:03)
[2022-01-02] MEDS ORDERED: ACHD5005 PO ×2 (13:03→13:33)
[2022-01-02] MEDS ORDERED: MONT-40 PO (13:03)
--- NOTE | 2022-01-02 13:26 | Physical Therapy Progress Note ---
Therapy Progress Note Patient refuses therapy again this afternoon. Patient states she doesn't want to have to move unless she has to and she is being discharged from this facility this afternoon and will get out of bed then. LEXI CALERO PT January 02, 2022 13:26
[2022-01-02 15:00] VITALS: BP 165/81
[2022-01-02 16:00] VITALS: BP 165/81
--- NOTE | 2022-01-03 09:42 | Physician Query Clarification ---
PQ-Further Specificity Admission/Discharge Admission Date: December 31, 2021 at 15:57 Discharge Date: January 02, 2022 at 18:51 Dr. Nelson, The medical record reflects the following clinical scenario: History/Risk Factors: HTN w/acute on chronic diastolic CHF w/ CKD, GEETHA Clinical Findings: Troponin 0.130 Treatment: 40 mg IVP Lasix Question: Can you further specify the elevated troponin per the clinical indicators above? Please document a response in the Progress Notes or Discharge Summary. 1. Type 2 PR d/t demand ischemia 2. Elevated troponin not further specified 3. Other, with explanation of the clinical findings. 4. Clinically undetermined, no explanation for the clinical findings. PHYSICIAN RESPONSE Can you specify per above: 2 In responding to this query, please exercise your independent professional judgment. The purpose of this communication is to more accurately reflect the complexity of your patients condition. The fact that a question is asked does not imply that any particular answer is desired or expected. Thank you for your timely response to this clarification. Requestors name: Azael THIS PHYSICIAN QUERY FORM IS A PERMANENT PART OF THE MEDICAL RECORD AZAEL NGUYEN Jan 03, 2022 09:42 DOMINIQUE NELSON JR, MD Jan 03, 2022 14:34
== END 2022-01-02 18:51 | DRG 291 ==
LOC: EDUNIT# 14:29 → ER 14:30 → ICU 15:57 → CSD 16:59
PROVIDERS: ADMIT Family Medicine; ATTEND Family Medicine
DX: I13.0 Hypertensive heart and chronic kidney disease with heart failure and stage 1 through stage 4 chronic kidney disease, or unspecified chronic kidney disease (principal); I50.33 Acute on chronic diastolic (congestive) heart failure; N17.9 Acute kidney failure, unspecified; Z68.41 Body mass index [BMI] 40.0-44.9, adult; E11.22 Type 2 diabetes mellitus with diabetic chronic kidney disease; N18.9 Chronic kidney disease, unspecified; R09.02 Hypoxemia; R77.8 Other specified abnormalities of plasma proteins; I44.7 Left bundle-branch block, unspecified; I48.0 Paroxysmal atrial fibrillation; E11.40 Type 2 diabetes mellitus with diabetic neuropathy, unspecified; M79.662 Pain in left lower leg; M79.661 Pain in right lower leg; K21.9 Gastro-esophageal reflux disease without esophagitis; H81.09 Meniere's disease, unspecified ear; E78.00 Pure hypercholesterolemia, unspecified; E78.2 Mixed hyperlipidemia; N31.9 Neuromuscular dysfunction of bladder, unspecified; K74.60 Unspecified cirrhosis of liver; M19.91 Primary osteoarthritis, unspecified site; M79.7 Fibromyalgia; E66.01 Morbid (severe) obesity due to excess calories; H91.90 Unspecified hearing loss, unspecified ear; H54.7 Unspecified visual loss; F32.A Depression, unspecified; I35.8 Other nonrheumatic aortic valve disorders; Z79.4 Long term (current) use of insulin; Z79.84 Long term (current) use of oral hypoglycemic drugs; Z88.5 Allergy status to narcotic agent; Z88.2 Allergy status to sulfonamides; Z88.8 Allergy status to other drugs, medicaments and biological substances; Z79.82 Long term (current) use of aspirin; Z82.49 Family history of ischemic heart disease and other diseases of the circulatory system; Z82.69 Family history of other diseases of the musculoskeletal system and connective tissue
CPT/HCPCS: 36415; 51702; 71045; 72170; 80048; 80053; 80061; 81000; 82947; 83605; 83735; 83874; 83880; 84484; 85025; 85027; 85610; 85730; 87040; 87088; 87636; 93005; 93041; 93306; 94760; 94761